=== PATIENT | female | born 1935 | race African-American/Black ===

== ENCOUNTER 2019-09-20 20:09 | Inpatient (IN) | payer OTHER ==
[~2019-09-20] VITALS: Ht 167.6 cm; Wt 72.4 kg
[2019-09-20 22:13] LABS: Basophils # (auto) 0 10 ^3/uL (0-0.2); Basophils % (auto) 0.3 % (0.0-2.0); Eosinophils # (auto) 0.2 10 ^3/uL (0-0.8); Eosinophils % (auto) 2.4 % (0.0-7.0); Hematocrit 39.2 % (36.0-46.0); Hemoglobin 13.1 g/dL (12.2-16.2); Lymphocytes # (auto) 0.8 10 ^3/uL (0.4-5.4); Lymphocytes % (auto) 12.1 % (10.0-50.0); Mean Corpuscular Hemoglobin 27.7 pg (28.0-32.0); Mean Corpuscular Hgb Conc. 33.3 g/dL (32.0-36.0); Mean Corpuscular Volume 83.1 fL (80.0-100.0); Monocytes # (auto) 0.5 10 ^3/uL (0-1.3); Monocytes % (auto) 7.8 % (0.0-12.0); Neutrophils # (auto) 5.3 10 ^3/uL (1.6-8.6); Neutrophils % (auto) 77.4 % (37.0-80.0); Platelet Count (auto) 112 10^3/uL (140-450); Red Blood Cells 4.72 10^6/uL (4.0-5.20); White Blood Cell 6.8 10^3/uL (4.4-10.8)
[2019-09-20 22:15] LABS: INR 1.01 (0.9-1.15)
[2019-09-20 22:18] LABS: Chloride 108 mmol/L (98-107); Potassium 3.6 mmol/L (3.5-5.1); Sodium 141 mmol/L (136-145)
[2019-09-20 22:28] LABS: Alanine Aminotransferase 30 U/L (13-56); Albumin 3.5 g/dL (3.4-5.0); Alkaline Phosphatase 92 U/L (45-117); Anion Gap 2 (5-15); Aspartate Aminotransferase 21 U/L (15-37); BUN/Creatinine Ratio 20.2; Bilirubin, Total 0.5 mg/dL (0.2-1.0); Blood Urea Nitrogen 19 mg/dL (7-18); Carbon Dioxide 31 mmol/L (21-32); GFR African American 73 mL/min; GFR Non-African American 60 mL/min; Glucose 73 mg/dL (74-106); Magnesium 2.6 mg/dL (1.6-2.6); Total Protein 7.2 g/dL (6.4-8.2)
[2019-09-21 02:19] LABS: Urine Bacteria FEW /hpf (None Seen); Urine Blood Negative /uL (Negative); Urine Hyaline Cast FEW /lpf (0 - 2); Urine Specific Gravity 1.023 (1.001-1.035); Urine WBC 16 /hpf (0 - 5)
[2019-09-21] MEDS ORDERED: ACETAMINOPHEN 325 MG TAB PO PRN (05:45)
[2019-09-21] MEDS ORDERED: MECLIZINE HCL 25 MG TAB PO PRN (05:45)
[2019-09-21] MEDS ORDERED: TEMAZEPAM 15 MG CAP PO PRN (05:45)
[2019-09-21] MEDS ORDERED: ONDANSETRON HCL 4 MG/2 ML VIAL IV PRN (05:45)
[2019-09-21] MEDS: levoFLOXacin 500MG 100 ML IV SCH (08:05)
--- NOTE | 2019-09-21 09:05 | NUR ---
MS admit from ER KAVITA, RELLA admitted to tele/MS after SBAR received. Patient oriented to EMMA CONTRERAS RN primary RN, unit, room, bed, and unit policies regarding patient care and visiting hours. Patient is awake, alert and oriented x4. No signs or symptoms of distress noted at this time. Patient denies pain at this time. Patient is on room air, respirations even and unlabored. Reviewed plan of care with patient, patient verbalized understanding. Bed in low and locked position, call light within reach, bed alarm on for safety. Will continue to monitor Q1 hour and PRN.
[2019-09-21] MEDS: ENOXAPARIN SOD 40 MG/0.4 ML SYRINGE SC SCH (10:00)
[2019-09-21 10:07] VITALS: BP 134/68
[2019-09-21] MEDS: FAMOTIDINE 20 MG TAB PO SCH ×2 (10:11→22:17)
[2019-09-21] MEDS: GABAPENTIN 300 MG CAP PO SCH ×2 (10:11→22:17)
[2019-09-21] MEDS: TRIAMTERENE/HCTZ 37.5/25 MG CAP/TAB PO SCH (10:12)
[2019-09-21] MEDS ORDERED: LATA0.0019 EACHEYE (10:26)
[2019-09-21] MEDS ORDERED: GABA300C10 PO (10:26)
[2019-09-21] MEDS ORDERED: TRIATAB3 PO (10:26)
[2019-09-21 12:00] VITALS: BP 131/66
--- NOTE | 2019-09-21 14:56 | NUR ---
Dr. Van at nurse station Discussing plan of care with this RN. Patient is a possible discharge home tomorrow with home health. Will continue to monitor Q1 hour and PRN.
--- NOTE | 2019-09-21 15:20 | NUR ---
Patient ambulating around unit with PT.
[2019-09-21 17:00] VITALS: BP 129/83
--- NOTE | 2019-09-21 19:10 | NUR ---
Closing Note Report given to sandwich board carrier RN. No signs or symptoms of distress noted at this time.
--- NOTE | 2019-09-21 19:40 | NUR ---
Opening Shift Note Assumed care of patient, awake, AAOx4. No S/S of distress/SOB or pain. On room air and ambulatory with standby assist. Commode at bedside. Bed in lowest locked position, side rails up x2, call light within reach. Instructed on POC and to call for assist PRN, will continue to monitor for changes Q1hr and PRN.
[2019-09-21 20:00] VITALS: BP 101/57
[2019-09-21 22:00] VITALS: BP 101/57
[2019-09-22 05:00] VITALS: BP 98/57
[2019-09-22 06:14] LABS: Basophils # (auto) 0 10 ^3/uL (0-0.2); Basophils % (auto) 0.3 % (0.0-2.0); Eosinophils # (auto) 0.2 10 ^3/uL (0-0.8); Eosinophils % (auto) 3.9 % (0.0-7.0); Hematocrit 40.3 % (36.0-46.0); Hemoglobin 13.4 g/dL (12.2-16.2); Lymphocytes % (auto) 22.2 % (10.0-50.0); Mean Corpuscular Hemoglobin 27.6 pg (28.0-32.0); Mean Corpuscular Hgb Conc. 33.3 g/dL (32.0-36.0); Monocytes # (auto) 0.4 10 ^3/uL (0-1.3); Monocytes % (auto) 9.5 % (0.0-12.0); Neutrophils # (auto) 2.9 10 ^3/uL (1.6-8.6); Neutrophils % (auto) 64.1 % (37.0-80.0); Platelet Count (auto) 100 10^3/uL (140-450); Red Blood Cells 4.85 10^6/uL (4.0-5.20); Red Cell Distribution Width 15.2 % (11.8-14.3); White Blood Cell 4.5 10^3/uL (4.4-10.8)
[2019-09-22 06:18] LABS: BUN/Creatinine Ratio 21.9; Calcium 9.6 mg/dL (8.5-10.1); Potassium 4.3 mmol/L (3.5-5.1)
[2019-09-22] MEDS: levoFLOXacin 500MG 100 ML IV SCH (08:19)
[2019-09-22 09:00] VITALS: BP 112/64
[2019-09-22] MEDS: ENOXAPARIN SOD 40 MG/0.4 ML SYRINGE SC SCH (10:22)
[2019-09-22] MEDS: TRIAMTERENE/HCTZ 37.5/25 MG CAP/TAB PO SCH (10:22)
[2019-09-22] MEDS: FAMOTIDINE 20 MG TAB PO SCH (10:22)
[2019-09-22] MEDS: GABAPENTIN 300 MG CAP PO SCH (10:22)
--- NOTE | 2019-09-22 11:00 | NUR ---
assessment Patient is a 83 year old female who is answering appropriately. Prior to admission patient lived home with family and functioned with assistance. Per patient she will return home to her prior living arrangements post discharge and family will transport her home. Patient informed me her grandson Gideon is her caregiver. Patients PCP is Dr Beckofrd. Patient has a fww, rollator, and bedside commode for home use. Patient has a ss consult and Nissa GUTIERREZ will satisfy order. I informed patient she has a right to speak to a social insurance analyst regarding all care. I informed patient she has a right to participate in any and all discharge planning. Patient does not have a POA and advanced directive. I have offered patient information on POA and advanced directives. I informed the patient the advantages and benefits of having an Advanced Directive. Patient verbalized understanding and agreed to discharge plan. Addendum: 09/22/19 at 1600 by Muna KEYES Amended: Links added.
--- NOTE | 2019-09-22 11:20 | NUR ---
at bedside MD Van at bedside, aware of patient's status. New orders received for dc home and HH service. Will dc as ordered pending setting up of HH.
[2019-09-22] MEDS ORDERED: CIPR-173 PO (11:23)
[2019-09-22 12:19] VITALS: BP 112/64
[2019-09-22 13:00] VITALS: BP 94/60
--- NOTE | 2019-09-22 13:23 | NUR ---
Social Service consult regarding starting service with [facility]. Pt is new to this Home Health. The service will begin upon discharge.. [facility] contacted and information faxed to [facility]. The information was received and services to resume upon discharge. Will notify covering nurse and KATHY II of the above.
--- NOTE | 2019-09-22 14:32 | NUR ---
I faxed home health order to [facility]-requesting authorization for [facility].
--- NOTE | 2019-09-22 16:48 | NUR ---
Discharge instructions given as ordered to patient, and after patient's consent, daughter Sally at bedside. Encourage to follow up with PMD as instructed. All questions and concerns addressed. Patient and daughter verbalized understanding. Medication reconciliation form completed and copy given to patient. Home medications held in Pharmacy returned to patient. IV removed with catheter intact, pressure dressing applied. Patient and daughter notified that HH service is with [facility] and service will start 24-4hrs after dc. Patient's daughter provided with phone number to [facility]. Patient taken to vehicle via wheelchair with all personal belongings, accompanied by staff and family member. No distress noted at time of departure.
[2019-09-22 17:00] VITALS: BP 117/73
== END 2019-09-22 17:10 | disposition home or self-care (01) | DRG 689 ==
LOC: EDBD 20:09 → ER 20:17 → OVERFLOW 20:18 → CENTRAL 09-21 09:54
PROVIDERS: ADMIT Nurse Practitioner; ATTEND Hospitalist
DX: N39.0 Urinary tract infection, site not specified (principal); J18.9 Pneumonia, unspecified organism; J44.9 Chronic obstructive pulmonary disease, unspecified; Z85.118 Personal history of other malignant neoplasm of bronchus and lung
CPT/HCPCS: 36415; 70450; 71045; 80048; 80053; 81001; 83735; 83880; 84484; 85025; 85610; 85730; 87086; 87804; 93005; 96365; 96372; 97116; 97163; 97530; G0378; J1956

== ENCOUNTER 2024-05-15 20:08 | Inpatient (IN) | payer OTHER ==
[~2024-05-15] VITALS: Ht 157.5 cm; Wt 62.9 kg
[~2024-05-15 20:08] MED LIST: CIPR-173 PO; GABA-1250 PO; LATA0.008 EACHEYE; TRIATAB3 PO
--- NOTE | 2024-05-15 20:39 | ED.PDOC ---
History of Present Illness HPI Comments 88 year old female came to ER via EMS due to weakness. Patient has history of COPD and lung cancer, has been on home oxygen at 2lpm. For the past 2 weeks, progressive generalized weakness. Tested negative for COVID, and patient was started on Azithromycin. Patient also complaining of shortness of breath and pa inful urination. Was noted to be saturating at 86% at 2lpm on scene Chief Complaint: General Weakness Time Seen by MD: 20:39 Reviewed Notes: Nurses Notes, Embroiderer Notes Allergies: Coded Allergies: NO KNOWN ALLERGIES (Unverified , 09/20/19) Home Meds Active Scripts Ciprofloxacin Hcl (Cipro) 500 Mg Tab, 1 TAB PO BID, #10 TAB Prov:STEVE TRUJILLO MD 09/22/19 Reported Medications Latanoprost (LATANOPROST) 0.005 % Brenda, 1 DROP EACHEYE QPM, #7.5 ML 3 Refills 09/21/19 Triamterene & Hydrochlorothiaz (Maxzide-25) Tab, 1 TAB PO DAILY, #30 TAB 5 Refills 09/21/19 Gabapentin (Gabapentin) 300 Mg Cap, 300 MG PO Q8HP PRN for neuropathy for 30 Days, MG 09/21/19 Information Source: Patient, Emergency Med Personnel Mode of Arrival: Ambulatory Severity: Moderate Timing: Days Duration: Since onset Prehospital treatment: None Past Medical History PAST MEDICAL HISTORY: Cancer (lung), COPD Surgical History: Denies all surgeries LABORER PIPELINE History: Denies all LABORER PIPELINE Hx Family History Family History: Reviewed,noncontributory to illness Social History Smoker: Non-Smoker Alcohol: Denies ETOH Use Drugs: Denies Drug Use Lives In: Home Constitutional: reports: fatigue, weakness; denies: chills, diaphoresis, fever, malaise, sweats, others EENTM: denies: blurred vision, double vision, ear bleeding, ear discharge, ear drainage, ear pain, ear ringing, eye pain, eye redness, hearing loss, mouth pain, mouth swelling, nasal discharge, nose bleeding, nose congestion, nose pain, photophobia, tearing, throat pain, throat swelling, voice changes, others Respiratory: reports: SOB at rest, shortness of breath, SOB with excertion; denies: cough, hemoptysis, orthopnea, stridor, wheezing, others Cardiovascular: denies: chest pain, dizzy spells, diaphoresis, Dyspnea on exertion, edema, irregular heart beat, left arm pain, lightheadedness, palpitations, PND, syncope, others Gastrointestinal: denies: abdomen distended, abdominal pain, blood streaked bowels, constipated, diarrhea, dysphagia, difficulty swallowing, hematemesis, melena, nausea, poor appetite, poor fluid intake, rectal bleeding, rectal pain, vomiting, others Genitourinary: reports: dysuria; denies: abnormal vagina bleeding, burning, dyspareunia, flank pain, frequency, hematuria, incontinence, pain, , vagina discharge, urgency, others Neurological: denies: dizziness, fainting, headache, left sided numbness, left sided weakness, numbness, paresthesia, pre-existing deficit, right sided numbness, right sided weakness, seizure, speech problems, tingling, tremors, wea kness, others Musculoskeletal: denies: back pain, gout, joint pain, joint swelling, muscle pain, muscle stiffness, neck pain, others Integumetry: denies: bruises, change in color, change in hair/nails, dryness, l aceration, lesions, lumps, rash, wounds, others Allergic/Immunocompromised: denies: Difficulty Healing, Frequent Infections, Hives, Itching, others Hematologic/Lymphatic: denies: anemia, blood clots, easy bleeding, easy bruising, swollen glands, others Endocrine: denies: excessive hunger, excessive sweating, excessive thirst, excessive urination, flushing, intolerance to cold, intolerance to heat, unexplained weight gain, unexplained weight loss, others Psychiatric: denies: anxiety, bipolar disorder, depression, hopeless, panic disorder, schizophrenia, sleepless, suicidal, others Physical Exam General Appearance: No Apparent Distress, Normal HEENT: Normal ENT Inspection, Pharynx Normal, TMs Normal Neck: Full Range of Motion, Non-Tender, Normal, Normal Inspection Respiratory: Chest Non-Tender, Lungs Clear, No Accessory Muscle Use, No Respiratory Distress, Normal Breath Sounds Cardiovascular: No Edema, No JVD, No Murmur, No Gallop, Normal Peripheral Pulses, Regular Rate/Rhythm Breast Exam: Deferred Gastrointestinal: No Organomegaly, Non Tender, No Pulsatile Mass, Normal Bowel Sounds, Soft Genitalia: Deferred Pelvic: Deferred Rectal: Deferred Extremities: No calf tenderness, Normal capillary refill, Normal inspection, Normal range of motion, Non-tender, No pedal edema Musculoskeletal : Apperance: Normal Neurologic: Alert, designer writer II-XII nml as Tested, No Motor Deficits, Normal Affect, Normal Mood, No Sensory Deficits Cerebellar Function: Normal Reflexes: Normal Skin: Dry, Normal Color, Warm Lymphatic: No Adenopathy Was a procedure done? Was a procedure done?: No Differential Dx Considerations may include: anemia, electrolyte imbalance, COPD, UTI, sepsis X-Ray, Labs, Meds, VS Vital Signs Date Time Temp Pulse Resp B/P (MAP) Pulse Ox O2 Delivery O2 Flow Rate FiO2 05/16/24 05:00 107 22 111/59 (76) 99 05/16/24 03:00 114 17 119/65 (83) 95 05/16/24 01:00 123 21 120/66 (84) 96 05/15/24 23:19 118 24 93 Nasal Cannula* 2 28 05/15/24 23:00 118 24 125/65 (85) 93 05/15/24 21:01 98.8 115 20 119/63 (81) 100 98.8 05/15/24 20:14 123 05/15/24 20:12 98.3 120 22 151/79 (103) 100 Lab Test 05/15/24 20:43 Range/Units White Blood Count 15.9 H 4.4-10.8 10^3/uL Red Blood Count 4.87 4.0-5.20 10^6/uL Hemoglobin 11.8 L 12.2-16.2 g/dL Hematocrit 36.3 36.0-46.0 % Mean Corpuscular Volume 74.4 L 80.0-100.0 fL Mean Corpuscular Hemoglobin 24.1 L 28.0-32.0 pg Mean Corpuscular Hemoglobin Concent 32.4 32.0-36.0 g/dL Red Cell Distribution Width 15.7 H 11.8-14.3 % Platelet Count 180 140-450 10^3/uL Mean Platelet Volume 10.0 6.9-10.8 fL Neutrophils (%) (Auto) 88.5 H 37.0-80.0 % Lymphocytes (%) (Auto) 2.6 L 10.0-50.0 % Monocytes (%) (Auto) 8.8 0.0-12.0 % Eosinophils (%) (Auto) 0.0 0.0-7.0 % Basophils (%) (Auto) 0.1 0.0-2.0 % Neutrophils # (Auto) 14.1 H 1.6-8.6 10 ^3/uL Lymphocytes # (Auto) 0.4 0.4-5.4 10 ^3/uL Monocytes # (Auto) 1.4 H 0-1.3 10 ^3/uL Eosinophils # (Auto) 0 0-0.8 10 ^3/uL Basophils # (Auto) 0 0-0.2 10 ^3/uL Nucleated Red Blood Cells 0.2 % Sodium Level 129 L 136-145 mmol/L Potassium Level 3.8 3.5-5.1 mmol/L Chloride Level 94 L 98-107 mmol/L Carbon Dioxide Level 31 20-31 mmol/L Anion Gap 4 L 5-15 Blood Urea Nitrogen 13 9-23 mg/dL Creatinine 0.60 0.550-1.02 mg/dL Glomerular Filtration Rate Calc 86 >90 mL/min BUN/Creatinine Ratio 21.7 H 10.0-20.0 Serum Glucose 126 H 74-106 mg/dL Calcium Level 10.2 8.7-10.4 mg/dL Current Medications Medications (Trade) Dose Ordered Sig/Erica Route Start Time Stop Time Status Last Admin Sodium Chloride 1,000 ml @ 1,000 mls/hr Q1H ONCE IV 05/15/24 23:30 05/16/24 00:29 DC 05/15/24 23:38 Time of 1ST Reevaluation: 20:34 Reevaluation 1ST: Unchanged Patient Education/Counseling: Diagnosis, Treatment Family Education/Counseling: No Family Present Departure 1 Departure Time of Disposition: 05:24 (Patient presented with chest pain that was concerning for possible STEMI, ACS, PE, Pneumonia, Muscle Strain, COPD, Dissecti on. Data: 1. I ordered and reviewed the result of at least 3 labs including a CBC, BMP, and Troponin. 2. I independently interpreted the following tests: EKG which shows sinus arrhythmia and Chest X-ray which shows went out right lung.Risk:This patient has a high risk of morbidity due to further diagnostic testing or treatment and may suffer from an acute cardiac or respiratory dis order. Workup reveals likely lung cancer with bronchial compression. and patient should be admitted for further workup and possible expert consultation. ) Impression: Primary Impression: Shortness of breath Additional Impressions: Weakness Mass of right lung Disposition: ADMITTED INPATIENT Admit to: Med Surg Condition: Serious Critical Care Note Critical Care Time?: Yes Critical care comment: Acute shortness of breath Authorized and Performed by: Elías Whitaker MD Total critical care time: Approximately 44 minutes Due to a high probability of clinically significant, life threatening deterioration, the patient required my highest level of preparedness to intervene emergently and I personally spent this critical care time directly and personally managing the patient. This critical care time included obtaining a history; examining the patient; pulse oximetry; ordering and review of studies; arranging urgent treatment with development of a management plan; evaluation of patient's response to treatment; frequent reassessment; and, discussions with other providers. This critical care time was performed to assess and manage the high probability of imminent, life-threatening deterioration that could result in multi-organ failure. It was exclusive of separately billable procedures and treating other patients and teaching time. Please see my other sections and the rest of the note for further information on patient assessment and treatment. Stability Stability form required: No Heart Score Heart Score: Heart Score Response (Comments) Value History N/A 0 EKG N/A 0 Age N/A 0 Risk Factors N/A 0 Troponin N/A 0 Total 0 I personally scribed for ELÍAS WHITAKER MD ([email or web address]) on 05/15/24 at 20:39. Electronically submitted by Manjeet Medellin ([email or web address]). I personally scribed for ELÍAS WHITAKER MD ([email or web address]) on 05/15/24 at 20:40. Electronically submitted by Manjeet Medellin ([email or web address]). ELÍAS WHITAKER MD May 15, 2024 20:39
[2024-05-15 21:06] LABS: Basophils # (auto) 0 10 ^3/uL (0-0.2); Eosinophils # (auto) 0 10 ^3/uL (0-0.8); Mean Corpuscular Volume 74.4 fL (80.0-100.0); Monocytes # (auto) 1.4 10 ^3/uL (0-1.3); Neutrophils % (auto) 88.5 % (37.0-80.0); Red Cell Distribution Width 15.7 % (11.8-14.3)
--- NOTE | 2024-05-15 21:07 | DVH ---
EXAM: XY CHEST PORTABLE TECHNIQUE: Single frontal chest radiograph CLINICAL HISTORY: weakness COMPARISON: CHEST PORTABLE on DOS: 09/20/19 Findings/Impression: Frontal chest radiograph demonstrates no acute osseous or superficial soft tissue abnormalities. The trachea is midline. The cardiac silhouette and mediastinum are within normal limits. Near complete right lung atelctasis. Possible large right pleural effusion. An underlying mass or sup erimposed infectious process is not excluded. No pneumothorax.
[2024-05-15 21:08] LABS: Basophils % (auto) 0.1 % (0.0-2.0); Hematocrit 36.3 % (36.0-46.0); Hemoglobin 11.8 g/dL (12.2-16.2); Lymphocytes # (auto) 0.4 10 ^3/uL (0.4-5.4); Lymphocytes % (auto) 2.6 % (10.0-50.0); Mean Corpuscular Hemoglobin 24.1 pg (28.0-32.0); Mean Corpuscular Hgb Conc. 32.4 g/dL (32.0-36.0); Monocytes % (auto) 8.8 % (0.0-12.0); Neutrophils # (auto) 14.1 10 ^3/uL (1.6-8.6); Nucleated Red Blood Cells % 0.2 %; Platelet Count (auto) 180 10^3/uL (140-450); Red Blood Cells 4.87 10^6/uL (4.0-5.20); White Blood Cell 15.9 10^3/uL (4.4-10.8)
[2024-05-15 21:13] LABS: Chloride 94 mmol/L (98-107); Potassium 3.8 mmol/L (3.5-5.1); Sodium 129 mmol/L (136-145)
[2024-05-15 21:15] LABS: Anion Gap 4 (5-15); Calcium 10.2 mg/dL (8.7-10.4); Carbon Dioxide 31 mmol/L (20-31)
[2024-05-15 21:20] LABS: BUN/Creatinine Ratio 21.7 (10.0-20.0); Blood Urea Nitrogen 13 mg/dL (9-23); Glucose 126 mg/dL (74-106)
[2024-05-15 23:19] VITALS: PULSE 118; RESP 24; O2SAT 93
[2024-05-15] MEDS: SODIUM CHLORIDE 0.9% 1,000 ML IV ONE (23:38)
--- NOTE | 2024-05-15 23:43 | ECG ---
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
[2024-05-15] MEDS: IOHEXOL 300 MG/ML 100ML BOTTLE IJ ONE (23:58)
[2024-05-16] VITALS (8 sets, daily range): BP systolic 106–126; BP diastolic 47–70; PULSE 113–123; RESP 16–21; TEMP 97.9–98.6; O2SAT 95–100
--- NOTE | 2024-05-16 04:57 | DVH ---
Examination: CXICT CLINICAL INDICATION: better evaluate xray findings COMPARISON: None. CONTRAST USED: Intravenous. TECHNIQUE: A post contrast CT study of the chest is performed. CT scan done according to ALARA (As Low as Reasonably Achievable). Multiplanar reconstructions were obtained. FINDINGS: Lower neck and thyroid: The thyroid is heterogeneous in appearance with a few non-enhancing tiny nod ules in both lobes, the largest in the left lobe, measuring 1 cm posteriorly. Lungs and pleura: There are bilateral pleural effusions, larger on the right with compressive passiv e atelectasis of the lungs, extensive on the right with near complete atelectasis of the right lung e xcept parts of the right upper lobe, which are still aerated. There are areas of parenchymal breakdown, cavitation in the right upper lobe. There is a heterogeneo usly enhancing questionable mass in the right perihilar region, measuring 2.7 x 2 cm x 3 cm. It is c ausing narrowing of the right upper as well as the right bronchus intermedius. Mediastinum, Heart and great vessels: The trachea and the mainstem bronchi are normal. No significant mediastinal lymphadenopathy is detec saeid. There is a moderate sized pericardial effusion with maximum thickness of 1 cm. Atherosclerotic calcification is seen in the aorta and the coronary vessels. No aneurysmal dilatation of the aorta is seen. The pulmonary arteries caliber are unremarkable. Cardiac size appears normal. No obvious pericardial effusion. Liver: Unremarkable. Spleen: Visualized unremarkable. Gallbladder: Not visualized. Adrenal glands: There is a hypoenhancing left adrenal nodule, measuring 2 x 3 cm. Unremarkable right adrenal gland. Pancreas: Unremarkable. Kidneys: Visualized unremarkable. Osseous structures: Unremarkable. Degenerative changes with multilevel osteophytes. Chest wall and Axillae: Unremarkable. IMPRESSION: 1. Heterogeneously enhancing questionable right hilar region mass causing bronchial narrowing. 2. Additional features of bilateral pleural effusions, extensive on the right with compressive atele ctasis of the both lungs, severe on the right. 3. Cavitatory foci in the right upper lobe. 4. Left adrenal nodule. 5. Additional chronic and/or ancillary findings as described above. The constellation of findings i s highly questionable for neoplastic process. Recommend biopsy through bronchoscopic approach. 6. No evidence of acute or chronic pulmonary thromboembolism. Electronically Signed 05/16/2024 04:Hermes Guillen
[2024-05-16] MEDS ORDERED: MORPHINE SULFATE INJ 2 MG/ml SYRG IV PRN ×2 (08:00)
[2024-05-16] MEDS ORDERED: NITROGLYCERIN 0.4 MG SL TAB SL PRN (08:00)
--- NOTE | 2024-05-16 08:51 | DVHHP2 ---
EDI MARADIAGA PLASTERER SPOT 05/16/24 0851: History of Present Illness Reason for Visit: Generalized weakness History of Present Illness Information in this HPI is acquired with the assistance of the patient daughter was at the bedside. 88 year-old female with past medical history of [place], Oxygen dependent COPD, right pulmonary lobe cancer s/p lobectomy, Hypertension, DVT of a lower extremity (possibly right) on eliquis Presents with complaints of worsen ing generalized weakness x 2 week. Patient also endorses increased shortness of breath, BLE swelling and Dysuria. Patient recently had a PET scan, Which time she found out she had a recurrent Mass on the right lobe. Patient has been treated With oral antibiotics prescribed by her PCP For URI symptoms. When EMS encountered the patient, The patient was found to Have An oxygen saturation of 86% on 2 L nasal cannula. During the emergency department evaluation CBC: W15.9, H&H 11.8/36.8, PLT 180; Na129, 3.8,BUN 13, creatinine 0.60. CT Chest impression 1.Heterogeneously enhancing questionable right hilar region mass causing bronchial narrowing. 2. Additional features of bilateral pleural fusions. Extensive on the right with compressive Atelectasis of both lungs Severe on the right. Also reads Moderate sized pericardial effusion with maximum thickness of 1 cm. At her baseline the daughter states the patient is normally independent and able to care for herself. There are no complaints of fevers, chills, Chest pain, palpitations, Abdominal pain. Cardiovascular: HTN Pulmonary: COPD, Pneumonia Heme/Onc: Cancer Smoke: No ALCOHOL: none Drugs: None Lives: with Family Review of Systems Constitutional: Yes: Weakness, Malaise; No: Fever, Chills, Sweats, Other Eyes: No: Pain, Vision change, Conjunctivae inflammation, Eyelid inflammation, Other, Redness ENT: No: Ear pain, Ear discharge, Nose pain, Nose discharge, Nose congestion, Mouth pain, Mouth swelling, Throat pain, Throat swelling, Other Respiratory: Cough, Shortness of breath, SOB with excertion; No: Dry, Wheezing, Hemoptysis, Pleuritic Pain, Sputum, Wheezing, Other Cardiovascular: Edema; No: Chest Pain, Palpitations, Orthopnea, Paroxysmal Noc. Dyspnea, Lt Headedness, Other Gastrointestinal: No: Nausea, Vomiting, Abdominal Pain, Diarrhea, Constipation, Melena, Hematochezia, Other Genitourinary: No Dysuria, No Frequency, No Incontinence, No Hematuria, No Retention, No Other Musculoskeletal: No: other, neck pain, shoulder pain, arm pain, back pain, hand pain, leg pain, foot pain Skin: No: Rash, Lesions, Jaundice, Bruising, Other Neurological: No: Weakness, Numbness, Incoordination, Change in speech, Confusion, Seizures, Other Allergies: Coded Allergies: NO KNOWN ALLERGIES (Unverified , 09/20/19) Exam Vital Signs Vital Signs Date Time Temp Pulse Resp B/P (MAP) Pulse Ox O2 Delivery O2 Flow Rate FiO2 05/16/24 07:26 118 20 96 Nasal Cannula* 2 28 05/16/24 07:06 123/63 (83) 05/15/24 21:01 98.8 98.8 General Appearance: Alert, Oriented X3, Cooperative, moderate distress HEENT: Atraumatic, PERRLA, EOMI, Mucous membr. moist/pink Respiratory: Other (Diminished sounds right lower lobe, Crackles left lower lobe) Cardiovascular: Normal S1, Normal S2, Other (Sinus Tachycardia) Abdominal: Normal bowel sounds, Soft, No tenderness Extremities: No clubbing, No cyanosis, Other (BLE edema 2+) Skin: No rashes Neuro: Normal speech, Strength at 5/5 X4 ext Psych/Mental Status: Mental status NL, Mood NL Labs/Xrays Labs Test 05/15/24 20:43 Range/Units White Blood Count 15.9 H 4.4-10.8 10^3/uL Red Blood Count 4.87 4.0-5.20 10^6/uL Hemoglobin 11.8 L 12.2-16.2 g/dL Hematocrit 36.3 36.0-46.0 % Mean Corpuscular Volume 74.4 L 80.0-100.0 fL Mean Corpuscular Hemoglobin 24.1 L 28.0-32.0 pg Mean Corpuscular Hemoglobin Concent 32.4 32.0-36.0 g/dL Red Cell Distribution Width 15.7 H 11.8-14.3 % Platelet Count 180 140-450 10^3/uL Mean Platelet Volume 10.0 6.9-10.8 fL Neutrophils (%) (Auto) 88.5 H 37.0-80.0 % Lymphocytes (%) (Auto) 2.6 L 10.0-50.0 % Monocytes (%) (Auto) 8.8 0.0-12.0 % Eosinophils (%) (Auto) 0.0 0.0-7.0 % Basophils (%) (Auto) 0.1 0.0-2.0 % Neutrophils # (Auto) 14.1 H 1.6-8.6 10 ^3/uL Lymphocytes # (Auto) 0.4 0.4-5.4 10 ^3/uL Monocytes # (Auto) 1.4 H 0-1.3 10 ^3/uL Eosinophils # (Auto) 0 0-0.8 10 ^3/uL Basophils # (Auto) 0 0-0.2 10 ^3/uL Nucleated Red Blood Cells 0.2 % Sodium Level 129 L 136-145 mmol/L Potassium Level 3.8 3.5-5.1 mmol/L Chloride Level 94 L 98-107 mmol/L Carbon Dioxide Level 31 20-31 mmol/L Anion Gap 4 L 5-15 Blood Urea Nitrogen 13 9-23 mg/dL Creatinine 0.60 0.550-1.02 mg/dL Glomerular Filtration Rate Calc 86 >90 mL/min BUN/Creatinine Ratio 21.7 H 10.0-20.0 Serum Glucose 126 H 74-106 mg/dL Calcium Level 10.2 8.7-10.4 mg/dL Assessment/Plan Assessment/Plan Acute on chronic respiratory failure with hypoxia Right Pulmonary Lobe Mass Moderate to large Bilateral Pleural effusion Moderate pericardial effusion Hyponatremia Leukocytosis Hypertension Hx COPD Plan Admit telemetry Consult pulmonology. Bronchodilators. As needed supplemental O2 to maintain O2 saturation greater Than 93%. RT monitoring. Incentive spirometry. Interventional Radiology consult for Thoracentesis Cardiology consult. Echocardiogram. As needed an anti-10/5 for optimal BP management. Nephrology consult. Monitor sodium level, Review serum osmolality. Consult oncologist for continuity of care. Blood cultures, urine cultures, UA pending IV ABX. Gi ppx protonix / DVT ppx SCD. Hold eliquis for thoracentesis Plan was discussed in detail with the patient and the patient daughter at the bedside. Rn made aware. Plan discussed with: Patient, Daughter My Orders Orders - EDI MARADIAGA NP Procedure Category Date Status Time Admit ADMIT 05/16/24 Transmitted 07:46 Code Status CODE 05/16/24 Transmitted 07:46 Vital Signs NICKY 05/16/24 In Process 07:46 Review Orders With [facility] 05/16/24 In Process Adm. 07:46 Encourage Activity As [facility] 05/16/24 In Process Tolerate 07:46 Npo (Nothing By DIET 05/16/24 Transmitted Mouth) Diet Breakfast Oxygen By Face Mask RT 05/16/24 Transmitted 07:46 Docusate Sodium PHA 05/16/24 Logged Capsule (Colace 08:00 Acetaminophen Tablet PHA 05/16/24 Logged (Tylenol Tablet) 08:00 Notify Of Changes [facility] 05/16/24 In Process From Base 07:46 Advance Directive [facility] 05/16/24 In Process 07:46 Basic Metabolic Panel LAB 05/17/24 Verified 05:00 Basic Metabolic Panel LAB 05/18/24 Verified 05:00 Basic Metabolic Panel LAB 05/19/24 Verified 05:00 Basic Metabolic Panel LAB 05/20/24 Verified 05:00 Basic Metabolic Panel LAB 05/21/24 Verified 05:00 Urinalysis LAB 05/16/24 Transmitted 07:46 Complete Blood Count LAB 05/17/24 Verified 05:00 Complete Blood Count LAB 05/18/24 Verified 05:00 Complete Blood Count LAB 05/19/24 Verified 05:00 Complete Blood Count LAB 05/20/24 Verified 05:00 Complete Blood Count LAB 05/21/24 Verified 05:00 Urine Bacterial PENG 05/16/24 Transmitted Culture 07:46 Patient Condition ORDERS 05/16/24 Transmitted 07:46 Allergies [facility] 05/16/24 In Process 07:46 Hydrocodone-Acet PHA 05/16/24 Logged 5/325mg Tab ([place] 08:00 Ondansetron Hcl PHA 05/16/24 Logged (Zofran) 08:00 Morphine Sulfate PHA 05/16/24 Logged Injection 08:00 Nitroglycerin PHA 05/16/24 Transmitted Sublingual (Ntrostat 08:00 Morphine Sulfate PHA 05/16/24 Transmitted Injection 08:00 Stat Ekg For Chest [facility] 05/16/24 In Process Pain 07:46 Notify Of Changes [facility] 05/16/24 In Process From Base 07:46 Pattern Finisher For [facility] 05/16/24 In Process 24 Hours 07:46 Emergency Dysrhythmia [facility] 05/16/24 In Process Protocol 07:46 Rhythm Strips Once [facility] 05/16/24 In Process Every Shift 07:46 Oxygen By Nasal RT 05/16/24 Transmitted Cannula 07:46 *Consult CONS 05/16/24 Transmitted / 07:46 * Hematology/Oncology CONS 05/16/24 Transmitted Consult 07:46 Thoracentesis US 05/16/24 Transmitted 07:46 *[facility] CONS 05/16/24 Transmitted -[place] 07:46 Osmolality, Serum LAB 05/16/24 Transmitted 07:46 Bilat Lower Dvt US 05/16/24 Transmitted 07:46 Levofloxacin Levaquin PHA 05/16/24 Transmitted 10:00 Albuterol Medneb PHA 05/16/24 Transmitted (Ventolin Medneb) 08:00 Ipratropium Medneb PHA 05/16/24 Transmitted (Atrovent Medneb) 08:00 B-Type Natriuretic LAB 05/16/24 Transmitted Peptide 07:46 Echo 2d Mode Cardiac US 05/16/24 Transmitted DOP 07:46 * Cardiology Consult CONS 05/16/24 Transmitted 07:46 Date of Service: May 16, 2024 Billing Provider: ELLYN SOTELO MD Common Visit Codes: NOT BILLABLE ELLYN SOTELO MD 05/16/24 1739: Review of Systems Allergies: Coded Allergies: NO KNOWN ALLERGIES (Unverified , 09/20/19) Additional Comments Additional Comments Additional Comments Patient was seen and evaluated by me. I agree with the assessment and plan as outlined by my nurse practitioner. EDI MARADIAGA NP May 16, 2024 08:51 ELLYN SOTELO MD May 16, 2024 17:39
[2024-05-16 09:24] LABS: Urine Bacteria FEW /hpf (None Seen); Urine Blood Negative /uL (Negative); Urine Clarity Clear (Clear); Urine Color Yellow (Yellow); Urine Protein, UAD 1+ (Negative); Urine Urobilinogen Normal (Negative); Urine WBC 3 /hpf (0 - 5); Urine pH 6.5 (5.0-9.0)
[2024-05-16 09:31] LABS: Chloride 98 mmol/L (98-107); Potassium 3.9 mmol/L (3.5-5.1); Sodium 132 mmol/L (136-145)
[2024-05-16 09:32] LABS: Anion Gap 1 (5-15); Carbon Dioxide 33 mmol/L (20-31); INR 1.12 (0.9-1.15); Prothrombin Time 11.8 sec (9.3-11.8)
[2024-05-16 09:37] LABS: BUN/Creatinine Ratio 17.9 (10.0-20.0); Blood Urea Nitrogen 10 mg/dL (9-23); Glucose 105 mg/dL (74-106)
[2024-05-16] MEDS: ALBUTEROL SULF 2.5 MG/0.5ML(0.5%) NEB SOLN NEB PRN (10:04)
[2024-05-16] MEDS: IPRATROPIUM BROM 0.5 MG/2.5ML INH SOL NEB PRN (10:04)
--- NOTE | 2024-05-16 10:07 | DVH ---
CLINICAL HISTORY: leg swelling COMPARISON: None TECHNIQUE: Bilateral lower extremity venous duplex exam was performed. Grayscale, color flow, and spe ctral waveform analysis was performed. The deep veins of the lower extremity were evaluated for compr ession, phasic flow, and augmentation. FINDINGS: This examination demonstrates normal compression, augmentation, and phasic flow of both low er extremities. No evidence for echogenic thrombus within the common femoral, femoral, and popliteal veins. In addition, the calf veins demonstrated normal compression and color flow. IMPRESSION: There is no evidence for DVT in either lower extremity.
--- NOTE | 2024-05-16 10:12 | DVH ---
CLINICAL INFORMATION: 88 years old, Female; FLUID CHECK. TECHNIQUE: Grayscale sonographic imaging of the chest was performed to evaluate for pleural effusions . COMPARISON: CT chest dated 05/15/2024. FINDINGS: Bilateral pleural effusions demonstrated, right greater than left. Likely moderate on the r ight and small on the left. IMPRESSION: Bilateral pleural effusions.
[2024-05-16] MEDS: PANTOPRAZOLE 40 MG/10 ML VIAL INJ IV SCH (10:37)
--- NOTE | 2024-05-16 11:01 | DVHINCON2 ---
Date of service: May 16, 2024 History of Present Illness 88 year-old female with past medical history of [place], Oxygen dependent COPD, right pulmonary lobe cancer s/p lobectomy, Hypertension, DVT of a lower extremi ty (possibly right) on eliquis Presents with complaints of worsening generalized weakness x 2 week. Patient also endorses increased shortness of breath, BLE swelling and Dysuria. Patient recently had a PET scan, Which time she found out she had a recurrent Mass on the right lobe. Patient has been treated With oral antibiotics prescribed by her PCP For URI symptoms. When EMS encountered the patient, The patient was found to Have An oxygen saturation of 86% on 2 L nasal cannula. During the emergency department evaluation CBC: W15.9, H&H 11.8/36.8, PLT 180; Na129, 3.8,BUN 13, creatinine 0.60. CT Chest impression 1.Heterogeneously enhancing questionable right hilar region mass causing bronchial narrowing. 2. Additional features of bilateral pleural fusions. Exte nsive on the right with compressive Atelectasis of both lungs Severe on the right. Also reads Moderate sized pericardial effusion with maximum thickness of 1 cm. At her baseline the daughter states the patient is normally independent and able to care for herself. There are no complaints of fevers, chills, Chest pain, palpitations, Abdominal pain. Cardiovascular: HTN Pulmonary: COPD, Pneumonia Heme/Onc: Cancer Smoke: No ALCOHOL: none Drugs: None Lives: with Family Past Medical History reviewed Family History: Arthritis 19 CHILD Cardiovascular disease G8 MOTHER Diabetes mellitus 19 CHILD FH: cancer G8 FATHER FH: chronic renal failure 19 CHILD Allergies: Coded Allergies: NO KNOWN ALLERGIES (Unverified , 09/20/19) Home Meds Active Scripts Ciprofloxacin Hcl (Cipro) 500 Mg Tab, 1 TAB PO BID, #10 TAB Prov:STEVE TRUJILLO MD 09/22/19 Reported Medications Latanoprost (LATANOPROST) 0.005 % Brenda, 1 DROP EACHEYE QPM, #7.5 ML 3 Refills 09/21/19 Triamterene & Hydrochlorothiaz (Maxzide-25) Tab, 1 TAB PO DAILY, #30 TAB 5 Refills 09/21/19 Gabapentin (Gabapentin) 300 Mg Cap, 300 MG PO Q8HP PRN for neuropathy for 30 Days, MG 09/21/19 Current Medications Current Medications Medications (Trade) Dose Ordered Sig/Erica Route PRN Reason Start Time Stop Time Status Last Admin Docusate Sodium (Colace Capsule) 100 mg BIDPRN PRN PO FOR CONSTIPATION 05/16/24 08:00 Acetaminophen (Tylenol Tablet) 650 mg Q6HP PRN PO PAIN SCALE 1-3 OR TEMP>100.4 05/16/24 08:00 Acetaminophen/ Hydrocodone Bitart ([place] 5/325MG Tab) 1 tab Q4HP PRN PO MODERATE PAIN (4-6 PAIN SCALE) 05/16/24 08:00 Ondansetron HCl (Zofran) 4 mg Q4HP PRN IV NAUSEA / VOMITING 05/16/24 08:00 Morphine Sulfate 2 mg Q4HPRN PRN IV SEVERE PAIN (7-10 PAIN SCALE) 05/16/24 08:00 Nitroglycerin (Ntrostat Sublingual) 0.4 mg Q5MINP PRN SL FOR CHEST PAIN 05/16/24 08:00 Morphine Sulfate 2 mg Q30M PRN IV FOR CHEST PAIN 05/16/24 08:00 Levofloxacin/ Dextrose 100 ml @ 100 mls/hr DAILY IV 05/16/24 10:00 UNV Albuterol (Ventolin Medneb) 1.25 mg Q4HPRN PRN NEB SHORTNESS OF BREATH 05/16/24 08:00 05/16/24 10:04 Ipratropium [place] (Atrovent Medneb) 0.5 mg Q4HP PRN NEB SHORTNESS OF BREATH 05/16/24 08:00 05/16/24 10:04 Pantoprazole Sodium (Protonix) 40 mg DAILY IV 05/16/24 10:00 05/16/24 10:37 Review of Systems not obtaind Vital Signs Vital Signs Date Time Temp Pulse Resp B/P (MAP) Pulse Ox O2 Delivery O2 Flow Rate FiO2 05/16/24 10:10 113 20 100 05/16/24 10:04 Nasal Cannula 2.0 05/16/24 10:04 28 05/16/24 10:00 106/47 (66) 05/16/24 08:00 98.6 98.6 Labs/Diagnostic Data Labs Test 05/16/24 08:45 05/16/24 08:40 05/15/24 20:43 Range/Units Urine Color Yellow Yellow Urine Clarity Clear Clear Urine pH 6.5 5.0-9.0 Urine Specific [place] 1.050 H 1.001-1.035 Urine Protein 1+ H Negative Urine Ketones Negative Negative Urine Blood Negative Negative /uL Urine Nitrite Negative Negative Urine Bilirubin Negative Negative Urine Urobilinogen Normal Negative mg/dL Urine Leukocyte Esterase Negative Negative /uL Urine RBC 3 0 - 4 /hpf Urine WBC 3 0 - 5 /hpf Urine Squamous Epithelial Cells Few <5 /hpf Urine Bacteria Few H None Seen /hpf Urine Glucose Normal Normal mg/dL Prothrombin Time 11.8 9.3-11.8 sec Prothrombin Time INR 1.12 0.9-1.15 Sodium Level 132 L 136-145 mmol/L Potassium Level 3.9 3.5-5.1 mmol/L Chloride Level 98 98-107 mmol/L Carbon Dioxide Level 33 H 20-31 mmol/L Anion Gap 1 L 5-15 Blood Urea Nitrogen 10 9-23 mg/dL Creatinine 0.56 0.550-1.02 mg/dL Glomerular Filtration Rate Calc 87 >90 mL/min BUN/Creatinine Ratio 17.9 10.0-20.0 Serum Glucose 105 74-106 mg/dL Serum Osmolality 277 L 278-298 mOsm/kg Calcium Level 10.0 8.7-10.4 mg/dL B-Type Natriuretic Peptide 309.60 0-100 pg/mL White Blood Count 15.9 H 4.4-10.8 10^3/uL Red Blood Count 4.87 4.0-5.20 10^6/uL Hemoglobin 11.8 L 12.2-16.2 g/dL Hematocrit 36.3 36.0-46.0 % Mean Corpuscular Volume 74.4 L 80.0-100.0 fL Mean Corpuscular Hemoglobin 24.1 L 28.0-32.0 pg Mean Corpuscular Hemoglobin Concent 32.4 32.0-36.0 g/dL Red Cell Distribution Width 15.7 H 11.8-14.3 % Platelet Count 180 140-450 10^3/uL Mean Platelet Volume 10.0 6.9-10.8 fL Neutrophils (%) (Auto) 88.5 H 37.0-80.0 % Lymphocytes (%) (Auto) 2.6 L 10.0-50.0 % Monocytes (%) (Auto) 8.8 0.0-12.0 % Eosinophils (%) (Auto) 0.0 0.0-7.0 % Basophils (%) (Auto) 0.1 0.0-2.0 % Neutrophils # (Auto) 14.1 H 1.6-8.6 10 ^3/uL Lymphocytes # (Auto) 0.4 0.4-5.4 10 ^3/uL Monocytes # (Auto) 1.4 H 0-1.3 10 ^3/uL Eosinophils # (Auto) 0 0-0.8 10 ^3/uL Basophils # (Auto) 0 0-0.2 10 ^3/uL Nucleated Red Blood Cells 0.2 % Assessment lung mass sob hx of dvt large pleural effusion compressive atelectasis pericardial effusion Plan/Recommendation ct images reviewed , pericardial effusion noted, not impressive check echo for further assessment diuretics as needed thoracentesis as needed per specialist poor prognosis, Plan discussed with: Other (rn) ROGER VILLA MD May 16, 2024 11:01
--- NOTE | 2024-05-16 15:48 | DVHINCON2 ---
Date of service: May 16, 2024 Referring Physician [employer] WORK[employer] Reason for Consultation hyponatremia History of Present Illness 88-year-old female past medical history of COPD, lung CA status post lobectomy hypertension, DVT presents to the hospital complaining of shortness of breath and swelling nephrology consulted due to decreased serum sodium Past Medical History As above Allergies: Coded Allergies: NO KNOWN ALLERGIES (Unverified , 09/20/19) Home Meds Active Scripts Ciprofloxacin Hcl (Cipro) 500 Mg Tab, 1 TAB PO BID, #10 TAB Prov:STEVE TRUJILLO MD 09/22/19 Reported Medications Latanoprost (LATANOPROST) 0.005 % Brenda, 1 DROP EACHEYE QPM, #7.5 ML 3 Refills 09/21/19 Triamterene & Hydrochlorothiaz (Maxzide-25) Tab, 1 TAB PO DAILY, #30 TAB 5 Refills 09/21/19 Gabapentin (Gabapentin) 300 Mg Cap, 300 MG PO Q8HP PRN for neuropathy for 30 Days, MG 09/21/19 Current Medications Current Medications Medications (Trade) Dose Ordered Sig/Erica Route PRN Reason Start Time Stop Time Status Last Admin Docusate Sodium (Colace Capsule) 100 mg BIDPRN PRN PO FOR CONSTIPATION 05/16/24 08:00 Acetaminophen (Tylenol Tablet) 650 mg Q6HP PRN PO PAIN SCALE 1-3 OR TEMP>100.4 05/16/24 08:00 Acetaminophen/ Hydrocodone Bitart ([place] 5/325MG Tab) 1 tab Q4HP PRN PO MODERATE PAIN (4-6 PAIN SCALE) 05/16/24 08:00 Ondansetron HCl (Zofran) 4 mg Q4HP PRN IV NAUSEA / VOMITING 05/16/24 08:00 Morphine Sulfate 2 mg Q4HPRN PRN IV SEVERE PAIN (7-10 PAIN SCALE) 05/16/24 08:00 Nitroglycerin (Ntrostat Sublingual) 0.4 mg Q5MINP PRN SL FOR CHEST PAIN 05/16/24 08:00 Morphine Sulfate 2 mg Q30M PRN IV FOR CHEST PAIN 05/16/24 08:00 Albuterol (Ventolin Medneb) 1.25 mg Q4HPRN PRN NEB SHORTNESS OF BREATH 05/16/24 08:00 05/16/24 10:04 Ipratropium [place] (Atrovent Medneb) 0.5 mg Q4HP PRN NEB SHORTNESS OF BREATH 05/16/24 08:00 05/16/24 10:04 Pantoprazole Sodium (Protonix) 40 mg DAILY IV 05/16/24 10:00 05/16/24 10:37 Levofloxacin 50 ml @ 50 mls/hr DAILY IV 05/17/24 10:00 Family History: Arthritis 19 CHILD Cardiovascular disease G8 MOTHER Diabetes mellitus 19 CHILD FH: cancer G8 FATHER FH: chronic renal failure 19 CHILD Review of Systems Shortness of breath H&P Exam Vital Signs/I&O Vital Sign Date Time Temp Pulse Resp B/P (MAP) Pulse Ox O2 Delivery O2 Flow Rate FiO2 05/16/24 14:00 98.5 113 22 106/54 (71) 98 98.5 05/16/24 10:04 Nasal Cannula 2.0 05/16/24 10:04 28 Physical Exam Elderly malnourished female Frail-appearing Decreased inspiratory effort trace edema Labs/Diagnostic Data Labs/Diagnostic Data Laboratory Tests Test 05/16/24 08:45 05/16/24 08:40 05/15/24 20:43 Range/Units Urine Color Yellow Yellow Urine Clarity Clear Clear Urine pH 6.5 5.0-9.0 Urine Specific [place] 1.050 H 1.001-1.035 Urine Protein 1+ H Negative Urine Ketones Negative Negative Urine Blood Negative Negative /uL Urine Nitrite Negative Negative Urine Bilirubin Negative Negative Urine Urobilinogen Normal Negative mg/dL Urine Leukocyte Esterase Negative Negative /uL Urine RBC 3 0 - 4 /hpf Urine WBC 3 0 - 5 /hpf Urine Squamous Epithelial Cells Few <5 /hpf Urine Bacteria Few H None Seen /hpf Urine Glucose Normal Normal mg/dL Prothrombin Time 11.8 9.3-11.8 sec Prothrombin Time INR 1.12 0.9-1.15 Sodium Level 132 L 129 L 136-145 mmol/L Potassium Level 3.9 3.8 3.5-5.1 mmol/L Chloride Level 98 94 L 98-107 mmol/L Carbon Dioxide Level 33 H 31 20-31 mmol/L Anion Gap 1 L 4 L 5-15 Blood Urea Nitrogen 10 13 9-23 mg/dL Creatinine 0.56 0.60 0.550-1.02 mg/dL Glomerular Filtration Rate Calc 87 86 >90 mL/min BUN/Creatinine Ratio 17.9 21.7 H 10.0-20.0 Serum Glucose 105 126 H 74-106 mg/dL Serum Osmolality 277 L 278-298 mOsm/kg Calcium Level 10.0 10.2 8.7-10.4 mg/dL B-Type Natriuretic Peptide 309.60 0-100 pg/mL White Blood Count 15.9 H 4.4-10.8 10^3/uL Red Blood Count 4.87 4.0-5.20 10^6/uL Hemoglobin 11.8 L 12.2-16.2 g/dL Hematocrit 36.3 36.0-46.0 % Mean Corpuscular Volume 74.4 L 80.0-100.0 fL Mean Corpuscular Hemoglobin 24.1 L 28.0-32.0 pg Mean Corpuscular Hemoglobin Concent 32.4 32.0-36.0 g/dL Red Cell Distribution Width 15.7 H 11.8-14.3 % Platelet Count 180 140-450 10^3/uL Mean Platelet Volume 10.0 6.9-10.8 fL Neutrophils (%) (Auto) 88.5 H 37.0-80.0 % Lymphocytes (%) (Auto) 2.6 L 10.0-50.0 % Monocytes (%) (Auto) 8.8 0.0-12.0 % Eosinophils (%) (Auto) 0.0 0.0-7.0 % Basophils (%) (Auto) 0.1 0.0-2.0 % Neutrophils # (Auto) 14.1 H 1.6-8.6 10 ^3/uL Lymphocytes # (Auto) 0.4 0.4-5.4 10 ^3/uL Monocytes # (Auto) 1.4 H 0-1.3 10 ^3/uL Eosinophils # (Auto) 0 0-0.8 10 ^3/uL Basophils # (Auto) 0 0-0.2 10 ^3/uL Nucleated Red Blood Cells 0.2 % Assessment Hyponatremia in a hypervolemic patient b/l pleural effusion Mild pericardial effusion COPD Clinically patient is hypervolemic recommend to hold fluid Fluid restriction Diuretic therapy Obtain urinary Osm to rule out SIADH check TSH and uric acid Low-salt diet Supportive care for oxygen Plan discussed with: Patient ERICA GRACE MD May 16, 2024 15:48
[2024-05-16] MEDS: levoFLOXacin 500MG 100 ML IV ONE (16:50)
[2024-05-16] MEDS ORDERED: IVER3TAB PO (18:21)
[2024-05-16] MEDS ORDERED: FLUT1AER17 IN (18:21)
[2024-05-16] MEDS ORDERED: ALBU2TAB11 PO (18:21)
[2024-05-16] MEDS ORDERED: METH4TAB9 PO (18:21)
[2024-05-16] MEDS ORDERED: LEVO500T91 PO (18:21)
[2024-05-16] MEDS ORDERED: IPRIH INH (18:21)
[2024-05-16] MEDS ORDERED: AZIT-43 PO (18:21)
[2024-05-16] MEDS ORDERED: BUSP10TA90 PO (18:21)
[2024-05-16] MEDS ORDERED: APIX5TAB PO (18:21)
[2024-05-16] MEDS: FUROSEMIDE 20 MG TAB PO SCH (18:53)
--- NOTE | 2024-05-16 22:40 | DVHINCON2 ---
Date of service: May 16, [address] Rodriguez Reason for Consultation Right pleural effusion, lung mass History of Present Illness 88-year-old woman history of lung cancer, COPD, pleural effusion, chronic hypoxic respiratory failure, dependence on supplemental oxygen, on 2 liters/mi nute, who presented with generalized weakness. She was having progressive generalized weakness. She was being referred to higher level of care for bronchoscopy by outpatient leaf fat scraper. She also notes shortness of breath and painful urination. She was found to be hypoxic with a pulse oximetry reading of 86% on 2 liters/minute by EMS. Pulmonary consultation is called for pleural effusions and lung mass. Review of systems: 14 point review of systems is negative unless otherwise noted above. Past medical history: Lung cancer, COPD Past surgical history: Denies all surgeries Medications: Reviewed Allergies: No known drug allergies. Family history: No family history of premature CAD. No family history of lung disease Social history: Nonsmoker. No alcohol or illicit drug use. Lives at home. Family History: Arthritis 19 CHILD Cardiovascular disease G8 MOTHER Diabetes mellitus 19 CHILD FH: cancer G8 FATHER FH: chronic renal failure 19 CHILD Allergies: Coded Allergies: NO KNOWN ALLERGIES (Unverified , 09/20/19) Home Meds Active Scripts Ciprofloxacin Hcl (Cipro) 500 Mg Tab, 1 TAB PO BID, #10 TAB Prov:STEVE TRUJILLO MD 09/22/19 Reported Medications Ivermectin (Ivermectin) 3 Mg Tab, 3 MG PO DAILY, TAB 05/16/24 Methylprednisolone (Methylprednisolone) 4 Mg Tab, 4 MG PO for 6 Days, MG 05/16/24 Azithromycin (Azithromycin) 250 Mg Tab, 250 MG PO DAILY, #4 05/16/24 Albuterol Sulfate (Albuterol Sulfate) 2 Mg Tab, 2 MG PO Q6HP PRN for FOR COUGH, MG 05/16/24 Apixaban Base (ELIQUIS) 5 Mg Tab, 5 MG PO BID, TAB 05/16/24 Buspirone Hcl (Buspirone Hcl) 10 Mg Tab, 10 MG PO Q12HR for 30 Days, MG 05/16/24 Levofloxacin Hemihydrate (LEVOFLOXACIN) 500 Mg Tab, 500 MG PO DAILY for 7 Days, MG 05/16/24 Ipratropium [place] Hfa (Atrovent Hfa) 17 Mcg Aer, 2 PUFF INH QID, #12.9 GRAMS 5 Refills 05/16/24 Fhhohmvjjkr-Cohkdivfmhve-Brhzb (Trelegy Ellipta 200-62.5-25 Mcg/INH) 1 Aer Aer, 1 AER IN DAILY, AER 05/16/24 Latanoprost (LATANOPROST) 0.005 % Brenda, 1 DROP EACHEYE QPM, #7.5 ML 3 Refills 09/21/19 Triamterene & Hydrochlorothiaz (Maxzide-25) Tab, 1 TAB PO DAILY, #30 TAB 5 Refills 09/21/19 Gabapentin (Gabapentin) 300 Mg Cap, 300 MG PO Q8HP PRN for neuropathy for 30 Days, MG 09/21/19 Current Medications Current Medications Medications (Trade) Dose Ordered Sig/Erica Route PRN Reason Start Time Stop Time Status Last Admin Docusate Sodium (Colace Capsule) 100 mg BIDPRN PRN PO FOR CONSTIPATION 05/16/24 08:00 Acetaminophen (Tylenol Tablet) 650 mg Q6HP PRN PO PAIN SCALE 1-3 OR TEMP>100.4 05/16/24 08:00 Acetaminophen/ Hydrocodone Bitart (Tabor 5/325MG Tab) 1 tab Q4HP PRN PO MODERATE PAIN (4-6 PAIN SCALE) 05/16/24 08:00 Ondansetron HCl (Zofran) 4 mg Q4HP PRN IV NAUSEA / VOMITING 05/16/24 08:00 Morphine Sulfate 2 mg Q4HPRN PRN IV SEVERE PAIN (7-10 PAIN SCALE) 05/16/24 08:00 Nitroglycerin (Ntrostat Sublingual) 0.4 mg Q5MINP PRN SL FOR CHEST PAIN 05/16/24 08:00 Morphine Sulfate 2 mg Q30M PRN IV FOR CHEST PAIN 05/16/24 08:00 Albuterol (Ventolin Medneb) 1.25 mg Q4HPRN PRN NEB SHORTNESS OF BREATH 05/16/24 08:00 05/16/24 19:09 Ipratropium [place] (Atrovent Medneb) 0.5 mg Q4HP PRN NEB SHORTNESS OF BREATH 05/16/24 08:00 05/16/24 19:09 Pantoprazole Sodium (Protonix) 40 mg DAILY IV 05/16/24 10:00 05/16/24 10:37 Levofloxacin 50 ml @ 50 mls/hr DAILY IV 05/17/24 10:00 Furosemide (Lasix Tablet) 20 mg BIDD PO 05/16/24 18:00 05/16/24 18:53 Alprazolam (Xanax Tablet) 0.25 mg TIDPRN PRN PO ANXIETY 05/16/24 18:00 Vital Signs Vital Signs Date Time Temp Pulse Resp B/P (MAP) Pulse Ox O2 Delivery O2 Flow Rate FiO2 05/16/24 20:00 113 16 Nasal Cannula* 2 28 05/16/24 19:10 95 05/16/24 18:53 124/70 05/16/24 18:37 97.9 97.9 Physical Exam Gen.: Patient lying in bed in no apparent distress. On supplemental oxygen. Head: Normocephalic, atraumatic Eyes: EOMI/PERRLA. Ears: Normal hearing. Normal anatomy. Neck/trachea: Trachea midline, supple. Nose: Normal external anatomy. Mouth: Moist mucous membranes. Chest: Fair air entry in left lung field. No wheezing or rhonchi. Dullness to percussion in right lung field. Cardio vascular: Positive S1, positive S2. Regular rate and rhythm. Abdomen: Positive bowel sounds in all 4 quadrants. Soft, non-tender, non- distended. : Deferred. Rectal: Deferred Skin: Warm, dry. Extremities: 2+ radial pulses bilaterally. No lower extremity edema. Neuro: Awake, alert, oriented x3. No gross motor or sensory deficits. Cranial nerves II through XII intact. Gait not assessed. Labs/Diagnostic Data Labs Test 05/16/24 08:45 05/16/24 08:40 05/15/24 20:43 Range/Units Urine Color Yellow Yellow Urine Clarity Clear Clear Urine pH 6.5 5.0-9.0 Urine Specific [place] 1.050 H 1.001-1.035 Urine Protein 1+ H Negative Urine Ketones Negative Negative Urine Blood Negative Negative /uL Urine Nitrite Negative Negative Urine Bilirubin Negative Negative Urine Urobilinogen Normal Negative mg/dL Urine Leukocyte Esterase Negative Negative /uL Urine RBC 3 0 - 4 /hpf Urine WBC 3 0 - 5 /hpf Urine Squamous Epithelial Cells Few <5 /hpf Urine Bacteria Few H None Seen /hpf Urine Osmolality 618 mOsm/kg Urine Glucose Normal Normal mg/dL Prothrombin Time 11.8 9.3-11.8 sec Prothrombin Time INR 1.12 0.9-1.15 Sodium Level 132 L 136-145 mmol/L Potassium Level 3.9 3.5-5.1 mmol/L Chloride Level 98 98-107 mmol/L Carbon Dioxide Level 33 H 20-31 mmol/L Anion Gap 1 L 5-15 Blood Urea Nitrogen 10 9-23 mg/dL Creatinine 0.56 0.550-1.02 mg/dL Glomerular Filtration Rate Calc 87 >90 mL/min BUN/Creatinine Ratio 17.9 10.0-20.0 Serum Glucose 105 74-106 mg/dL Serum Osmolality 277 L 278-298 mOsm/kg Calcium Level 10.0 8.7-10.4 mg/dL B-Type Natriuretic Peptide 309.60 0-100 pg/mL White Blood Count 15.9 H 4.4-10.8 10^3/uL Red Blood Count 4.87 4.0-5.20 10^6/uL Hemoglobin 11.8 L 12.2-16.2 g/dL Hematocrit 36.3 36.0-46.0 % Mean Corpuscular Volume 74.4 L 80.0-100.0 fL Mean Corpuscular Hemoglobin 24.1 L 28.0-32.0 pg Mean Corpuscular Hemoglobin Concent 32.4 32.0-36.0 g/dL Red Cell Distribution Width 15.7 H 11.8-14.3 % Platelet Count 180 140-450 10^3/uL Mean Platelet Volume 10.0 6.9-10.8 fL Neutrophils (%) (Auto) 88.5 H 37.0-80.0 % Lymphocytes (%) (Auto) 2.6 L 10.0-50.0 % Monocytes (%) (Auto) 8.8 0.0-12.0 % Eosinophils (%) (Auto) 0.0 0.0-7.0 % Basophils (%) (Auto) 0.1 0.0-2.0 % Neutrophils # (Auto) 14.1 H 1.6-8.6 10 ^3/uL Lymphocytes # (Auto) 0.4 0.4-5.4 10 ^3/uL Monocytes # (Auto) 1.4 H 0-1.3 10 ^3/uL Eosinophils # (Auto) 0 0-0.8 10 ^3/uL Basophils # (Auto) 0 0-0.2 10 ^3/uL Nucleated Red Blood Cells 0.2 % Assessment Impression: Acute on chronic hypoxic respiratory failure secondary to right lung mass [id number]-[id number] bilateral pleural effusion Moderate pericardial effusion Hyponatremia Leukocytosis Hypertension COPD Atelectasis Plan: Obtain consent for right thoracentesis Supplemental oxygen keep O2 saturation above 92%. After thoracentesis we will re-evaluate patient for bronchoscopy. We will request Cardiology clearance for planned bronchoscopy. Discussed case with Dr. Lopez He asked me to evaluate patient for inpatient bronchoscopy and thoracentesis. We will plan for procedures in the AM after obtaining consent. Bronchoscopy will likely be performed on Friday or Friday morning as we obtain clearance and optimize patient for bronchoscopy. IV antibiotics Obtain echocardiogram Follow up Cardiology recommendations. Follow up Nephrology recommendations. Monitor renal function. Monitor ins and outs. Monitor electrolytes. Supplement as necessary. GI prophylaxis with Protonix DVT prophylaxis -SCDs Prognosis: Poor given multiple comorbidities. Rest of plan per hospitalist and other consultants. Thank you Dr. Rodriguez for allowing me to participate in this patient's care. Further recommendations will depend on patient's clinical course. Please do not hesitate to contact me if you have any questions or concerns. This medical document was created using an electronic medical record system with [employer] dictation system. Although this document has been carefully reviewed, there may still be some phonetic and typographical errors. These areas are purely typographical due to imperfections of the software programs, and do not reflect any compromise in the patient's medical care. Plan discussed with: Patient, Daughter, Other (RN, MD) KARMA ZHANG MD May 16, 2024 22:39
[2024-05-17] VITALS (34 sets, daily range): BP systolic 40–148; BP diastolic 21–72; PULSE 66–180; RESP 16–28; TEMP 97.4–98.3; O2SAT 90–100
--- NOTE | 2024-05-17 00:53 | DVHNC2 ---
Procedure - Ultrasound-guided RIGHT thoracentesis procedure note: Physician: Dr Jordan Resendiz Date: 05/17/2024 Time: 1252 AM Consent: Consent was obtained from patient's healthcare proxy prior to procedure. Indication, risks, and benefits were explained at length. Procedure summary: A time out was performed and a chest x-ray was reviewed prior to procedure. The appropriate site was confirmed and marked. My hands were washed immediately prior to the procedure, I wore a surgical cap, mask with protective eyewear, sterile gown and sterile gloves throughout the procedure. The patient was prepped and draped in a sterile manner using chlorhexidine scrub after the appropriate level was percussed and confirmed by ultrasound. 1% lidocaine was used to anesthetize the skin, subcutaneous tissue, superior aspect of the rib periosteum and parietal pleura. A finder needle was then introduced over the superior aspect of the rib to locate the pleural fluid; whitish sanguinous fluid was aspirated. Thoracentesis needle was then introduced through the skin incision into the pleural space using negative aspiration pressure. The thoracentesis catheter was then threaded without difficulty. 1200 mL's of yellow fluid were removed without difficulty. The catheter was then removed. No immediate complications were noted during the procedure. A postprocedure chest x-ray is pending at the time of this note. The pleural fluid will be sent for cultures and cytology. Estimated blood loss is less than 5 mL's. CPT: 03463 KARMA RESENDIZ MD May 17, 2024 00:53
--- NOTE | 2024-05-17 01:52 | DVH ---
CHEST RADIOGRAPH Indication:Thoracentesis Technique: Single frontal chest radiograph COMPARISON: XY CHEST PORTABLE on DOS: 05/15/24, CHEST PORTABLE on DOS: 09/20/19, XY CHEST PORTABLE on D OS: 05/15/24 FINDINGS: Lines and Tubes: None Lungs: Pulmonary vascular congestion. Chronic Volume loss in the right lung. Multifocal right lung ai rspace disease. Pleura: No effusion. No pneumothorax. Cardiomediastinal contours: Cardiomegaly. Bones: Unremarkable IMPRESSION: Moderate interval improvement in aeration of the right lung since 05/15/2024.
[2024-05-17 03:28] LABS: Body Fluid Polymorphonuclear 9 % (0-25); Body Fluid Red Blood Cells 239 CUMM (0-2000); Body Fluid White Blood Cells 881 CUMM (0-200)
[2024-05-17 05:23] LABS: Basophils # (auto) 0 10 ^3/uL (0-0.2); Basophils % (auto) 0.1 % (0.0-2.0); Eosinophils # (auto) 0 10 ^3/uL (0-0.8); Lymphocytes # (auto) 0.4 10 ^3/uL (0.4-5.4); Monocytes # (auto) 2.5 10 ^3/uL (0-1.3); Red Cell Distribution Width 15.5 % (11.8-14.3)
[2024-05-17 05:31] LABS: Chloride 97 mmol/L (98-107); Sodium 134 mmol/L (136-145)
[2024-05-17 05:32] LABS: Anion Gap 5 (5-15); Calcium 10.1 mg/dL (8.7-10.4); Carbon Dioxide 32 mmol/L (20-31)
[2024-05-17 05:36] LABS: Uric Acid 3.8 mg/dL (3.1-7.8)
[2024-05-17 05:37] LABS: BUN/Creatinine Ratio 22.4 (10.0-20.0); Blood Urea Nitrogen 13 mg/dL (9-23); Glucose 112 mg/dL (74-106)
[2024-05-17 05:46] LABS: Hematocrit 36.3 % (36.0-46.0); Hemoglobin 11.7 g/dL (12.2-16.2); Lymphocytes % (auto) 1.5 % (10.0-50.0); Mean Corpuscular Hemoglobin 24.6 pg (28.0-32.0); Mean Corpuscular Hgb Conc. 32.2 g/dL (32.0-36.0); Mean Corpuscular Volume 76.5 fL (80.0-100.0); Monocytes % (auto) 10.4 % (0.0-12.0); Neutrophils # (auto) 20.9 10 ^3/uL (1.6-8.6); Platelet Count (auto) 200 10^3/uL (140-450); Red Blood Cells 4.75 10^6/uL (4.0-5.20); White Blood Cell 23.8 10^3/uL (4.4-10.8)
--- NOTE | 2024-05-17 08:09 | DVHSR ---
APPROVED REPORT EXAM: LIMITED Two-dimensional and M-mode echocardiogram with Doppler and color Doppler. Blood Pressure: 123/63 mmHg INDICATION BLE Edema RISK FACTORS Height: 5' 2", Weight: 100 DIMENSIONS LVDd3.5 (3.8-5.7cm)LA (2D)3.3 (1.9-4.0cm)Aortic Root (2.0-3.7cm) LVDs2.1 (2.5-4.0cm)LA (MM) (1.9-4.0cm)Aortic Cusp Exc (1.5-2.0cm) EF (%) 70.0 (55-70%)Rt. Atrium4.0 (1.9-4.0cm)Asc. Aorta cm IVSd1.0 (0.7-1.1cm)RV (D) (1.8-2.4cm) PWd1.0 (0.7-1.1cm) Mitral Valve MitralMitral Stenosis E wave0.80m/sMV Mean GR.mmHg A wave1.30m/sMV Peak GR.mmHg E/A ratio0.62D MVAcm2 Aortic Valve Aortic ValveAortic Stenosis V10.80m/Kenzie Mean GR.5mmHg V21.60m/Kenzie Peak GR.11mmHg Tricuspid Valve TR Velocity3.40m/s [id number] Other Information Quality : Technically LimitedRhythm : Tachycardia Technically limited study due to body habitus. Conclusion lvef 55% moderate LVH RV enlarged sigificant small to moderate pericardial effusion noted, no HD compromise dilated IVC c/w elevated RA filling pressures
--- NOTE | 2024-05-17 09:13 | DVHINCON2 ---
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 No LVI. Stage I A She had a CT-guided needle biopsy of a right pleural based mass in the lower lobe which showed atypical cellular proliferation suggestive of invasive adenocarcinoma on June 25, 2017 She is status post radiation and chemotherapy with the Taxol carbo [place] and [place] from 10/13 through 11/24/2017. Tolerated well. 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 Had a bronchoscopic evaluation at [facility] showing no carcinoma but did show rare reactive cells, alveolar macrophages and bronchial epithelial cells. This was in October/2018 She has undergone multiple CTs and PET scans showing stable nodules 03/03/2024 a PET-CT showed small right pleural effusion hypermetabolic activity suspicious for malignant effusion. Left lower lobe masslike consolidation opacity measuring 3.8 cm in the medial left lower lung demonstrating hypermetabolic activity suggestive of malignancy. Postsurgical changes and cystic fibrosis. Now the patient is admitted with shortness of breath and found to have right pleural effusion in the left lower lobe lung consolidation/mass CT of the chest on this admission showed questionable right hilar region mass causing bronchial narrowing Bilateral pleural effusions, extensive in the right with compressive atelectasis of the both lungs more severe on the right Cavitary foci in the right upper lobe Left adrenal nodule. No pulmonary embolism She had thoracentesis on the right draining of 1200 cc of yellow fluid. And the fluid is being sent to pathology for culture and cytology from last night which was obtained 02/07/2024 Post thoracentesis chest x-ray showed moderate interval improvement in the aeration of the right lung The patient is feeling better. But she is still has some forgetfulness and some confusion. Her daughter is by her bedside No complaints of headaches nausea vomiting or fevers Past Medical History Lung cancer otherwise in good health Family History: Arthritis 19 CHILD Cardiovascular disease G8 MOTHER Diabetes mellitus 19 CHILD FH: cancer G8 FATHER FH: chronic renal failure 19 CHILD Family History Father jaw cancer Social History No smoking or drinking. She lives with her daughter Allergies: Coded Allergies: NO KNOWN ALLERGIES (Unverified , 09/20/19) Home Meds Active Scripts Ciprofloxacin Hcl (Cipro) 500 Mg Tab, 1 TAB PO BID, #10 TAB Prov:STEVE TRUJILLO MD 09/22/19 Reported Medications Ivermectin (Ivermectin) 3 Mg Tab, 3 MG PO DAILY, TAB 05/16/24 Methylprednisolone (Methylprednisolone) 4 Mg Tab, 4 MG PO for 6 Days, MG 05/16/24 Azithromycin (Azithromycin) 250 Mg Tab, 250 MG PO DAILY, #4 05/16/24 Albuterol Sulfate (Albuterol Sulfate) 2 Mg Tab, 2 MG PO Q6HP PRN for FOR COUGH, MG 05/16/24 Apixaban Base (ELIQUIS) 5 Mg Tab, 5 MG PO BID, TAB 05/16/24 Buspirone Hcl (Buspirone Hcl) 10 Mg Tab, 10 MG PO Q12HR for 30 Days, MG 05/16/24 Levofloxacin Hemihydrate (LEVOFLOXACIN) 500 Mg Tab, 500 MG PO DAILY for 7 Days, MG 05/16/24 Ipratropium [place] Hfa (Atrovent Hfa) 17 Mcg Aer, 2 PUFF INH QID, #12.9 GRAMS 5 Refills 05/16/24 Zjehryouucy-Ynnppufcvkjk-Epwhi (Trelegy Ellipta 200-62.5-25 Mcg/INH) 1 Aer Aer, 1 AER IN DAILY, AER 05/16/24 Latanoprost (LATANOPROST) 0.005 % Brenda, 1 DROP EACHEYE QPM, #7.5 ML 3 Refills 09/21/19 Triamterene & Hydrochlorothiaz (Maxzide-25) Tab, 1 TAB PO DAILY, #30 TAB 5 Refills 09/21/19 Gabapentin (Gabapentin) 300 Mg Cap, 300 MG PO Q8HP PRN for neuropathy for 30 Days, MG 09/21/19 Current Medications Current Medications Medications (Trade) Dose Ordered Sig/Erica Route PRN Reason Start Time Stop Time Status Last Admin Pantoprazole Sodium (Protonix) 40 mg DAILY IV 05/16/24 10:00 05/16/24 10:37 Levofloxacin 50 ml @ 50 mls/hr DAILY IV 05/17/24 10:00 Furosemide (Lasix Tablet) 20 mg BIDD PO 05/16/24 18:00 05/17/24 06:21 Alprazolam (Xanax Tablet) 0.25 mg TIDPRN PRN PO ANXIETY 05/16/24 18:00 Vital Signs Vital Signs Date Time Temp Pulse Resp B/P (MAP) Pulse Ox O2 Delivery O2 Flow Rate FiO2 05/17/24 06:21 129/61 05/17/24 06:05 104 18 100 05/17/24 05:57 Nasal Cannula 2.0 05/17/24 05:57 28 05/17/24 05:00 98.3 98.3 Physical Exam Thin looking female who is lethargic and minimally responds appropriately and following commands No jaundice Head and neck: Unremarkable for any masses or neck nodes. No conjunctival or mucosal hemorrhage Lungs: Diminished breath sounds in the lung bases Cardiovascular: S1-S2 heard well Abdomen: No organomegaly, tenderness or ascites. Bowel sounds are present. Extremities: No clubbing edema cyanosis or calf tenderness. Skin: Unremarkable for petechia purpura ecchymosis Lymphadenopathy: None Neurological exam: No focal deficit Labs/Diagnostic Data Labs Test 05/17/24 04:57 05/17/24 00:15 05/16/24 08:45 05/16/24 08:40 Range/Units White Blood Count 23.8 #H 4.4-10.8 10^3/uL Red Blood Count 4.75 4.0-5.20 10^6/uL Hemoglobin 11.7 L 12.2-16.2 g/dL Hematocrit 36.3 36.0-46.0 % Mean Corpuscular Volume 76.5 L 80.0-100.0 fL Mean Corpuscular Hemoglobin 24.6 L 28.0-32.0 pg Mean Corpuscular Hemoglobin Concent 32.2 32.0-36.0 g/dL Red Cell Distribution Width 15.5 H 11.8-14.3 % Platelet Count 200 140-450 10^3/uL Mean Platelet Volume 10.2 6.9-10.8 fL Neutrophils (%) (Auto) 88.0 H 37.0-80.0 % Lymphocytes (%) (Auto) 1.5 L 10.0-50.0 % Monocytes (%) (Auto) 10.4 0.0-12.0 % Eosinophils (%) (Auto) 0.0 0.0-7.0 % Basophils (%) (Auto) 0.1 0.0-2.0 % Neutrophils # (Auto) 20.9 H 1.6-8.6 10 ^3/uL Lymphocytes # (Auto) 0.4 0.4-5.4 10 ^3/uL Monocytes # (Auto) 2.5 H 0-1.3 10 ^3/uL Eosinophils # (Auto) 0 0-0.8 10 ^3/uL Basophils # (Auto) 0 0-0.2 10 ^3/uL Nucleated Red Blood Cells 0.0 % Sodium Level 134 L 136-145 mmol/L Potassium Level 4.0 3.5-5.1 mmol/L Chloride Level 97 L 98-107 mmol/L Carbon Dioxide Level 32 H 20-31 mmol/L Anion Gap 5 5-15 Blood Urea Nitrogen 13 9-23 mg/dL Creatinine 0.58 0.550-1.02 mg/dL Glomerular Filtration Rate Calc 86 >90 mL/min BUN/Creatinine Ratio 22.4 H 10.0-20.0 Serum Glucose 112 H 74-106 mg/dL Uric Acid 3.8 3.1-7.8 mg/dL Calcium Level 10.1 8.7-10.4 mg/dL Thyroid Stimulating Hormone (TSH) 1.07 0.55-4.78 uIU/mL Body Fluid Source Pleural fluid Body Fluid pH 8.0 Body Fluid WBC (Manual) 881 H 0-200 CUMM Body Fluid RBC (Manual) 239 0-2000 CUMM Body Fluid Mononuclear Cells 91 % Body Fluid Polymorphonuclear Cells 9 0-25 % Urine Color Yellow Yellow Urine Clarity Clear Clear Urine pH 6.5 5.0-9.0 Urine Specific [place] 1.050 H 1.001-1.035 Urine Protein 1+ H Negative Urine Ketones Negative Negative Urine Blood Negative Negative /uL Urine Nitrite Negative Negative Urine Bilirubin Negative Negative Urine Urobilinogen Normal Negative mg/dL Urine Leukocyte Esterase Negative Negative /uL Urine RBC 3 0 - 4 /hpf Urine WBC 3 0 - 5 /hpf Urine Squamous Epithelial Cells Few <5 /hpf Urine Bacteria Few H None Seen /hpf Urine Osmolality 618 mOsm/kg Urine Glucose Normal Normal mg/dL Prothrombin Time 11.8 9.3-11.8 sec Prothrombin Time INR 1.12 0.9-1.15 Serum Osmolality 277 L 278-298 mOsm/kg B-Type Natriuretic Peptide 309.60 0-100 pg/mL Assessment 1. 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 No LVI. Stage I A She had a CT-guided needle biopsy of a right pleural based mass in the lower lobe which showed atypical cellular proliferation suggestive of invasive adenocarcinoma on June 25, 2017 She is status post radiation and chemotherapy with the Taxol carbo [place] from 10/13 through 11/24/2017. Tolerated well. 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 Now admitted with bilateral pleural effusions and status post right thoracentesis draining or 1200 cc of yellowish fluid sent for pathology and cultures and the report pending The patient lethargic 2. Hypertension 3. COPD Plan/Recommendation We will check her for COVID and influenza Continue her supportive care We will wait for the cytology and if confirmed to be recurrent lung cancer then the options could be hospice care versus systemic treatment/radiation therapy Plan discussed with: Daughter DORONBRANDON MD May 17, 2024 09:13
[2024-05-17] MEDS: levoFLOXacin 250MG 50 ML IV SCH (09:39)
--- NOTE | 2024-05-17 10:55 | DVHPN2 ---
Progress Note Date Seen: May 17, 2024 Medical Necessity Reason Pt with a Central, PICC or Fol: No Objective vital signs Vital Sign Date Time Temp Pulse Resp B/P (MAP) Pulse Ox O2 Delivery O2 Flow Rate FiO2 05/17/24 09:01 97.9 116 16 112/47 (68) 99 97.9 05/17/24 05:57 Nasal Cannula 2.0 05/17/24 05:57 28 Total Intake and Output 05/16/24 05/16/24 05/17/24 14:59 22:59 06:59 Intake Total 100 ml Output Total 300 ml Balance 100 ml -300 ml medications Current Medications Medications Dose Ordered Sig/Erica Route Start Time Stop Time Status Last Admin Dose Admin Docusate Sodium 100 mg BIDPRN PRN PO 05/16/24 08:00 Acetaminophen 650 mg Q6HP PRN PO 05/16/24 08:00 Acetaminophen/ Hydrocodone Bitart 1 tab Q4HP PRN PO 05/16/24 08:00 Ondansetron HCl 4 mg Q4HP PRN IV 05/16/24 08:00 Morphine Sulfate 2 mg Q4HPRN PRN IV 05/16/24 08:00 Nitroglycerin 0.4 mg Q5MINP PRN SL 05/16/24 08:00 Morphine Sulfate 2 mg Q30M PRN IV 05/16/24 08:00 Albuterol 1.25 mg Q4HPRN PRN NEB 05/16/24 08:00 05/17/24 05:57 1.25 MG Ipratropium [place] 0.5 mg Q4HP PRN NEB 05/16/24 08:00 05/17/24 05:57 0.5 MG Pantoprazole Sodium 40 mg DAILY IV 05/16/24 10:00 05/17/24 09:41 40 MG Levofloxacin 50 ml @ 50 mls/hr DAILY IV 05/17/24 10:00 05/17/24 09:39 50 MLS/HR Furosemide 20 mg BIDD PO 05/16/24 18:00 05/17/24 06:21 20 MG Alprazolam 0.25 mg TIDPRN PRN PO 05/16/24 18:00 Examination: GENERAL:Abnormal, HEENT:Abnormal, LUNGS:Abnormal, CVS:Abnormal, ABDOMEN:Abnormal laboratory and microbiology Laboratory Tests 05/17/24 04:57 Test 05/17/24 04:57 Range/Units Serum Glucose 112 H 74-106 mg/dL Microbiology Date/Time Source Procedure Growth Status 05/16/24 10:31 Blood Blood Culture - Preliminary NO GROWTH AFTER 24 HOURS OF INCUBATION. Resulted Problem List/Assessment/Plan Problem List/Assessment/Plan lung mass hx of lung cancer pericardil effusion pleural effusion s/p thoracentesis seen by ONC echo is stable will sign off Plan discussed with: Patient Date of Service: May 17, 2024 Billing Provider: ROGER VILLA MD Common Visit Codes: NOT BILLABLE ROGER VILLA MD May 17, 2024 10:55
--- NOTE | 2024-05-17 11:53 | DVHPN2 ---
Progress Note Date Seen: May 17, 2024 Resident Creating Document: MARAH PHAMRASHID RESIDENT Medical Necessity Reason Pt with a Central, PICC or Fol: No Subjective Review of Systems Patient is a 38-year-old female with a past medical history of hypertension, COPD, 79 on Eliquis, adenocarcinoma of the lung status post lobectomy, chemotherapy and radiation was brought to the ER with a chief complaint of generalized weakness for 2 weeks. Patient's daughter reported that she was feeling weak and lethargic with a past 2 weeks and for the last 4-5 days worsening shortness of breath, bilateral lower extremity swelling. Patient did not report of chest pain, dizziness, headache, nausea, vomiting. Chest x-ray was done which showed near complete right lung atelectasis with a large right pleural effusion. Chest CT showed bilateral pleural effusions larger on the right with compressive passive atelectasis of the lungs, near complete atelectasis of the right lung parts of the right upper lobe. Areas of parenchyma breakdown, cavitation seen in the right upper lobe, heterogeneously enhancing ? Mass in the right perihilar region measuring 2.7 X 2 X 3 cm causing narrowing of the right upper as well as a right intermedius bronchus. Left adrenal nodule measuring 2 X 3 cm. Thoracocentesis was done removing 1200 mL of yellow fluid which revealed WBC 881 91% mononuclear cells, fluid RBC within normal limits. Review of systems Patient seen and examined at the bedside. Patient is alert spontaneous eye opening but responds minimally, follows commands. Patient does not report of shortness of breath at rest she is currently on 2 liter/minute oxygen via nasal cannula SpO2 97%. Patient does not report of any chest pain, palpitations, nausea, vomiting. Blood pressure 112/47 mmHg, heart rate 116 irregular. Objective vital signs Vital Sign Date Time Temp Pulse Resp B/P (MAP) Pulse Ox O2 Delivery O2 Flow Rate FiO2 05/17/24 09:01 97.9 116 16 112/47 (68) 99 97.9 05/17/24 05:57 Nasal Cannula 2.0 05/17/24 05:57 28 Total Intake and Output 05/16/24 05/16/24 05/17/24 15:00 23:00 07:00 Intake Total 100 ml Output Total 300 ml Balance 100 ml -300 ml medications Current Medications Medications Dose Ordered Sig/Erica Route Start Time Stop Time Status Last Admin Dose Admin Docusate Sodium 100 mg BIDPRN PRN PO 05/16/24 08:00 Acetaminophen 650 mg Q6HP PRN PO 05/16/24 08:00 Acetaminophen/ Hydrocodone Bitart 1 tab Q4HP PRN PO 05/16/24 08:00 Ondansetron HCl 4 mg Q4HP PRN IV 05/16/24 08:00 Morphine Sulfate 2 mg Q4HPRN PRN IV 05/16/24 08:00 Nitroglycerin 0.4 mg Q5MINP PRN SL 05/16/24 08:00 Morphine Sulfate 2 mg Q30M PRN IV 05/16/24 08:00 Albuterol 1.25 mg Q4HPRN PRN NEB 05/16/24 08:00 05/17/24 05:57 1.25 MG Ipratropium [place] 0.5 mg Q4HP PRN NEB 05/16/24 08:00 05/17/24 05:57 0.5 MG Pantoprazole Sodium 40 mg DAILY IV 05/16/24 10:00 05/17/24 09:41 40 MG Levofloxacin 50 ml @ 50 mls/hr DAILY IV 05/17/24 10:00 05/17/24 09:39 50 MLS/HR Furosemide 20 mg BIDD PO 05/16/24 18:00 05/17/24 06:21 20 MG Alprazolam 0.25 mg TIDPRN PRN PO 05/16/24 18:00 Examination Physical Examination Gen - no pallor, no icterus, no cyanosis, no clubbing, no LAD, left lower extremity 1+ edema Skin - Patients skin is warm and dry. HEENT - normocephalic, atraumatic, moist mucous membranes. Neck - full ROM, no LAD, JVD seen with positive hepatojugular reflex. Pulmonary - decreased breath sounds on the right side , right lateral lung sounds absent. cardiovascular - normal S1,S2 heard. no murmurs heard. peripheral pulses normal radial 2+, pedal 2+. capillary refill normal <2 secs. GI - soft abdomen without tenderness to palpation . no hepatospleenomegaly. Bowel sounds+ Neurological - patient is lethargic and minimally responsive but follows commands. laboratory and microbiology Laboratory Tests 05/17/24 04:57 Test 05/17/24 04:57 Range/Units Serum Glucose 112 H 74-106 mg/dL Microbiology Date/Time Source Procedure Growth Status 05/16/24 10:31 Blood Blood Culture - Preliminary NO GROWTH AFTER 24 HOURS OF INCUBATION. Resulted Problem List/Assessment/Plan Problem List/Assessment/Plan Assessment and plan # hypervolemic hyponatremia - serum sodium 129--> 132--> 134 - continue fluid restriction - continue furosemide 20 mg b.i.d. - low-salt diet - serum osmolality 277 - urine osmolality 618 - urine sodium, urine creatinine , urine total protein, urine protein/creatinine ratio pending # right pleural effusion - 1200 mL yellow colored fluid drained - on levofloxacin 250 mg once daily # history of adenocarcinoma of the lung - Status post right upper lobectomy 2014, - CT-guided needle biopsy of right pleural mass in the lower lobe which showed atypical cellular proliferation suggestive of invasive adenocarcinoma in 2017 status post radiation and chemotherapy - recent PET scan 03/03/24 showed small right pleural effusion hypermetabolic activity suspicious for malignant effusion. Left lower lobe masslike consolidation opacity measuring 3.8 cm in the medial left lower lung demonstrating hypermetabolic activity suggestive of malignancy - management as per Oncology # DVT ruled out - bilateral lower extremity venous duplex shows no evidence of DVT Goals care discussed with the patient and the daughter for over 20 minutes. Full code. Plan discussed with Dr. Mills Patient seen and examined by myself today on rounds with the medicine resident. I agree with the assessment and plan as documented in his Plan discussed with: Patient, Daughter My Orders My Orders Orders - PRISCILLA PHAM RESIDENT Procedure Category Date Status Time Urine Creatinine LAB 05/17/24 Logged 10:19 Urine Sodium LAB 05/17/24 Logged 10:19 Urine Protein LAB 05/17/24 Logged 10:19 Urine LAB 05/17/24 Logged Protein/Creatinine PRISCILLA PHAM May 17, 2024 11:53 LISSY MILLS MD May 17, 2024 16:18
--- NOTE | 2024-05-17 13:29 | DVH ---
RENAL ULTRASOUND CLINICAL HISTORY: CKD TECHNIQUE: Multiple ultrasound images of the kidneys and bladder were obtained. COMPARISON: None FINDINGS: The right kidney measures 8.3 cm in length. The left kidney measures 9.5 cm. There is a 6.9 cm simple appearing right renal cysts. There is no sonographic evidence of nephrolithiasis or hydronephrosis. Bladder is not adequately visualized on the current study. IMPRESSION: 1. 6.9 cm simple appearing right renal cysts. 2. There is no sonographic evidence of nephrolithiasis or hydronephrosis. HS:Y
--- NOTE | 2024-05-17 14:00 | DVHPN2 ---
Subjective Overnight events noted. Talked with the family member in detail at bedside. COVID-19 influenza A/B ordered as per family request. Patient has stated that she has 10% better. Reviewed: Care Plan Changes from previous H/P or p: No Changes Eyes: No Pain, No Vision change, No Conjunctivae inflammation, No Eyelid inflammation, No Other, No Redness ENT: No Ear pain, No Ear discharge, No Nose pain, No Nose discharge, No Nose congestion, No Mouth pain, No Mouth swelling, No Throat pain, No Throat swelling, No Other Cardiovascular: No Chest Pain, No Palpitations, No Orthopnea, No Paroxysmal Noc. Dyspnea; Edema; No Lt Headedness, No Other Respiratory: Cough; No Dry; Shortness of breath, SOB with excertion; No Wheezing, No Hemoptysis, No Pleuritic Pain, No Sputum, No Other Gastrointestinal: No Nausea, No Vomiting, No Abdominal Pain, No Diarrhea, No Constipation, No Melena, No Hematochezia, No Other Genitourinary: No Dysuria, No Frequency, No Incontinence, No Hematuria, No Retention, No Other Musculoskeletal: No other, No neck pain, No shoulder pain, No arm pain, No back pain, No hand pain, No leg pain, No foot pain Skin: No Rash, No Lesions, No Jaundice, No Bruising, No Other Objective Vitals Vital Signs Date Time Temp Pulse Resp B/P (MAP) Pulse Ox O2 Delivery O2 Flow Rate FiO2 05/17/24 13:00 98.0 114 18 89/45 (60) 96 98.0 05/17/24 09:00 Nasal Cannula* 2 28 Intake/Output Intake and Output 05/17/24 07:00 Intake Total 100 ml Output Total 300 ml Balance -200 ml Intake Oral 0 ml IV Total 100 ml Output Urine Total 300 ml # Voids 2 Exam HEENT pupils are reactive Neck is supple CV is S1-S2 regular rate and rhythm Respiratory expiratory rhonchi GI positive bowel sound Extremity no pedal edema 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 Medications Current Medications Medications Dose Ordered Sig/Erica Route Start Time Stop Time Status Last Admin Dose Admin Docusate Sodium 100 mg BIDPRN PRN PO 05/16/24 08:00 Acetaminophen 650 mg Q6HP PRN PO 05/16/24 08:00 Acetaminophen/ Hydrocodone Bitart 1 tab Q4HP PRN PO 05/16/24 08:00 Ondansetron HCl 4 mg Q4HP PRN IV 05/16/24 08:00 Morphine Sulfate 2 mg Q4HPRN PRN IV 05/16/24 08:00 Nitroglycerin 0.4 mg Q5MINP PRN SL 05/16/24 08:00 Morphine Sulfate 2 mg Q30M PRN IV 05/16/24 08:00 Albuterol 1.25 mg Q4HPRN PRN NEB 05/16/24 08:00 05/17/24 05:57 1.25 MG Ipratropium [place] 0.5 mg Q4HP PRN NEB 05/16/24 08:00 05/17/24 05:57 0.5 MG Pantoprazole Sodium 40 mg DAILY IV 05/16/24 10:00 05/17/24 09:41 40 MG Levofloxacin 50 ml @ 50 mls/hr DAILY IV 05/17/24 10:00 05/17/24 09:39 50 MLS/HR Furosemide 20 mg BIDD PO 05/16/24 18:00 05/17/24 06:21 20 MG Alprazolam 0.25 mg TIDPRN PRN PO 05/16/24 18:00 Laboratory Results Laboratory Tests 05/17/24 04:57 Chemistry Test 05/17/24 04:57 Calcium Level 10.1 mg/dL (8.7-10.4) HgA1c, TSH Test 05/17/24 04:57 Thyroid Stimulating Hormone (TSH) 1.07 uIU/mL (0.55-4.78) Urinalysis Test 05/16/24 08:45 Urine Color Yellow (Yellow) Urine Clarity Clear (Clear) Urine pH 6.5 (5.0-9.0) Urine Specific [place] 1.050 (1.001-1.035) Urine Protein 1+ (Negative) H Urine Ketones Negative (Negative) Urine Blood Negative /uL (Negative) Urine Nitrite Negative (Negative) Urine Bilirubin Negative (Negative) Urine Urobilinogen Normal mg/dL (Negative) Urine Leukocyte Esterase Negative /uL (Negative) Urine RBC 3 /hpf (0 - 4) Urine WBC 3 /hpf (0 - 5) Urine Squamous Epithelial Cells Few /hpf (<5) Urine Bacteria Few /hpf (None Seen) H Urine Osmolality 618 mOsm/kg Urine Glucose Normal mg/dL (Normal) Microbiology Microbiology Date/Time Source Procedure Growth Status 05/16/24 10:31 Blood Blood Culture - Preliminary NO GROWTH AFTER 24 HOURS OF INCUBATION. Resulted 05/16/24 08:45 Urine - Midstream Clean Catch Urine Culture - Preliminary Resulted Assessment/Plan Assessment/Plan 88-year-old female with a known history of chronic respiratory failure on home O2 at 2 L, COPD, lung cancer status post right upper lobectomy status post chemoradiation presented to the hospital with generalized weakness and increasing shortness a breath found to have 1. Acute on chronic hypoxic respiratory failure suspected secondary to underlying COPD exacerbation as well as right-sided pleural effusion 2. Acute COPD exacerbation 3. Right-sided pleural effusion status post thoracentesis 4. Lung cancer status post right upper lobectomy, chemoradiation 5. Right lower extremity DVT by history, resume home dose of Eliquis -check COVID-19, influenza a and B, med nebs q.4 hours while awake, add Solu- Medrol, resume home dose of Eliquis -add Protonix -swallow evaluation -physical therapy evaluation and treatment -incentive spirometry Plan discussed with: Patient, Daughter, Son My Orders Orders - ELLYN SOTELO MD Procedure Category Date Status Time Alprazolam Tablet PHA 05/16/24 In Process (Xanax Tablet) 18:00 * [place] CONS 05/17/24 Transmitted Consult * Swallow Request ST 05/17/24 Transmitted 13:51 (Nf) Eliquis PHA 05/17/24 Logged 18:00 Covid19 Antigen [place] LAB 05/17/24 Logged Rapid Influenza A&B LAB 05/17/24 Logged 13:54 Date of Service: May 17, 2024 Billing Provider: ELLYN SOTELO MD Common Visit Codes: NOT BILLABLE ELLYN SOTELO MD May 17, 2024 14:00
[2024-05-17 15:06] LABS: Rapid Influenza A Negative (Negative); Rapid Influenza B Negative (Negative)
[2024-05-17 15:07] LABS: COVID19 ANTIGEN SOFIA FIA NEGATIVE (NEGATIVE)
[2024-05-17] MEDS: ALBUTEROL SULF 2.5 MG/0.5ML(0.5%) NEB SOLN NEB PRN (15:37)
[2024-05-17] MEDS: APIXABAN 5 MG TAB PO SCH (18:10)
[2024-05-17] MEDS: IPRATROPIUM BROM 0.5 MG/2.5ML INH SOL NEB SCH (18:11)
--- NOTE | 2024-05-17 21:34 | DVHPN2 ---
Progress Note - Dictate Date Seen: May 17, 2024 Medical Necessity Reason Pt with a Central, PICC or Fol: No Subjective Patient seen and examined at bedside. Remains on supplemental oxygen Overnight events reviewed. vital signs Vital Sign Date Time Temp Pulse Resp B/P (MAP) Pulse Ox O2 Delivery O2 Flow Rate FiO2 05/17/24 20:00 117 18 Nasal Cannula* 2 05/17/24 18:21 96 05/17/24 18:09 136/72 05/17/24 16:49 98.2 98.2 Total Intake and Output 05/16/24 05/16/24 05/17/24 14:59 22:59 06:59 Intake Total 100 ml Output Total 300 ml Balance 100 ml -300 ml medications Current Medications Medications Dose Ordered Sig/Erica Route Start Time Stop Time Status Last Admin Dose Admin Docusate Sodium 100 mg BIDPRN PRN PO 05/16/24 08:00 Acetaminophen 650 mg Q6HP PRN PO 05/16/24 08:00 Acetaminophen/ Hydrocodone Bitart 1 tab Q4HP PRN PO 05/16/24 08:00 Ondansetron HCl 4 mg Q4HP PRN IV 05/16/24 08:00 Morphine Sulfate 2 mg Q4HPRN PRN IV 05/16/24 08:00 Nitroglycerin 0.4 mg Q5MINP PRN SL 05/16/24 08:00 Morphine Sulfate 2 mg Q30M PRN IV 05/16/24 08:00 Ipratropium [place] 0.5 mg Q4HP PRN NEB 05/16/24 08:00 05/17/24 15:38 0.5 MG Pantoprazole Sodium 40 mg DAILY IV 05/16/24 10:05/17/24 09:41 40 MG Levofloxacin 50 ml @ 50 mls/hr DAILY IV 05/17/24 10:05/17/24 09:39 50 MLS/HR Furosemide 20 mg BIDD PO 05/16/24 18:00 05/17/24 18:09 20 MG Alprazolam 0.25 mg TIDPRN PRN PO 05/16/24 18:00 Apixaban 5 mg BIDWM PO 05/17/24 18:00 05/17/24 18:10 5 MG Albuterol 1.25 mg Q4HWA PRN NEB 05/17/24 14:15 05/17/24 15:37 1.25 MG Ipratropium [place] 0.5 mg Q4HWA NEB 05/17/24 18:00 05/17/24 18:11 0.5 MG Methylprednisolone Sodium Succinate 40 mg Q8HR IV 05/17/24 22:00 objective Gen.: Patient lying in bed in no apparent distress. On supplemental oxygen. Head: Normocephalic, atraumatic. Eyes: EOMI/PERRLA. Ears: Normal hearing. Normal anatomy. Neck/trachea: Trachea midline, supple. Nose: Normal external anatomy. Mouth: Moist mucous membranes. Chest: Decreased air entry bilaterally. No wheezing or rhonchi. Cardiovascular: Positive S1, positive S2. Regular rate and rhythm. Abdomen: Positive bowel sounds in all 4 quadrants. Soft, non-tender, non- distended. : Deferred. Rectal: Deferred. Skin: Warm, dry. Intact. Extremities: 2+ radial pulses bilaterally. No lower extremity edema. Neuro: Awake, alert, oriented x3. No gross motor or sensory deficits. Cranial nerves II through XII intact. Gait not assessed. laboratory and microbiology Laboratory Tests 05/17/24 04:57 Test 05/17/24 04:57 Range/Units Serum Glucose 112 H 74-106 mg/dL Assessment/Plan Impression: Acute on chronic hypoxic respiratory failure secondary to right lung mass [id number] bilateral pleural effusion Moderate pericardial effusion Hyponatremia Leukocytosis Hypertension COPD Atelectasis Events: Remains on supplemental O2 at 4 LPM NC Taper O2 as tolerated Continue bronchodilators. Continue antibiotics F/u pleural fluid cultures and cytology S/p right thoracentesis with 1200 mL's of yellow fluid removed. Obtain CXR in the AM to assess for interval changes in pleural effusion. Consult IR for CT-guided lung biopsy If not feasible, then will consider bronchoscopy. Labs and imaging reviewed. Rest of plan as noted below. Plan: S/p right thoracentesis with 1200 mL's of yellow fluid removed. Supplemental oxygen keep O2 saturation above 92%. We will request Cardiology clearance for planned bronchoscopy. IV antibiotics Obtain echocardiogram Follow up Cardiology recommendations. Follow up Nephrology recommendations. Monitor renal function. Monitor ins and outs. Monitor electrolytes. Supplement as necessary. GI prophylaxis with Protonix DVT prophylaxis -SCDs Prognosis: Poor given multiple comorbidities. Rest of plan per hospitalist and other consultants. Thank you Dr. Rodriguez for allowing me to participate in this patient's care. Further recommendations will depend on patient's clinical course. Please do not hesitate to contact me if you have any questions or concerns. This medical document was created using an electronic medical record system with [employer] dictation system. Although this document has been carefully reviewed, there may still be some phonetic and typographical errors. These areas are purely typographical due to imperfections of the software programs, and do not reflect any compromise in the patient's medical care. Plan discussed with: Patient, Other (BRENDEN Coffey) KARMA ZHANG MD May 17, 2024 21:34
[2024-05-17] MEDS: methylPREDNISolone SOD SUCC 40 MG/ML VL IV SCH (21:47)
[2024-05-17] MEDS: NOREPINEPHRINE 8 MG/250ML KIT 250 ML IV ONE (22:15)
[2024-05-17] MEDS: MIDAZOLAM DRIP 50 mg/50mL 50 ML IV ONE (22:15)
[2024-05-17] MEDS: MIDAZOLAM DRIP 50 mg/50mL 50 ML IV SCH (22:15)
[2024-05-17] MEDS: NOREPINEPHRINE 8 MG/250ML KIT 250 ML IV SCH (22:21)
[2024-05-17] MEDS ORDERED: MIDAZOLAM DRIP 50 mg/50mL 50 ML IV SCH (22:30)
[2024-05-17] MEDS: HEPARIN SODIUM (PORCINE) 5000 UNITS/ML 1ML VIAL IV ONE (22:45)
[2024-05-17] MEDS: PHENYLEPHRINE IV 250 ML IV SCH (23:00)
[2024-05-17] MEDS: fentaNYL Drip 2500mCg/250mlNS 250 ML IV SCH (23:00)
--- NOTE | 2024-05-17 23:10 | DVH ---
CHEST RADIOGRAPH Indication:inutbated Technique: Single frontal view of the chest was obtained Comparison: XY CHEST PORTABLE on DOS: 05/17/24, XY CHEST PORTABLE on DOS: 05/15/24, CHEST PORTABLE on DOS: 09/20/19 Findings/ IMPRESSION: Endotracheal tube projecting 1 cm superior to the schuyler. Recommend withdrawing 2-3 cm and obtaining follow-up imaging. Left subclavian CVC with tip projected terminate near the cavoatrial junction. En teric tube projects below the GE junction without visualization aside portable tip. Moderate cardiome vianney. Moderate opacification involving the right upper hemithorax extending inferiorly which may repr esent a loculated pleural effusion. Unchanged opacification involving the right mid lung zone. No pne umothorax.
[2024-05-17 23:33] LABS: Hematocrit 38.5 % (36.0-46.0); Hemoglobin 11.7 g/dL (12.2-16.2); Mean Corpuscular Hemoglobin 23.5 pg (28.0-32.0); Mean Corpuscular Hgb Conc. 30.3 g/dL (32.0-36.0); Mean Corpuscular Volume 77.7 fL (80.0-100.0); Platelet Count (auto) 316 10^3/uL (140-450); Red Blood Cells 4.96 10^6/uL (4.0-5.20); Red Cell Distribution Width 15.8 % (11.8-14.3)
[2024-05-17 23:39] LABS: White Blood Cell 33.9 10^3/uL (4.4-10.8)
[2024-05-17 23:41] LABS: Basophils % (manual) 0 (0.0-2.0); Blast Cells 0; Eosinophils % (manual) 0 (0-7); Myelocytes % 0; Promyelocytes % 0; Reactive Lymphocytes 0
[2024-05-17] MEDS: AMIODARONE BOLUS KIT 100 ML IV ONE (23:45)
[2024-05-17 23:48] LABS: Alanine Aminotransferase 60 U/L (7-40); Albumin 3.1 g/dL (3.2-4.8); Alkaline Phosphatase 157 U/L (46-116); Anion Gap 3 (5-15); Aspartate Aminotransferase 47 U/L (13-40); BUN/Creatinine Ratio 22.6 (10.0-20.0); Calcium 10.6 mg/dL (8.7-10.4); Carbon Dioxide 37 mmol/L (20-31); Chloride 97 mmol/L (98-107); Glucose 273 mg/dL (74-106); Potassium 4.1 mmol/L (3.5-5.1); Sodium 137 mmol/L (136-145)
[2024-05-17 23:49] LABS: Bilirubin, Total 0.6 mg/dL (0.2-1.0); Total Protein 5.3 g/dL (5.7-8.2)
[2024-05-17 23:51] LABS: Blood Urea Nitrogen 26 mg/dL (9-23); INR 1.27 (0.9-1.15); Partial Thromboplastin Time 31.4 SEC (24.5-34.5); Prothrombin Time 13.2 sec (9.3-11.8)
[2024-05-17] MEDS: PHENYLEPHRINE IV 250 ML IV ONE (23:55)
--- NOTE | 2024-05-17 23:59 | DVHPN2 ---
Progress Note - Dictate Date Seen: May 17, 2024 Medical Necessity Reason Pt with a Central, PICC or Fol: Yes The following are medically ne: Central Line, Aden Catheter Reason for aden catheter: Strict I&O Subjective Patient seen and examined at bedside. Sedated, intubated on mechanical ventilator Overnight events reviewed. vital signs Vital Sign Date Time Temp Pulse Resp B/P (MAP) Pulse Ox O2 Delivery O2 Flow Rate FiO2 05/17/24 21:00 97.4 117 17 148/72 (97) 91 97.4 05/17/24 20:01 100 05/17/24 20:00 Nasal Cannula* 2 Total Intake and Output 05/16/24 05/16/24 05/17/24 15:00 23:00 07:00 Intake Total 100 ml Output Total 300 ml Balance 100 ml -300 ml medications Current Medications Medications Dose Ordered Sig/Erica Route Start Time Stop Time Status Last Admin Dose Admin Docusate Sodium 100 mg BIDPRN PRN PO 05/16/24 08:00 Acetaminophen 650 mg Q6HP PRN PO 05/16/24 08:00 Acetaminophen/ Hydrocodone Bitart 1 tab Q4HP PRN PO 05/16/24 08:00 Ondansetron HCl 4 mg Q4HP PRN IV 05/16/24 08:00 Morphine Sulfate 2 mg Q4HPRN PRN IV 05/16/24 08:00 Nitroglycerin 0.4 mg Q5MINP PRN SL 05/16/24 08:00 Morphine Sulfate 2 mg Q30M PRN IV 05/16/24 08:00 Ipratropium [place] 0.5 mg Q4HP PRN NEB 05/16/24 08:00 05/17/24 15:38 0.5 MG Pantoprazole Sodium 40 mg DAILY IV 05/16/24 10:00 05/17/24 09:41 40 MG Levofloxacin 50 ml @ 50 mls/hr DAILY IV 05/17/24 10:00 05/17/24 09:39 50 MLS/HR Furosemide 20 mg BIDD PO 05/16/24 18:00 05/17/24 18:09 20 MG Alprazolam 0.25 mg TIDPRN PRN PO 05/16/24 18:00 Albuterol 1.25 mg Q4HWA PRN NEB 05/17/24 14:15 05/17/24 15:37 1.25 MG Ipratropium [place] 0.5 mg Q4HWA NEB 05/17/24 18:00 05/17/24 18:11 0.5 MG Methylprednisolone Sodium Succinate 40 mg Q8HR IV 05/17/24 22:00 05/17/24 21:47 40 MG Norepinephrine Bitartrate 250 ml @ 3.75 mls/hr Q24H IV 05/17/24 22:30 Heparin Sodium/ Dextrose 250 ml @ 12.708 mls/ hr [id number] IV 05/17/24 22:45 UNV Phenylephrine HCl 250 ml @ 30 mls/hr Q8H20M IV 05/17/24 23:00 Hold Fentanyl Citrate 250 ml @ 2.5 mls/hr Q24H IV 05/17/24 23:00 Hold Amiodarone HCl 250 ml @ 33.333 mls/ hr Q7H30M IV 05/17/24 23:15 05/18/24 05:14 Midazolam HCl 50 ml @ 1 mls/hr Q24H IV 05/17/24 23:30 Hold objective Gen.: Patient lying in bed in medical ICU. Sedated, intubated on mechanical ventilator. Head: Normocephalic, atraumatic. Eyes: PERRLA. Ears: Normal external anatomy. Throat: Endotracheal tube and orogastric tube in place. Neck: Supple, trachea midline. Chest: Transmitted breath sounds bilaterally. Decreased air entry bilaterally. No wheezing. Bibasilar crackles. Cardio vascular: Positive S1, positive S2. Regular rate and rhythm. Abdomen: Positive bowel sounds in all 4 quadrants. Soft, nontender, nondistended. : Aden in place. Normal external genitalia. Rectal: Deferred Skin: Warm, dry. Intact. Extremities: 2+ radial pulses bilaterally. No lower extremity edema. Neuro: Sedated. laboratory and microbiology Laboratory Tests 05/17/24 23:09 Test 05/17/24 23:09 Range/Units Serum Glucose 273 H 74-106 mg/dL Assessment/Plan Impression: Acute on chronic hypoxic respiratory failure secondary to right lung mass On mechanical ventilator LEFT IJ DVT s/p Cardiac arrest with ROSC Ehtstxny-qa-[id number] bilateral pleural effusion Moderate pericardial effusion Hyponatremia Leukocytosis Hypertension COPD Atelectasis Plan: s/p intubation on mechanical ventilator CXR image and report reviewed. ET tube 1 cm above the schuyler. Retract by 2 cm. Left subclavian central line in place. No pneumothorax. Moderate opacification of right upper hemothorax, may represent loculate pleural effusion. No pneumothorax. ABG post intubation, pending. AC with RR 18, Vt 450, Peep 8, FIO2 100% Titrate FIO2 to keep O2 saturation above 92%. VAP bundle Daily ABG and CXR while intubated. Sedate for ventilatory synchrony On pressors for hemodynamic support. On Levophed Titrate to keep MAP above 65 mmHg/SBP above 90 mmHg. Continue antibiotics. F/u cultures. Limited chest US of left IJ notable for DVT. Start heparin drip per pharmacy protocol Monitor renal function Monitor electrolytes. Supplement as necessary. Nutritional support. Accucheks, ISS. GI/DVT prophylaxis. Extensive time spent counseling family and answering questions. Overall poor prognosis High likelihood of demise given advanced age and multiple co-morbidities. Condition: Critical Prognosis: Poor given multiple comorbidities. Rest of plan per hospitalist and other consultants. A total of 90 minutes of critical care time was spent reviewing the patient record, examining the patient, making a diagnostic and therapeutic plan, discussing this plan with the medical personnel, following up on diagnostic studies and following the patient for clinical stability excluding any and all procedures. At least 50% of this time was spent in direct, [id number] contact. Thank you Dr. Rodriguez for allowing me to participate in this patient's care. Further recommendations will depend on patient's clinical course. Please do not hesitate to contact me if you have any questions or concerns. This medical document was created using an electronic medical record system with [employer] dictation system. Although this document has been carefully reviewed, there may still be some phonetic and typographical errors. These areas are purely typographical due to imperfections of the software programs, and do not reflect any compromise in the patient's medical care. Plan discussed with: Daughter, Other (RN Alexx, RN Sylvie, RT Luna/Selam/Gary, SOLUTIONS OPERATOR, MD) Critical Care Time(min): 35 KARMA ZHANG MD May 17, 2024 23:59
--- NOTE | 2024-05-17 23:59 | DVHNC2 ---
Procedure - Bronchoscopy procedure note: Indications: Possible mucous plugging. Secretions via ET tube. Medicines: See PRODUCTION SUPV notes. Complications: None Procedure: Patient medications and allergies reviewed. The risks and benefits of the procedure and the sedation options and risk were discussed with the patient's healthcare proxy. All questions were answered and informed consent was obtained. Patient identification and proposed procedure were verified prior to the procedure by the physician, and a nurse, and the respiratory therapist in ICU room. The heart rate, respiratory rate, oxygen saturations, blood pressure, adequacy of pulmonary ventilation, and response to care were monitored throughout the procedure. The physical status of the patient was reassessed after the procedure. After obtaining informed consent, the bronchoscope was introduced through the endotracheal tube and advanced into the trachea bronchial tree of both lungs. The procedure was accomplished without difficulty. The patient tolerated the procedure well. Findings: The trachea is in normal caliber. The schuyler is sharp. The tracheobronchial tree of the right lung was examined to at least the first subsegmental level. The bronchial mucosa and anatomy in the right lung are abnormal. There are no endobronchial lesions. There is narrowing of RUL almost complete extrinsic occlusion. There is narrowing of RML and RLL bronchi. There was hemorrhagic secretions from right main stem bronchus onward throughout R6-R10. Right middle lobe (RML) Bronchoalveolar lavage (BAL) obtained. RML BAL sent for gram stain and culture. The left upper lobe, lingula, and left lower lobe were examined to at least the first subsegmental level. Bronchial mucosa and anatomy in the left upper lobe and lingula are normal. There were no endobronchial lesions. There were no secretions. There was no active bleeding at the completion of the procedure. Estimated blood loss: Less than 5 mL. Impression: RUL bronchus near complete occlusion. Narrowing of RML and RLL Mucous plugging from R6-R10 RML BAL performed Recommendation: Follow-up RML BAL results. Procedure codes: 67421, bronchoscopy, rigid and flexible, including fluoroscopic guidance, one performed; with bronchial endobronchial broncho-alveolar lavage, single or multiple sites KARMA ZHANG MD May 17, 2024 23:59
--- NOTE | 2024-05-17 23:59 | DVHNC2 ---
Procedure - ULTRASOUND-GUIDED LEFT SUBCLAVIAN CENTRAL VENOUS CANNULATION CPT Codes: 31420 (ultrasound guidance) 18793 (insertion of non-tunneled centrally inserted central venous catheter) 40465 (CXR interpretation) DATE: 05/18/2024 PHYSICIAN: Karma Resendiz PREOPERATIVE DIAGNOSIS: Shock, s/p cardiac arrest POSTOPERATIVE DIAGNOSIS: Shock, s/p cardiac arrest PROCEDURE PERFORMED: Limited Ultrasound-guided LEFT SUBCLAVIAN central line placement. ANESTHESIA: 2 mL of 1% lidocaine plain. ESTIMATED BLOOD LOSS: less than 5 mL. SPECIMENS: None. COMPLICATIONS: None. INDICATIONS FOR PROCEDURE: The patient is in need of large bore IV access for administration of fluids, including blood products and vasoactive drugs, possib le transvenous cardiac pacing and CVP monitoring for hemodynamic instability. DESCRIPTION OF PROCEDURE IN DETAIL: The patient was lying in the Trendelenburg position with head turned 30 degrees away from the insertion site. The skin was thoroughly sponged with chlorhexidine and allowed to dry. All persons involved were shielded with hair nets, face masks and sterile gowns. With sterile-gloved hands the right neck area was draped with the large disposable sterile field provided in the pre-manufactured kit. The skin and subcutaneous tissues superficial to the LEFT SUBCLAVIAN vein were anesthetized with 2 mL of 1% lidocaine. The LEFT SUBCLAVIAN vein was identified on ultrasound from the angle of the mandible down into the supraclavicular fossa using the linear ultrasound probe in the transverse orientation. The carotid artery was identified and avoided utilizing color-flow. The internal jugular vein was then placed in the center of the ultrasound field and compressed for patency. A movement artifact was ident ified as the needle was advanced through the skin and advanced toward the vessel. A real time hyperechoic signal revealed visualization of vascular needle entry into the lumen as blood was noted to flashback in the syringe. The needle was then held in place while the guide wire was advanced. The needle was then removed. Direct visualization of guide wire location within the vein was noted on ultrasound indicating proper placement and was document in the electronic medical record chart. A skin dilator was advanced over the guidewire and removed, and the triple-lumen catheter was then advanced over the guide wire into proper position. The guide wire was removed and discarded. The ports were aspirated which showed good blood return and then carefully flushed with normal saline. The catheter was stabilized and sutured to the skin with 2-0 silk at 2 anchor points. A sterile bio-patch and dressing was placed over the catheter, including the insertion site. The patient tolerated the procedure well. A chest x-ray was ordered for position confirmation. I reviewed the image immediately after it was taken at bedside. Post-procedure chest x-ray demonstrates the central line in the superior vena and no evidence of any pneumothorax. An image recording of the procedure acc ompanies the chart. KARMA RESENDIZ MD May 17, 2024 23:59
[2024-05-18] VITALS (110 sets, daily range): BP systolic 74–158; BP diastolic 35–102; PULSE 89–171; RESP 10–21; TEMP 98–99.4; O2SAT 91–100
[2024-05-18 00:05] LABS: Base Excess -2.3 mmol/L (-2.0-3.0)
[2024-05-18] MEDS: AMIODARONE 450mg/250ml AE 250 ML IV SCH ×2 (00:06→06:39)
--- NOTE | 2024-05-18 00:27 | RESUS ---
CODE BLUE ASSESSSMENT History of Events History of Events: 88 year old came to ER due to weakness, sob and painful urination. Patient has history of COPD and lung cancer, has been on home oxygen at 2lpm. For the past 2 weeks, progressive generalized weakness. Tested negative for COVID. Was noted to be saturating at 86% at 2lpm on scene. pt was admitted on 05/16, she had a thoracentesis on 05/17 1300 with removal of 1200 cc of yellow fluid. Tonight pt started to be sob about 2139 rt notified for treatment pt noted in distress rt went to call nurse and bring a nrb upon returning pt noted to be having agonal breathing code assist called 2150, pulse check no palpable pulse was noted code blue called. Initial Information Date: May 17, 2024 Time: :53 Location of Arrest: [facility] Arrest Witnessed: Yes CPR started initial time: :53 CPR started by whom: Hospital Staff Last seen well: 2147 Pre-Hospital Care: ACLS Type of arrest: Cardiac, Respiratory, Adult, Witnessed Spontaneous Respirations: No Pulse Present: No Monitoring: ECG, Pulse Oximetry, Apnea, Telemetry Crash Cart Opened and Supplies: Yes Airway Ventilation Breathing at Onset: Apneic O2 Sat by Pulse Oximetry: 0 Oxygen Delivery Method: Ambu-Bag Oxygen 100% Time of first Assisted Ventila: 21:52 Artificial Ventilation: Bag/Endo tube Intubation Time: 21:52 Intubation Size: 7.5 cuffed Intubated by: DANIELLE MCINTOSH Intubation Attempts: 1 Intubated orally: Yes Intubated Nasaly: No Tube secured at: 22 Cricoid pressure done: No CO2 indicator used: Yes Confirmation: Auscultation, Exhaled CO2, Chest X-ray Suctioning (Oral/Tracheal): No Circulation Circulation : Time: 21:51 Pulse Rate (adult): 0 Blood Pressure Systolic: 0 Blood Pressure Diastolic: 0 Temperature (Fahrenheit): 97.8 Procedure - IV Procedure - IV #1: IV Side: Left IV Location: Hand IV Catheter Type: Saline Lock IV Placed: In Hospital IV Gauge: 18 IV Line Care: Saline Flush Procedure - IV #2: IV Side: Right IV Location: Antecubital IV Catheter Type: Saline Lock IV Placed: In Hospital IV Gauge: 20 Medications & Response Medications and Responses : Medication Time: 21:57 ADULT Medications Given ADULT: Epinephrine 1 mg, Sodium Bacarbinate 50 meq Route of Administration: IV Heart Rate: 0 EKG Rhythm: PEA Blood Pressure Systolic: 0 Blood Pressure Diastolic: 0 Respiratory Rate: 0 O2 Sat by Pulse Oximetry: 83 EKG Rhythm: Sinus Tachycardia Comment 2157 ROSC OBTAINED BP 98/67 HR 170 AMBU BAGGED SAT 99 % Pacing Pacer Pads Applied and Pacing: Yes Reason for Pacing: CODE BLUE Procedure - Tabares Catheter Urinary Catheter Type/Location: 2-way Urethral Urinary Catheter Size: 16 Urine Color: Yellow Tabares Catheter Secured: Yes Comment: PREVIOUSLY PLACED Nurses Notes Ryland Coma Scale Eye Opening: None (1) Ryland Coma Scale Verbal: None (1) Kiron Coma Scale Motor: Withdraws to Pain (4) Glascow Total: 4 Pupil Reaction: Non Reactive Bedside Blood Glucose: 246 EKG Rhythm: Sinus Tachycardia Nurses Notes - Comment: PT TRANSFERRED TO ICU Time Code Ended Time Code Ended: 21:58 Post Arrest Status: Ventilated Outcome of code: Successful Family notified: Yes Attending called: Yes Code Team Present: DANIELLE DIGITAL MEDIA ASSOCIATE, WILNER RN HS, MIRANDA CODING ADVISOR ICU, EDWARD RN PRIMARY, PETERSON CODING ADVISOR, SHELTON RT Post Resuscitation Neurologica Pupil Size: 4 ROSC Time of ROSC: 21:58 Pt Meets Criteria for Therapeu: WILNER Hameed May 18, 2024 00:27
[2024-05-18 00:38] LABS: Band Neutrophils % (manual) 6; Lymphocytes % (manual) 2 (10.0-50.0); Metamyelocytes % 1; Monocytes % (manual) 7 (0-12)
[2024-05-18 00:39] LABS: Anisocytosis Slight; Hypochromia Moderate; Large Platelets FEW; Platelet Estimate Adequate; Stomatocytes Few
[2024-05-18] MEDS: HEPARIN DRIP/D5W 100UNITS/ML 250 ML IV SCH (01:05)
[2024-05-18] MEDS: CEFEPIME 1GM/ 50ML 50 ML IV SCH (05:21)
[2024-05-18] MEDS ORDERED: VANCOMYCIN 1.5GM/300ML 300 ML IV ONE (06:00)
[2024-05-18] MEDS ORDERED: VANCOMYCIN PER PHARMACY 0 MG IV SCH (06:00)
[2024-05-18] MEDS: VANCOMYCIN 1.75GM/350ML 350 ML IV ONE (06:17)
[2024-05-18 07:18] LABS: Mean Corpuscular Hemoglobin 23.9 pg (28.0-32.0)
[2024-05-18 07:20] LABS: Hematocrit 37.3 % (36.0-46.0); Hemoglobin 11.8 g/dL (12.2-16.2); Mean Corpuscular Hgb Conc. 31.8 g/dL (32.0-36.0); Mean Corpuscular Volume 75.1 fL (80.0-100.0); Platelet Count (auto) 267 10^3/uL (140-450); Red Blood Cells 4.96 10^6/uL (4.0-5.20); Red Cell Distribution Width 15.6 % (11.8-14.3); White Blood Cell 27.3 10^3/uL (4.4-10.8)
[2024-05-18 07:27] LABS: Chloride 96 mmol/L (98-107); Potassium 3.5 mmol/L (3.5-5.1); Sodium 134 mmol/L (136-145)
[2024-05-18 07:28] LABS: Anion Gap 7 (5-15); Calcium 10.4 mg/dL (8.7-10.4); Carbon Dioxide 31 mmol/L (20-31)
[2024-05-18 07:29] LABS: INR 1.35 (0.9-1.15); Partial Thromboplastin Time 56.4 SEC (24.5-34.5)
[2024-05-18 07:30] LABS: Basophils % (manual) 0 (0.0-2.0); Blast Cells 0; Eosinophils % (manual) 0 (0-7); Metamyelocytes % 0; Myelocytes % 0; Promyelocytes % 0; Reactive Lymphocytes 0
[2024-05-18 07:33] LABS: BUN/Creatinine Ratio 26.8 (10.0-20.0); Blood Urea Nitrogen 26 mg/dL (9-23); Glucose 223 mg/dL (74-106)
[2024-05-18 09:30] LABS: Base Excess 8.2 mmol/L (-2.0-3.0)
[2024-05-18 10:07] LABS: Protein, Body Fluid 3.9 g/dL (.)
[2024-05-18 10:42] LABS: Band Neutrophils % (manual) 4; Lymphocytes % (manual) 4 (10.0-50.0); Monocytes % (manual) 12 (0-12); Platelet Estimate Adequate
--- NOTE | 2024-05-18 11:04 | DVHPN2 ---
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 Patient's daughter reported that she was feeling weak and lethargic with a past 2 weeks and for the last 4-5 days worsening shortness of breath, bilateral lower extremity swelling. Patient did not report of chest pain, dizziness, headache, nausea, vomiting. Chest x-ray was done which showed near complete right lung atelectasis with a large right pleural effusion. Chest CT showed bilateral pleural effusions larger on the right with compressive passive atelectasis of the lungs, near complete atelectasis of the right lung parts of the right upper lobe. Areas of parenchyma breakdown, cavitation seen in the right upper lobe, heterogeneously enhancing ? Mass in the right perihilar region measuring 2.7 X 2 X 3 cm causing narrowing of the right upper as well as a right intermedius bronchus. Left adrenal nodule measuring 2 X 3 cm. Thoracocentesis was done removing 1200 mL of yellow fluid which revealed WBC 881 91% mononuclear cells, fluid RBC within normal limits. Review of systems Patient seen and examined at the bedside. Patient had difficulty breathing around 2140 hrs on 05/18 following which she was given respiratory treatment and she has cardiopulmonary arrest with no pulse following which code blue was called and CPR given with ROSC and patient shifted to ICU. Patient is sedated on midazolam and is on mechanical ventilation with FiO2- 50%, PEEP- 8, tidal volume 450ml/min, on norepinephrine and amiodarone drip. Blood pressure 158/78 mmHg, heart rate 108 irregular. Other Systems: Patient seen and examined by myself today on rounds with the medicine resident. I agree with his assessment and plan as documented in this note Objective vital signs Vital Sign Date Time Temp Pulse Resp B/P (MAP) Pulse Ox O2 Delivery O2 Flow Rate FiO2 05/18/24 08:45 158/76 05/18/24 08:41 108 20 100 50 05/18/24 06:00 Mechanical Ventilator+ 05/18/24 03:03 208.0 05/17/24 21:45 2.0 Total Intake and Output 05/17/24 05/17/24 05/18/24 15:00 23:00 07:00 Intake Total 50 ml 223.75 ml 524.905 ml Output Total 550 ml 250 ml Balance 50 ml -326.25 ml 274.905 ml medications Current Medications Medications Dose Ordered Sig/Erica Route Start Time Stop Time Status Last Admin Dose Admin Docusate Sodium 100 mg BIDPRN PRN PO 05/16/24 08:00 Acetaminophen 650 mg Q6HP PRN PO 05/16/24 08:00 Acetaminophen/ Hydrocodone Bitart 1 tab Q4HP PRN PO 05/16/24 08:00 Ondansetron HCl 4 mg Q4HP PRN IV 05/16/24 08:00 Morphine Sulfate 2 mg Q4HPRN PRN IV 05/16/24 08:00 Nitroglycerin 0.4 mg Q5MINP PRN SL 05/16/24 08:00 Morphine Sulfate 2 mg Q30M PRN IV 05/16/24 08:00 Ipratropium [place] 0.5 mg Q4HP PRN NEB 05/16/24 08:00 05/17/24 15:38 0.5 MG Pantoprazole Sodium 40 mg DAILY IV 05/16/24 10:00 05/18/24 10:04 40 MG Furosemide 20 mg BIDD PO 05/16/24 18:00 05/18/24 05:22 20 MG Alprazolam 0.25 mg TIDPRN PRN PO 05/16/24 18:00 Albuterol 1.25 mg Q4HWA PRN NEB 05/17/24 14:15 05/18/24 06:05 1.25 MG Ipratropium [place] 0.5 mg Q4HWA NEB 05/17/24 18:00 05/18/24 06:05 0.5 MG Methylprednisolone Sodium Succinate 40 mg Q8HR IV 05/17/24 22:00 05/18/24 05:21 40 MG Norepinephrine Bitartrate 250 ml @ 3.75 mls/hr Q24H IV 05/17/24 22:30 05/18/24 05:20 18.75 MLS/HR Heparin Sodium/ Dextrose 250 ml @ 13 mls/hr [id number] IV 05/17/24 22:45 05/18/24 01:05 13 MLS/HR Phenylephrine HCl 250 ml @ 30 mls/hr Q8H20M IV 05/17/24 23:00 Fentanyl Citrate 250 ml @ 2.5 mls/hr Q24H IV 05/17/24 23:00 Midazolam HCl 50 ml @ 1 mls/hr Q24H IV 05/17/24 23:30 05/17/24 22:15 1 MLS/HR Cefepime HCl 50 ml @ 12.5 mls/hr Q12HR IV 05/18/24 06:00 05/18/24 05:21 12.5 MLS/HR Vancomycin HCl 0 ml @ 0 mls/hr UD IV 05/18/24 06:00 Amiodarone HCl 250 ml @ 16.667 mls/ hr Q15H IV 05/18/24 06:15 05/18/24 06:39 16.667 MLS/HR Examination Gen - no pallor, no icterus, no cyanosis, no clubbing, no LAD, lower extremity 1+ edema Skin - Patients skin is warm and dry. HEENT - normocephalic, atraumatic, moist mucous membranes with endotracheal tube. Neck - JVD seen with positive hepatojugular reflex. Pulmonary - decreased breath sounds on the right side , patient on ventilator cardiovascular - normal S1,S2 heard. no murmurs heard. peripheral pulses normal radial 2+, pedal 2+. capillary refill normal <2 secs. GI - Bowel sounds+ Neurological - patient is on mechanical ventilation and sedated on midazolam. Gag reflex +, Plantar reflex downgoing , pupils reactive bilaterally. laboratory and microbiology Laboratory Tests 05/18/24 07:00 Test 05/18/24 07:00 Range/Units Serum Glucose 223 H 74-106 mg/dL Microbiology Date/Time Source Procedure Growth Status 05/16/24 10:31 Blood Blood Culture - Preliminary NO GROWTH AFTER 24 HOURS OF INCUBATION. Resulted 05/16/24 08:45 Urine - Midstream Clean Catch Urine Culture - Preliminary Resulted Problem List/Assessment/Plan Problem List/Assessment/Plan Assessment and plan # hypervolemic hyponatremia - serum sodium 129--> 132--> 134-->137-->134 - serum creatinine 0.97 mg/dl and BUN 26 - phosphorus- 4.5mg/dl - PTH 68.5 pg/ml - low-salt diet - serum osmolality 277 - urine osmolality 618 - urine sodium, urine creatinine , urine total protein, urine protein/creatinine ratio pending - continue fluid restriction and furosemide 20 mg b.i.d. and monitor BMP # Cardiopulmonary arrest with ROSC - patient currently on ventilator with FiO2- 50%, PEEP - 8 - sedated on midazolam - on norepinephrine and amidarone drip # right pleural effusion - 1200 mL yellow colored fluid drained - on cefepime and vancomycin # history of adenocarcinoma of the lung - Status post right upper lobectomy 2014, - CT-guided needle biopsy of right pleural mass in the lower lobe which showed atypical cellular proliferation suggestive of invasive adenocarcinoma in 2017 status post radiation and chemotherapy - recent PET scan 03/03/24 showed small right pleural effusion hypermetabolic activity suspicious for malignant effusion. Left lower lobe masslike consolidation opacity measuring 3.8 cm in the medial left lower lung demonstrating hypermetabolic activity suggestive of malignancy - management as per Oncology # DVT ruled out - bilateral lower extremity venous duplex shows no evidence of DVT Goals care discussed with the patient and the daughter for over 20 minutes. Full code. Plan discussed with Dr. Sosa Plan discussed with: Daughter, Other (Nurse) My Orders My Orders Orders - PRISCILLA PHAM Procedure Category Date Status Time Kidney US 05/17/24 Resulted 12:29 PRISCILLA PHAM May 18, 2024 11:03 LISSY SOSA MD May 18, 2024 14:28
[2024-05-18 11:24] LABS: Phosphorus 1.7 mg/dL (2.4-5.1)
--- NOTE | 2024-05-18 12:52 | DVH ---
Bilateral Upper Extremity Venous Duplex Date: 05/18/2024 11:14 AM Clinical History: RULE OUT BLOOD CLOT Comparison: US BILAT LOWER DVT on DOS: 05/16/24 Findings: Duplex Doppler evaluation of the venous systems of the right and left lower neck and upper extremitie s including color Doppler and spectral/pulsed waveform analysis was performed. RIGHT SIDE: The internal jugular vein demonstrates appropriate compressibility and waveform variability . The subclavian vein is patent on color Doppler evaluation without intraluminal thrombus and demonstra alistair waveform variability . The visualized portion of the brachiocephalic vein is patent on color Doppler evaluation without intr aluminal thrombus and demonstrates waveform variability . The axillary vein demonstrates appropriate compressibility and waveform variability . The brachial veins demonstrate appropriate compressibility and patency on Doppler evaluation. Compressibility and doppler patency noted in the ulnar and radial veins. The basilic vein demonstrates appropriate compressibility and patency on Doppler evaluation. The cephalic vein demonstrates appropriate compressibility and patency on Doppler evaluation. LEFT SIDE: The internal jugular vein demonstrates lack of compressibility. A large occlusive thrombus is seen in distal internal jugular vein measuring at least 3.5 cm in length. The subclavian vein is not visualized. The visualized portion of the brachiocephalic vein is patent on color Doppler evaluation without intr aluminal thrombus and demonstrates waveform variability . The axillary vein demonstrates appropriate compressibility and waveform variability . The brachial veins demonstrate appropriate compressibility and patency on Doppler evaluation. The ulnar and radial veins are patent appropriate compressibility and patency on Doppler evaluation. The basilic vein demonstrates appropriate compressibility and patency on Doppler evaluation. The cephalic vein demonstrates appropriate compressibility and patency on Doppler evaluation. IMPRESSION: Right upper extremity: No evidence of DVT. Left upper extremity: Occlusive DVT of the left jugular vein measuring at least 3.5 cm in length. The left subclavian vein is not identified and is patency can not be evaluated. The nurse in charge of the patient, Ashley was notified of findings upon completion of the exam by velvet cardiovascular radiologic technologist on 05/18/2024.
[2024-05-18 14:01] LABS: INR 1.31 (0.9-1.15); Prothrombin Time 13.6 sec (9.3-11.8)
[2024-05-18 14:19] LABS: Partial Thromboplastin Time 77.7 SEC (24.5-34.5)
--- NOTE | 2024-05-18 18:30 | DVHPN2 ---
Progress Note - Dictate Date Seen: May 18, 2024 Medical Necessity Reason Pt with a Central, PICC or Fol: Yes The following are medically ne: Central Line, Aden Catheter Reason for aden catheter: Strict I&O Subjective Patient seen and examined at bedside. Sedated, intubated on mechanical ventilator Overnight events reviewed. vital signs Vital Sign Date Time Temp Pulse Resp B/P (MAP) Pulse Ox O2 Delivery O2 Flow Rate FiO2 05/18/24 16:16 102 16 115/65 (82) 98 30 05/18/24 10:00 Mechanical Ventilator+ 05/18/24 03:03 208.0 05/17/24 21:45 2.0 Total Intake and Output 05/17/24 05/17/24 05/18/24 15:00 23:00 07:00 Intake Total 50 ml 223.75 ml 524.905 ml Output Total 550 ml 250 ml Balance 50 ml -326.25 ml 274.905 ml medications Current Medications Medications Dose Ordered Sig/Erica Route Start Time Stop Time Status Last Admin Dose Admin Docusate Sodium 100 mg BIDPRN PRN PO 05/16/24 08:00 Acetaminophen 650 mg Q6HP PRN PO 05/16/24 08:00 Acetaminophen/ Hydrocodone Bitart 1 tab Q4HP PRN PO 05/16/24 08:00 Ondansetron HCl 4 mg Q4HP PRN IV 05/16/24 08:00 Morphine Sulfate 2 mg Q4HPRN PRN IV 05/16/24 08:00 Nitroglycerin 0.4 mg Q5MINP PRN SL 05/16/24 08:00 Morphine Sulfate 2 mg Q30M PRN IV 05/16/24 08:00 Ipratropium [place] 0.5 mg Q4HP PRN NEB 05/16/24 08:00 05/17/24 15:38 0.5 MG Pantoprazole Sodium 40 mg DAILY IV 05/16/24 10:00 05/18/24 10:04 40 MG Furosemide 20 mg BIDD PO 05/16/24 18:00 05/18/24 05:22 20 MG Alprazolam 0.25 mg TIDPRN PRN PO 05/16/24 18:00 Albuterol 1.25 mg Q4HWA PRN NEB 05/17/24 14:15 05/18/24 14:47 1.25 MG Ipratropium [place] 0.5 mg Q4HWA NEB 05/17/24 18:00 05/18/24 14:47 0.5 MG Methylprednisolone Sodium Succinate 40 mg Q8HR IV 05/17/24 22:00 05/18/24 15:19 40 MG Norepinephrine Bitartrate 250 ml @ 3.75 mls/hr Q24H IV 05/17/24 22:30 05/18/24 05:20 18.75 MLS/HR Heparin Sodium/ Dextrose 250 ml @ 13 mls/hr [id number] IV 05/17/24 22:45 05/18/24 01:05 13 MLS/HR Phenylephrine HCl 250 ml @ 30 mls/hr Q8H20M IV 05/17/24 23:00 Fentanyl Citrate 250 ml @ 2.5 mls/hr Q24H IV 05/17/24 23:00 Midazolam HCl 50 ml @ 1 mls/hr Q24H IV 05/17/24 23:30 05/18/24 12:35 6 MLS/HR Cefepime HCl 50 ml @ 12.5 mls/hr Q12HR IV 05/18/24 06:00 05/18/24 05:21 12.5 MLS/HR Vancomycin HCl 0 ml @ 0 mls/hr UD IV 05/18/24 06:00 Amiodarone HCl 250 ml @ 16.667 mls/ hr Q15H IV 05/18/24 06:15 05/18/24 06:39 16.667 MLS/HR Vancomycin HCl 200 ml @ 200 mls/hr DAILY IV 05/19/24 06:00 objective Gen.: Patient lying in bed in medical ICU. Sedated, intubated on mechanical ventilator. Head: Normocephalic, atraumatic. Eyes: PERRLA. Ears: Normal external anatomy. Throat: Endotracheal tube and orogastric tube in place. Neck: Supple, trachea midline. Chest: Transmitted breath sounds bilaterally. Decreased air entry bilaterally. No wheezing. Bibasilar crackles. Cardio vascular: Positive S1, positive S2. Regular rate and rhythm. Abdomen: Positive bowel sounds in all 4 quadrants. Soft, nontender, nondistended. : Aden in place. Normal external genitalia. Rectal: Deferred Skin: Warm, dry. Intact. Extremities: 2+ radial pulses bilaterally. No lower extremity edema. Neuro: Sedated. laboratory and microbiology Laboratory Tests 05/18/24 07:00 Test 05/18/24 07:00 Range/Units Serum Glucose 223 H 74-106 mg/dL Assessment/Plan Impression: Acute on chronic hypoxic respiratory failure secondary to right lung mass On mechanical ventilator LEFT IJ DVT s/p Cardiac arrest with ROSC [id number] bilateral pleural effusion Moderate pericardial effusion Hyponatremia Leukocytosis Hypertension COPD Atelectasis Events: Remains on vent support; AC with RR 16, Vt 400, PEEP 8, FIO2 40% Taper FiO2 as tolerated On pressors for hemodynamic support. On Levophed 6 mcg/min Titrate to keep MAP above 65 mmHg/SBP above 90 mmHg. Sedated on Versed Obtain CTA of chest to rule out PE. U/S venous Doppler of upper extremities showed possible DVT in left IJ. Continue Heparin drip ABG reviewed, shows alkalemia RR decreased to 16, VT to 400, PEEP to 5. Continue abx F/u cultures Follow up with Dr. Alexandre Wilsonodarone drip - f/u with Dr. Flores Check mag, phos Monitor renal function Labs and imaging reviewed. Rest of plan as noted below. Plan: s/p intubation on mechanical ventilator CXR image and report reviewed. ABG reviewed. AC mode - RR 16, Vt 400, PEEP 5, FIO2 40% Titrate FIO2 to keep O2 saturation above 92%. VAP bundle Daily ABG and CXR while intubated. Sedate for ventilatory synchrony Pressors as necessary for hemodynamic support. Titrate to keep MAP above 65 mmHg/SBP above 90 mmHg. Continue antibiotics. F/u cultures. Limited chest US of left IJ notable for DVT. Start heparin drip per pharmacy protocol Monitor renal function Monitor electrolytes. Supplement as necessary. Nutritional support. Accucheks, ISS. GI/DVT prophylaxis. Extensive time spent counseling family and answering questions. Overall poor prognosis High likelihood of demise given advanced age and multiple co-morbidities. Condition: Critical Prognosis: Poor given multiple comorbidities. Rest of plan per hospitalist and other consultants. A total of 35 minutes of critical care time was spent reviewing the patient record, examining the patient, making a diagnostic and therapeutic plan, discussing this plan with the medical personnel, following up on diagnostic studies and following the patient for clinical stability excluding any and all procedures. At least 50% of this time was spent in direct, [id number] contact. Thank you Dr. Rodriguez for allowing me to participate in this patient's care. Further recommendations will depend on patient's clinical course. Please do not hesitate to contact me if you have any questions or concerns. This medical document was created using an electronic medical record system with [email or web address] dictation system. Although this document has been carefully reviewed, there may still be some phonetic and typographical errors. These areas are purely typographical due to imperfections of the software programs, and do not reflect any compromise in the patient's medical care. Plan discussed with: Other (BRENDEN Holman) Critical Care Time(min): 35 KARMA ZHANG MD May 18, 2024 18:30
--- NOTE | 2024-05-18 19:20 | DVHPN2 ---
Subjective Overnight critical events. Patient went into PE requiring ACLS protocol. Patient's one round of epi with a CPR lasting around 5 minutes. Patient is currently in ICU bed 108, daughter updated at bedside. She will think about the code status. Reviewed: Care Plan Changes from previous H/P or p: Changes (Patient went into pea EEA requiring ACLS protocol.) Eyes: No Pain, No Vision change, No Conjunctivae inflammation, No Eyelid inflammation, No Other, No Redness ENT: No Ear pain, No Ear discharge, No Nose pain, No Nose discharge, No Nose congestion, No Mouth pain, No Mouth swelling, No Throat pain, No Throat swelling, No Other Cardiovascular: No Chest Pain, No Palpitations, No Orthopnea, No Paroxysmal Noc. Dyspnea; Edema; No Lt Headedness, No Other Respiratory: Cough; No Dry; Shortness of breath, SOB with excertion; No Wheezing, No Hemoptysis, No Pleuritic Pain, No Sputum, No Other Gastrointestinal: No Nausea, No Vomiting, No Abdominal Pain, No Diarrhea, No Constipation, No Melena, No Hematochezia, No Other Genitourinary: No Dysuria, No Frequency, No Incontinence, No Hematuria, No Retention, No Other Musculoskeletal: No other, No neck pain, No shoulder pain, No arm pain, No back pain, No hand pain, No leg pain, No foot pain Skin: No Rash, No Lesions, No Jaundice, No Bruising, No Other Objective Vitals Vital Signs Date Time Temp Pulse Resp B/P (MAP) Pulse Ox O2 Delivery O2 Flow Rate FiO2 05/18/24 18:44 122/62 05/18/24 16:16 102 16 98 30 05/18/24 10:00 Mechanical Ventilator+ 05/18/24 03:03 208.0 05/17/24 21:45 2.0 Intake/Output Intake and Output 05/18/24 07:00 Intake Total 798.655 ml Output Total 800 ml Balance -1.345 ml Intake Oral 200 ml IV Total 598.655 ml Output Urine Total 800 ml Exam HEENT pupils are reactive Neck is supple CV is S1-S2 regular rate and rhythm Respiratory expiratory rhonchi GI positive bowel sound Extremity no pedal edema [employer] intubated and sedated Medications Current Medications Medications Dose Ordered Sig/Erica Route Start Time Stop Time Status Last Admin Dose Admin Docusate Sodium 100 mg BIDPRN PRN PO 05/16/24 08:00 Acetaminophen 650 mg Q6HP PRN PO 05/16/24 08:00 Acetaminophen/ Hydrocodone Bitart 1 tab Q4HP PRN PO 05/16/24 08:00 Ondansetron HCl 4 mg Q4HP PRN IV 05/16/24 08:00 Morphine Sulfate 2 mg Q4HPRN PRN IV 05/16/24 08:00 Nitroglycerin 0.4 mg Q5MINP PRN SL 05/16/24 08:00 Morphine Sulfate 2 mg Q30M PRN IV 05/16/24 08:00 Ipratropium [place] 0.5 mg Q4HP PRN NEB 05/16/24 08:00 05/17/24 15:38 0.5 MG Pantoprazole Sodium 40 mg DAILY IV 05/16/24 10:00 05/18/24 10:04 40 MG Furosemide 20 mg BIDD PO 05/16/24 18:00 05/18/24 18:44 20 MG Alprazolam 0.25 mg TIDPRN PRN PO 05/16/24 18:00 Albuterol 1.25 mg Q4HWA PRN NEB 05/17/24 14:15 05/18/24 18:45 1.25 MG Ipratropium [place] 0.5 mg Q4HWA NEB 05/17/24 18:00 05/18/24 18:45 0.5 MG Methylprednisolone Sodium Succinate 40 mg Q8HR IV 05/17/24 22:00 05/18/24 15:19 40 MG Norepinephrine Bitartrate 250 ml @ 3.75 mls/hr Q24H IV 05/17/24 22:30 05/18/24 05:20 18.75 MLS/HR Heparin Sodium/ Dextrose 250 ml @ 13 mls/hr [id number] IV 05/17/24 22:45 05/18/24 01:05 13 MLS/HR Phenylephrine HCl 250 ml @ 30 mls/hr Q8H20M IV 05/17/24 23:00 Fentanyl Citrate 250 ml @ 2.5 mls/hr Q24H IV 05/17/24 23:00 Midazolam HCl 50 ml @ 1 mls/hr Q24H IV 05/17/24 23:30 05/18/24 12:35 6 MLS/HR Cefepime HCl 50 ml @ 12.5 mls/hr Q12HR IV 05/18/24 06:00 05/18/24 05:21 12.5 MLS/HR Vancomycin HCl 0 ml @ 0 mls/hr UD IV 05/18/24 06:00 Amiodarone HCl 250 ml @ 16.667 mls/ hr Q15H IV 05/18/24 06:15 05/18/24 06:39 16.667 MLS/HR Vancomycin HCl 200 ml @ 200 mls/hr DAILY IV 05/19/24 06:00 Laboratory Results Laboratory Tests 05/18/24 07:00 Chemistry Test 05/17/24 23:09 05/18/24 07:00 Albumin 3.1 g/dL (3.2-4.8) L Calcium Level 10.6 mg/dL (8.7-10.4) H 10.4 mg/dL (8.7-10.4) Total Protein 5.3 g/dL (5.7-8.2) L Magnesium Level 2.0 mg/dL (1.6-2.6) Phosphorus Level 1.7 mg/dL (2.4-5.1) L Coagulation Test 05/17/24 23:09 05/18/24 07:00 05/18/24 12:52 Prothrombin Time 13.2 sec (9.3-11.8) H 14.0 sec (9.3-11.8) H 13.6 sec (9.3-11.8) H Prothrombin Time INR 1.27 (0.9-1.15) H 1.35 (0.9-1.15) H 1.31 (0.9-1.15) H Activated Partial Thromboplast Time 31.4 SEC (24.5-34.5) 56.4 SEC (24.5-34.5) H 77.7 SEC (24.5-34.5) *H LFT Test 05/17/24 23:09 Alanine Aminotransferase (ALT) 60 U/L (7-40) H Alkaline Phosphatase 157 U/L (46-116) H Aspartate Amino Transferase (AST) 47 U/L (13-40) H Total Bilirubin 0.6 mg/dL (0.2-1.0) Urinalysis Test 05/16/24 08:45 Urine Color Yellow (Yellow) Urine Clarity Clear (Clear) Urine pH 6.5 (5.0-9.0) Urine Specific [place] 1.050 (1.001-1.035) Urine Protein 1+ (Negative) H Urine Ketones Negative (Negative) Urine Blood Negative /uL (Negative) Urine Nitrite Negative (Negative) Urine Bilirubin Negative (Negative) Urine Urobilinogen Normal mg/dL (Negative) Urine Leukocyte Esterase Negative /uL (Negative) Urine RBC 3 /hpf (0 - 4) Urine WBC 3 /hpf (0 - 5) Urine Squamous Epithelial Cells Few /hpf (<5) Urine Bacteria Few /hpf (None Seen) H Urine Osmolality 618 mOsm/kg Urine Glucose Normal mg/dL (Normal) Blood Gas Results Test 05/17/24 23:57 05/18/24 09:22 Arterial Blood pH 7.293 (7.350-7.450) 7.622 (7.350-7.450) FiO2 % 100.0 50.0 Microbiology Microbiology Date/Time Source Procedure Growth Status 05/17/24 23:40 Nose MRSA Screen - Final Complete 05/17/24 00:15 Pleural Fluid Gram Stain - Final Resulted 05/17/24 00:15 Pleural Fluid Body Fluid Culture - Preliminary Resulted 05/16/24 10:31 Blood Blood Culture - Preliminary NO GROWTH AFTER 48 HOURS OF INCUBATION. Resulted 05/16/24 08:45 Urine - Midstream Clean Catch Urine Culture - Final Complete Assessment/Plan Assessment/Plan 88-year-old female with a known history of chronic respiratory failure on home O2 at 2 L, COPD, adenocarcinoma of the lung status post right upper lobectomy , status post chemoradiation presented to the hospital with generalized weakness and increasing shortness a breath found to have 1. Acute on chronic hypoxic respiratory failure suspected secondary to underlying COPD exacerbation as well as right-sided pleural effusion currently intubated on mechanical ventilation 2. Acute COPD exacerbation 3. Right-sided pleural effusion status post thoracentesis 4. Lung cancer status post right upper lobectomy, chemoradiation 5. Right lower extremity DVT by history, resume home dose of Eliquis 6. Cardiac arrhythmia requiring ACLS protocol with ROSC --continue current vent support, daily ABG chest x-ray -patient's remains critical, prognosis remained guarded, daughter was updated at bedside. Plan discussed with: Daughter, Other Date of Service: May 18, 2024 Billing Provider: ELLYN SOTELO MD Common Visit Codes: NOT BILLABLE ELLYN SOTELO MD May 18, 2024 19:20
[2024-05-18] MEDS ORDERED: EPINEPHrine HCL 1 MG/10 ML SYRG IV ONE (20:37)
--- NOTE | 2024-05-18 21:18 | DVHINCON2 ---
Date of service: May 18, 2024 Family History: Arthritis 19 CHILD Cardiovascular disease G8 MOTHER Diabetes mellitus 19 CHILD FH: cancer G8 FATHER FH: chronic renal failure 19 CHILD Allergies: Coded Allergies: NO KNOWN ALLERGIES (Unverified , 09/20/19) Home Meds Active Scripts Ciprofloxacin Hcl (Cipro) 500 Mg Tab, 1 TAB PO BID, #10 TAB Prov:STEVE TRUJILLO MD 09/22/19 Reported Medications Ivermectin (Ivermectin) 3 Mg Tab, 3 MG PO DAILY, TAB 05/16/24 Methylprednisolone (Methylprednisolone) 4 Mg Tab, 4 MG PO for 6 Days, MG 05/16/24 Azithromycin (Azithromycin) 250 Mg Tab, 250 MG PO DAILY, #4 05/16/24 Albuterol Sulfate (Albuterol Sulfate) 2 Mg Tab, 2 MG PO Q6HP PRN for FOR COUGH, MG 05/16/24 Apixaban Base (ELIQUIS) 5 Mg Tab, 5 MG PO BID, TAB 05/16/24 Buspirone Hcl (Buspirone Hcl) 10 Mg Tab, 10 MG PO Q12HR for 30 Days, MG 05/16/24 Levofloxacin Hemihydrate (LEVOFLOXACIN) 500 Mg Tab, 500 MG PO DAILY for 7 Days, MG 05/16/24 Ipratropium [place] Hfa (Atrovent Hfa) 17 Mcg Aer, 2 PUFF INH QID, #12.9 GRAMS 5 Refills 05/16/24 Tlujqzmypms-Usxwgcvbwlub-Bobob (Trelegy Ellipta 200-62.5-25 Mcg/INH) 1 Aer Aer, 1 AER IN DAILY, AER 05/16/24 Latanoprost (LATANOPROST) 0.005 % Brenda, 1 DROP EACHEYE QPM, #7.5 ML 3 Refills 09/21/19 Triamterene & Hydrochlorothiaz (Maxzide-25) Tab, 1 TAB PO DAILY, #30 TAB 5 Refills 09/21/19 Gabapentin (Gabapentin) 300 Mg Cap, 300 MG PO Q8HP PRN for neuropathy for 30 Days, MG 09/21/19 Current Medications Current Medications Medications (Trade) Dose Ordered Sig/Erica Route PRN Reason Start Time Stop Time Status Last Admin Methylprednisolone Sodium Succinate (Solu Medrol) 40 mg Q8HR IV 05/17/24 22:00 05/18/24 15:19 Norepinephrine Bitartrate 250 ml @ 3.75 mls/hr Q24H IV 05/17/24 22:30 05/18/24 05:20 Midazolam HCl 50 ml @ 1 mls/hr Q24H IV 05/17/24 22:30 05/17/24 23:23 DC Heparin Sodium/ Dextrose 250 ml @ 13 mls/hr [id number] IV 05/17/24 22:45 05/18/24 19:43 Phenylephrine HCl 250 ml @ 30 mls/hr Q8H20M IV 05/17/24 23:00 Fentanyl Citrate 250 ml @ 2.5 mls/hr Q24H IV 05/17/24 23:00 Amiodarone HCl 250 ml @ 33.333 mls/ hr Q7H30M IV 05/17/24 23:15 05/18/24 05:14 DC 05/18/24 00:06 Midazolam HCl 50 ml @ 1 mls/hr Q24H IV 05/17/24 23:30 05/18/24 19:37 Cefepime HCl 50 ml @ 12.5 mls/hr Q12HR IV 05/18/24 06:00 05/18/24 05:21 Vancomycin HCl 0 ml @ 0 mls/hr UD IV 05/18/24 06:00 Amiodarone HCl 250 ml @ 16.667 mls/ hr Q15H IV 05/18/24 06:15 05/18/24 19:37 Vancomycin HCl 200 ml @ 200 mls/hr DAILY IV 05/19/24 06:00 Vital Signs Vital Signs Date Time Temp Pulse Resp B/P (MAP) Pulse Ox O2 Delivery O2 Flow Rate FiO2 05/18/24 21:00 90 16 133/93 (106) 98 05/18/24 20:00 40 05/18/24 20:00 Mechanical Ventilator+ 05/18/24 20:00 98.6 98.6 05/17/24 21:45 2.0 Labs/Diagnostic Data Labs Test 05/18/24 21:00 05/18/24 09:22 05/18/24 07:00 05/18/24 02:05 Range/Units Blood Gas Specimen Type Arterial Blood Gas Sample Site Right radial Blood Gas Patient Temperature 37.0 Arterial Blood Date Drawn [id number] Arterial Blood pH 7.622 *H 7.350-7.450 Arterial Blood Partial Pressure CO2 28.8 L 32.0-45.0 mmHg Arterial Blood Partial Pressure O2 110.7 H 83.0-108.0 mmHg Arterial Blood HCO3 29.1 H 21.0-28.0 mmol/L Arterial Blood Oxygen Saturation 98.6 H 94.0-98.0 % Arterial Blood Base Excess 8.2 H -2.0-3.0 mmol/L Arterial Blood Oxyhemoglobin 98.2 H 94.0-98.0 % Arterial Blood Carboxyhemoglobin 0.3 L 0.5-1.5 % Arterial Blood Methemoglobin 0.1 0.0-1.5 % Serafin Test Modified Blood Gas Total Hemoglobin 12.40 12.0-16.0 g/dL Blood Gas Set Respiration Rate 20.0 Blood Gas Modality Vent - ac FiO2 % 50.0 Blood Gas Tidal Volume 450.0 Blood Gas PEEP or CPAP 8.0 Blood Gas Critical Value Read Back Yes Blood Gas Notified Whom Dr. jese lopez Blood Gas Notified Time [id number] Blood Gas Notified By White Blood Count 27.3 H 4.4-10.8 10^3/uL Red Blood Count 4.96 4.0-5.20 10^6/uL Hemoglobin 11.8 L 12.2-16.2 g/dL Hematocrit 37.3 36.0-46.0 % Mean Corpuscular Volume 75.1 L 80.0-100.0 fL Mean Corpuscular Hemoglobin 23.9 L 28.0-32.0 pg Mean Corpuscular Hemoglobin Concent 31.8 L 32.0-36.0 g/dL Red Cell Distribution Width 15.6 H 11.8-14.3 % Platelet Count 267 140-450 10^3/uL Mean Platelet Volume 9.6 6.9-10.8 fL Neutrophils (%) (Auto) 37.0-80.0 % Lymphocytes (%) (Auto) 10.0-50.0 % Monocytes (%) (Auto) 0.0-12.0 % Basophils (%) (Auto) 0.0-2.0 % Neutrophils # (Auto) 1.6-8.6 10 ^3/uL Lymphocytes # (Auto) 0.4-5.4 10 ^3/uL Monocytes # (Auto) 0-1.3 10 ^3/uL Differential Total Cells Counted 100.0 100 Neutrophils % (Manual) 80 37.0-80.0 Band Neutrophils % (Manual) 4 Lymphocytes % (Manual) 4 L 10.0-50.0 Monocytes % (Manual) 12 0-12 Eosinophils % (Manual) 0 0-7 Basophils % (Manual) 0 0.0-2.0 Metamyelocytes % (manual) 0 Myelocytes % (Manual) 0 Promyelocytes % (Manual) 0 Blast Cells % (Manual) 0 Reactive Lymphocytes 0 Platelet Estimate Adequate Sodium Level 134 L 136-145 mmol/L Potassium Level 3.5 3.5-5.1 mmol/L Chloride Level 96 L 98-107 mmol/L Carbon Dioxide Level 31 20-31 mmol/L Anion Gap 7 5-15 Blood Urea Nitrogen 26 H 9-23 mg/dL Creatinine 0.97 0.550-1.02 mg/dL Glomerular Filtration Rate Calc 56 >90 mL/min BUN/Creatinine Ratio 26.8 H 10.0-20.0 Serum Glucose 223 H 74-106 mg/dL Calcium Level 10.4 8.7-10.4 mg/dL Phosphorus Level 1.7 L 2.4-5.1 mg/dL Magnesium Level 2.0 1.6-2.6 mg/dL Troponin I High Sensitivity 42 *H </=34 ng/L Test 05/17/24 23:09 05/17/24 21:56 05/17/24 14:29 05/17/24 04:57 Range/Units Large Platelets Few Hypochromasia (manual) Moderate Anisocytosis (manual) Slight Microcytosis Slight Stomatocytes Few Schistocytes Few Total Bilirubin 0.6 0.2-1.0 mg/dL Aspartate Amino Transferase (AST) 47 H 13-40 U/L Alanine Aminotransferase (ALT) 60 H 7-40 U/L Alkaline Phosphatase 157 H 46-116 U/L Total Protein 5.3 L 5.7-8.2 g/dL Albumin 3.1 L 3.2-4.8 g/dL POC Glucose 246 H 70-106 mg/dl Influenza Type A Antigen Negative Negative Influenza Type B Antigen Negative Negative SARS-CoV-2 Antigen (Rapid) Negative NEGATIVE Eosinophils (%) (Auto) 0.0 0.0-7.0 % Eosinophils # (Auto) 0 0-0.8 10 ^3/uL Basophils # (Auto) 0 0-0.2 10 ^3/uL Nucleated Red Blood Cells 0.0 % Uric Acid 3.8 3.1-7.8 mg/dL Vitamin D 25-Hydroxy 32.7 30.0-100 ng/mL Thyroid Stimulating Hormone (TSH) 1.07 0.55-4.78 uIU/mL Parathyroid Hormone (Intact) 68.5 18.4-80.1 pg/mL Test 05/17/24 00:15 05/16/24 08:45 05/16/24 08:40 Range/Units Body Fluid Source Pleural fluid Body Fluid pH 8.0 Body Fluid WBC (Manual) 881 H 0-200 CUMM Body Fluid RBC (Manual) 239 0-2000 CUMM Body Fluid Mononuclear Cells 91 % Body Fluid Polymorphonuclear Cells 9 0-25 % Body Fluid Glucose 107 . mg/dL Body Fluid Total Protein 3.9 . g/dL Body Fluid Lactate Dehydrogenase 292 . IU/L Urine Color Yellow Yellow Urine Clarity Clear Clear Urine pH 6.5 5.0-9.0 Urine Specific [place] 1.050 H 1.001-1.035 Urine Protein 1+ H Negative Urine Ketones Negative Negative Urine Blood Negative Negative /uL Urine Nitrite Negative Negative Urine Bilirubin Negative Negative Urine Urobilinogen Normal Negative mg/dL Urine Leukocyte Esterase Negative Negative /uL Urine RBC 3 0 - 4 /hpf Urine WBC 3 0 - 5 /hpf Urine Squamous Epithelial Cells Few <5 /hpf Urine Bacteria Few H None Seen /hpf Urine Osmolality 618 mOsm/kg Urine Glucose Normal Normal mg/dL Serum Osmolality 277 L 278-298 mOsm/kg B-Type Natriuretic Peptide 309.60 0-100 pg/mL Microbiology Date/Time Source Procedure Growth Status 05/17/24 23:40 Nose MRSA Screen - Final Complete 05/17/24 00:15 Pleural Fluid Gram Stain - Final Resulted 05/17/24 00:15 Pleural Fluid Body Fluid Culture - Preliminary Resulted 05/16/24 10:31 Blood Blood Culture - Preliminary NO GROWTH AFTER 48 HOURS OF INCUBATION. Resulted 05/16/24 08:45 Urine - Midstream Clean Catch Urine Culture - Final Complete Problems(with codes): (1) Pneumonia (2) Septic shock (3) Shortness of breath (4) Weakness (5) Mass of right lung Plan/Recommendation ASSESSMENT AND PLAN: ID Problem List: 1. Acute on chronic hypoxic respiratory failure 2. Lung cancer (right) 3. Right lung cavitary pneumonia 4. Possible obstructive post-obstructive pneumonia 5. Sepsis, septic shock Assessment: This is an 88 y.o. female with a past medical history of lung cancer, COPD, pneumonia, chronic oxygen therapy, status post phlebectomy for DVT, and hypertension. She presents with worsening generalized weakness, increased cough, hemoptysis, bilateral lower extremity swelling, and dysuria over the past two weeks. A PET scan in December suggested a recurrent mass in the right lower lobe, confirmed via bronchoscopy. On admission, she had a leukocytosis of 15.9, Hb 11.8, and platelets 180. CT chest showed a heterogeneously enhancing mass in the right hilar region with bilateral pleural effusions, compressive atelectasis, and a moderate-sized pericardial effusion. She is normally ambulatory but has been bed-bound recently with no smoking or alcohol history, albeit with secondhand smoke exposure from a chronic smoking . Patient was admitted on May 15 and became tachycardic and hypotensive during hospitalization. She was treated with bronchodilators, IV antibiotics (levofloxacin and vancomycin), and underwent thoracentesis. Plan: Continue vancomycin, cefepime, and levofloxacin. Add micafungin given the immunocompromised status. Monitor respiratory cultures and blood cultures. Plan for bronchoscopy and collect sputum cultures, bacterial, fungal, AFB culture during the procedure. Test broadly for TB, HIV, Cocci antibody, Aspergillus antibody. Conduct a CT pulmonary embolism (CTPE) scan when the patient is medically stable to rule out PE given her DVT history. Isolation Precautions: Standard Assessment and plan were discussed with the patient as written above. Plan is subject to change pending new incoming information and diagnostics. Updates may be added as an addendum at the top or bottom of this note. Thank you for consulting. ID will continue to follow up. Please contact Infectious Disease for any questions or concerns. Ramo Alan M.D. [facility]- Ph: ? - Authorized and Performed by: ramo alan Total critical care time: Approximately 76 minutes Due to a high probability of clinically significant, life threatening deterioration, the patient required my highest level of preparedness to intervene emergently and I personally spent this critical care time directly and personally managing the patient. This critical care time included obtaining a history; examining the patient; pulse oximetry; ordering and review of studies; arranging urgent treatment with development of a management plan; evaluation of patient's response to treatment; frequent reassessment; and, discussions with other providers. This critical care time was performed to assess and manage the high probability of imminent, life-threatening deterioration that could result in multi-organ failure. It was exclusive of separately billable procedures and treating other patients and teaching time. History: The patients chart and medications were reviewed in detail, and the patient was seen and examined. The history was obtained from the patient. Pastora Bautista is an 88 y.o. female with a past medical history of lung cancer, COPD, pneumonia, chronic oxygen therapy, status post phlebectomy for DVT, and hypertension presenting with worsening generalized weakness, increased cough, hemoptysis, bilateral lower extremity swelling, and dysuria for two weeks. Recent PET scan suggested a recurrent mass in the right lower lobe. Review of Systems: A complete 10-system review of systems was completed and negative except as noted in the HPI or here: -CONSTITUTIONAL: Denies weight loss, fever, and chills. -HEENT: Denies changes in vision and hearing. -RESPIRATORY: Denies SOB and cough. -CV: Denies palpitations and CP. -GI: Denies abdominal pain, nausea, vomiting, and diarrhea. -: Denies dysuria and urinary frequency. -MSK: Denies myalgia and joint pain. -SKIN: Denies rash and pruritus. -NEUROLOGICAL: Denies headache and syncope. -PSYCHIATRIC: Denies recent changes in mood. Denies anxiety and depression. Past Medical History: Lung cancer COPD Pneumonia Chronic oxygen therapy Status post phlebectomy DVT of lower extremity on Eliquis Hypertension Past Surgical History: History reviewed. No pertinent surgical history. Home Medications: Chronic oxygen therapy Eliquis Allergies: No known allergies. Social History: -Tobacco use: Never smoker, secondhand smoke from -Alcohol use: Never -Drug use: Never -Sexual activity: Not currently active Objective: Vital Signs on Arrival: Temp: 36.5 C (97.7 F) BP: 133/66 Pulse: 75 Resp: 16 SpO2: 96% on 2L nasal cannula Physical Exam: -General: NAD -Neck: Supple. No masses. intaubted and sedated -HEENT: PERRL. Normal lids and conjunctiva. Moist mucous membranes. Oropharynx without lesions, exudates or excessive erythema. Normal appearance of the external aspects of the nose and ears. -Heart: Regular rhythm, normal rate. No murmur. No lower extremity edema. -Lungs: Normal respiratory effort. Clear to auscultation bilaterally. No wheezes. No crackles. -Abdomen: Soft. Non-tender. Non-distended. No masses or abdominal hernia. -Msk: No digital cyanosis. Normal strength and tone in all 4 limbs. -Skin: Warm and dry, no rashes. -Neuro: Alert. No facial droop or slurred speech. Extra-ocular movements intact. Sensation intact to soft touch in all 4 limbs. -Psych: Appropriate mood. Full affect. Diagnostic Studies:. -CT Chest: Heterogeneously enhancing mass in the right hilar region causing bronchial narrowing. Bilateral pleural effusions, compressive atelectasis severe on the right, moderate-sized pericardial effusion. Plan discussed with: Patient RAMO ALAN MD May 18, 2024 21:18
[2024-05-18 21:40] LABS: INR 1.18 (0.9-1.15); Partial Thromboplastin Time 49.5 SEC (24.5-34.5); Prothrombin Time 12.4 sec (9.3-11.8)
[2024-05-19] VITALS (107 sets, daily range): BP systolic 84–165; BP diastolic 42–87; PULSE 8–111; RESP 8–22; TEMP 97.4–98.7; O2SAT 96–100
[2024-05-19 04:25] LABS: Basophils # (auto) 0.1 10 ^3/uL (0-0.2); Eosinophils # (auto) 0 10 ^3/uL (0-0.8); Lymphocytes # (auto) 0.4 10 ^3/uL (0.4-5.4); Monocytes # (auto) 1.4 10 ^3/uL (0-1.3); White Blood Cell 20.1 10^3/uL (4.4-10.8)
[2024-05-19 04:27] LABS: Basophils % (auto) 0.3 % (0.0-2.0); Eosinophils % (auto) 0.1 % (0.0-7.0); Hematocrit 32.2 % (36.0-46.0); Hemoglobin 10.2 g/dL (12.2-16.2); Mean Corpuscular Hemoglobin 23.6 pg (28.0-32.0); Mean Corpuscular Hgb Conc. 31.6 g/dL (32.0-36.0); Mean Corpuscular Volume 74.6 fL (80.0-100.0); Neutrophils # (auto) 18.2 10 ^3/uL (1.6-8.6); Neutrophils % (auto) 90.6 % (37.0-80.0); Nucleated Red Blood Cells % 0.1 %; Platelet Count (auto) 273 10^3/uL (140-450); Red Blood Cells 4.32 10^6/uL (4.0-5.20); Red Cell Distribution Width 15.4 % (11.8-14.3)
[2024-05-19 04:43] LABS: Anion Gap 7 (5-15); Calcium 10.3 mg/dL (8.7-10.4); Carbon Dioxide 31 mmol/L (20-31); Chloride 97 mmol/L (98-107); Potassium 3.5 mmol/L (3.5-5.1); Sodium 135 mmol/L (136-145)
[2024-05-19 04:49] LABS: BUN/Creatinine Ratio 27.7 (10.0-20.0); Blood Urea Nitrogen 18 mg/dL (9-23); Glucose 213 mg/dL (74-106)
--- NOTE | 2024-05-19 04:49 | DVH ---
CHEST RADIOGRAPH Indication:ICU Technique: Single frontal view of the chest was obtained COMPARISON: XY CHEST PORTABLE on DOS: 05/17/24, XY CHEST PORTABLE on DOS: 05/17/24, XY CHEST PORTABLE on DOS: 05/15/24 FINDINGS: Lines and Tubes: Endotracheal tube, enteric catheter and left central venous catheter in satisfactory position. Lungs: Multifocal airspace disease. Chronic right lung volume loss. Pleura: Small right pleural effusion. No pneumothorax. Cardiomediastinal contours: Unremarkable Bones: Unremarkable IMPRESSION: Lines and tubes in satisfactory position. No significant interval change.
[2024-05-19] MEDS: VANCOMYCIN 1GM/200ML PREMIX 200 ML IV SCH (05:36)
[2024-05-19 08:10] LABS: Base Excess 8.6 mmol/L (-2.0-3.0)
[2024-05-19] MEDS ORDERED: LIDOCAINE 2%HCL (LOCAL ANESTH.) INJ 20ML MDV ONE (08:28)
[2024-05-19] MEDS ORDERED: MIDAZOLAM HCL 5 MG/ML-1ML VIAL ONE (08:29)
[2024-05-19] MEDS ORDERED: EPINEPHrine HCL 1 MG/1 ML AMP ONE ×2 (08:29→11:19)
[2024-05-19] MEDS ORDERED: fentaNYL CITRATE 100 MCG/2 ML VL ONE (08:30)
[2024-05-19] MEDS ORDERED: SODIUM CHLORIDE LOCK 0 ML ONE (08:31)
[2024-05-19] MEDS ORDERED: LIDOCAINE 2% JELLY 11ml (GLYDO) ONE ×2 (08:31)
[2024-05-19] MEDS: MICAFUNGIN SODIUM 100 MG in SODIUM CHL 0.9% 100 ML IV SCH (09:23)
[2024-05-19 10:37] LABS: INR 1.13 (0.9-1.15); Prothrombin Time 11.9 sec (9.3-11.8)
[2024-05-19] MEDS: IOHEXOL 350 MG/ML 100ML IJ ONE (10:41)
[2024-05-19 10:50] LABS: Partial Thromboplastin Time 82.2 SEC (24.5-34.5)
[2024-05-19] MEDS ORDERED: GLYCOPYRROLATE 0.2 MG/ML 1ML VIAL ONE (11:19)
--- NOTE | 2024-05-19 11:35 | DVH ---
CTA Chest with intravenous contrast INDICATION: RULE OUT PE COMPARISON: None TECHNIQUE: Multidetector spiral CTA of the chest was performed of the chest with intravenous contrast . PULMONARY ANGIOGRAPHY PROTOCOL was utilized using a bolus-tracking technique centered on the main p ulmonary artery. Axial, coronal and sagittal multiplanar and MIP reformats were performed. Radiation dose : Chest: CTDI volume is 15.28 mGy. Dose-length product is 368.49 mGy*cm The dose indicators for CT are the volume computed Tomography (CT) dose Index (CTDIvol) and the dose Length product (DLP), and are measured in units of mGy and mGy-cm, respectively. These indicators are not patient dose, but values generated from the CT scanner acquisition factors. The report includes radiation exposure data for exposures received during this examination. Findings: Pulmonary artery: No pulmonary embolism Lower neck: Endotracheal tube and nasogastric tube in place. Lungs: Atelectasis and consolidation throughout the right lung. Mild atelectasis consolidation in the left lung base. Heart/Vascular Structures: Normal heart size. Moderate pericardial effusion. Lymph Nodes: No adenopathy Pleura: Bilateral pleural effusions right greater than left. Musculoskeletal: No acute osseous abnormality. Soft tissues: Normal. Upper abdomen: Nodularity of the bilateral adrenal glands. IMPRESSION: 1. No pulmonary embolism. 2. Extensive consolidation in the right lung. Large right and moderate left pleural effusions. Modera te pericardia effusion. Clinical correlation and continue follow-up is recommended HS:Y
[2024-05-19] MEDS: HEPARIN DRIP/D5W 100UNITS/ML 250 ML IV SCH (11:45)
--- NOTE | 2024-05-19 14:54 | DVHPN2 ---
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 Patient's daughter reported that she was feeling weak and lethargic with a past 2 weeks and for the last 4-5 days worsening shortness of breath, bilateral lower extremity swelling. Patient did not report of chest pain, dizziness, headache, nausea, vomiting. Chest x-ray was done which showed near complete right lung atelectasis with a large right pleural effusion. Chest CT showed bilateral pleural effusions larger on the right with compressive passive atelectasis of the lungs, near complete atelectasis of the right lung parts of the right upper lobe. Areas of parenchyma breakdown, cavitation seen in the right upper lobe, heterogeneously enhancing ? Mass in the right perihilar region measuring 2.7 X 2 X 3 cm causing narrowing of the right upper as well as a right intermedius bronchus. Left adrenal nodule measuring 2 X 3 cm. Thoracocentesis was done removing 1200 mL of yellow fluid which revealed WBC 881 91% mononuclear cells, fluid RBC within normal limits. Review of systems Patient seen and examined at the bedside. Patient is sedated on midazolam and is on mechanical ventilation with FiO2- 30%, PEEP- 5, tidal volume 450ml/min, on norepinephrine and amiodarone drip. Blood pressure 125/63 mmHg, heart rate 85 irregular. Other Systems: Patient seen and examined by myself today on rounds with the medicine resident, I agree with medicine resident assessment and plan as documented in his note Objective vital signs Vital Sign Date Time Temp Pulse Resp B/P (MAP) Pulse Ox O2 Delivery O2 Flow Rate FiO2 05/19/24 13:24 93 16 104/59 (74) 99 30 05/19/24 12:00 97.7 97.7 05/19/24 12:00 Mechanical Ventilator+ 05/17/24 21:45 2.0 Total Intake and Output 05/18/24 05/18/2424 15:00 23:00 07:00 Intake Total 380.836 ml 390.336 ml 572.169 ml Output Total 350 ml 950 ml Balance 380.836 ml 40.336 ml -377.831 ml medications Current Medications Medications Dose Ordered Sig/Erica Route Start Time Stop Time Status Last Admin Dose Admin Docusate Sodium 100 mg BIDPRN PRN PO 05/16/24 08:00 Acetaminophen 650 mg Q6HP PRN PO 05/16/24 08:00 Acetaminophen/ Hydrocodone Bitart 1 tab Q4HP PRN PO 05/16/24 08:00 Ondansetron HCl 4 mg Q4HP PRN IV 05/16/24 08:00 Morphine Sulfate 2 mg Q4HPRN PRN IV 05/16/24 08:00 Nitroglycerin 0.4 mg Q5MINP PRN SL 05/16/24 08:00 Morphine Sulfate 2 mg Q30M PRN IV 05/16/24 08:00 Ipratropium [place] 0.5 mg Q4HP PRN NEB 05/16/24 08:00 05/17/24 15:38 0.5 MG Pantoprazole Sodium 40 mg DAILY IV 05/16/24 10:00 05/19/24 09:23 40 MG Alprazolam 0.25 mg TIDPRN PRN PO 05/16/24 18:00 Albuterol 1.25 mg Q4HWA PRN NEB 05/17/24 14:15 05/19/24 14:28 1.25 MG Ipratropium [place] 0.5 mg Q4HWA NEB 05/17/24 18:00 05/19/24 14:28 0.5 MG Methylprednisolone Sodium Succinate 40 mg Q8HR IV 05/17/24 22:00 05/19/24 14:31 40 MG Norepinephrine Bitartrate 250 ml @ 3.75 mls/hr Q24H IV 05/17/24 22:30 05/19/24 03:30 7.5 MLS/HR Phenylephrine HCl 250 ml @ 30 mls/hr Q8H20M IV 05/17/24 23:00 Fentanyl Citrate 250 ml @ 2.5 mls/hr Q24H IV 05/17/24 23:00 Midazolam HCl 50 ml @ 1 mls/hr Q24H IV 05/17/24 23:30 05/19/24 12:24 6 MLS/HR Cefepime HCl 50 ml @ 12.5 mls/hr Q12HR IV 05/18/24 06:00 05/19/24 12:00 12.5 MLS/HR Vancomycin HCl 0 ml @ 0 mls/hr UD IV 05/18/24 06:00 Amiodarone HCl 250 ml @ 16.667 mls/ hr Q15H IV 05/18/24 06:15 05/19/24 07:42 16.667 MLS/HR Micafungin Sodium 100 mg/Sodium Chloride 100 ml @ 100 mls/hr DAILY IV 05/19/24 10:00 05/19/24 09:23 100 MLS/HR Furosemide 20 mg BIDD IV 05/19/24 18:00 Heparin Sodium/ Dextrose 250 ml @ 11 mls/hr [id number] IV 05/19/24 11:45 05/19/24 11:45 11 MLS/HR Vancomycin HCl 200 ml @ 200 mls/hr DAILY@0600 IV 05/20/24 06:00 Examination Gen - no pallor, no icterus, no cyanosis, no clubbing, no LAD, lower extremity 1+ edema Skin - Patients skin is warm and dry. HEENT - normocephalic, atraumatic, moist mucous membranes with endotracheal tube. Neck - JVD seen with positive hepatojugular reflex. Pulmonary - decreased breath sounds on the right side , patient on ventilator cardiovascular - normal S1,S2 heard. no murmurs heard. peripheral pulses normal radial 2+, pedal 2+. capillary refill normal <2 secs. GI - Bowel sounds+ Neurological - patient is on mechanical ventilation and sedated on midazolam. Gag reflex +, Plantar reflex downgoing , pupils reactive bilaterally. laboratory and microbiology Laboratory Tests 05/19/24 03:59 Test 05/19/24 03:59 Range/Units Serum Glucose 213 H 74-106 mg/dL Microbiology Date/Time Source Procedure Growth Status 05/19/24 12:42 Bronchial Brushings Pending Resulted 05/19/24 12:42 Bronchial Brushings Pending Resulted 05/19/24 12:42 Bronchial Brushings Pending Resulted 05/19/24 12:42 Bronchial Brushings Pending Resulted 05/19/24 12:42 Bronchial Brushings - Final See Separate Report... Resulted 05/18/24 12:00 Blood Blood Culture - Preliminary NO GROWTH AFTER 24 HOURS OF INCUBATION. Resulted 05/17/24 23:40 Nose MRSA Screen - Final Complete 05/17/24 00:15 Pleural Fluid Gram Stain - Final Resulted 05/17/24 00:15 Pleural Fluid Body Fluid Culture - Preliminary Resulted 05/16/24 08:45 Urine - Midstream Clean Catch Urine Culture - Final Complete Problem List/Assessment/Plan Problem List/Assessment/Plan Assessment and plan # hypervolemic hyponatremia - serum sodium 129--> 132--> 134-->137-->134-->135 - serum creatinine 0.65 mg/dl and BUN 18 - phosphorus- 4.3--> 1.7mg/dl - PTH 68.5 pg/ml - low-salt diet - serum osmolality 277 - urine osmolality 618 - urine sodium, urine creatinine , urine total protein, urine protein/creatinine ratio pending - continue fluid restriction and furosemide 20 mg b.i.d. and monitor BMP - potassium phosphate 20 millimole to be given over 8 hours - patient's hyponatremia is improving # Cardiopulmonary arrest with ROSC - patient currently on ventilator with FiO2- 50%, PEEP - 8 - sedated on midazolam - on norepinephrine and amidarone drip # left upper extremity DVT - on heparin drip # right pleural effusion - 1200 mL yellow colored fluid drained - on cefepime and vancomycin # history of adenocarcinoma of the lung - Status post right upper lobectomy 2015, - CT-guided needle biopsy of right pleural mass in the lower lobe which showed atypical cellular proliferation suggestive of invasive adenocarcinoma in 2017 status post radiation and chemotherapy - recent PET scan 03/03/24 showed small right pleural effusion hypermetabolic activity suspicious for malignant effusion. Left lower lobe masslike consolidation opacity measuring 3.8 cm in the medial left lower lung demonstrating hypermetabolic activity suggestive of malignancy - management as per Oncology # DVT ruled out - bilateral lower extremity venous duplex shows no evidence of DVT Goals care discussed with the patient and the daughter for over 20 minutes. Full code. Plan discussed with Dr. Sosa Plan discussed with: Daughter My Orders My Orders Orders - PRISCILLA PHAM RESIDENT Procedure Category Date Status Time Furosemide Injection PHA 05/19/24 In Process (Lasix Injection) 18:00 Dietary Evaluation Review Comments: Monitor PO intake to meet her needs to 75% at least. Expected Outcomes/Goals: Gradual weight loss and breath with less difficulties. PRISCILLA PHAM May 19, 2024 14:54 LISSY SOSA MD May 19, 2024 17:06
[2024-05-19] MEDS ORDERED: POTASSIUM PHOSPHATE 26.4 MEQ in SODIUM CHL 0.9% 100 ML IV ONE (15:15)
--- NOTE | 2024-05-19 16:04 | DVHPN2 ---
Subjective Overnight critical events. Patient's family decided to make the patient DNR. Continue current management. They will think about comfort measures per soon. Reviewed: Care Plan Changes from previous H/P or p: No Changes Eyes: No Pain, No Vision change, No Conjunctivae inflammation, No Eyelid inflammation, No Other, No Redness ENT: No Ear pain, No Ear discharge, No Nose pain, No Nose discharge, No Nose congestion, No Mouth pain, No Mouth swelling, No Throat pain, No Throat swelling, No Other Cardiovascular: No Chest Pain, No Palpitations, No Orthopnea, No Paroxysmal Noc. Dyspnea; Edema; No Lt Headedness, No Other Respiratory: Cough; No Dry; Shortness of breath, SOB with excertion; No Wheezing, No Hemoptysis, No Pleuritic Pain, No Sputum, No Other Gastrointestinal: No Nausea, No Vomiting, No Abdominal Pain, No Diarrhea, No Constipation, No Melena, No Hematochezia, No Other Genitourinary: No Dysuria, No Frequency, No Incontinence, No Hematuria, No Retention, No Other Musculoskeletal: No other, No neck pain, No shoulder pain, No arm pain, No back pain, No hand pain, No leg pain, No foot pain Skin: No Rash, No Lesions, No Jaundice, No Bruising, No Other Objective Vitals Vital Signs Date Time Temp Pulse Resp B/P (MAP) Pulse Ox O2 Delivery O2 Flow Rate FiO2 05/19/24 15:22 106 18 123/52 (75) 97 30 05/19/24 14:00 Mechanical Ventilator+ 05/19/24 12:00 97.7 97.7 05/17/24 21:45 2.0 Intake/Output Intake and Output 05/19/24 07:00 Intake Total 1386.508 ml Output Total 1300 ml Balance 86.508 ml Intake Oral 60 ml IV Total 1326.508 ml Output Urine Total 1300 ml Exam HEENT pupils are reactive Neck is supple CV is S1-S2 regular rate and rhythm Respiratory expiratory rhonchi GI positive bowel sound Extremity no pedal edema 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 Medications Current Medications Medications Dose Ordered Sig/Erica Route Start Time Stop Time Status Last Admin Dose Admin Docusate Sodium 100 mg BIDPRN PRN PO 05/16/24 08:00 Acetaminophen 650 mg Q6HP PRN PO 05/16/24 08:00 Acetaminophen/ Hydrocodone Bitart 1 tab Q4HP PRN PO 05/16/24 08:00 Ondansetron HCl 4 mg Q4HP PRN IV 05/16/24 08:00 Morphine Sulfate 2 mg Q4HPRN PRN IV 05/16/24 08:00 Nitroglycerin 0.4 mg Q5MINP PRN SL 05/16/24 08:00 Morphine Sulfate 2 mg Q30M PRN IV 05/16/24 08:00 Ipratropium [place] 0.5 mg Q4HP PRN NEB 05/16/24 08:00 05/17/24 15:38 0.5 MG Pantoprazole Sodium 40 mg DAILY IV 05/16/24 10:00 05/19/24 09:23 40 MG Alprazolam 0.25 mg TIDPRN PRN PO 05/16/24 18:00 Albuterol 1.25 mg Q4HWA PRN NEB 05/17/24 14:15 05/19/24 14:28 1.25 MG Ipratropium [place] 0.5 mg Q4HWA NEB 05/17/24 18:00 05/19/24 14:28 0.5 MG Methylprednisolone Sodium Succinate 40 mg Q8HR IV 05/17/24 22:00 05/19/24 14:31 40 MG Norepinephrine Bitartrate 250 ml @ 3.75 mls/hr Q24H IV 05/17/24 22:30 05/19/24 03:30 7.5 MLS/HR Phenylephrine HCl 250 ml @ 30 mls/hr Q8H20M IV 05/17/24 23:00 Fentanyl Citrate 250 ml @ 2.5 mls/hr Q24H IV 05/17/24 23:00 Midazolam HCl 50 ml @ 1 mls/hr Q24H IV 05/17/24 23:30 05/19/24 12:24 6 MLS/HR Cefepime HCl 50 ml @ 12.5 mls/hr Q12HR IV 05/18/24 06:00 05/19/24 12:00 12.5 MLS/HR Vancomycin HCl 0 ml @ 0 mls/hr UD IV 05/18/24 06:00 Amiodarone HCl 250 ml @ 16.667 mls/ hr Q15H IV 05/18/24 06:15 05/19/24 07:42 16.667 MLS/HR Micafungin Sodium 100 mg/Sodium Chloride 100 ml @ 100 mls/hr DAILY IV 05/19/24 10:00 05/19/24 09:23 100 MLS/HR Furosemide 20 mg BIDD IV 05/19/24 18:00 Heparin Sodium/ Dextrose 250 ml @ 11 mls/hr [id number] IV 05/19/24 11:45 05/19/24 11:45 11 MLS/HR Vancomycin HCl 200 ml @ 200 mls/hr DAILY@0600 IV 05/20/24 06:00 Laboratory Results Laboratory Tests 05/19/24 03:59 Chemistry Test 05/19/24 03:59 Calcium Level 10.3 mg/dL (8.7-10.4) Coagulation Test 05/18/24 21:00 05/19/24 03:59 05/19/24 10:00 Prothrombin Time 12.4 sec (9.3-11.8) H 11.9 sec (9.3-11.8) H Prothrombin Time INR 1.18 (0.9-1.15) H 1.13 (0.9-1.15) Activated Partial Thromboplast Time 49.5 SEC (24.5-34.5) H 53.1 SEC (24.5-34.5) H 82.2 SEC (24.5-34.5) *H Urinalysis Test 05/16/24 08:45 Urine Color Yellow (Yellow) Urine Clarity Clear (Clear) Urine pH 6.5 (5.0-9.0) Urine Specific [place] 1.050 (1.001-1.035) Urine Protein 1+ (Negative) H Urine Ketones Negative (Negative) Urine Blood Negative /uL (Negative) Urine Nitrite Negative (Negative) Urine Bilirubin Negative (Negative) Urine Urobilinogen Normal mg/dL (Negative) Urine Leukocyte Esterase Negative /uL (Negative) Urine RBC 3 /hpf (0 - 4) Urine WBC 3 /hpf (0 - 5) Urine Squamous Epithelial Cells Few /hpf (<5) Urine Bacteria Few /hpf (None Seen) H Urine Osmolality 618 mOsm/kg Urine Glucose Normal mg/dL (Normal) Blood Gas Results Test 05/19/24 08:01 Arterial Blood pH 7.470 (7.350-7.450) FiO2 % 30.0 Microbiology Microbiology Date/Time Source Procedure Growth Status 05/19/24 12:42 Bronchial Brushings Pending Resulted 05/19/24 12:42 Bronchial Brushings Pending Resulted 05/19/24 12:42 Bronchial Brushings Pending Resulted 05/19/24 12:42 Bronchial Brushings Pending Resulted 05/19/24 12:42 Bronchial Brushings - Final See Separate Report... Resulted 05/18/24 12:00 Blood Blood Culture - Preliminary NO GROWTH AFTER 24 HOURS OF INCUBATION. Resulted 05/17/24 23:40 Nose MRSA Screen - Final Complete 05/17/24 00:15 Pleural Fluid Gram Stain - Final Resulted 05/17/24 00:15 Pleural Fluid Body Fluid Culture - Preliminary Resulted 05/16/24 08:45 Urine - Midstream Clean Catch Urine Culture - Final Complete Assessment/Plan Assessment/Plan 88-year-old female with a known history of chronic respiratory failure on home O2 at 2 L, COPD, adenocarcinoma of the lung status post right upper lobectomy , status post chemoradiation presented to the hospital with generalized weakness and increasing shortness a breath found to have 1. Acute on chronic hypoxic respiratory failure suspected secondary to underlying COPD exacerbation as well as right-sided pleural effusion currently intubated on mechanical ventilation 2. Acute COPD exacerbation 3. Right-sided pleural effusion status post thoracentesis 4. Lung cancer status post right upper lobectomy, chemoradiation 5. Right lower extremity DVT by history, resume home dose of Eliquis 6. Cardiac arrhythmia requiring ACLS protocol with ROSC 7. DNR status, family will consider comfort care soon --continue current vent support, daily ABG chest x-ray -patient's remains critical, prognosis remained guarded, daughter was updated at bedside. Plan discussed with: Daughter, Other My Orders Orders - ELLYN SOTELO MD Procedure Category Date Status Time Chest Xray 1 View XY 05/19/24 Resulted 04:00 Date of Service: May 19, 2024 Billing Provider: ELLYN SOTELO MD Common Visit Codes: NOT BILLABLE ELLYN SOTELO MD May 19, 2024 16:04
--- NOTE | 2024-05-19 16:23 | DVHNC2 ---
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 Complications: None Procedure: Patient medications and allergies reviewed. The risks and benefits of the procedure and the sedation options and risk were discussed with the patient's healthcare proxy. All questions were answered and informed consent was obtained. Patient identification and proposed procedure were verified prior to the procedure by the physician, and a nurse, and the respiratory therapist in ICU room. The heart rate, respiratory rate, oxygen saturations, blood pressure, adequacy of pulmonary ventilation, and response to care were monitored throughout the procedure. The physical status of the patient was reassessed after the procedure. After obtaining informed consent, the bronchoscope was introduced through the endotracheal tube and advanced into the trachea bronchial tree of both lungs. The procedure was accomplished without difficulty. The patient tolerated the procedure well. Findings: The trachea is in normal caliber. The schuyler is sharp. The tracheobronchial tree of the right lung was examined to at least the first subsegmental level. T he bronchial mucosa and anatomy in the right lung are normal abnormal. There mucosa is erythematous. There is complete occlusion of RUL. (Family states pt had prior lobectomy; not sure with lobe.) There are no endobronchial lesions. Right lower lobe (RLL) Bronchoalveolar lavage (BAL) obtained. RML BAL sent for gram stain and culture and fungal culture. Brushings obtained from right lower lobe and right mainstem. Biopsy obtained from right mainstem at site of abnormal mucosa. The left upper lobe, lingula, and left lower lobe were examined to at least the first subsegmental level. Bronchial mucosa and anatomy in the left upper lobe and lingula are normal. There were no endobronchial lesions. There was no secretions. There was no active bleeding at the completion of the procedure. Estimated blood loss: Less than 5 mL. Impression: Extrinsic compression of Right upper lobe RLL BAL performed Brushings from Right lower lobe and right mainstem obtained. Biopsy from right mainstem obtained Recommendation: Follow-up RLL BAL, Brushings from Right lower lobe, right main stem, and biopsy from right main stem results. Procedure codes: 11359, bronchoscopy, rigid and flexible, including fluoroscopic guidance, one performed; with bronchial endobronchial broncho-alveolar lavage, single or multiple sites KARMA ZHANG MD May 19, 2024 16:23
[2024-05-19] MEDS: POTASSIUM PHOSPHATE IV ONE (17:25)
[2024-05-19] MEDS: D5W 5% IV ONE (17:25)
[2024-05-19] MEDS: FUROSEMIDE 20 MG/2 ML VIAL IV SCH (17:43)
[2024-05-19 19:25] LABS: INR 1.08 (0.9-1.15); Partial Thromboplastin Time 53.8 SEC (24.5-34.5); Prothrombin Time 11.4 sec (9.3-11.8)
--- NOTE | 2024-05-19 21:03 | DVHPN2 ---
Consult Progress Note Date Seen: May 19, 2024 Subjective Patient reports: Other (4 mics of levofed, maxed out on vent right now after broncoscopy procedurebut prior to this was on minimal vent. FIO2 30% . tachycardic of 103) Objective vital signs Vital Sign Date Time Temp Pulse Resp B/P (MAP) Pulse Ox O2 Delivery O2 Flow Rate FiO2 05/19/24 20:20 105 18 104/42 (62) 97 30 05/19/24 18:00 Mechanical Ventilator+ 05/19/24 16:00 97.8 97.8 05/17/24 21:45 2.0 Total Intake and Output 05/18/24 05/18/24 05/19/24 15:00 23:00 07:00 Intake Total 380.836 ml 390.336 ml 615.336 ml Output Total 350 ml 950 ml Balance 380.836 ml 40.336 ml -334.664 ml medications Current Medications Medications Dose Ordered Sig/Erica Route Start Time Stop Time Status Last Admin Dose Admin Docusate Sodium 100 mg BIDPRN PRN PO 05/16/24 08:00 Acetaminophen 650 mg Q6HP PRN PO 05/16/24 08:00 Acetaminophen/ Hydrocodone Bitart 1 tab Q4HP PRN PO 05/16/24 08:00 Ondansetron HCl 4 mg Q4HP PRN IV 05/16/24 08:00 Morphine Sulfate 2 mg Q4HPRN PRN IV 05/16/24 08:00 Nitroglycerin 0.4 mg Q5MINP PRN SL 05/16/24 08:00 Morphine Sulfate 2 mg Q30M PRN IV 05/16/24 08:00 Ipratropium [place] 0.5 mg Q4HP PRN NEB 05/16/24 08:00 05/17/24 15:38 0.5 MG Pantoprazole Sodium 40 mg DAILY IV 05/16/24 10:00 05/19/24 09:23 40 MG Alprazolam 0.25 mg TIDPRN PRN PO 05/16/24 18:00 Albuterol 1.25 mg Q4HWA PRN NEB 05/17/24 14:15 05/19/24 19:21 1.25 MG Ipratropium [place] 0.5 mg Q4HWA NEB 05/17/24 18:00 05/19/24 19:21 0.5 MG Methylprednisolone Sodium Succinate 40 mg Q8HR IV 05/17/24 22:00 05/19/24 14:31 40 MG Norepinephrine Bitartrate 250 ml @ 3.75 mls/hr Q24H IV 05/17/24 22:30 05/19/24 03:30 7.5 MLS/HR Phenylephrine HCl 250 ml @ 30 mls/hr Q8H20M IV 05/17/24 23:00 Fentanyl Citrate 250 ml @ 2.5 mls/hr Q24H IV 05/17/24 23:00 Midazolam HCl 50 ml @ 1 mls/hr Q24H IV 05/17/24 23:30 05/19/24 12:24 6 MLS/HR Cefepime HCl 50 ml @ 12.5 mls/hr Q12HR IV 05/18/24 06:00 05/19/24 12:00 12.5 MLS/HR Vancomycin HCl 0 ml @ 0 mls/hr UD IV 05/18/24 06:00 Amiodarone HCl 250 ml @ 16.667 mls/ hr Q15H IV 05/18/24 06:15 05/19/24 07:42 16.667 MLS/HR Micafungin Sodium 100 mg/Sodium Chloride 100 ml @ 100 mls/hr DAILY IV 05/19/24 10:00 05/19/24 09:23 100 MLS/HR Furosemide 20 mg BIDD IV 05/19/24 18:00 05/19/24 17:43 20 MG Heparin Sodium/ Dextrose 250 ml @ 11 mls/hr [id number] IV 05/19/24 11:45 05/19/24 11:45 11 MLS/HR Vancomycin HCl 200 ml @ 200 mls/hr DAILY@0600 IV 05/20/24 06:00 Physical Exam: -General: NAD -Neck: Supple. No masses. intaubted and sedated -HEENT: PERRL. Normal lids and conjunctiva. Moist mucous membranes. Oropharynx without lesions, exudates or excessive erythema. Normal appearance of the external aspects of the nose and ears. -Heart: Regular rhythm, normal rate. No murmur. No lower extremity edema. -Lungs: Normal respiratory effort. Clear to auscultation bilaterally. No wheezes. minimal crackles and dimished breath sounds in right upper lobe -Abdomen: Soft. Non-tender. Non-distended. No masses or abdominal hernia. -Msk: No digital cyanosis. Normal strength and tone in all 4 limbs. -Skin: Warm and dry, no rashes. -Neuro: Alert. No facial droop or slurred speech. Extra-ocular movements intact. Sensation intact to soft touch in all 4 limbs. -Psych: Appropriate mood. Full affect. laboratory and microbiology Laboratory Tests 05/19/24 03:59 Test 05/19/24 03:59 Range/Units Serum Glucose 213 H 74-106 mg/dL Problem List/Assessment/Plan Problems(with codes): (1) Septic shock (2) Shortness of breath (3) Weakness (4) Pneumonia (5) Mass of right lung Problem List/Assessment/Plan ID Problem List: 1. Acute on chronic hypoxic respiratory failure 2. Lung cancer (right) 3. Right lung cavitary pneumonia 4. Possible obstructive post-obstructive pneumonia 5. Sepsis, septic shock Assessment: This is an 88 y.o. female with a past medical history of lung cancer, COPD, pneumonia, chronic oxygen therapy, status post phlebectomy for DVT, and hypertension. She presents with worsening generalized weakness, increased cough, hemoptysis, bilateral lower extremity swelling, and dysuria over the past two weeks. A PET scan in December suggested a recurrent mass in the right lower lobe, confirmed via bronchoscopy. On admission, she had a leukocytosis of 15.9, Hb 11.8, and platelets 180. CT chest showed a heterogeneously enhancing mass in the right hilar region with bilateral pleural effusions, compressive atelectasis, and a moderate-sized pericardial effusion. She is normally ambulatory but has been bed-bound recently with no smoking or alcohol history, albeit with secondhand smoke exposure from a chronic smoking . Patient was admitted on May 15 and became tachycardic and hypotensive during hospitalization. She was treated with bronchodilators, IV antibiotics (levofloxacin and vancomycin), and underwent thoracentesis. 05/19: CTPE shows no pulmonary embolism , extensive consolidation in the right lung , large right and moderate left plural effusions. moderate pericardial effusion . Patient had a bronchoscopy done today , BAL was done of the right middle and lower lobes. Fungal and bacterial cultures were sent. mucoso was erithemidus, blockages of right upper lobe and partial obstruction of right lower lobe, both noted during the procedure. Left lung appeared normal. Biopsy was obtained from the right main stem at the site of abnormal mucosa. Plan: follo wup on BAL cultures , right main stem biopsy results Continue vancomycin, cefepime, Add micafungin given the immunocompromised status. Monitor respiratory cultures and blood cultures. Test broadly for TB, HIV, Cocci antibody, Aspergillus antibody. Authorized and Performed by: Ramo Alan Total critical care time: Approximately 76 minutes Due to a high probability of clinically significant, life threatening deterioration, the patient required my highest level of preparedness to intervene emergently and I personally spent this critical care time directly and personally managing the patient. This critical care time included obtaining a history; examining the patient; pulse oximetry; ordering and review of studies; arranging urgent treatment with development of a management plan; evaluation of patient's response to treatment; frequent reassessment; and, discussions with other providers. This critical care time was performed to assess and manage the high probability of imminent, life-threatening deterioration that could result in multi-organ failure. It was exclusive of separately billable procedures and treating other patients and teaching time. Plan discussed with: Other Dietary Evaluation Review Comments: Monitor PO intake to meet her needs to 75% at least. Expected Outcomes/Goals: Gradual weight loss and breath with less difficulties. RAMO ALAN MD May 19, 2024 21:03
--- NOTE | 2024-05-19 22:25 | DVHPN2 ---
Progress Note - Dictate Date Seen: May 19, 2024 Medical Necessity Reason Pt with a Central, PICC or Fol: Yes The following are medically ne: Central Line, Aden Catheter Reason for aden catheter: Strict I&O Subjective Patient seen and examined at bedside. Sedated, intubated on mechanical ventilator Overnight events reviewed. vital signs Vital Sign Date Time Temp Pulse Resp B/P (MAP) Pulse Ox O2 Delivery O2 Flow Rate FiO2 05/19/24 22:15 101 16 152/65 (94) 97 05/19/24 22:00 Mechanical Ventilator+ 100 100 05/19/24 20:00 98.7 98.7 05/17/24 21:45 2.0 Total Intake and Output 05/18/24 05/18/24 05/19/24 15:00 23:00 07:00 Intake Total 380.836 ml 390.336 ml 615.336 ml Output Total 350 ml 950 ml Balance 380.836 ml 40.336 ml -334.664 ml medications Current Medications Medications Dose Ordered Sig/Erica Route Start Time Stop Time Status Last Admin Dose Admin Docusate Sodium 100 mg BIDPRN PRN PO 05/16/24 08:00 Acetaminophen 650 mg Q6HP PRN PO 05/16/24 08:00 Acetaminophen/ Hydrocodone Bitart 1 tab Q4HP PRN PO 05/16/24 08:00 Ondansetron HCl 4 mg Q4HP PRN IV 05/16/24 08:00 Morphine Sulfate 2 mg Q4HPRN PRN IV 05/16/24 08:00 Nitroglycerin 0.4 mg Q5MINP PRN SL 05/16/24 08:00 Morphine Sulfate 2 mg Q30M PRN IV 05/16/24 08:00 Ipratropium [place] 0.5 mg Q4HP PRN NEB 05/16/24 08:00 05/17/24 15:38 0.5 MG Pantoprazole Sodium 40 mg DAILY IV 05/16/24 10:00 05/19/24 09:23 40 MG Alprazolam 0.25 mg TIDPRN PRN PO 05/16/24 18:00 Albuterol 1.25 mg Q4HWA PRN NEB 05/17/24 14:15 05/19/24 22:24 1.25 MG Ipratropium [place] 0.5 mg Q4HWA NEB 05/17/24 18:00 05/19/24 22:23 0.5 MG Methylprednisolone Sodium Succinate 40 mg Q8HR IV 05/17/24 22:00 05/19/24 21:25 40 MG Norepinephrine Bitartrate 250 ml @ 3.75 mls/hr Q24H IV 05/17/24 22:30 05/19/24 03:30 7.5 MLS/HR Phenylephrine HCl 250 ml @ 30 mls/hr Q8H20M IV 05/17/24 23:00 Fentanyl Citrate 250 ml @ 2.5 mls/hr Q24H IV 05/17/24 23:00 Midazolam HCl 50 ml @ 1 mls/hr Q24H IV 05/17/24 23:30 05/19/24 21:26 6 MLS/HR Cefepime HCl 50 ml @ 12.5 mls/hr Q12HR IV 05/18/24 06:00 05/19/24 21:25 12.5 MLS/HR Vancomycin HCl 0 ml @ 0 mls/hr UD IV 05/18/24 06:00 Amiodarone HCl 250 ml @ 16.667 mls/ hr Q15H IV 05/18/24 06:15 05/19/24 21:35 16.667 MLS/HR Micafungin Sodium 100 mg/Sodium Chloride 100 ml @ 100 mls/hr DAILY IV 05/19/24 10:00 05/19/24 09:23 100 MLS/HR Furosemide 20 mg BIDD IV 05/19/24 18:00 05/19/24 17:43 20 MG Heparin Sodium/ Dextrose 250 ml @ 11 mls/hr [id number] IV 05/19/24 11:45 05/19/24 11:45 11 MLS/HR Vancomycin HCl 200 ml @ 200 mls/hr DAILY@0600 IV 05/20/24 06:00 objective Gen.: Patient lying in bed in medical ICU. Sedated, intubated on mechanical ventilator. Head: Normocephalic, atraumatic. Eyes: PERRLA. Ears: Normal external anatomy. Throat: Endotracheal tube and orogastric tube in place. Neck: Supple, trachea midline. Chest: Transmitted breath sounds bilaterally. Decreased air entry bilaterally. No wheezing. Bibasilar crackles. Cardio vascular: Positive S1, positive S2. Regular rate and rhythm. Abdomen: Positive bowel sounds in all 4 quadrants. Soft, nontender, nondistended. : Aden in place. Normal external genitalia. Rectal: Deferred Skin: Warm, dry. Intact. Extremities: 2+ radial pulses bilaterally. No lower extremity edema. Neuro: Sedated. laboratory and microbiology Laboratory Tests 05/19/24 03:59 Test 05/19/24 03:59 Range/Units Serum Glucose 213 H 74-106 mg/dL Assessment/Plan Impression: Acute on chronic hypoxic respiratory failure secondary to right lung mass On mechanical ventilator LEFT IJ DVT s/p Cardiac arrest with ROSC [id number] bilateral pleural effusion Moderate pericardial effusion Hyponatremia Leukocytosis Hypertension COPD Atelectasis Events: Remains on vent support; AC with RR 20, Vt 400, PEEP 5, FIO2 40% Taper FiO2 as tolerated CPAP in AM with PS 8, PEEP of 5. OK to increase PS to max 20 cmH2O to achieve tidal volume 400-450 mL. S/p bronchoscopy. Follow-up results of RLL BAL, Brushings from right lower lobe, right mainstem, and biopsy from right mainstem. On pressors for hemodynamic support. On Levophed 2 mcg/min Titrate to keep MAP above 65 mmHg/SBP above 90 mmHg. Obtain CTA of chest to rule out PE. U/S venous Doppler of upper extremities showed possible DVT in left IJ. Continue Heparin drip ABG reviewed, shows alkalemia Continue abx Pleural fluid positive for adenocarcinoma of lung. Follow up with Dr. Schroeder Amiodarone drip - f/u with Dr. Flores Check mag, phos Monitor renal function Pleural fluid positive for adenocarcinoma of lung. Overall poor prognosis Informed family and Dr. Lopez, outpatient solar sales manager. Labs and imaging reviewed. Rest of plan as noted below. Plan: s/p intubation on mechanical ventilator CXR image and report reviewed. ABG reviewed. AC mode with RR 20, Vt 400, PEEP 5, FIO2 40% Titrate FIO2 to keep O2 saturation above 92%. VAP bundle Daily ABG and CXR while intubated. Sedate for ventilatory synchrony Pressors as necessary for hemodynamic support. Titrate to keep MAP above 65 mmHg/SBP above 90 mmHg. Continue antibiotics. F/u cultures. Limited chest US of left IJ notable for DVT. Start heparin drip per pharmacy protocol Monitor renal function Monitor electrolytes. Supplement as necessary. Nutritional support. Accucheks, ISS. GI/DVT prophylaxis. Extensive time spent counseling family and answering questions. Overall poor prognosis High likelihood of demise given advanced age and multiple co-morbidities. Condition: Critical Prognosis: Poor given multiple comorbidities. Rest of plan per hospitalist and other consultants. A total of 35 minutes of critical care time was spent reviewing the patient record, examining the patient, making a diagnostic and therapeutic plan, discussing this plan with the medical personnel, following up on diagnostic studies and following the patient for clinical stability excluding any and all procedures. At least 50% of this time was spent in direct, [id number] contact. Thank you Dr. Rodriguez for allowing me to participate in this patient's care. Further recommendations will depend on patient's clinical course. Please do not hesitate to contact me if you have any questions or concerns. This medical document was created using an electronic medical record system with [employer] dictation system. Although this document has been carefully reviewed, there may still be some phonetic and typographical errors. These areas are purely typographical due to imperfections of the software programs, and do not reflect any compromise in the patient's medical care. Dietary Evaluation Review Comments: Monitor PO intake to meet her needs to 75% at least. Expected Outcomes/Goals: Gradual weight loss and breath with less difficulties. Plan discussed with: Other (BRENDEN Tran) Critical Care Time(min): 35 KARMA ZHANG MD May 19, 2024 22:25
[2024-05-20] VITALS (121 sets, daily range): BP systolic 88–162; BP diastolic 35–91; PULSE 74–111; RESP 15–42; TEMP 97.6–98.4; O2SAT 96–100
[2024-05-20 01:02] LABS: INR 1.09 (0.9-1.15); Partial Thromboplastin Time 53.8 SEC (24.5-34.5); Prothrombin Time 11.5 sec (9.3-11.8)
[2024-05-20 04:01] LABS: Basophils # (auto) 0 10 ^3/uL (0-0.2); Eosinophils # (auto) 0 10 ^3/uL (0-0.8); Lymphocytes # (auto) 0.3 10 ^3/uL (0.4-5.4); Platelet Count (auto) 223 10^3/uL (140-450)
[2024-05-20 04:03] LABS: Basophils % (auto) 0.2 % (0.0-2.0); Hematocrit 35.4 % (36.0-46.0); Hemoglobin 11.3 g/dL (12.2-16.2); Lymphocytes % (auto) 1.7 % (10.0-50.0); Mean Corpuscular Hemoglobin 23.9 pg (28.0-32.0); Mean Corpuscular Hgb Conc. 31.8 g/dL (32.0-36.0); Monocytes # (auto) 1.2 10 ^3/uL (0-1.3); Monocytes % (auto) 7.2 % (0.0-12.0); Neutrophils # (auto) 15.6 10 ^3/uL (1.6-8.6); Neutrophils % (auto) 90.9 % (37.0-80.0); Nucleated Red Blood Cells % 0.1 %; Red Blood Cells 4.73 10^6/uL (4.0-5.20); Red Cell Distribution Width 15.7 % (11.8-14.3); White Blood Cell 17.2 10^3/uL (4.4-10.8)
[2024-05-20 04:09] LABS: Anion Gap 7 (5-15); Carbon Dioxide 35 mmol/L (20-31); Chloride 96 mmol/L (98-107); Potassium 3.3 mmol/L (3.5-5.1); Sodium 138 mmol/L (136-145)
[2024-05-20 04:11] LABS: Calcium 9.8 mg/dL (8.7-10.4)
[2024-05-20 04:15] LABS: BUN/Creatinine Ratio 27.9 (10.0-20.0); Blood Urea Nitrogen 17 mg/dL (9-23); Glucose 195 mg/dL (74-106)
[2024-05-20] MEDS: POTASSIUM CHL 20MEQ/100ML 100 ML IV SCH (04:52)
--- NOTE | 2024-05-20 05:43 | DVH ---
CHEST RADIOGRAPH Indication:INTUBATED Technique: Single frontal view of the chest was obtained COMPARISON: XY CHEST XRAY 1 VIEW on DOS: 05/19/24, XY CHEST PORTABLE on DOS: 05/17/24, XY CHEST KURTIS BLE on DOS: 05/17/24, XY CHEST XRAY 1 VIEW on DOS: 05/19/24 FINDINGS: Lines and Tubes: Endotracheal tube, enteric catheter and left central venous catheter in satisfactory position. Lungs: Multifocal airspace disease. Chronic right lung volume loss. Pleura: Small right pleural effusion. No pneumothorax. Cardiomediastinal contours: Unremarkable Bones: Unremarkable IMPRESSION: Lines and tubes in satisfactory position. No significant interval change.
[2024-05-20] MEDS: VANCOMYCIN 1GM/200ML PREMIX 200 ML IV SCH (05:55)
[2024-05-20 06:09] LABS: Base Excess 12.2 mmol/L (-2.0-3.0)
[2024-05-20 07:50] LABS: INR 1.13 (0.9-1.15); Partial Thromboplastin Time 49.1 SEC (24.5-34.5); Prothrombin Time 11.9 sec (9.3-11.8)
[2024-05-20] MEDS: NOREPINEPHRINE 8 MG/250ML KIT 250 ML IV SCH (11:14)
[2024-05-20] MEDS ORDERED: ENOXAPARIN SOD 100 MG/1 ML SYRINGE SC ONE (11:15)
[2024-05-20] MEDS: ENOXAPARIN SOD 80 MG/0.8ML SYRINGE SC ONE (11:20)
[2024-05-20] MEDS: AMIODARONE HCL 200 MG TAB PO ONE (11:20)
--- NOTE | 2024-05-20 11:27 | DVHPN2 ---
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 Patient's daughter reported that she was feeling weak and lethargic with a past 2 weeks and for the last 4-5 days worsening shortness of breath, bilateral lower extremity swelling. Patient did not report of chest pain, dizziness, headache, nausea, vomiting. Chest x-ray was done which showed near complete right lung atelectasis with a large right pleural effusion. Chest CT showed bilateral pleural effusions larger on the right with compressive passive atelectasis of the lungs, near complete atelectasis of the right lung parts of the right upper lobe. Areas of parenchyma breakdown, cavitation seen in the right upper lobe, heterogeneously enhancing ? Mass in the right perihilar region measuring 2.7 X 2 X 3 cm causing narrowing of the right upper as well as a right intermedius bronchus. Left adrenal nodule measuring 2 X 3 cm. Thoracocentesis was done removing 1200 mL of yellow fluid which revealed WBC 881 91% mononuclear cells, fluid RBC within normal limits. Review of systems Patient seen and examined at the bedside. Patient is sedated on midazolam and is on mechanical ventilation with FiO2- 30%, PEEP- 5, tidal volume 450ml/min, on norepinephrine 3mcg/min and amiodarone 0.5mg/min drip. Blood pressure 123/57 mmHg, heart rate 91 irregular. Other Systems: Patient seen and examined by myself with the medicine resident today on rounds. I agree with the resident assessment and plan as documented in his note Objective vital signs Vital Sign Date Time Temp Pulse Resp B/P (MAP) Pulse Ox O2 Delivery O2 Flow Rate FiO2 05/20/24 11:14 88/45 05/20/24 11:00 93 16 98 05/20/24 09:55 30 05/20/24 09:32 Mechanical Ventilator+ 05/20/24 07:45 98.4 98.4 Total Intake and Output 10/30/24 10/30/24 10/31/24 15:00 23:00 07:00 Intake Total 587.336 ml 358.086 ml 655.336 ml Output Total 1200 ml 750 ml Balance 587.336 ml -841.914 ml -94.664 ml medications Current Medications Medications Dose Ordered Sig/Erica Route Start Time Stop Time Status Last Admin Dose Admin Docusate Sodium 100 mg BIDPRN PRN PO 05/16/24 08:00 Acetaminophen 650 mg Q6HP PRN PO 05/16/24 08:00 Acetaminophen/ Hydrocodone Bitart 1 tab Q4HP PRN PO 05/16/24 08:00 Ondansetron HCl 4 mg Q4HP PRN IV 05/16/24 08:00 Morphine Sulfate 2 mg Q4HPRN PRN IV 05/16/24 08:00 Nitroglycerin 0.4 mg Q5MINP PRN SL 05/16/24 08:00 Morphine Sulfate 2 mg Q30M PRN IV 05/16/24 08:00 Ipratropium [place] 0.5 mg Q4HP PRN NEB 05/16/24 08:00 05/17/24 15:38 0.5 MG Pantoprazole Sodium 40 mg DAILY IV 05/16/24 10:00 05/20/24 07:29 40 MG Alprazolam 0.25 mg TIDPRN PRN PO 05/16/24 18:00 Albuterol 1.25 mg Q4HWA PRN NEB 05/17/24 14:15 05/20/24 09:55 1.25 MG Ipratropium [place] 0.5 mg Q4HWA NEB 05/17/24 18:00 05/20/24 09:55 0.5 MG Methylprednisolone Sodium Succinate 40 mg Q8HR IV 05/17/24 22:00 05/20/24 05:54 40 MG Phenylephrine HCl 250 ml @ 30 mls/hr Q8H20M IV 05/17/24 23:00 Fentanyl Citrate 250 ml @ 2.5 mls/hr Q24H IV 05/17/24 23:00 Midazolam HCl 50 ml @ 1 mls/hr Q24H IV 05/17/24 23:30 05/20/24 05:56 6 MLS/HR Cefepime HCl 50 ml @ 12.5 mls/hr Q12HR IV 05/18/24 06:00 05/20/24 07:30 12.5 MLS/HR Vancomycin HCl 0 ml @ 0 mls/hr UD IV 05/18/24 06:00 Micafungin Sodium 100 mg/Sodium Chloride 100 ml @ 100 mls/hr DAILY IV 05/19/24 10:00 05/20/24 07:30 100 MLS/HR Furosemide 20 mg BIDD IV 05/19/24 18:00 05/20/24 05:54 20 MG Vancomycin HCl 200 ml @ 200 mls/hr DAILY@0600 IV 05/20/24 06:00 05/20/24 05:55 200 MLS/HR Enoxaparin Sodium 70 mg Q12HR SC 05/20/24 22:00 UNV Amiodarone HCl 200 mg Q12HR PO 05/20/24 22:00 Norepinephrine Bitartrate 250 ml @ 1.875 mls/ hr Q24H IV 05/20/24 11:15 05/20/24 11:14 7.5 MLS/HR Examination Gen - no pallor, no icterus, no cyanosis, no clubbing, no LAD, lower extremity 1+ edema Skin - Patients skin is warm and dry. HEENT - normocephalic, atraumatic, moist mucous membranes with endotracheal tube. Neck - JVD seen . Pulmonary - decreased breath sounds on the right side , patient on ventilator cardiovascular - normal S1,S2 heard. no murmurs heard. peripheral pulses normal radial 2+, pedal 2+. capillary refill normal <2 secs. GI - Bowel sounds+ Neurological - patient is on mechanical ventilation and sedated on midazolam. Gag reflex +, Plantar reflex downgoing , pupils reactive bilaterally. laboratory and microbiology Laboratory Tests 05/20/24 03:20 Test 05/20/24 03:20 Range/Units Serum Glucose 195 H 74-106 mg/dL Microbiology Date/Time Source Procedure Growth Status 05/19/24 12:42 Bronchial Brushings Pending Resulted 05/19/24 12:42 Bronchial Brushings Pending Resulted 05/19/24 12:42 Bronchial Brushings Pending Resulted 05/19/24 12:42 Bronchial Brushings Pending Resulted 05/19/24 12:42 Bronchial Brushings - Final See Separate Report... Resulted 05/18/24 12:00 Blood Blood Culture - Preliminary NO GROWTH AFTER 24 HOURS OF INCUBATION. Resulted 05/17/24 23:40 Nose MRSA Screen - Final Complete 05/17/24 00:15 Pleural Fluid Gram Stain - Final Resulted 05/17/24 00:15 Pleural Fluid Body Fluid Culture - Preliminary Resulted 05/16/24 08:45 Urine - Midstream Clean Catch Urine Culture - Final Complete Problem List/Assessment/Plan Problem List/Assessment/Plan Assessment and plan # hypervolemic hyponatremia - serum sodium 129--> 132--> 134-->137-->134-->135-->138 - serum creatinine 0.61 mg/dl and BUN 17 - phosphorus- 4.3--> 1.7-->3.6mg/dl - PTH 68.5 pg/ml - low-salt diet - serum osmolality 277 - urine osmolality 618 - urine sodium, urine creatinine , urine total protein, urine protein/creatinine ratio pending - continue fluid restriction and furosemide 20 mg q.d. and monitor BMP - 05/19/24 potassium phosphate 20 millimole to be given over 8 hours -05/20/24 patient's hyponatremia resolved and phosphorus improved after potassium phosphate infusion. # hypokalemia - 05/20/2024- potassium 3.3 - patient on potassium chloride 20 mEq IV q.2 hours # Cardiopulmonary arrest with ROSC - patient currently on ventilator with FiO2- 50%, PEEP - 8 - sedated on midazolam - on norepinephrine and amidarone drip # metabolic alkalosis with respiratory acidosis - 05/20- pH 7.488, HC03 37.2, pCO2 50.1, PO2 78.7 - furosemide decreased from 20 mg b.i.d. to once daily # left upper extremity DVT - on heparin drip # right pleural effusion - 1200 mL yellow colored fluid drained - on cefepime and vancomycin micafungin # history of adenocarcinoma of the lung - Status post right upper lobectomy 2014, - CT-guided needle biopsy of right pleural mass in the lower lobe which showed atypical cellular proliferation suggestive of invasive adenocarcinoma in 2017 status post radiation and chemotherapy - recent PET scan 03/03/24 showed small right pleural effusion hypermetabolic activity suspicious for malignant effusion. Left lower lobe masslike consolidation opacity measuring 3.8 cm in the medial left lower lung demonstrating hypermetabolic activity suggestive of malignancy - management as per Oncology # DVT ruled out - bilateral lower extremity venous duplex shows no evidence of DVT Goals care discussed with the patient and the daughter for over 20 minutes. Full code. Plan discussed with Dr. Soas I will sign off this case, please reconsult as needed Thank you for the consult Plan discussed with: Other (grand daughter) My Orders My Orders Orders - PRISCILLA PHAM Procedure Category Date Status Time Furosemide Injection PHA 05/19/24 In Process (Lasix Injection) 18:00 Dietary Evaluation Review Comments: Monitor PO intake to meet her needs to 75% at least. Expected Outcomes/Goals: Gradual weight loss and breath with less difficulties. PRISCILLA PHAM May 20, 2024 11:27 LISSY SOSA MD May 20, 2024 13:44
--- NOTE | 2024-05-20 12:45 | DVHPN2 ---
Subjective Overnight events noted. Patient remains on low-dose of Levophed, currently intubated and on amiodarone drip. Granddaughter at bedside was updated regarding current plan of care. Patient remains DNR but they have not decided for comfort care yet. Reviewed: Care Plan Changes from previous H/P or p: No Changes Eyes: No Pain, No Vision change, No Conjunctivae inflammation, No Eyelid inflammation, No Other, No Redness ENT: No Ear pain, No Ear discharge, No Nose pain, No Nose discharge, No Nose congestion, No Mouth pain, No Mouth swelling, No Throat pain, No Throat swelling, No Other Cardiovascular: No Chest Pain, No Palpitations, No Orthopnea, No Paroxysmal Noc. Dyspnea; Edema; No Lt Headedness, No Other Respiratory: Cough; No Dry; Shortness of breath, SOB with excertion; No Wheezing, No Hemoptysis, No Pleuritic Pain, No Sputum, No Other Gastrointestinal: No Nausea, No Vomiting, No Abdominal Pain, No Diarrhea, No Constipation, No Melena, No Hematochezia, No Other Genitourinary: No Dysuria, No Frequency, No Incontinence, No Hematuria, No Retention, No Other Musculoskeletal: No other, No neck pain, No shoulder pain, No arm pain, No back pain, No hand pain, No leg pain, No foot pain Skin: No Rash, No Lesions, No Jaundice, No Bruising, No Other Objective Vitals Vital Signs Date Time Temp Pulse Resp B/P (MAP) Pulse Ox O2 Delivery O2 Flow Rate FiO2 05/20/24 12:10 104 16 146/71 (96) 98 30 05/20/24 09:32 Mechanical Ventilator+ 05/20/24 07:45 98.4 98.4 Intake/Output Intake and Output 05/20/24 07:00 Intake Total 1600.758 ml Output Total 1950 ml Balance -349.242 ml Intake Oral 0 ml IV Total 1600.758 ml Output Urine Total 1950 ml Exam HEENT pupils are reactive Neck is supple CV is S1-S2 regular rate and rhythm Respiratory expiratory rhonchi GI positive bowel sound Extremity no pedal edema [employer] intubated and sedated Medications Current Medications Medications Dose Ordered Sig/Erica Route Start Time Stop Time Status Last Admin Dose Admin Docusate Sodium 100 mg BIDPRN PRN PO 05/16/24 08:00 Acetaminophen 650 mg Q6HP PRN PO 05/16/24 08:00 Acetaminophen/ Hydrocodone Bitart 1 tab Q4HP PRN PO 05/16/24 08:00 Ondansetron HCl 4 mg Q4HP PRN IV 05/16/24 08:00 Morphine Sulfate 2 mg Q4HPRN PRN IV 05/16/24 08:00 Nitroglycerin 0.4 mg Q5MINP PRN SL 05/16/24 08:00 Morphine Sulfate 2 mg Q30M PRN IV 05/16/24 08:00 Ipratropium [place] 0.5 mg Q4HP PRN NEB 05/16/24 08:00 05/17/24 15:38 0.5 MG Pantoprazole Sodium 40 mg DAILY IV 05/16/24 10:00 05/20/24 07:29 40 MG Alprazolam 0.25 mg TIDPRN PRN PO 05/16/24 18:00 Albuterol 1.25 mg Q4HWA PRN NEB 05/17/24 14:15 05/20/24 09:55 1.25 MG Ipratropium [place] 0.5 mg Q4HWA NEB 05/17/24 18:00 05/20/24 09:55 0.5 MG Methylprednisolone Sodium Succinate 40 mg Q8HR IV 05/17/24 22:00 05/20/24 12:20 40 MG Phenylephrine HCl 250 ml @ 30 mls/hr Q8H20M IV 05/17/24 23:00 Fentanyl Citrate 250 ml @ 2.5 mls/hr Q24H IV 05/17/24 23:00 Midazolam HCl 50 ml @ 1 mls/hr Q24H IV 05/17/24 23:30 05/20/24 12:22 8 MLS/HR Cefepime HCl 50 ml @ 12.5 mls/hr Q12HR IV 05/18/24 06:00 05/20/24 07:30 12.5 MLS/HR Vancomycin HCl 0 ml @ 0 mls/hr UD IV 05/18/24 06:00 Micafungin Sodium 100 mg/Sodium Chloride 100 ml @ 100 mls/hr DAILY IV 05/19/24 10:00 05/20/24 07:30 100 MLS/HR Vancomycin HCl 200 ml @ 200 mls/hr DAILY@0600 IV 05/20/24 06:00 05/20/24 05:55 200 MLS/HR Enoxaparin Sodium 70 mg Q12HR SC 05/20/24 22:00 Amiodarone HCl 200 mg Q12HR PO 05/20/24 22:00 Norepinephrine Bitartrate 250 ml @ 1.875 mls/ hr Q24H IV 05/20/24 11:15 05/20/24 11:14 7.5 MLS/HR Furosemide 20 mg DAILY IV 05/21/24 10:00 Laboratory Results Laboratory Tests 05/20/24 03:20 Chemistry Test 05/20/24 03:20 Calcium Level 9.8 mg/dL (8.7-10.4) Phosphorus Level 3.6 mg/dL (2.4-5.1) Coagulation Test 05/19/24 18:31 05/20/24 00:26 05/20/24 07:02 Prothrombin Time 11.4 sec (9.3-11.8) 11.5 sec (9.3-11.8) 11.9 sec (9.3-11.8) H Prothrombin Time INR 1.08 (0.9-1.15) 1.09 (0.9-1.15) 1.13 (0.9-1.15) Activated Partial Thromboplast Time 53.8 SEC (24.5-34.5) H 53.8 SEC (24.5-34.5) H 49.1 SEC (24.5-34.5) H Urinalysis Test 05/16/24 08:45 Urine Color Yellow (Yellow) Urine Clarity Clear (Clear) Urine pH 6.5 (5.0-9.0) Urine Specific [place] 1.050 (1.001-1.035) Urine Protein 1+ (Negative) H Urine Ketones Negative (Negative) Urine Blood Negative /uL (Negative) Urine Nitrite Negative (Negative) Urine Bilirubin Negative (Negative) Urine Urobilinogen Normal mg/dL (Negative) Urine Leukocyte Esterase Negative /uL (Negative) Urine RBC 3 /hpf (0 - 4) Urine WBC 3 /hpf (0 - 5) Urine Squamous Epithelial Cells Few /hpf (<5) Urine Bacteria Few /hpf (None Seen) H Urine Osmolality 618 mOsm/kg Urine Glucose Normal mg/dL (Normal) Blood Gas Results Test 05/20/24 06:00 Arterial Blood pH 7.488 (7.350-7.450) FiO2 % 30.0 Microbiology Microbiology Date/Time Source Procedure Growth Status 05/19/24 12:42 Bronchial Brushings Pending Resulted 05/19/24 12:42 Bronchial Brushings Pending Resulted 05/19/24 12:42 Bronchial Brushings Pending Resulted 05/19/24 12:42 Bronchial Brushings Pending Resulted 05/19/24 12:42 Bronchial Brushings - Final See Separate Report... Resulted 05/18/24 12:00 Blood Blood Culture - Preliminary NO GROWTH AFTER 48 HOURS OF INCUBATION. Resulted 05/17/24 23:40 Nose MRSA Screen - Final Complete 05/17/24 00:15 Pleural Fluid Gram Stain - Final Resulted 05/17/24 00:15 Pleural Fluid Body Fluid Culture - Preliminary Resulted 05/16/24 08:45 Urine - Midstream Clean Catch Urine Culture - Final Complete Assessment/Plan Assessment/Plan 88-year-old female with a known history of chronic respiratory failure on home O2 at 2 L, COPD, adenocarcinoma of the lung status post right upper lobectomy , status post chemoradiation presented to the hospital with generalized weakness and increasing shortness a breath found to have 1. Acute on chronic hypoxic respiratory failure suspected secondary to underlying COPD exacerbation as well as right-sided pleural effusion currently intubated on mechanical ventilation 2. Acute COPD exacerbation 3. Right-sided pleural effusion status post thoracentesis 4. Adenocarcinoma lung status post right upper lobectomy, chemoradiation 5. Right lower extremity DVT by history, now left IJ deep venous thrombosis 6. Cardiac arrhythmia requiring ACLS protocol with ROSC 7. DNR status, family will consider comfort care soon --continue current vent support, daily ABG chest x-ray -discontinue heparin drip, start therapeutic Lovenox for DVT, discontinue amiodarone drip and switch to p.o. amiodarone, -patient's remains critical, prognosis remained guarded, granddaughter was updated at bedside. Patient's daughter we will make this decision not at bedside, -operated granddaughter for consideration of comfort care and compassionate extubation when family is ready. Plan discussed with: Other (Granddaughter ED due) My Orders Orders - ELLYN SOTELO MD Procedure Category Date Status Time Npo (Nothing By DIET 05/20/24 Transmitted Mouth) Diet Breakfast Chest Xray 1 View XY 05/20/24 Resulted 04:00 Amiodarone Tablet PHA 05/20/24 In Process (Cordarone Tablet) 22:00 Norepinephrine 8 PHA 05/20/24 In Process Mg/250ml Kit 11:15 Communication Order ORDERS 05/20/24 Transmitted 11:06 Enoxaparin Sodium PHA 05/20/24 In Process (Lovenox) 22:00 Date of Service: May 20, 2024 Billing Provider: ELLYN SOTELO MD Common Visit Codes: NOT BILLABLE ELLYN SOTELO MD May 20, 2024 12:45
--- NOTE | 2024-05-20 13:32 | DVHPN2 ---
Progress Note - Dictate Date Seen: May 20, 2024 Has the PT tested + for MRSA If YES, has PT been informed?: No Medical Necessity Reason Pt with a Central, PICC or Fol: Yes The following are medically ne: Central Line, Aden Catheter Reason for aden catheter: Strict I&O vital signs Vital Sign Date Time Temp Pulse Resp B/P (MAP) Pulse Ox O2 Delivery O2 Flow Rate FiO2 05/20/24 12:30 100 16 128/63 (84) 98 05/20/24 12:10 30 05/20/24 12:00 Mechanical Ventilator+ 05/20/24 12:00 97.6 97.6 Total Intake and Output 05/19/24 05/19/24 05/20/24 15:00 23:00 07:00 Intake Total 587.336 ml 358.086 ml 655.336 ml Output Total 1200 ml 750 ml Balance 587.336 ml -841.914 ml -94.664 ml medications Current Medications Medications Dose Ordered Sig/Erica Route Start Time Stop Time Status Last Admin Dose Admin Docusate Sodium 100 mg BIDPRN PRN PO 05/16/24 08:00 Acetaminophen 650 mg Q6HP PRN PO 05/16/24 08:00 Acetaminophen/ Hydrocodone Bitart 1 tab Q4HP PRN PO 05/16/24 08:00 Ondansetron HCl 4 mg Q4HP PRN IV 05/16/24 08:00 Morphine Sulfate 2 mg Q4HPRN PRN IV 05/16/24 08:00 Nitroglycerin 0.4 mg Q5MINP PRN SL 05/16/24 08:00 Morphine Sulfate 2 mg Q30M PRN IV 05/16/24 08:00 Ipratropium [place] 0.5 mg Q4HP PRN NEB 05/16/24 08:00 05/17/24 15:38 0.5 MG Pantoprazole Sodium 40 mg DAILY IV 05/16/24 10:00 05/20/24 07:29 40 MG Alprazolam 0.25 mg TIDPRN PRN PO 05/16/24 18:00 Albuterol 1.25 mg Q4HWA PRN NEB 05/17/24 14:15 05/20/24 09:55 1.25 MG Ipratropium [place] 0.5 mg Q4HWA NEB 05/17/24 18:00 05/20/24 09:55 0.5 MG Methylprednisolone Sodium Succinate 40 mg Q8HR IV 05/17/24 22:00 05/20/24 12:20 40 MG Phenylephrine HCl 250 ml @ 30 mls/hr Q8H20M IV 05/17/24 23:00 Fentanyl Citrate 250 ml @ 2.5 mls/hr Q24H IV 05/17/24 23:00 Midazolam HCl 50 ml @ 1 mls/hr Q24H IV 05/17/24 23:30 05/20/24 12:22 8 MLS/HR Cefepime HCl 50 ml @ 12.5 mls/hr Q12HR IV 05/18/24 06:00 05/20/24 07:30 12.5 MLS/HR Vancomycin HCl 0 ml @ 0 mls/hr UD IV 05/18/24 06:00 Micafungin Sodium 100 mg/Sodium Chloride 100 ml @ 100 mls/hr DAILY IV 05/19/24 10:00 05/20/24 07:30 100 MLS/HR Vancomycin HCl 200 ml @ 200 mls/hr DAILY@0600 IV 05/20/24 06:00 05/20/24 05:55 200 MLS/HR Enoxaparin Sodium 70 mg Q12HR SC 05/20/24 22:00 Amiodarone HCl 200 mg Q12HR PO 05/20/24 22:00 Norepinephrine Bitartrate 250 ml @ 1.875 mls/ hr Q24H IV 05/20/24 11:15 05/20/24 11:14 7.5 MLS/HR Furosemide 20 mg DAILY IV 05/21/24 10:00 objective The patient is in the ICU, intubated and is comfortable. Her granddaughter is by her bedside. Patient's daughter and son is available on the phone laboratory and microbiology Laboratory Tests 05/20/24 03:20 Test 05/20/24 03:20 Range/Units Serum Glucose 195 H 74-106 mg/dL Assessment/Plan 1. 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 No LVI. Stage I A She had a CT-guided needle biopsy of a right pleural based mass in the lower lobe which showed atypical cellular proliferation suggestive of invasive adenocarcinoma on June 25, 2017 She is status post radiation and chemotherapy with the Taxol carbo [place] from 10/13 through 11/24/2017. Tolerated well. 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 Now admitted with bilateral pleural effusions and status post right thoracentesis draining or 1200 cc of yellowish fluid sent for pathology and cultures and the report pending PET-CT from February 2024 showed small right pleural effusion suspicious for malignant effusion. Left lower lobe masslike consolidation measuring 3.8 cm in the medial left lower lung demonstrating hypermetabolic activity suggestive of malignancy The patient had a bronchoscope on 05/19/2024 which showed extrinsic compression of right upper lobe. Right lower lobe BAL performed Biopsy from the right mainstem obtained the reports are pending blood cultures are negative CT chest angiogram showed extensive consolidation in the right lung, large right and moderate left pleural effusion, moderate pericardial effusion 05/20/2024: White count 17.2 hemoglobin 11.3 platelets 223 Patient has respiratory failure 2. Hypertension 3. COPD 3. Occlusive DVT of the left jugular vein. The left subclavian vein is not identified. No evidence of DVT in either of the lower extremities Plan: Next line supportive treatment for infection and respiratory failure Ray discussed with the family the weekend weight couple of more days to see if her condition improves because infection could be playing a role in the respiratory failure and if in two or three days the condition does not improve then one can discuss about withdrawing the life support At present may consider continue ventilator support but if the heart stops or severe cardiac arrhythmias then that may not be treated as I discussed with the son and the daughter and the granddaughter Dietary Evaluation Review Comments: Monitor PO intake to meet her needs to 75% at least. Expected Outcomes/Goals: Gradual weight loss and breath with less difficulties. Plan discussed with: Daughter, Son DORONBRANDON MD May 20, 2024 13:32
--- NOTE | 2024-05-20 18:34 | DVHPN2 ---
Consult Progress Note Date Seen: May 20, 2024 Subjective Patient reports: Feels better (white count is slowly coming down , fevofed is now 3 mics , FIO2 is 30% , having some thick yellow secreations ) Objective vital signs Vital Sign Date Time Temp Pulse Resp B/P (MAP) Pulse Ox O2 Delivery O2 Flow Rate FiO2 05/20/24 17:34 105 05/20/24 17:31 30 05/20/24 17:30 18 97 Mechanical Ventilator+ 05/20/24 17:30 133/65 (87) 05/20/24 16:00 98.2 98.2 Total Intake and Output 05/19/24 05/19/24 05/20/24 15:00 23:00 07:00 Intake Total 587.336 ml 358.086 ml 655.336 ml Output Total 1200 ml 750 ml Balance 587.336 ml -841.914 ml -94.664 ml medications Current Medications Medications Dose Ordered Sig/Erica Route Start Time Stop Time Status Last Admin Dose Admin Docusate Sodium 100 mg BIDPRN PRN PO 05/16/24 08:00 Acetaminophen 650 mg Q6HP PRN PO 05/16/24 08:00 Acetaminophen/ Hydrocodone Bitart 1 tab Q4HP PRN PO 05/16/24 08:00 Ondansetron HCl 4 mg Q4HP PRN IV 05/16/24 08:00 Morphine Sulfate 2 mg Q4HPRN PRN IV 05/16/24 08:00 Nitroglycerin 0.4 mg Q5MINP PRN SL 05/16/24 08:00 Morphine Sulfate 2 mg Q30M PRN IV 05/16/24 08:00 Ipratropium [place] 0.5 mg Q4HP PRN NEB 05/16/24 08:00 05/17/24 15:38 0.5 MG Pantoprazole Sodium 40 mg DAILY IV 05/16/24 10:00 05/20/24 07:29 40 MG Alprazolam 0.25 mg TIDPRN PRN PO 05/16/24 18:00 Albuterol 1.25 mg Q4HWA PRN NEB 05/17/24 14:15 05/20/24 14:22 1.25 MG Ipratropium [place] 0.5 mg Q4HWA NEB 05/17/24 18:00 05/20/24 14:22 0.5 MG Methylprednisolone Sodium Succinate 40 mg Q8HR IV 05/17/24 22:00 05/20/24 12:20 40 MG Phenylephrine HCl 250 ml @ 30 mls/hr Q8H20M IV 05/17/24 23:00 Fentanyl Citrate 250 ml @ 2.5 mls/hr Q24H IV 05/17/24 23:00 Midazolam HCl 50 ml @ 1 mls/hr Q24H IV 05/17/24 23:30 05/20/24 12:22 8 MLS/HR Cefepime HCl 50 ml @ 12.5 mls/hr Q12HR IV 05/18/24 06:00 05/20/24 07:30 12.5 MLS/HR Micafungin Sodium 100 mg/Sodium Chloride 100 ml @ 100 mls/hr DAILY IV 05/19/24 10:00 05/20/24 07:30 100 MLS/HR Enoxaparin Sodium 70 mg Q12HR SC 05/20/24 22:00 Amiodarone HCl 200 mg Q12HR PO 05/20/24 22:00 Norepinephrine Bitartrate 250 ml @ 1.875 mls/ hr Q24H IV 05/20/24 11:15 05/20/24 11:14 7.5 MLS/HR Furosemide 20 mg DAILY IV 05/21/24 10:00 Dexmedetomidine HCl 400 mcg/ Dextrose 100 ml @ 3.615 mls/ hr Q24H IV 05/20/24 16:30 Physical Exam: -General: NAD -Neck: Supple. No masses. intaubted and sedated -HEENT: PERRL. Normal lids and conjunctiva. Moist mucous membranes. Oropharynx without lesions, exudates or excessive erythema. Normal appearance of the external aspects of the nose and ears. -Heart: Regular rhythm, normal rate. No murmur. No lower extremity edema. -Lungs: Normal respiratory effort. Clear to auscultation bilaterally. No wheezes. minimal crackles and dimished breath sounds in right upper lobe -Abdomen: Soft. Non-tender. Non-distended. No masses or abdominal hernia. -Msk: No digital cyanosis. Normal strength and tone in all 4 limbs. -Skin: Warm and dry, no rashes. -Neuro: Alert. No facial droop or slurred speech. Extra-ocular movements intact. Sensation intact to soft touch in all 4 limbs. -Psych: Appropriate mood. Full affect. laboratory and microbiology Laboratory Tests 05/20/24 03:20 Test 05/20/24 03:20 Range/Units Serum Glucose 195 H 74-106 mg/dL Problem List/Assessment/Plan Problems(with codes): (1) Septic shock (2) Shortness of breath (3) Weakness (4) Pneumonia (5) Mass of right lung Problem List/Assessment/Plan ID Problem List: 1. Acute on chronic hypoxic respiratory failure 2. Lung cancer (right) 3. Right lung cavitary pneumonia 4. Possible obstructive post-obstructive pneumonia 5. Sepsis, septic shock Assessment: This is an 88 y.o. female with a past medical history of lung cancer, COPD, pneumonia, chronic oxygen therapy, status post phlebectomy for DVT, and hypertension. She presents with worsening generalized weakness, increased cough, hemoptysis, bilateral lower extremity swelling, and dysuria over the past two weeks. A PET scan in December suggested a recurrent mass in the right lower lobe, confirmed via bronchoscopy. On admission, she had a leukocytosis of 15.9, Hb 11.8, and platelets 180. CT chest showed a heterogeneously enhancing mass in the right hilar region with bilateral pleural effusions, compressive atelectasis, and a moderate-sized pericardial effusion. She is normally ambulatory but has been bed-bound recently with no smoking or alcohol history, albeit with secondhand smoke exposure from a chronic smoking . Patient was admitted on May 15 and became tachycardic and hypotensive during hospitalization. She was treated with bronchodilators, IV antibiotics (levofloxacin and vancomycin), and underwent thoracentesis. 05/19: CTPE shows no pulmonary embolism , extensive consolidation in the right lung , large right and moderate left plural effusions. moderate pericardial effusion . Patient had a bronchoscopy done today , BAL was done of the right middle and lower lobes. Fungal and bacterial cultures were sent. mucoso was erithemidus, blockages of right upper lobe and partial obstruction of right lower lobe, both noted during the procedure. Left lung appeared normal. Biopsy was obtained from the right main stem at the site of abnormal mucosa. 05/20: White count is going down to 17.2 , HIV test is negative , covid test is negative , waiting for aspergellus test to come back. Blood cultures remain negative as well as mercenaries are negative, pleural fluid cultures growth is negative. Respiratory sputum cultures are within normal. 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 follow up on plural fluid cultures and psychology Test broadly for TB, HIV, Cocci antibody, Aspergillus antibody. Authorized and Performed by: Ramo Alan Total critical care time: Approximately 74 minutes Due to a high probability of clinically significant, life threatening deterioration, the patient required my highest level of preparedness to intervene emergently and I personally spent this critical care time directly and personally managing the patient. This critical care time included obtaining a history; examining the patient; pulse oximetry; ordering and review of studies; arranging urgent treatment with development of a management plan; evaluation of patient's response to treatment; frequent reassessment; and, discussions with other providers. This critical care time was performed to assess and manage the high probability of imminent, life-threatening deterioration that could result in multi-organ failure. It was exclusive of separately billable procedures and treating other patients and teaching time. Plan discussed with: Other Dietary Evaluation Review Comments: Monitor PO intake to meet her needs to 75% at least. Expected Outcomes/Goals: Gradual weight loss and breath with less difficulties. RAMO ALAN MD May 20, 2024 18:34
--- NOTE | 2024-05-20 21:20 | DVHPN2 ---
Progress Note - Dictate Date Seen: May 20, 2024 Has the PT tested + for MRSA If YES, has PT been informed?: No Medical Necessity Reason Pt with a Central, PICC or Fol: Yes The following are medically ne: Central Line, Aden Catheter Reason for aden catheter: Strict I&O Subjective Patient seen and examined at bedside. Sedated, intubated on mechanical ventilator Overnight events reviewed. vital signs Vital Sign Date Time Temp Pulse Resp B/P (MAP) Pulse Ox O2 Delivery O2 Flow Rate FiO2 05/20/24 20:00 90 16 113/64 (80) 97 30 05/20/24 17:30 Mechanical Ventilator+ 05/20/24 16:00 98.2 98.2 Total Intake and Output 05/19/24 05/19/24 05/20/24 14:59 22:59 06:59 Intake Total 589.336 ml 345.586 ml 666.836 ml Output Total 1200 ml 750 ml Balance 589.336 ml -854.414 ml -83.164 ml medications Current Medications Medications Dose Ordered Sig/Erica Route Start Time Stop Time Status Last Admin Dose Admin Docusate Sodium 100 mg BIDPRN PRN PO 05/16/24 08:00 Acetaminophen 650 mg Q6HP PRN PO 05/16/24 08:00 Acetaminophen/ Hydrocodone Bitart 1 tab Q4HP PRN PO 05/16/24 08:00 Ondansetron HCl 4 mg Q4HP PRN IV 05/16/24 08:00 Morphine Sulfate 2 mg Q4HPRN PRN IV 05/16/24 08:00 Nitroglycerin 0.4 mg Q5MINP PRN SL 05/16/24 08:00 Morphine Sulfate 2 mg Q30M PRN IV 05/16/24 08:00 Ipratropium [place] 0.5 mg Q4HP PRN NEB 05/16/24 08:00 05/17/24 15:38 0.5 MG Pantoprazole Sodium 40 mg DAILY IV 05/16/24 10:00 05/20/24 07:29 40 MG Alprazolam 0.25 mg TIDPRN PRN PO 05/16/24 18:00 Albuterol 1.25 mg Q4HWA PRN NEB 05/17/24 14:15 05/20/24 18:27 1.25 MG Ipratropium [place] 0.5 mg Q4HWA NEB 05/17/24 18:00 05/20/24 18:27 0.5 MG Methylprednisolone Sodium Succinate 40 mg Q8HR IV 05/17/24 22:00 05/20/24 12:20 40 MG Phenylephrine HCl 250 ml @ 30 mls/hr Q8H20M IV 05/17/24 23:00 Fentanyl Citrate 250 ml @ 2.5 mls/hr Q24H IV 05/17/24 23:00 Midazolam HCl 50 ml @ 1 mls/hr Q24H IV 05/17/24 23:30 05/20/24 12:22 8 MLS/HR Cefepime HCl 50 ml @ 12.5 mls/hr Q12HR IV 05/18/24 06:00 05/20/24 07:30 12.5 MLS/HR Micafungin Sodium 100 mg/Sodium Chloride 100 ml @ 100 mls/hr DAILY IV 05/19/24 10:00 05/20/24 07:30 100 MLS/HR Enoxaparin Sodium 70 mg Q12HR SC 05/20/24 22:00 Amiodarone HCl 200 mg Q12HR PO 05/20/24 22:00 Norepinephrine Bitartrate 250 ml @ 1.875 mls/ hr Q24H IV 05/20/24 11:15 05/20/24 11:14 7.5 MLS/HR Furosemide 20 mg DAILY IV 05/21/24 10:00 Dexmedetomidine HCl 400 mcg/ Dextrose 100 ml @ 3.615 mls/ hr Q24H IV 05/20/24 16:30 objective Gen.: Patient lying in bed in medical ICU. Sedated, intubated on mechanical ventilator. Head: Normocephalic, atraumatic. Eyes: PERRLA. Ears: Normal external anatomy. Throat: Endotracheal tube and orogastric tube in place. Neck: Supple, trachea midline. Chest: Transmitted breath sounds bilaterally. Decreased air entry bilaterally. No wheezing. Bibasilar crackles. Cardio vascular: Positive S1, positive S2. Regular rate and rhythm. Abdomen: Positive bowel sounds in all 4 quadrants. Soft, nontender, nondistended. : Aden in place. Normal external genitalia. Rectal: Deferred Skin: Warm, dry. Intact. Extremities: 2+ radial pulses bilaterally. No lower extremity edema. Neuro: Sedated. laboratory and microbiology Laboratory Tests 05/20/24 03:20 Test 05/20/24 03:20 Range/Units Serum Glucose 195 H 74-106 mg/dL Assessment/Plan Impression: Acute on chronic hypoxic respiratory failure secondary to right lung mass On mechanical ventilator LEFT IJ DVT s/p Cardiac arrest with ROSC [id number] bilateral pleural effusion Moderate pericardial effusion Hyponatremia Leukocytosis Hypertension COPD Atelectasis Events: Remains on vent support; AC with RR 16, Vt 400, PEEP 5, FIO2 30% Taper FiO2 as tolerated Transitioned from amiodarone drip to PO amiodarone Taper sedation OK to start Precedex. On pressors for hemodynamic support. On Levophed 3 mcg/min Titrate to keep MAP above 65 mmHg/SBP above 90 mmHg. CTA of chest demonstrated no pulmonary embolism. Extensive consolidation in the right lung. Large right and moderate left pleural effusions. Moderate pericardial effusion. U/S venous Doppler of upper extremities showed possible DVT in left IJ. Continue Heparin drip ABG reviewed, shows alkalemia Continue abx Continue antifungal ID recommendations appreciated. Monitor renal function Potassium supplementation Nephrology recs appreciated. CPAP trial with PS 8, PEEP of 5. OK to increase PS to max 20 cmH2O to achieve tidal volume 400-450 mL. 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 Overall poor prognosis Labs and imaging reviewed. Rest of plan as noted below. Plan: s/p intubation on mechanical ventilator S/p bronchoscopy on 05/19. Follow-up results of RLL BAL, Brushings from right lower lobe, right mainstem, and biopsy from right mainstem. CXR image and report reviewed. ABG reviewed. AC mode with RR 16, Vt 400, PEEP 5, FIO2 30% Titrate FIO2 to keep O2 saturation above 92%. VAP bundle Daily ABG and CXR while intubated. Sedate for ventilatory synchrony Pressors as necessary for hemodynamic support. Titrate to keep MAP above 65 mmHg/SBP above 90 mmHg. Continue antibiotics. F/u cultures. Limited chest US of left IJ notable for DVT. Start heparin drip per pharmacy protocol Monitor renal function Monitor electrolytes. Supplement as necessary. Nutritional support. Accucheks, ISS. GI/DVT prophylaxis. Extensive time spent counseling family and answering questions. Overall poor prognosis High likelihood of demise given advanced age and multiple co-morbidities. Condition: Critical Prognosis: Poor given multiple comorbidities. Rest of plan per hospitalist and other consultants. A total of 35 minutes of critical care time was spent reviewing the patient record, examining the patient, making a diagnostic and therapeutic plan, discussing this plan with the medical personnel, following up on diagnostic studies and following the patient for clinical stability excluding any and all procedures. At least 50% of this time was spent in direct, [id number] contact. Thank you Dr. Rodriguez for allowing me to participate in this patient's care. Further recommendations will depend on patient's clinical course. Please do not hesitate to contact me if you have any questions or concerns. This medical document was created using an electronic medical record system with [employer] dictation system. Although this document has been carefully reviewed, there may still be some phonetic and typographical errors. These areas are purely typographical due to imperfections of the software programs, and do not reflect any compromise in the patient's medical care. Dietary Evaluation Review Comments: Monitor PO intake to meet her needs to 75% at least. Expected Outcomes/Goals: Gradual weight loss and breath with less difficulties. Plan discussed with: Other (BRENDEN Lozano) Critical Care Time(min): 35 KARMA ZHANG MD May 20, 2024 21:20
[2024-05-20] MEDS: ENOXAPARIN SOD 80 MG/0.8ML SYRINGE SC SCH (21:35)
[2024-05-20] MEDS: AMIODARONE HCL 200 MG TAB PO SCH (21:35)
[2024-05-21] VITALS (110 sets, daily range): BP systolic 87–146; BP diastolic 42–71; PULSE 81–118; RESP 12–22; TEMP 97.6–99.6; O2SAT 95–100
[2024-05-21 03:56] LABS: Basophils # (auto) 0 10 ^3/uL (0-0.2); Basophils % (auto) 0.1 % (0.0-2.0); Eosinophils # (auto) 0 10 ^3/uL (0-0.8); Hemoglobin 10.3 g/dL (12.2-16.2); Lymphocytes # (auto) 0.2 10 ^3/uL (0.4-5.4); Lymphocytes % (auto) 1.5 % (10.0-50.0); Neutrophils # (auto) 13.8 10 ^3/uL (1.6-8.6)
[2024-05-21 03:59] LABS: Hematocrit 32.7 % (36.0-46.0); Mean Corpuscular Hemoglobin 23.5 pg (28.0-32.0); Mean Corpuscular Hgb Conc. 31.6 g/dL (32.0-36.0); Mean Corpuscular Volume 74.4 fL (80.0-100.0); Monocytes # (auto) 0.8 10 ^3/uL (0-1.3); Monocytes % (auto) 5.2 % (0.0-12.0); Neutrophils % (auto) 93.2 % (37.0-80.0); Platelet Count (auto) 210 10^3/uL (140-450); Red Blood Cells 4.39 10^6/uL (4.0-5.20); Red Cell Distribution Width 15.4 % (11.8-14.3); White Blood Cell 14.8 10^3/uL (4.4-10.8)
[2024-05-21 04:06] LABS: Alanine Aminotransferase 20 U/L (7-40); Albumin 2.9 g/dL (3.2-4.8); Alkaline Phosphatase 107 U/L (46-116); Anion Gap 3 (5-15); Aspartate Aminotransferase < 8 U/L (13-40); BUN/Creatinine Ratio 40.8 (10.0-20.0); Blood Urea Nitrogen 20 mg/dL (9-23); Calcium 9.9 mg/dL (8.7-10.4); Carbon Dioxide 38 mmol/L (20-31); Chloride 99 mmol/L (98-107); Glucose 183 mg/dL (74-106); Magnesium 2.2 mg/dL (1.6-2.6); Phosphorus 2.6 mg/dL (2.4-5.1); Potassium 3.6 mmol/L (3.5-5.1); Sodium 140 mmol/L (136-145)
[2024-05-21 04:07] LABS: Bilirubin, Total 0.5 mg/dL (0.2-1.0); Total Protein 5.2 g/dL (5.7-8.2)
--- NOTE | 2024-05-21 04:11 | DVH ---
CHEST RADIOGRAPH Indication:intubated Technique: Single frontal view of the chest was obtained Comparison: XY CHEST XRAY 1 VIEW on DOS: 05/20/24, XY CHEST XRAY 1 VIEW on DOS: 05/19/24, XY CHEST PO RTABLE on DOS: 05/17/24, XY CHEST PORTABLE on DOS: 05/17/24, XY CHEST PORTABLE on DOS: 05/15/24, XY C HEST XRAY 1 VIEW on DOS: 05/20/24 FINDINGS: Lines and Tubes: Endotracheal tube, enteric catheter and left central venous catheter in satisfactory position. Lungs: Multifocal airspace disease. Chronic right lung volume loss. Pleura: Small right pleural effusion. No pneumothorax. Cardiomediastinal contours: Unremarkable Bones: Unremarkable IMPRESSION: Lines and tubes in satisfactory position. No significant interval change.
[2024-05-21 06:20] LABS: Base Excess 10.6 mmol/L (-2.0-3.0)
[2024-05-21] MEDS: FUROSEMIDE 20 MG/2 ML VIAL IV SCH (07:20)
--- NOTE | 2024-05-21 13:36 | DVHPN2 ---
Progress Note - Dictate Date Seen: May 21, 2024 Has the PT tested + for MRSA If YES, has PT been informed?: No Medical Necessity Reason Pt with a Central, PICC or Fol: Yes The following are medically ne: Central Line, Aden Catheter Reason for aden catheter: Strict I&O Subjective Seen and evaluated in the ICU. Family is at bedside. Patient apparently failed CPAP trial today per nurse. Became tachypneic and tachycardic. Not following commands for safe extubation. vital signs Vital Sign Date Time Temp Pulse Resp B/P (MAP) Pulse Ox O2 Delivery O2 Flow Rate FiO2 05/21/24 12:23 115 18 106/48 (67) 98 30 05/21/24 11:56 Mechanical Ventilator+ 05/21/24 11:15 98.7 98.7 Total Intake and Output 05/20/24 05/20/24 05/21/24 15:00 23:00 07:00 Intake Total 568.335 ml 234.000 ml 188.750 ml Output Total 1450 ml 500 ml Balance 568.335 ml -1216.000 ml -311.250 ml medications Current Medications Medications Dose Ordered Sig/Erica Route Start Time Stop Time Status Last Admin Dose Admin Docusate Sodium 100 mg BIDPRN PRN PO 05/16/24 08:00 Acetaminophen 650 mg Q6HP PRN PO 05/16/24 08:00 Acetaminophen/ Hydrocodone Bitart 1 tab Q4HP PRN PO 05/16/24 08:00 Ondansetron HCl 4 mg Q4HP PRN IV 05/16/24 08:00 Morphine Sulfate 2 mg Q4HPRN PRN IV 05/16/24 08:00 Nitroglycerin 0.4 mg Q5MINP PRN SL 05/16/24 08:00 Morphine Sulfate 2 mg Q30M PRN IV 05/16/24 08:00 Ipratropium [place] 0.5 mg Q4HP PRN NEB 05/16/24 08:00 05/17/24 15:38 0.5 MG Pantoprazole Sodium 40 mg DAILY IV 05/16/24 10:00 05/21/24 07:20 40 MG Alprazolam 0.25 mg TIDPRN PRN PO 05/16/24 18:00 Albuterol 1.25 mg Q4HWA PRN NEB 05/17/24 14:15 05/21/24 06:43 1.25 MG Ipratropium [place] 0.5 mg Q4HWA NEB 05/17/24 18:00 05/21/24 10:57 0.5 MG Methylprednisolone Sodium Succinate 40 mg Q8HR IV 05/17/24 22:00 05/21/24 13:07 40 MG Phenylephrine HCl 250 ml @ 30 mls/hr Q8H20M IV 05/17/24 23:00 Fentanyl Citrate 250 ml @ 2.5 mls/hr Q24H IV 05/17/24 23:00 Midazolam HCl 50 ml @ 1 mls/hr Q24H IV 05/17/24 23:30 05/20/24 23:28 8 MLS/HR Micafungin Sodium 100 mg/Sodium Chloride 100 ml @ 100 mls/hr DAILY IV 05/19/24 10:00 05/21/24 07:20 100 MLS/HR Enoxaparin Sodium 70 mg Q12HR SC 05/20/24 22:00 05/21/24 09:05 70 MG Amiodarone HCl 200 mg Q12HR PO 05/20/24 22:00 05/21/24 07:21 200 MG Norepinephrine Bitartrate 250 ml @ 1.875 mls/ hr Q24H IV 05/20/24 11:15 05/20/24 11:14 7.5 MLS/HR Furosemide 20 mg DAILY IV 05/21/24 10:00 05/21/24 07:20 20 MG Dexmedetomidine HCl 400 mcg/ Dextrose 100 ml @ 3.615 mls/ hr Q24H IV 05/20/24 16:30 05/21/24 06:00 3.615 MLS/HR Cefepime/Dextrose 50 ml @ 12.5 mls/hr Q12H IV 05/21/24 19:00 objective Elderly frail-appearing female in bed on ventilator. Family is at bedside. Heart regular rate and rhythm S1 and S2. Lungs fair air movement without any wheezes. Abdomen soft positive bowel sounds. Extremities positive distal pulses. laboratory and microbiology Laboratory Tests 05/21/24 03:05 Test 05/21/24 03:05 Range/Units Serum Glucose 183 H 74-106 mg/dL Assessment/Plan Remains on Levophed for pressor support. On minimal amount of Versed and Precedex for sedation. Continue titrate off the sedation and wait for neurological status to improve then consider CPAP trials as appropriate. Otherwise continue rest of supportive care and treatment as she is on for now. Her further clinical management per clinical course. Overall prognosis remains guarded at present. Discussed with the patient's family along with the nurse at bedside at length regarding prognosis and plan of care. Problems(with codes): (1) Septic shock (2) Shortness of breath (3) Weakness (4) Pneumonia (5) Mass of right lung Dietary Evaluation Review Comments: Monitor PO intake to meet her needs to 75% at least. Expected Outcomes/Goals: Gradual weight loss and breath with less difficulties. Plan discussed with: Daughter, Other STEVE TRUJILLO MD May 21, 2024 13:36
[2024-05-21] MEDS: ACETAMINOPHEN 325 MG TAB PO PRN (15:54)
[2024-05-21] MEDS: CEFEPIME 2GM/50ML 50 ML IV SCH (17:52)
--- NOTE | 2024-05-21 19:14 | DVHPN2 ---
Consult Progress Note Date Seen: May 21, 2024 Subjective Patient reports: Other (remains intubated , hasnt woken up from [place] , on minimal vent, 2 mics levofed , discussed mold exposure report with family , tachycardic ) Objective vital signs Vital Sign Date Time Temp Pulse Resp B/P (MAP) Pulse Ox O2 Delivery O2 Flow Rate FiO2 05/21/24 18:45 96 16 114/50 (71) 96 05/21/24 18:30 30 05/21/24 18:04 Mechanical Ventilator+ 05/21/24 16:54 98.9 Total Intake and Output 05/20/24 05/20/24 05/21/24 15:00 23:00 07:00 Intake Total 568.335 ml 234.000 ml 188.750 ml Output Total 1450 ml 500 ml Balance 568.335 ml -1216.000 ml -311.250 ml medications Current Medications Medications Dose Ordered Sig/Erica Route Start Time Stop Time Status Last Admin Dose Admin Docusate Sodium 100 mg BIDPRN PRN PO 05/16/24 08:00 Acetaminophen 650 mg Q6HP PRN PO 05/16/24 08:00 05/21/24 15:54 650 MG Acetaminophen/ Hydrocodone Bitart 1 tab Q4HP PRN PO 05/16/24 08:00 Ondansetron HCl 4 mg Q4HP PRN IV 05/16/24 08:00 Morphine Sulfate 2 mg Q4HPRN PRN IV 05/16/24 08:00 Nitroglycerin 0.4 mg Q5MINP PRN SL 05/16/24 08:00 Morphine Sulfate 2 mg Q30M PRN IV 05/16/24 08:00 Ipratropium [place] 0.5 mg Q4HP PRN NEB 05/16/24 08:00 05/17/24 15:38 0.5 MG Pantoprazole Sodium 40 mg DAILY IV 05/16/24 10:00 05/21/24 07:20 40 MG Alprazolam 0.25 mg TIDPRN PRN PO 05/16/24 18:00 Albuterol 1.25 mg Q4HWA PRN NEB 05/17/24 14:15 05/21/24 14:41 1.25 MG Ipratropium [place] 0.5 mg Q4HWA NEB 05/17/24 18:00 05/21/24 18:30 0.5 MG Methylprednisolone Sodium Succinate 40 mg Q8HR IV 05/17/24 22:00 05/21/24 13:07 40 MG Phenylephrine HCl 250 ml @ 30 mls/hr Q8H20M IV 05/17/24 23:00 Fentanyl Citrate 250 ml @ 2.5 mls/hr Q24H IV 05/17/24 23:00 Midazolam HCl 50 ml @ 1 mls/hr Q24H IV 05/17/24 23:30 05/21/24 15:54 4 MLS/HR Micafungin Sodium 100 mg/Sodium Chloride 100 ml @ 100 mls/hr DAILY IV 05/19/24 10:00 05/21/24 07:20 100 MLS/HR Enoxaparin Sodium 70 mg Q12HR SC 05/20/24 22:00 05/21/24 09:05 70 MG Amiodarone HCl 200 mg Q12HR PO 05/20/24 22:00 05/21/24 07:21 200 MG Norepinephrine Bitartrate 250 ml @ 1.875 mls/ hr Q24H IV 05/20/24 11:15 05/20/24 11:14 7.5 MLS/HR Furosemide 20 mg DAILY IV 05/21/24 10:00 05/21/24 07:20 20 MG Dexmedetomidine HCl 400 mcg/ Dextrose 100 ml @ 3.615 mls/ hr Q24H IV 05/20/24 16:30 05/21/24 06:00 3.615 MLS/HR Cefepime/Dextrose 50 ml @ 12.5 mls/hr Q12H IV 05/21/24 19:00 05/21/24 17:52 12.5 MLS/HR Physical Exam: -General: NAD -Neck: Supple. No masses. intaubted and sedated -HEENT: PERRL. Normal lids and conjunctiva. Moist mucous membranes. Oropharynx without lesions, exudates or excessive erythema. Normal appearance of the external aspects of the nose and ears. -Heart: Regular rhythm, normal rate. No murmur. No lower extremity edema. -Lungs: Normal respiratory effort. Clear to auscultation bilaterally. No wheezes. minimal crackles and dimished breath sounds in right upper lobe -Abdomen: Soft. Non-tender. Non-distended. No masses or abdominal hernia. -Msk: No digital cyanosis. Normal strength and tone in all 4 limbs. -Skin: Warm and dry, no rashes. -Neuro: Alert. No facial droop or slurred speech. Extra-ocular movements intact. Sensation intact to soft touch in all 4 limbs. -Psych: Appropriate mood. Full affect. laboratory and microbiology Laboratory Tests 05/21/24 03:05 Test 05/21/24 03:05 Range/Units Serum Glucose 183 H 74-106 mg/dL Problem List/Assessment/Plan Problems(with codes): (1) Septic shock (2) Weakness (3) Shortness of breath (4) Pneumonia (5) Mass of right lung Problem List/Assessment/Plan ID Problem List: 1. Acute on chronic hypoxic respiratory failure 2. Lung cancer (right) 3. Right lung cavitary pneumonia 4. Possible obstructive post-obstructive pneumonia 5. Sepsis, septic shock Assessment: This is an 88 y.o. female with a past medical history of lung cancer, COPD, pneumonia, chronic oxygen therapy, status post phlebectomy for DVT, and hypertension. She presents with worsening generalized weakness, increased cough, hemoptysis, bilateral lower extremity swelling, and dysuria over the past two weeks. A PET scan in December suggested a recurrent mass in the right lower lobe, confirmed via bronchoscopy. On admission, she had a leukocytosis of 15.9, Hb 11.8, and platelets 180. CT chest showed a heterogeneously enhancing mass in the right hilar region with bilateral pleural effusions, compressive atelectasis, and a moderate-sized pericardial effusion. She is normally ambulatory but has been bed-bound recently with no smoking or alcohol history, albeit with secondhand smoke exposure from a chronic smoking . Patient was admitted on May 15 and became tachycardic and hypotensive during hospitalization. She was treated with bronchodilators, IV antibiotics (levofloxacin and vancomycin), and underwent thoracentesis. 05/19: CTPE shows no pulmonary embolism , extensive consolidation in the right lung , large right and moderate left plural effusions. moderate pericardial effusion . Patient had a bronchoscopy done today , BAL was done of the right middle and lower lobes. Fungal and bacterial cultures were sent. mucoso was erithemidus, blockages of right upper lobe and partial obstruction of right lower lobe, both noted during the procedure. Left lung appeared normal. Biopsy was obtained from the right main stem at the site of abnormal mucosa. 05/20: White count is going down to 17.2 , HIV test is negative , covid test is negative , waiting for aspergellus test to come back. Blood cultures remain negative as well as mercenaries are negative, pleural fluid cultures growth is negative. Respiratory sputum cultures are within normal. 05/21: home mold report shows there was aspergillus/penicillium exposure , all other fungal organisms are less concerns. 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 follow up on plural fluid cultures and psychology Test broadly for TB, HIV, Cocci antibody, Aspergillus antibody. Authorized and Performed by: Ramo lAan Total critical care time: Approximately 74 minutes Due to a high probability of clinically significant, life threatening deterioration, the patient required my highest level of preparedness to intervene emergently and I personally spent this critical care time directly and personally managing the patient. This critical care time included obtaining a history; examining the patient; pulse oximetry; ordering and review of studies; arranging urgent treatment with development of a management plan; evaluation of patient's response to treatment; frequent reassessment; and, discussions with other providers. This critical care time was performed to assess and manage the high probability of imminent, life-threatening deterioration that could result in multi-organ failure. It was exclusive of separately billable procedures and treating other patients and teaching time. Plan discussed with: Other Dietary Evaluation Review Comments: Monitor PO intake to meet her needs to 75% at least. Expected Outcomes/Goals: Gradual weight loss and breath with less difficulties. RAMO ALAN MD May 21, 2024 19:14
--- NOTE | 2024-05-21 22:15 | DVHPN2 ---
Progress Note - Dictate Has the PT tested + for MRSA If YES, has PT been informed?: No Medical Necessity Reason Pt with a Central, PICC or Fol: Yes The following are medically ne: Central Line, Aden Catheter Reason for aden catheter: Strict I&O vital signs Vital Sign Date Time Temp Pulse Resp B/P (MAP) Pulse Ox O2 Delivery O2 Flow Rate FiO2 05/21/24 22:03 89 16 146/54 (84) 97 30 05/21/24 20:30 99.5 99.5 05/21/24 20:00 Mechanical Ventilator+ Total Intake and Output 05/20/24 05/20/24 05/21/24 15:00 23:00 07:00 Intake Total 568.335 ml 234.000 ml 188.750 ml Output Total 1450 ml 500 ml Balance 568.335 ml -1216.000 ml -311.250 ml medications Current Medications Medications Dose Ordered Sig/Erica Route Start Time Stop Time Status Last Admin Dose Admin Docusate Sodium 100 mg BIDPRN PRN PO 05/16/24 08:00 Acetaminophen 650 mg Q6HP PRN PO 05/16/24 08:00 05/21/24 15:54 650 MG Acetaminophen/ Hydrocodone Bitart 1 tab Q4HP PRN PO 05/16/24 08:00 Ondansetron HCl 4 mg Q4HP PRN IV 05/16/24 08:00 Morphine Sulfate 2 mg Q4HPRN PRN IV 05/16/24 08:00 Nitroglycerin 0.4 mg Q5MINP PRN SL 05/16/24 08:00 Morphine Sulfate 2 mg Q30M PRN IV 05/16/24 08:00 Ipratropium [place] 0.5 mg Q4HP PRN NEB 05/16/24 08:00 05/17/24 15:38 0.5 MG Pantoprazole Sodium 40 mg DAILY IV 05/16/24 10:00 05/21/24 07:20 40 MG Alprazolam 0.25 mg TIDPRN PRN PO 05/16/24 18:00 Albuterol 1.25 mg Q4HWA PRN NEB 05/17/24 14:15 05/21/24 22:03 1.25 MG Ipratropium [place] 0.5 mg Q4HWA NEB 05/17/24 18:00 05/21/24 22:03 0.5 MG Methylprednisolone Sodium Succinate 40 mg Q8HR IV 05/17/24 22:00 05/21/24 21:15 40 MG Phenylephrine HCl 250 ml @ 30 mls/hr Q8H20M IV 05/17/24 23:00 Fentanyl Citrate 250 ml @ 2.5 mls/hr Q24H IV 05/17/24 23:00 05/21/24 21:40 2.5 MLS/HR Midazolam HCl 50 ml @ 1 mls/hr Q24H IV 05/17/24 23:30 05/21/24 15:54 4 MLS/HR Micafungin Sodium 100 mg/Sodium Chloride 100 ml @ 100 mls/hr DAILY IV 05/19/24 10:00 05/21/24 07:20 100 MLS/HR Enoxaparin Sodium 70 mg Q12HR SC 05/20/24 22:00 05/21/24 21:16 70 MG Amiodarone HCl 200 mg Q12HR PO 05/20/24 22:00 05/21/24 21:17 200 MG Norepinephrine Bitartrate 250 ml @ 1.875 mls/ hr Q24H IV 05/20/24 11:15 05/20/24 11:14 7.5 MLS/HR Furosemide 20 mg DAILY IV 05/21/24 10:00 05/21/24 07:20 20 MG Dexmedetomidine HCl 400 mcg/ Dextrose 100 ml @ 3.615 mls/ hr Q24H IV 05/20/24 16:30 05/21/24 06:00 3.615 MLS/HR Cefepime/Dextrose 50 ml @ 12.5 mls/hr Q12H IV 05/21/24 19:00 05/21/24 17:52 12.5 MLS/HR laboratory and microbiology Laboratory Tests 05/21/24 03:05 Test 05/21/24 03:05 Range/Units Serum Glucose 183 H 74-106 mg/dL Dietary Evaluation Review Comments: Monitor PO intake to meet her needs to 75% at least. Expected Outcomes/Goals: Gradual weight loss and breath with less difficulties. BENNETT AREVALO May 21, 2024 22:14 KARMA ZHANG MD May 31, 2024 21:52
[2024-05-22] VITALS (109 sets, daily range): BP systolic 85–161; BP diastolic 40–97; PULSE 69–110; RESP 7–25; TEMP 90.3–99; O2SAT 95–100
[2024-05-22 03:35] LABS: Basophils # (auto) 0 10 ^3/uL (0-0.2); Eosinophils # (auto) 0 10 ^3/uL (0-0.8); Lymphocytes # (auto) 0.3 10 ^3/uL (0.4-5.4); Monocytes # (auto) 0.9 10 ^3/uL (0-1.3); White Blood Cell 15.4 10^3/uL (4.4-10.8)
[2024-05-22 03:37] LABS: Basophils % (auto) 0.1 % (0.0-2.0); Hematocrit 30.4 % (36.0-46.0); Hemoglobin 9.8 g/dL (12.2-16.2); Mean Corpuscular Hgb Conc. 32.4 g/dL (32.0-36.0); Monocytes % (auto) 5.8 % (0.0-12.0); Neutrophils # (auto) 14.1 10 ^3/uL (1.6-8.6); Neutrophils % (auto) 92.1 % (37.0-80.0); Platelet Count (auto) 177 10^3/uL (140-450); Red Blood Cells 4.11 10^6/uL (4.0-5.20); Red Cell Distribution Width 15.6 % (11.8-14.3)
[2024-05-22 04:10] LABS: Alanine Aminotransferase 18 U/L (7-40); Albumin 2.9 g/dL (3.2-4.8); Alkaline Phosphatase 109 U/L (46-116); Anion Gap 2 (5-15); Aspartate Aminotransferase 12 U/L (13-40); BUN/Creatinine Ratio 41.5 (10.0-20.0); Bilirubin, Total 0.7 mg/dL (0.2-1.0); Blood Urea Nitrogen 22 mg/dL (9-23); Calcium 9.9 mg/dL (8.7-10.4); Carbon Dioxide 38 mmol/L (20-31); Chloride 101 mmol/L (98-107); Glucose 171 mg/dL (74-106); Magnesium 2.3 mg/dL (1.6-2.6); Potassium 3.7 mmol/L (3.5-5.1); Sodium 141 mmol/L (136-145); Total Protein 4.9 g/dL (5.7-8.2)
--- NOTE | 2024-05-22 05:32 | DVH ---
CHEST RADIOGRAPH Indication:intubated Technique: Single frontal view of the chest was obtained Comparison: XY CHEST PORTABLE on DOS: 05/21/24, XY CHEST XRAY 1 VIEW on DOS: 05/20/24, XY CHEST XRAY 1 VIEW on DOS: 05/19/24, XY CHEST PORTABLE on DOS: 05/17/24, XY CHEST PORTABLE on DOS: 05/17/24, XY CH EST PORTABLE on DOS: 05/21/24 FINDINGS: Lines and Tubes: Endotracheal tube, enteric catheter and left central venous catheter in satisfactory position. Lungs: Multifocal airspace disease. Chronic right lung volume loss. Pleura: Small right pleural effusion. No pneumothorax. Cardiomediastinal contours: Unremarkable Bones: Unremarkable IMPRESSION: Lines and tubes in satisfactory position. No significant interval change.
[2024-05-22 06:29] LABS: Base Excess 12.2 mmol/L (-2.0-3.0)
--- NOTE | 2024-05-22 10:13 | DVHPN2 ---
Progress Note - Dictate Date Seen: May 21, 2024 Has the PT tested + for MRSA If YES, has PT been informed?: No Medical Necessity Reason Pt with a Central, PICC or Fol: Yes The following are medically ne: Central Line, Aden Catheter Reason for aden catheter: Strict I&O Subjective Patient seen and examined at bedside. Intubated on mechanical ventilator Overnight events reviewed. vital signs Vital Sign Date Time Temp Pulse Resp B/P (MAP) Pulse Ox O2 Delivery O2 Flow Rate FiO2 05/22/24 09:54 97 16 105/55 97 30 05/22/24 08:30 97.9 208.2 05/22/24 08:00 Mechanical Ventilator+ Total Intake and Output 05/21/24 05/21/24 05/22/24 15:00 23:00 07:00 Intake Total 186.00 ml 223.50 ml 205.845 ml Output Total 850 ml 350 ml Balance 186.00 ml -626.50 ml -144.155 ml medications Current Medications Medications Dose Ordered Sig/Erica Route Start Time Stop Time Status Last Admin Dose Admin Docusate Sodium 100 mg BIDPRN PRN PO 05/16/24 08:00 Acetaminophen 650 mg Q6HP PRN PO 05/16/24 08:00 05/21/24 15:54 650 MG Acetaminophen/ Hydrocodone Bitart 1 tab Q4HP PRN PO 05/16/24 08:00 Ondansetron HCl 4 mg Q4HP PRN IV 05/16/24 08:00 Morphine Sulfate 2 mg Q4HPRN PRN IV 05/16/24 08:00 Nitroglycerin 0.4 mg Q5MINP PRN SL 05/16/24 08:00 Morphine Sulfate 2 mg Q30M PRN IV 05/16/24 08:00 Ipratropium [place] 0.5 mg Q4HP PRN NEB 05/16/24 08:00 05/17/24 15:38 0.5 MG Pantoprazole Sodium 40 mg DAILY IV 05/16/24 10:00 05/22/24 08:58 40 MG Alprazolam 0.25 mg TIDPRN PRN PO 05/16/24 18:00 Albuterol 1.25 mg Q4HWA PRN NEB 05/17/24 14:15 05/21/24 22:03 1.25 MG Ipratropium [place] 0.5 mg Q4HWA NEB 05/17/24 18:00 05/22/24 09:39 0.5 MG Methylprednisolone Sodium Succinate 40 mg Q8HR IV 05/17/24 22:00 05/22/24 05:01 40 MG Phenylephrine HCl 250 ml @ 30 mls/hr Q8H20M IV 05/17/24 23:00 Fentanyl Citrate 250 ml @ 2.5 mls/hr Q24H IV 05/17/24 23:00 05/21/24 21:40 2.5 MLS/HR Midazolam HCl 50 ml @ 1 mls/hr Q24H IV 05/17/24 23:30 05/21/24 15:54 4 MLS/HR Micafungin Sodium 100 mg/Sodium Chloride 100 ml @ 100 mls/hr DAILY IV 05/19/24 10:00 05/22/24 08:58 100 MLS/HR Enoxaparin Sodium 70 mg Q12HR SC 05/20/24 22:00 05/22/24 08:58 70 MG Amiodarone HCl 200 mg Q12HR PO 05/20/24 22:00 05/22/24 08:58 200 MG Norepinephrine Bitartrate 250 ml @ 1.875 mls/ hr Q24H IV 05/20/24 11:15 05/22/24 01:56 1.875 MLS/HR Furosemide 20 mg DAILY IV 05/21/24 10:00 05/22/24 08:57 20 MG Dexmedetomidine HCl 400 mcg/ Dextrose 100 ml @ 3.615 mls/ hr Q24H IV 05/20/24 16:30 05/21/24 06:00 3.615 MLS/HR Cefepime/Dextrose 50 ml @ 12.5 mls/hr Q12H IV 05/21/24 19:00 05/22/24 05:12 12.5 MLS/HR objective Gen.: Patient lying in bed in medical ICU. Intubated on mechanical ventilator. Head: Normocephalic, atraumatic. Eyes: PERRLA. Ears: Normal external anatomy. Throat: Endotracheal tube and orogastric tube in place. Neck: Supple, trachea midline. Chest: Transmitted breath sounds bilaterally. Decreased air entry bilaterally. Expiratory wheezing. Bibasilar crackles. Cardio vascular: Positive S1, positive S2. Regular rate and rhythm. Abdomen: Positive bowel sounds in all 4 quadrants. Soft, nontender, nondistended. : Aden in place. Normal external genitalia. Rectal: Deferred Skin: Warm, dry. Intact. Extremities: 2+ radial pulses bilaterally. No lower extremity edema. Neuro: Sedated. laboratory and microbiology Laboratory Tests 05/22/24 03:12 Test 05/22/24 03:12 Range/Units Serum Glucose 171 H 74-106 mg/dL Assessment/Plan Impression: Acute on chronic hypoxic respiratory failure secondary to right lung mass On mechanical ventilator LEFT IJ DVT s/p Cardiac arrest with ROSC [id number] bilateral pleural effusion Moderate pericardial effusion Hyponatremia Leukocytosis Hypertension COPD Atelectasis Events: Remains on vent support; AC with RR 16, Vt 400, PEEP 5, FIO2 30% Taper FiO2 as tolerated Off sedation. On pressors for hemodynamic support. On Levophed 2 mcg/min Titrate to keep MAP above 65 mmHg/SBP above 90 mmHg. Continue IV steroids q.8 h. Continue PO amiodarone CTA of chest demonstrated no pulmonary embolism. Extensive consolidation in the right lung. Large right and moderate left pleural effusions. Moderate pericardial effusion. U/S venous Doppler of upper extremities showed possible DVT in left IJ. Continue Heparin drip WBC trending down. Continue abx Continue antifungal ID recommendations appreciated. Monitor renal function Nephrology recs appreciated. SBT/RIGOBERTO. CPAP trial with PS 8, PEEP of 5. OK to increase PS to max 20 cmH2O to achieve tidal volume 400-450 mL. 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 Overall poor prognosis Labs and imaging reviewed. Rest of plan as noted below. Plan: s/p intubation on mechanical ventilator S/p bronchoscopy on 05/19. Follow-up results of RLL BAL, Brushings from right lower lobe, right mainstem, and biopsy from right mainstem. CXR image and report reviewed. ABG reviewed. AC mode with RR 16, Vt 400, PEEP 5, FIO2 30% Titrate FIO2 to keep O2 saturation above 92%. VAP bundle Daily ABG and CXR while intubated. Sedate for ventilatory synchrony - currently off sedation Pressors as necessary for hemodynamic support. Titrate to keep MAP above 65 mmHg/SBP above 90 mmHg. Continue antibiotics. F/u cultures. Limited chest US of left IJ notable for DVT. Start heparin drip per pharmacy protocol Monitor renal function Monitor electrolytes. Supplement as necessary. Nutritional support. Accucheks, ISS. GI/DVT prophylaxis. Extensive time spent counseling family and answering questions. Overall poor prognosis High likelihood of demise given advanced age and multiple co-morbidities. Condition: Critical Prognosis: Poor given multiple comorbidities. Rest of plan per hospitalist and other consultants. A total of 35 minutes of critical care time was spent reviewing the patient record, examining the patient, making a diagnostic and therapeutic plan, discussing this plan with the medical personnel, following up on diagnostic studies and following the patient for clinical stability excluding any and all procedures. At least 50% of this time was spent in direct, [id number] contact. Thank you Dr. Rodriguez for allowing me to participate in this patient's care. Further recommendations will depend on patient's clinical course. Please do not hesitate to contact me if you have any questions or concerns. This medical document was created using an electronic medical record system with [employer] dictation system. Although this document has been carefully reviewed, there may still be some phonetic and typographical errors. These areas are purely typographical due to imperfections of the software programs, and do not reflect any compromise in the patient's medical care. Dietary Evaluation Review Comments: Monitor PO intake to meet her needs to 75% at least. Expected Outcomes/Goals: Gradual weight loss and breath with less difficulties. Plan discussed with: Other (BRENDEN Lozano) KARMA ZHANG MD May 22, 2024 10:13
[2024-05-22] MEDS: Jevity 1.2 Cal/Fiber 1 Liter GT SCH (12:57)
--- NOTE | 2024-05-22 16:28 | DVHPN2 ---
Progress Note - Dictate Date Seen: May 22, 2024 Has the PT tested + for MRSA If YES, has PT been informed?: No Medical Necessity Reason Pt with a Central, PICC or Fol: Yes The following are medically ne: Central Line, Aden Catheter Reason for aden catheter: Strict I&O Subjective Patient is more alert and awake today and apparently nods her head when asked simple questions per nurse. However she is not fully taking deep breaths are following full commands for successful CPAP trials. Patient apparently became tachypneic and tachycardia as well as low tidal volumes on CPAP trial. vital signs Vital Sign Date Time Temp Pulse Resp B/P (MAP) Pulse Ox O2 Delivery O2 Flow Rate FiO2 05/22/24 16:15 98.6 93 16 127/61 (83) 97 209.5 05/22/24 16:00 Mechanical Ventilator+ 30 30 Total Intake and Output 05/21/24 05/21/24 05/22/24 15:00 23:00 07:00 Intake Total 186.00 ml 223.50 ml 205.845 ml Output Total 850 ml 350 ml Balance 186.00 ml -626.50 ml -144.155 ml medications Current Medications Medications Dose Ordered Sig/Erica Route Start Time Stop Time Status Last Admin Dose Admin Docusate Sodium 100 mg BIDPRN PRN PO 05/16/24 08:00 Acetaminophen 650 mg Q6HP PRN PO 05/16/24 08:00 05/21/24 15:54 650 MG Acetaminophen/ Hydrocodone Bitart 1 tab Q4HP PRN PO 05/16/24 08:00 Ondansetron HCl 4 mg Q4HP PRN IV 05/16/24 08:00 Morphine Sulfate 2 mg Q4HPRN PRN IV 05/16/24 08:00 Nitroglycerin 0.4 mg Q5MINP PRN SL 05/16/24 08:00 Morphine Sulfate 2 mg Q30M PRN IV 05/16/24 08:00 Ipratropium [place] 0.5 mg Q4HP PRN NEB 05/16/24 08:00 05/17/24 15:38 0.5 MG Pantoprazole Sodium 40 mg DAILY IV 05/16/24 10:00 05/22/24 08:58 40 MG Alprazolam 0.25 mg TIDPRN PRN PO 05/16/24 18:00 Albuterol 1.25 mg Q4HWA PRN NEB 05/17/24 14:15 05/21/24 22:03 1.25 MG Ipratropium [place] 0.5 mg Q4HWA NEB 05/17/24 18:00 05/22/24 13:35 0.5 MG Methylprednisolone Sodium Succinate 40 mg Q8HR IV 05/17/24 22:00 05/22/24 13:33 40 MG Phenylephrine HCl 250 ml @ 30 mls/hr Q8H20M IV 05/17/24 23:00 Fentanyl Citrate 250 ml @ 2.5 mls/hr Q24H IV 05/17/24 23:00 05/21/24 21:40 2.5 MLS/HR Midazolam HCl 50 ml @ 1 mls/hr Q24H IV 05/17/24 23:30 05/21/24 15:54 4 MLS/HR Micafungin Sodium 100 mg/Sodium Chloride 100 ml @ 100 mls/hr DAILY IV 05/19/24 10:00 05/22/24 08:58 100 MLS/HR Enoxaparin Sodium 70 mg Q12HR SC 05/20/24 22:00 05/22/24 08:58 70 MG Amiodarone HCl 200 mg Q12HR PO 05/20/24 22:00 05/22/24 08:58 200 MG Norepinephrine Bitartrate 250 ml @ 1.875 mls/ hr Q24H IV 05/20/24 11:15 05/22/24 01:56 1.875 MLS/HR Furosemide 20 mg DAILY IV 05/21/24 10:00 05/22/24 08:57 20 MG Dexmedetomidine HCl 400 mcg/ Dextrose 100 ml @ 3.615 mls/ hr Q24H IV 05/20/24 16:30 05/21/24 06:00 3.615 MLS/HR Cefepime/Dextrose 50 ml @ 12.5 mls/hr Q12H IV 05/21/24 19:00 05/22/24 05:12 12.5 MLS/HR Enteral Nutritional Formula 1,000 ml 40ML/HR GT 05/22/24 12:00 05/22/24 12:57 1,000 ML objective Elderly frail-appearing female in bed on ventilator. Family is at bedside. Heart regular rate and rhythm S1 and S2. Lungs fair air movement without any wheezes. Abdomen soft positive bowel sounds. Extremities positive distal pulses. laboratory and microbiology Laboratory Tests 05/22/24 03:12 Test 05/22/24 03:12 Range/Units Serum Glucose 171 H 74-106 mg/dL Assessment/Plan Continue present management as she is on. Continue CPAP trials daily basis. If patient not successfully get extubated then we will discuss with family regarding trach PEG versus terminal wean. At present her condition remains guarded. Discussed with the nurse regarding care plan Problems(with codes): (1) Septic shock (2) Shortness of breath (3) Weakness (4) Pneumonia (5) Mass of right lung Dietary Evaluation Review Comments: Monitor PO intake to meet her needs to 75% at least. Expected Outcomes/Goals: Gradual weight loss and breath with less difficulties. Plan discussed with: Other STEVE TRUJILLO MD May 22, 2024 16:28
--- NOTE | 2024-05-22 22:54 | DVHPN ---
DATE: 05/22/2024 PULMONARY FOLLOWUP PRIMARY PHYSICIAN: Dr. Steve Trujillo. HISTORY OF PRESENT ILLNESS: The patient was seen in the morning. I am covering for Dr. Resendiz. The patient has a history of adenocarcinoma and right pleural effusion. Bronchoscopy also shows right upper lobe occlusion. The patient has been status post drainage on the right side. The patient has been on a ventilator. The patient was given a trial of CPAP this morning, but lasted less than 5 minutes, became tachypneic and tachycardic as well as started desaturating and was reverted back to assist control. The patient was off sedation was slowly waking up. The patient's daughter and granddaughter at bedside. They tell me that the patient seemed to be recognizing them. No significant secretions reported. The patient is currently n.p.o. Urine output has been stable. She is not requiring any hemodynamic support. PHYSICAL EXAMINATION: VITAL SIGNS: Reveals vital signs are stable. Respiratory rate was 18. She was in no distress, on the ventilator, blood pressure is 110/60, saturations 97 on 30%. HEENT: Unremarkable, appears slightly pale. NECK: Supple. No JVD. OG tube and endotracheal tube in place. CHEST: Reveals diminished air entry on the right side, bilateral rales. COR: S1, S2. No murmurs. ABDOMEN: Soft, nontender, no organomegaly, no tenderness or rigidity. EXTREMITIES: No edema or clubbing. NEUROLOGIC: Opening eyes and grimacing. Moving extremities at times. LABORATORY DATA: WBC 15, hematocrit 30, platelet count 177, 92% neutrophils. Blood gases reveal pH 7.50, pCO2 47, pO2 77. Assist control, tidal volume 400, peep of 5, 30%, rate of 16. Serum chemistries were significant for CO2 38, creatinine 0.53. LFTs within normal limits. Albumin 2.9. Other lab work were all noted. Pleural fluid analysis revealed 888 wbc's per high powered field. Total protein 3.9, glucose 107. LDH 292. Serology is influenza A and B were negative. COVID antigen test was negative. COVID antigen test was negative. Aspergillus antibodies were pending. Cultures were reviewed and so far all been negative. Chest x-ray from this morning was reviewed. Previous CTs were also noted. The patient's lines and tubes are in stable position. Multifocal airspace disease with right lung volume loss was noted. PLAN: At this time, we will try CPAP again in the afternoon. If the patient does not meet the criteria, then the patient would be tried again. I have discussed the option, also discussed with him the importance of deciding if after extubation the patient does not do well, then would they like the patient to be reintubated. We would continue current antibiotics. Continue gentle diuresis. We will start tube feedings if the patient failed CPAP trial. The patient is on cefepime and micafungin. We will continue Med nebs. Continue Lovenox for DVT prophylaxis. The patient is also will be put on Precedex for comfort and sedation, increased as needed to keep RASS 0 to -2. Plan discussed with bedside RN, also discussed with the patient's daughter and granddaughter. Critical time 35 minutes. Jean-Paul Lopez MD /PAR TID: [id number] RECEIPT: [id number] cc: STEVE TRUJILLO
[2024-05-23] VITALS (106 sets, daily range): BP systolic 11–146; BP diastolic 41–66; PULSE 74–117; RESP 10–41; TEMP 97.9–99.3; O2SAT 94–100
[2024-05-23 04:16] LABS: Basophils # (auto) 0 10 ^3/uL (0-0.2); Eosinophils # (auto) 0 10 ^3/uL (0-0.8); Lymphocytes # (auto) 0.2 10 ^3/uL (0.4-5.4); Neutrophils # (auto) 15.8 10 ^3/uL (1.6-8.6)
[2024-05-23 04:18] LABS: Hematocrit 31.9 % (36.0-46.0); Hemoglobin 10.1 g/dL (12.2-16.2); Lymphocytes % (auto) 1.1 % (10.0-50.0); Mean Corpuscular Hgb Conc. 31.8 g/dL (32.0-36.0); Mean Corpuscular Volume 75.4 fL (80.0-100.0); Monocytes % (auto) 5.6 % (0.0-12.0); Neutrophils % (auto) 93.3 % (37.0-80.0); Platelet Count (auto) 157 10^3/uL (140-450); Red Blood Cells 4.22 10^6/uL (4.0-5.20); Red Cell Distribution Width 15.6 % (11.8-14.3); White Blood Cell 16.9 10^3/uL (4.4-10.8)
[2024-05-23 04:31] LABS: Alanine Aminotransferase 23 U/L (7-40); Albumin 3.2 g/dL (3.2-4.8); Alkaline Phosphatase 133 U/L (46-116); Aspartate Aminotransferase 15 U/L (13-40); BUN/Creatinine Ratio 49.2 (10.0-20.0); Blood Urea Nitrogen 31 mg/dL (9-23); Calcium 10.4 mg/dL (8.7-10.4); Chloride 100 mmol/L (98-107); Glucose 187 mg/dL (74-106); Magnesium 2.5 mg/dL (1.6-2.6); Potassium 3.9 mmol/L (3.5-5.1); Sodium 142 mmol/L (136-145)
[2024-05-23 04:33] LABS: Anion Gap 1.99999 (5-15); Bilirubin, Total 0.6 mg/dL (0.2-1.0); Phosphorus 2.9 mg/dL (2.4-5.1); Total Protein 5.3 g/dL (5.7-8.2)
[2024-05-23 04:35] LABS: Carbon Dioxide > 40 mmol/L (20-31)
--- NOTE | 2024-05-23 05:34 | DVH ---
EXAM: XY CHEST PORTABLE Indication:Intubated Technique: Single frontal view of the chest was obtained Comparison: XY CHEST PORTABLE on DOS: 05/22/24, XY CHEST PORTABLE on DOS: 05/21/24, XY CHEST XRAY 1 VIE W on DOS: 05/20/24, XY CHEST XRAY 1 VIEW on DOS: 05/19/24, XY CHEST PORTABLE on DOS: 05/17/24, XY [facility] [address] PORTABLE on DOS: 05/22/24 FINDINGS: Lines and Tubes: Endotracheal tube, enteric catheter and left central venous catheter in satisfactory position. Lungs: Multifocal airspace disease. Chronic right lung volume loss. Pleura: Small right pleural effusion. No pneumothorax. Cardiomediastinal contours: Unremarkable Bones: Unremarkable IMPRESSION: Lines and tubes in satisfactory position. No significant interval change.
[2024-05-23 06:13] LABS: Base Excess 11.6 mmol/L (-2.0-3.0)
--- NOTE | 2024-05-23 09:40 | ECG ---
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
--- NOTE | 2024-05-23 16:08 | DVHPN2 ---
Progress Note - Dictate Date Seen: May 23, 2024 Has the PT tested + for MRSA If YES, has PT been informed?: No Medical Necessity Reason Pt with a Central, PICC or Fol: Yes The following are medically ne: Central Line, Aden Catheter Reason for aden catheter: Strict I&O Subjective Patient is more alert and awake today and able to make her needs known. Patient had two trials of CPAP today for 30-45 minutes and apparently getting tired and becoming it tachypneic. Therefore she has remained on ventilator. vital signs Vital Sign Date Time Temp Pulse Resp B/P (MAP) Pulse Ox O2 Delivery O2 Flow Rate FiO2 05/23/24 16:00 30 05/23/24 16:00 16 97 Mechanical Ventilator+ 05/23/24 14:18 90 106/54 (71) 05/23/24 14:15 98.6 209.5 Total Intake and Output 05/22/24 05/22/24 05/23/24 15:00 23:00 07:00 Intake Total 183 ml 266.960 ml 385.805 ml Output Total 950 ml 360 ml Balance 183 ml -683.040 ml 25.805 ml medications Current Medications Medications Dose Ordered Sig/Erica Route Start Time Stop Time Status Last Admin Dose Admin Docusate Sodium 100 mg BIDPRN PRN PO 05/16/24 08:00 Acetaminophen 650 mg Q6HP PRN PO 05/16/24 08:00 05/21/24 15:54 650 MG Acetaminophen/ Hydrocodone Bitart 1 tab Q4HP PRN PO 05/16/24 08:00 Ondansetron HCl 4 mg Q4HP PRN IV 05/16/24 08:00 Morphine Sulfate 2 mg Q4HPRN PRN IV 05/16/24 08:00 Nitroglycerin 0.4 mg Q5MINP PRN SL 05/16/24 08:00 Morphine Sulfate 2 mg Q30M PRN IV 05/16/24 08:00 Ipratropium [place] 0.5 mg Q4HP PRN NEB 05/16/24 08:00 05/17/24 15:38 0.5 MG Pantoprazole Sodium 40 mg DAILY IV 05/16/24 10:00 05/23/24 09:36 40 MG Alprazolam 0.25 mg TIDPRN PRN PO 05/16/24 18:00 Albuterol 1.25 mg Q4HWA PRN NEB 05/17/24 14:15 05/23/24 14:18 1.25 MG Ipratropium [place] 0.5 mg Q4HWA NEB 05/17/24 18:00 05/23/24 14:18 0.5 MG Methylprednisolone Sodium Succinate 40 mg Q8HR IV 05/17/24 22:00 05/23/24 13:18 40 MG Phenylephrine HCl 250 ml @ 30 mls/hr Q8H20M IV 05/17/24 23:00 Fentanyl Citrate 250 ml @ 2.5 mls/hr Q24H IV 05/17/24 23:00 05/21/24 21:40 2.5 MLS/HR Midazolam HCl 50 ml @ 1 mls/hr Q24H IV 05/17/24 23:30 05/21/24 15:54 4 MLS/HR Micafungin Sodium 100 mg/Sodium Chloride 100 ml @ 100 mls/hr DAILY IV 05/19/24 10:00 05/23/24 09:36 100 MLS/HR Enoxaparin Sodium 70 mg Q12HR SC 05/20/24 22:00 05/23/24 09:36 70 MG Amiodarone HCl 200 mg Q12HR PO 05/20/24 22:00 05/23/24 09:36 200 MG Norepinephrine Bitartrate 250 ml @ 1.875 mls/ hr Q24H IV 05/20/24 11:15 05/22/24 01:56 1.875 MLS/HR Furosemide 20 mg DAILY IV 05/21/24 10:00 05/23/24 09:36 20 MG Dexmedetomidine HCl 400 mcg/ Dextrose 100 ml @ 3.615 mls/ hr Q24H IV 05/20/24 16:30 05/21/24 06:00 3.615 MLS/HR Cefepime/Dextrose 50 ml @ 12.5 mls/hr Q12H IV 05/21/24 19:00 05/23/24 05:51 12.5 MLS/HR Enteral Nutritional Formula 1,000 ml 40ML/HR GT 05/22/24 12:00 05/22/24 12:57 1,000 ML objective Elderly female in bed on ventilator. Heart regular rate and rhythm S1 and S2. Lungs fair air movement without any wheezes. Abdomen soft positive bowel sounds. Extremities positive distal pulses. laboratory and microbiology Laboratory Tests 05/23/24 03:10 Test 05/23/24 03:10 Range/Units Serum Glucose 187 H 74-106 mg/dL Assessment/Plan Continue present management as she is on. Continue CPAP trials daily basis for possible eventual extubation. Otherwise further clinical management per clinical course. Discussed with the nurse regarding care plan. Dietary Evaluation Review Comments: Monitor PO intake to meet her needs to 75% at least. Expected Outcomes/Goals: Gradual weight loss and breath with less difficulties. Plan discussed with: Other STEVE TRUJILLO MD May 23, 2024 16:08
--- NOTE | 2024-05-23 18:27 | DVHOP ---
DATE OF SURGERY: 05/23/2024 PULMONARY FOLLOWUP SUBJECTIVE: The patient lasted about 30 minutes on CPAP, then became tachycardic, tachypneic and had to be reverted back to assist control. The patient is comfortable at the time of my examination. The patient's daughter is at bedside. Also, discussed with bedside RN, Curry. The patient is not having any significant secretions, not requiring any hemodynamic support. The patient was on low dose Precedex. Urine output is stable. PHYSICAL EXAMINATION: VITAL SIGNS: T max 99, heart rate 100, respiratory rate 20, blood pressure 105/70, saturations 97%. NECK: Supple. CHEST: Left sided rales, diminished air entry. ABDOMEN: Soft, nontender. No organomegaly. Bowel sounds normal. EXTREMITIES: No edema or clubbing. NEUROLOGICALLY: Opens eyes and grimaces. LABORATORY DATA: WBC 16, hematocrit 31, platelet count 157. Blood gases noted, pH 7.49, pCO2 48, pO2 82. This was done on assist control at 30% FIO2 with 5 of peep. Other lab work significant for a BUN 31, CO2 greater than 40. Others were reviewed. IMPRESSION: * Acute respiratory failure. * Pneumonia. * Adenocarcinoma of the lung. * History of chronic obstructive pulmonary disease. * Pleural effusions. * Upper lobe bronchus obstruction. PLAN: At this time, prognosis remains guarded. Discussed with the patient's bedside RN and the patient's family. We will continue to do CPAP trials. Continue antibiotics. Keep euvolemic. Continue GI and DVT prophylaxis. Await the results of pleural fluid analysis. The patient remains on cefepime and micafungin. Continue Precedex to keep comfortable. If patient unable to be weaned, may require change of sedation. Plan discussed. Overall critical time 35 minutes. Jean-Paul Lopez MD /SEP TID: [id number] RECEIPT: [id number] cc: Slava Bonilla MD
--- NOTE | 2024-05-23 18:54 | DVHPN2 ---
Consult Progress Note Date Seen: May 22, 2024 Subjective Patient reports: Feels better (no fever or chills no diarrhea or rash) Objective vital signs Vital Sign Date Time Temp Pulse Resp B/P (MAP) Pulse Ox O2 Delivery O2 Flow Rate FiO2 05/23/24 18:45 99.3 97 17 130/48 (75) 99 210.7 05/23/24 18:00 Mechanical Ventilator+ 30 30 Total Intake and Output 05/22/24 05/22/24 05/23/24 15:00 23:00 07:00 Intake Total 183 ml 266.960 ml 385.805 ml Output Total 950 ml 360 ml Balance 183 ml -683.040 ml 25.805 ml medications Current Medications Medications Dose Ordered Sig/Erica Route Start Time Stop Time Status Last Admin Dose Admin Docusate Sodium 100 mg BIDPRN PRN PO 05/16/24 08:00 Acetaminophen 650 mg Q6HP PRN PO 05/16/24 08:00 05/21/24 15:54 650 MG Acetaminophen/ Hydrocodone Bitart 1 tab Q4HP PRN PO 05/16/24 08:00 Ondansetron HCl 4 mg Q4HP PRN IV 05/16/24 08:00 Morphine Sulfate 2 mg Q4HPRN PRN IV 05/16/24 08:00 Nitroglycerin 0.4 mg Q5MINP PRN SL 05/16/24 08:00 Morphine Sulfate 2 mg Q30M PRN IV 05/16/24 08:00 Ipratropium [place] 0.5 mg Q4HP PRN NEB 05/16/24 08:00 05/17/24 15:38 0.5 MG Pantoprazole Sodium 40 mg DAILY IV 05/16/24 10:00 05/23/24 09:36 40 MG Alprazolam 0.25 mg TIDPRN PRN PO 05/16/24 18:00 Albuterol 1.25 mg Q4HWA PRN NEB 05/17/24 14:15 05/23/24 18:41 1.25 MG Ipratropium [place] 0.5 mg Q4HWA NEB 05/17/24 18:00 05/23/24 18:41 0.5 MG Methylprednisolone Sodium Succinate 40 mg Q8HR IV 05/17/24 22:00 05/23/24 13:18 40 MG Phenylephrine HCl 250 ml @ 30 mls/hr Q8H20M IV 05/17/24 23:00 Fentanyl Citrate 250 ml @ 2.5 mls/hr Q24H IV 05/17/24 23:00 05/21/24 21:40 2.5 MLS/HR Midazolam HCl 50 ml @ 1 mls/hr Q24H IV 05/17/24 23:30 05/21/24 15:54 4 MLS/HR Micafungin Sodium 100 mg/Sodium Chloride 100 ml @ 100 mls/hr DAILY IV 05/19/24 10:00 05/23/24 09:36 100 MLS/HR Enoxaparin Sodium 70 mg Q12HR SC 05/20/24 22:00 05/23/24 09:36 70 MG Amiodarone HCl 200 mg Q12HR PO 05/20/24 22:00 05/23/24 09:36 200 MG Norepinephrine Bitartrate 250 ml @ 1.875 mls/ hr Q24H IV 05/20/24 11:15 05/22/24 01:56 1.875 MLS/HR Furosemide 20 mg DAILY IV 05/21/24 10:00 05/23/24 09:36 20 MG Dexmedetomidine HCl 400 mcg/ Dextrose 100 ml @ 3.615 mls/ hr Q24H IV 05/20/24 16:30 05/21/24 06:00 3.615 MLS/HR Enteral Nutritional Formula 1,000 ml 40ML/HR GT 05/22/24 12:00 05/22/24 12:57 1,000 ML PHYSICAL EXAM: - GENERAL: intubated and sedated , Well-nourished. - EYES: EOMI. Anicteric. - HENT: Moist mucous membranes. No scleral icterus. No cervical lymphadenopathy. - LUNGS: Clear to auscultation bilaterally. No accessory muscle use. - CARDIOVASCULAR: Regular rate and rhythm. No murmur. No JVD. - ABDOMEN: Soft, non-tender and non-distended. No palpable masses. - EXTREMITIES: No edema. Non-tender.?SKIN: No rashes or lesions. Warm. - NEUROLOGIC: No focal neurological deficits. CN II-XII grossly intact, but not individually tested. - PSYCHIATRIC: Cooperative. Appropriate mood and affect. laboratory and microbiology Laboratory Tests 05/23/24 03:10 Test 05/23/24 03:10 Range/Units Serum Glucose 187 H 74-106 mg/dL Problem List/Assessment/Plan Problem List/Assessment/Plan ID Problem List: 1. Acute on chronic hypoxic respiratory failure 2. Lung cancer (right) 3. Right lung cavitary pneumonia 4. Possible obstructive post-obstructive pneumonia 5. Sepsis, septic shock Assessment: This is an 88 y.o. female with a past medical history of lung cancer, COPD, pneumonia, chronic oxygen therapy, status post phlebectomy for DVT, and hypertension. She presents with worsening generalized weakness, increased cough, hemoptysis, bilateral lower extremity swelling, and dysuria over the past two weeks. A PET scan in December suggested a recurrent mass in the right lower lobe, confirmed via bronchoscopy. On admission, she had a leukocytosis of 15.9, Hb 11.8, and platelets 180. CT chest showed a heterogeneously enhancing mass in the right hilar region with bilateral pleural effusions, compressive atelectasis, and a moderate-sized pericardial effusion. She is normally ambulatory but has been bed-bound recently with no smoking or alcohol history, albeit with secondhand smoke exposure from a chronic smoking . Patient was admitted on May 15 and became tachycardic and hypotensive during hospitalization. She was treated with bronchodilators, IV antibiotics (levofloxacin and vancomycin), and underwent thoracentesis. 05/19: CTPE shows no pulmonary embolism , extensive consolidation in the right lung , large right and moderate left plural effusions. moderate pericardial effusion . Patient had a bronchoscopy done today , BAL was done of the right middle and lower lobes. Fungal and bacterial cultures were sent. mucoso was erithemidus, blockages of right upper lobe and partial obstruction of right lower lobe, both noted during the procedure. Left lung appeared normal. Biopsy was obtained from the right main stem at the site of abnormal mucosa. 05/20: White count is going down to 17.2 , HIV test is negative , covid test is negative , waiting for aspergellus test to come back. Blood cultures remain negative as well as mercenaries are negative, pleural fluid cultures growth is negative. Respiratory sputum cultures are within normal. 05/21: home mold report shows there was aspergillus/penicillium exposure , all other fungal organisms are less concerns. 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 follow up on plural fluid cultures and psychology Test broadly for TB, HIV, Cocci antibody, Aspergillus antibody. Authorized and Performed by: Ramo Alan Total critical care time: Approximately 72 minutes Due to a high probability of clinically significant, life threatening deterioration, the patient required my highest level of preparedness to intervene emergently and I personally spent this critical care time directly and personally managing the patient. This critical care time included obtaining a history; examining the patient; pulse oximetry; ordering and review of studies; arranging urgent treatment with development of a management plan; evaluation of patient's response to treatment; frequent reassessment; and, discussions with other providers. This critical care time was performed to assess and manage the high probability of imminent, life-threatening deterioration that could result in multi-organ failure. It was exclusive of separately billable procedures and treating other patients and teaching time. Plan discussed with: Patient Dietary Evaluation Review Comments: Monitor PO intake to meet her needs to 75% at least. Expected Outcomes/Goals: Gradual weight loss and breath with less difficulties. RAMO ALAN MD May 23, 2024 18:54
--- NOTE | 2024-05-23 19:44 | DVHPN2 ---
Consult Progress Note Date Seen: May 23, 2024 Subjective Patient reports: No new complaints (on minimal vent , off pressures , waiting for pathology results to come in ) Objective vital signs Vital Sign Date Time Temp Pulse Resp B/P (MAP) Pulse Ox O2 Delivery O2 Flow Rate FiO2 05/23/24 18:45 99.3 97 17 130/48 (75) 99 210.7 05/23/24 18:25 30 05/23/24 18:00 Mechanical Ventilator+ Total Intake and Output 05/22/24 05/22/24 05/23/24 15:00 23:00 07:00 Intake Total 183 ml 266.960 ml 385.805 ml Output Total 950 ml 360 ml Balance 183 ml -683.040 ml 25.805 ml medications Current Medications Medications Dose Ordered Sig/Erica Route Start Time Stop Time Status Last Admin Dose Admin Docusate Sodium 100 mg BIDPRN PRN PO 05/16/24 08:00 Acetaminophen 650 mg Q6HP PRN PO 05/16/24 08:00 05/21/24 15:54 650 MG Acetaminophen/ Hydrocodone Bitart 1 tab Q4HP PRN PO 05/16/24 08:00 Ondansetron HCl 4 mg Q4HP PRN IV 05/16/24 08:00 Morphine Sulfate 2 mg Q4HPRN PRN IV 05/16/24 08:00 Nitroglycerin 0.4 mg Q5MINP PRN SL 05/16/24 08:00 Morphine Sulfate 2 mg Q30M PRN IV 05/16/24 08:00 Ipratropium [place] 0.5 mg Q4HP PRN NEB 05/16/24 08:00 05/17/24 15:38 0.5 MG Pantoprazole Sodium 40 mg DAILY IV 05/16/24 10:00 05/23/24 09:36 40 MG Alprazolam 0.25 mg TIDPRN PRN PO 05/16/24 18:00 Albuterol 1.25 mg Q4HWA PRN NEB 05/17/24 14:15 05/23/24 18:41 1.25 MG Ipratropium [place] 0.5 mg Q4HWA NEB 05/17/24 18:00 05/23/24 18:41 0.5 MG Methylprednisolone Sodium Succinate 40 mg Q8HR IV 05/17/24 22:00 05/23/24 13:18 40 MG Phenylephrine HCl 250 ml @ 30 mls/hr Q8H20M IV 05/17/24 23:00 Fentanyl Citrate 250 ml @ 2.5 mls/hr Q24H IV 05/17/24 23:00 05/21/24 21:40 2.5 MLS/HR Midazolam HCl 50 ml @ 1 mls/hr Q24H IV 05/17/24 23:30 05/21/24 15:54 4 MLS/HR Micafungin Sodium 100 mg/Sodium Chloride 100 ml @ 100 mls/hr DAILY IV 05/19/24 10:00 05/23/24 09:36 100 MLS/HR Enoxaparin Sodium 70 mg Q12HR SC 05/20/24 22:00 05/23/24 09:36 70 MG Amiodarone HCl 200 mg Q12HR PO 05/20/24 22:00 05/23/24 09:36 200 MG Norepinephrine Bitartrate 250 ml @ 1.875 mls/ hr Q24H IV 05/20/24 11:15 05/22/24 01:56 1.875 MLS/HR Furosemide 20 mg DAILY IV 05/21/24 10:00 05/23/24 09:36 20 MG Dexmedetomidine HCl 400 mcg/ Dextrose 100 ml @ 3.615 mls/ hr Q24H IV 05/20/24 16:30 05/21/24 06:00 3.615 MLS/HR Enteral Nutritional Formula 1,000 ml 40ML/HR GT 05/22/24 12:00 05/22/24 12:57 1,000 ML Ceftriaxone Sodium/Dextrose 50 ml @ 50 mls/hr DAILY IV 05/24/24 10:00 PHYSICAL EXAM: - GENERAL: intubated and sedated , Well-nourished. - EYES: EOMI. Anicteric. - HENT: Moist mucous membranes. No scleral icterus. No cervical lymphadenopathy. - LUNGS: Clear to auscultation bilaterally. No accessory muscle use. - CARDIOVASCULAR: Regular rate and rhythm. No murmur. No JVD. - ABDOMEN: Soft, non-tender and non-distended. No palpable masses. - EXTREMITIES: No edema. Non-tender.?SKIN: No rashes or lesions. Warm. - NEUROLOGIC: No focal neurological deficits. CN II-XII grossly intact, but not individually tested. - PSYCHIATRIC: Cooperative. Appropriate mood and affect. laboratory and microbiology Laboratory Tests 05/23/24 03:10 Test 05/23/24 03:10 Range/Units Serum Glucose 187 H 74-106 mg/dL Problem List/Assessment/Plan Problems(with codes): (1) Septic shock (2) Shortness of breath (3) Weakness (4) Pneumonia (5) Mass of right lung Problem List/Assessment/Plan ID Problem List: 1. Acute on chronic hypoxic respiratory failure 2. Lung cancer (right) 3. Right lung cavitary pneumonia 4. Possible obstructive post-obstructive pneumonia 5. Sepsis, septic shock Assessment: This is an 88 y.o. female with a past medical history of lung cancer, COPD, pneumonia, chronic oxygen therapy, status post phlebectomy for DVT, and hypertension. She presents with worsening generalized weakness, increased cough, hemoptysis, bilateral lower extremity swelling, and dysuria over the past two weeks. A PET scan in December suggested a recurrent mass in the right lower lobe, confirmed via bronchoscopy. On admission, she had a leukocytosis of 15.9, Hb 11.8, and platelets 180. CT chest showed a heterogeneously enhancing mass in the right hilar region with bilateral pleural effusions, compressive atelectasis, and a moderate-sized pericardial effusion. She is normally ambulatory but has been bed-bound recently with no smoking or alcohol history, albeit with secondhand smoke exposure from a chronic smoking . Patient was admitted on May 15 and became tachycardic and hypotensive during hospitalization. She was treated with bronchodilators, IV antibiotics (levofloxacin and vancomycin), and underwent thoracentesis. 05/19: CTPE shows no pulmonary embolism , extensive consolidation in the right lung , large right and moderate left plural effusions. moderate pericardial effusion . Patient had a bronchoscopy done today , BAL was done of the right middle and lower lobes. Fungal and bacterial cultures were sent. mucoso was erithemidus, blockages of right upper lobe and partial obstruction of right lower lobe, both noted during the procedure. Left lung appeared normal. Biopsy was obtained from the right main stem at the site of abnormal mucosa. 05/20: White count is going down to 17.2 , HIV test is negative , covid test is negative , waiting for aspergellus test to come back. Blood cultures remain negative as well as mercenaries are negative, pleural fluid cultures growth is negative. Respiratory sputum cultures are within normal. 05/21: home mold report shows there was aspergillus/penicillium exposure , all other fungal organisms are less concerns. cultures from bronci and plural fluid remain without growth 05/23: Leukocytosis is improving clinically , patient is stable. Chest X-ray shows multifocal airspace disease that is largely unchanged. Sputum cultures are negative for bacteria . Bronchocus negative for bacteria and plural fluid cultures are also negative for bacteria. 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 follow up on plural fluid cultures and psychology Test broadly for TB, HIV, Cocci antibody, Aspergillus antibody. Authorized and Performed by: Ramo Alan Total critical care time: Approximately 72 minutes Due to a high probability of clinically significant, life threatening deterioration, the patient required my highest level of preparedness to intervene emergently and I personally spent this critical care time directly and personally managing the patient. This critical care time included obtaining a history; examining the patient; pulse oximetry; ordering and review of studies; arranging urgent treatment with development of a management plan; evaluation of patient's response to treatment; frequent reassessment; and, discussions with other providers. This critical care time was performed to assess and manage the high probability of imminent, life-threatening deterioration that could result in multi-organ failure. It was exclusive of separately billable procedures and treating other patients and teaching time. Plan discussed with: Other Dietary Evaluation Review Comments: Monitor PO intake to meet her needs to 75% at least. Expected Outcomes/Goals: Gradual weight loss and breath with less difficulties. RAMO ALAN MD May 23, 2024 19:44
[2024-05-24] VITALS (113 sets, daily range): BP systolic 85–144; BP diastolic 34–65; PULSE 60–111; RESP 11–29; TEMP 98.1–99.3; O2SAT 91–100
[2024-05-24 04:06] LABS: Basophils # (auto) 0 10 ^3/uL (0-0.2); Eosinophils # (auto) 0 10 ^3/uL (0-0.8); Hematocrit 31.9 % (36.0-46.0); Hemoglobin 9.9 g/dL (12.2-16.2); Lymphocytes # (auto) 0.2 10 ^3/uL (0.4-5.4); Lymphocytes % (auto) 1.1 % (10.0-50.0); Mean Corpuscular Hemoglobin 23.4 pg (28.0-32.0); Monocytes # (auto) 0.9 10 ^3/uL (0-1.3)
[2024-05-24 04:08] LABS: Mean Corpuscular Hgb Conc. 31.1 g/dL (32.0-36.0); Mean Corpuscular Volume 75.5 fL (80.0-100.0); Monocytes % (auto) 5.6 % (0.0-12.0); Neutrophils # (auto) 14.6 10 ^3/uL (1.6-8.6); Neutrophils % (auto) 93.3 % (37.0-80.0); Platelet Count (auto) 132 10^3/uL (140-450); Red Blood Cells 4.22 10^6/uL (4.0-5.20); Red Cell Distribution Width 15.7 % (11.8-14.3); White Blood Cell 15.6 10^3/uL (4.4-10.8)
[2024-05-24 04:20] LABS: Alanine Aminotransferase 32 U/L (7-40); Alkaline Phosphatase 149 U/L (46-116); Aspartate Aminotransferase 26 U/L (13-40); BUN/Creatinine Ratio 56.1 (10.0-20.0); Bilirubin, Total 0.6 mg/dL (0.2-1.0); Blood Urea Nitrogen 32 mg/dL (9-23); Calcium 10.2 mg/dL (8.7-10.4); Chloride 102 mmol/L (98-107); Glucose 199 mg/dL (74-106); Phosphorus 2.5 mg/dL (2.4-5.1); Potassium 3.9 mmol/L (3.5-5.1); Sodium 144 mmol/L (136-145)
[2024-05-24 04:21] LABS: Total Protein 5.2 g/dL (5.7-8.2)
[2024-05-24 04:32] LABS: Anion Gap 1.99999 (5-15); Carbon Dioxide > 40 mmol/L (20-31)
[2024-05-24 04:42] LABS: Magnesium 2.6 mg/dL (1.6-2.6)
--- NOTE | 2024-05-24 04:48 | DVH ---
CHEST RADIOGRAPH Indication:intubated Technique: Single frontal view of the chest was obtained COMPARISON: XY CHEST PORTABLE on DOS: 05/23/24, XY CHEST PORTABLE on DOS: 05/22/24, XY CHEST PORTABLE o n DOS: 05/21/24 FINDINGS: Lines and Tubes: Endotracheal tube, enteric catheter and left central venous catheter in satisfactory position. Lungs: Multifocal airspace disease. Pleura: No effusion. No pneumothorax. Cardiomediastinal contours: Unremarkable Bones: Unremarkable IMPRESSION: Lines and tubes in satisfactory position. No significant interval change.
[2024-05-24 08:04] LABS: Base Excess 13.8 mmol/L (-2.0-3.0)
[2024-05-24] MEDS: cefTRIAXone 2GM/50ML D5W 50 ML IV SCH (09:32)
--- NOTE | 2024-05-24 17:54 | DVHPN2 ---
Progress Note - Dictate Date Seen: May 24, 2024 Has the PT tested + for MRSA If YES, has PT been informed?: No Medical Necessity Reason Pt with a Central, PICC or Fol: Yes The following are medically ne: Central Line, Aden Catheter Reason for aden catheter: Strict I&O Subjective Patient remains on the one. Continued to undergo. However unable to tolerate prolonged CPAP periods. vital signs Vital Sign Date Time Temp Pulse Resp B/P (MAP) Pulse Ox O2 Delivery O2 Flow Rate FiO2 05/24/24 17:33 80 05/24/24 17:33 30 05/24/24 17:33 16 99 Mechanical Ventilator+ 05/24/24 17:00 98.8 112/53 (72) 209.8 Total Intake and Output 05/23/24 05/23/24 05/24/24 15:00 23:00 07:00 Intake Total 124 ml 299 ml 331.460 ml Output Total 725 ml 400 ml Balance 124 ml -426 ml -68.540 ml medications Current Medications Medications Dose Ordered Sig/Erica Route Start Time Stop Time Status Last Admin Dose Admin Docusate Sodium 100 mg BIDPRN PRN PO 05/16/24 08:00 Acetaminophen 650 mg Q6HP PRN PO 05/16/24 08:00 05/21/24 15:54 650 MG Acetaminophen/ Hydrocodone Bitart 1 tab Q4HP PRN PO 05/16/24 08:00 Ondansetron HCl 4 mg Q4HP PRN IV 05/16/24 08:00 Morphine Sulfate 2 mg Q4HPRN PRN IV 05/16/24 08:00 Nitroglycerin 0.4 mg Q5MINP PRN SL 05/16/24 08:00 Morphine Sulfate 2 mg Q30M PRN IV 05/16/24 08:00 Ipratropium [place] 0.5 mg Q4HP PRN NEB 05/16/24 08:00 05/17/24 15:38 0.5 MG Pantoprazole Sodium 40 mg DAILY IV 05/16/24 10:00 05/24/24 09:31 40 MG Alprazolam 0.25 mg TIDPRN PRN PO 05/16/24 18:00 Albuterol 1.25 mg Q4HWA PRN NEB 05/17/24 14:15 05/24/24 14:56 1.25 MG Ipratropium [place] 0.5 mg Q4HWA NEB 05/17/24 18:00 05/24/24 14:56 0.5 MG Methylprednisolone Sodium Succinate 40 mg Q8HR IV 05/17/24 22:00 05/24/24 13:25 40 MG Phenylephrine HCl 250 ml @ 30 mls/hr Q8H20M IV 05/17/24 23:00 Fentanyl Citrate 250 ml @ 2.5 mls/hr Q24H IV 05/17/24 23:00 05/21/24 21:40 2.5 MLS/HR Midazolam HCl 50 ml @ 1 mls/hr Q24H IV 05/17/24 23:30 05/21/24 15:54 4 MLS/HR Micafungin Sodium 100 mg/Sodium Chloride 100 ml @ 100 mls/hr DAILY IV 05/19/24 10:00 05/24/24 09:32 100 MLS/HR Enoxaparin Sodium 70 mg Q12HR SC 05/20/24 22:00 05/24/24 11:03 70 MG Amiodarone HCl 200 mg Q12HR PO 05/20/24 22:00 05/24/24 09:32 200 MG Norepinephrine Bitartrate 250 ml @ 1.875 mls/ hr Q24H IV 05/20/24 11:15 05/24/24 07:26 1.875 MLS/HR Furosemide 20 mg DAILY IV 05/21/24 10:00 05/24/24 09:31 20 MG Dexmedetomidine HCl 400 mcg/ Dextrose 100 ml @ 3.615 mls/ hr Q24H IV 05/20/24 16:30 05/23/24 21:45 3.615 MLS/HR Enteral Nutritional Formula 1,000 ml 40ML/HR GT 05/22/24 12:00 05/23/24 22:10 1,000 ML Ceftriaxone Sodium/Dextrose 50 ml @ 50 mls/hr DAILY IV 05/24/24 10:00 05/24/24 09:32 50 MLS/HR objective Elderly female in bed on ventilator. Heart regular rate and rhythm S1 and S2. Lungs fair air movement without any wheezes. Abdomen soft positive bowel sounds. Extremities positive distal pulses. laboratory and microbiology Laboratory Tests 05/24/24 03:22 Test 05/24/24 03:22 Range/Units Serum Glucose 199 H 74-106 mg/dL Assessment/Plan Continue present management as she is on. Continue CPAP trials daily basis for possible eventual extubation. If patient unable to be successfully extubated family wants to discuss the options of trach peg versus compassionate extubation. Otherwise further clinical management per clinical course. Discussed with the nurse regarding care plan. Problems(with codes): (1) Shortness of breath (2) Weakness (3) Pneumonia (4) Mass of right lung (5) Ventilator dependence Dietary Evaluation Review Comments: Monitor PO intake to meet her needs to 75% at least. Expected Outcomes/Goals: Gradual weight loss and breath with less difficulties. Plan discussed with: Other STEVE TRUJILLO MD May 24, 2024 17:54
--- NOTE | 2024-05-24 20:54 | DVHPN2 ---
Progress Note - Dictate Date Seen: May 24, 2024 Has the PT tested + for MRSA If YES, has PT been informed?: No Medical Necessity Reason Pt with a Central, PICC or Fol: Yes The following are medically ne: Central Line, Aden Catheter Reason for aden catheter: Strict I&O Subjective Patient seen and examined at bedside. Intubated on mechanical ventilator Overnight events reviewed. vital signs Vital Sign Date Time Temp Pulse Resp B/P (MAP) Pulse Ox O2 Delivery O2 Flow Rate FiO2 05/24/24 20:00 16 100 Mechanical Ventilator+ 30 30 05/24/24 20:00 103 05/24/24 18:30 99.0 104/50 (68) 210.2 Total Intake and Output 05/23/24 05/23/24 05/24/24 15:00 23:00 07:00 Intake Total 124 ml 299 ml 331.460 ml Output Total 725 ml 400 ml Balance 124 ml -426 ml -68.540 ml medications Current Medications Medications Dose Ordered Sig/Erica Route Start Time Stop Time Status Last Admin Dose Admin Docusate Sodium 100 mg BIDPRN PRN PO 05/16/24 08:00 Acetaminophen 650 mg Q6HP PRN PO 05/16/24 08:00 05/24/24 18:34 650 MG Acetaminophen/ Hydrocodone Bitart 1 tab Q4HP PRN PO 05/16/24 08:00 Ondansetron HCl 4 mg Q4HP PRN IV 05/16/24 08:00 Morphine Sulfate 2 mg Q4HPRN PRN IV 05/16/24 08:00 Nitroglycerin 0.4 mg Q5MINP PRN SL 05/16/24 08:00 Morphine Sulfate 2 mg Q30M PRN IV 05/16/24 08:00 Ipratropium [place] 0.5 mg Q4HP PRN NEB 05/16/24 08:00 05/17/24 15:38 0.5 MG Pantoprazole Sodium 40 mg DAILY IV 05/16/24 10:00 05/24/24 09:31 40 MG Alprazolam 0.25 mg TIDPRN PRN PO 05/16/24 18:00 Albuterol 1.25 mg Q4HWA PRN NEB 05/17/24 14:15 05/24/24 18:10 1.25 MG Ipratropium [place] 0.5 mg Q4HWA NEB 05/17/24 18:00 05/24/24 18:10 0.5 MG Methylprednisolone Sodium Succinate 40 mg Q8HR IV 05/17/24 22:00 05/24/24 13:25 40 MG Phenylephrine HCl 250 ml @ 30 mls/hr Q8H20M IV 05/17/24 23:00 Fentanyl Citrate 250 ml @ 2.5 mls/hr Q24H IV 05/17/24 23:00 05/21/24 21:40 2.5 MLS/HR Midazolam HCl 50 ml @ 1 mls/hr Q24H IV 05/17/24 23:30 05/21/24 15:54 4 MLS/HR Micafungin Sodium 100 mg/Sodium Chloride 100 ml @ 100 mls/hr DAILY IV 05/19/24 10:00 05/24/24 09:32 100 MLS/HR Enoxaparin Sodium 70 mg Q12HR SC 05/20/24 22:00 05/24/24 11:03 70 MG Amiodarone HCl 200 mg Q12HR PO 05/20/24 22:00 05/24/24 09:32 200 MG Norepinephrine Bitartrate 250 ml @ 1.875 mls/ hr Q24H IV 05/20/24 11:15 05/24/24 07:26 1.875 MLS/HR Furosemide 20 mg DAILY IV 05/21/24 10:00 05/24/24 09:31 20 MG Dexmedetomidine HCl 400 mcg/ Dextrose 100 ml @ 3.615 mls/ hr Q24H IV 05/20/24 16:30 05/23/24 21:45 3.615 MLS/HR Enteral Nutritional Formula 1,000 ml 40ML/HR GT 05/22/24 12:00 05/23/24 22:10 1,000 ML Ceftriaxone Sodium/Dextrose 50 ml @ 50 mls/hr DAILY IV 05/24/24 10:00 05/24/24 09:32 50 MLS/HR objective Gen.: Patient lying in bed in medical ICU. Intubated on mechanical ventilator. Head: Normocephalic, atraumatic. Eyes: PERRLA. Ears: Normal external anatomy. Throat: Endotracheal tube and orogastric tube in place. Neck: Supple, trachea midline. Chest: Transmitted breath sounds bilaterally. Decreased air entry bilaterally. Expiratory wheezing. Bibasilar crackles. Cardio vascular: Positive S1, positive S2. Regular rate and rhythm. Abdomen: Positive bowel sounds in all 4 quadrants. Soft, nontender, nondistended. : Aden in place. Normal external genitalia. Rectal: Deferred Skin: Warm, dry. Intact. Extremities: 2+ radial pulses bilaterally. No lower extremity edema. Neuro: Off sedation laboratory and microbiology Laboratory Tests 05/24/24 03:22 Test 05/24/24 03:22 Range/Units Serum Glucose 199 H 74-106 mg/dL Assessment/Plan Impression: Acute on chronic hypoxic respiratory failure secondary to right lung mass On mechanical ventilator LEFT IJ DVT s/p Cardiac arrest with ROSC [id number] bilateral pleural effusion Moderate pericardial effusion Hyponatremia Leukocytosis Hypertension COPD Atelectasis Events: Remains on vent support; AC with RR 16, Vt 400, PEEP 5, FIO2 30% Taper FiO2 as tolerated Off sedation. On Precedex drip. Patient failed CPAP trial. Low volumes Levophed 2 mcg/min - currently off Oncology recs appreciated. Continue abx - ceftriaxone Continue Micafungin ID recommendations appreciated. WBC trending down. Continue IV steroids q.8 h. Continue PO amiodarone CXR reviewed, shows multifocal airspace disease. No pleural effusion or pneumothorax. Monitor renal function Nephrology recs appreciated. Lovenox for DVT prophylaxis. SBT/RIGOBERTO. CPAP trial with PS 8, PEEP of 5. OK to increase PS to max 20 cmH2O to achieve tidal volume 400-450 mL. 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 Overall poor prognosis Labs and imaging reviewed. Rest of plan as noted below. Plan: s/p intubation on mechanical ventilator S/p bronchoscopy on 05/19. Follow-up results of RLL BAL, Brushings from right lower lobe, right mainstem, and biopsy from right mainstem. CXR image and report reviewed. ABG reviewed. AC mode with RR 16, Vt 400, PEEP 5, FIO2 30% Titrate FIO2 to keep O2 saturation above 92%. VAP bundle Daily ABG and CXR while intubated. Sedate for ventilatory synchrony - currently off sedation Pressors as necessary for hemodynamic support. Titrate to keep MAP above 65 mmHg/SBP above 90 mmHg. Continue antibiotics. F/u cultures. Limited chest US of left IJ notable for DVT. Start heparin drip per pharmacy protocol Monitor renal function Monitor electrolytes. Supplement as necessary. Nutritional support. Accucheks, ISS. GI/DVT prophylaxis. Extensive time spent counseling family and answering questions. Overall poor prognosis High likelihood of demise given advanced age and multiple co-morbidities. Condition: Critical Prognosis: Poor given multiple comorbidities. Rest of plan per hospitalist and other consultants. A total of 35 minutes of critical care time was spent reviewing the patient record, examining the patient, making a diagnostic and therapeutic plan, discussing this plan with the medical personnel, following up on diagnostic studies and following the patient for clinical stability excluding any and all procedures. At least 50% of this time was spent in direct, [id number] contact. Thank you Dr. Rodriguez for allowing me to participate in this patient's care. Further recommendations will depend on patient's clinical course. Please do not hesitate to contact me if you have any questions or concerns. This medical document was created using an electronic medical record system with [employer] dictation system. Although this document has been carefully reviewed, there may still be some phonetic and typographical errors. These areas are purely typographical due to imperfections of the software programs, and do not reflect any compromise in the patient's medical care. Dietary Evaluation Review Comments: Monitor PO intake to meet her needs to 75% at least. Expected Outcomes/Goals: Gradual weight loss and breath with less difficulties. Plan discussed with: Other (BRENDEN Leiva) Critical Care Time(min): 35 KARMA ZHANG MD May 24, 2024 20:54
--- NOTE | 2024-05-24 21:42 | DVHPN2 ---
Consult Progress Note Date Seen: May 24, 2024 Subjective Patient reports: Other (off all pressers , on minimal vent and is undergoing CPAP trials, getting hypercarbic and EKG results) Objective vital signs Vital Sign Date Time Temp Pulse Resp B/P (MAP) Pulse Ox O2 Delivery O2 Flow Rate FiO2 05/24/24 20:45 99.1 98 14 118/52 (74) 98 210.4 05/24/24 20:40 30 05/24/24 20:00 Mechanical Ventilator+ Total Intake and Output 05/23/24 05/23/24 05/24/24 15:00 23:00 07:00 Intake Total 124 ml 299 ml 331.460 ml Output Total 725 ml 400 ml Balance 124 ml -426 ml -68.540 ml medications Current Medications Medications Dose Ordered Sig/Eriac Route Start Time Stop Time Status Last Admin Dose Admin Docusate Sodium 100 mg BIDPRN PRN PO 05/16/24 08:00 Acetaminophen 650 mg Q6HP PRN PO 05/16/24 08:00 05/24/24 18:34 650 MG Acetaminophen/ Hydrocodone Bitart 1 tab Q4HP PRN PO 05/16/24 08:00 Ondansetron HCl 4 mg Q4HP PRN IV 05/16/24 08:00 Morphine Sulfate 2 mg Q4HPRN PRN IV 05/16/24 08:00 Nitroglycerin 0.4 mg Q5MINP PRN SL 05/16/24 08:00 Morphine Sulfate 2 mg Q30M PRN IV 05/16/24 08:00 Ipratropium [place] 0.5 mg Q4HP PRN NEB 05/16/24 08:00 05/17/24 15:38 0.5 MG Pantoprazole Sodium 40 mg DAILY IV 05/16/24 10:00 05/24/24 09:31 40 MG Alprazolam 0.25 mg TIDPRN PRN PO 05/16/24 18:00 Albuterol 1.25 mg Q4HWA PRN NEB 05/17/24 14:15 05/24/24 18:10 1.25 MG Ipratropium [place] 0.5 mg Q4HWA NEB 05/17/24 18:00 05/24/24 18:10 0.5 MG Methylprednisolone Sodium Succinate 40 mg Q8HR IV 05/17/24 22:00 05/24/24 21:26 40 MG Phenylephrine HCl 250 ml @ 30 mls/hr Q8H20M IV 05/17/24 23:00 Fentanyl Citrate 250 ml @ 2.5 mls/hr Q24H IV 05/17/24 23:00 05/21/24 21:40 2.5 MLS/HR Midazolam HCl 50 ml @ 1 mls/hr Q24H IV 05/17/24 23:30 05/21/24 15:54 4 MLS/HR Micafungin Sodium 100 mg/Sodium Chloride 100 ml @ 100 mls/hr DAILY IV 05/19/24 10:00 05/24/24 09:32 100 MLS/HR Enoxaparin Sodium 70 mg Q12HR SC 05/20/24 22:00 05/24/24 21:26 70 MG Amiodarone HCl 200 mg Q12HR PO 05/20/24 22:00 05/24/24 21:27 200 MG Norepinephrine Bitartrate 250 ml @ 1.875 mls/ hr Q24H IV 05/20/24 11:15 05/24/24 07:26 1.875 MLS/HR Furosemide 20 mg DAILY IV 05/21/24 10:00 05/24/24 09:31 20 MG Dexmedetomidine HCl 400 mcg/ Dextrose 100 ml @ 3.615 mls/ hr Q24H IV 05/20/24 16:30 05/23/24 21:45 3.615 MLS/HR Enteral Nutritional Formula 1,000 ml 40ML/HR GT 05/22/24 12:00 05/23/24 22:10 1,000 ML Ceftriaxone Sodium/Dextrose 50 ml @ 50 mls/hr DAILY IV 05/24/24 10:00 05/24/24 09:32 50 MLS/HR PHYSICAL EXAM: - GENERAL: intubated and sedated , Well-nourished. - EYES: EOMI. Anicteric. - HENT: Moist mucous membranes. No scleral icterus. No cervical lymphadenopathy. - LUNGS: Clear to auscultation bilaterally. No accessory muscle use. crackles in both lungs , worse on the left - CARDIOVASCULAR: Regular rate and rhythm. No murmur. No JVD. - ABDOMEN: Soft, non-tender and non-distended. No palpable masses. - EXTREMITIES: No edema. Non-tender.?SKIN: No rashes or lesions. Warm. - NEUROLOGIC: No focal neurological deficits. CN II-XII grossly intact, but not individually tested. - PSYCHIATRIC: Cooperative. Appropriate mood and affect. laboratory and microbiology Laboratory Tests 05/24/24 03:22 Test 05/24/24 03:22 Range/Units Serum Glucose 199 H 74-106 mg/dL Problem List/Assessment/Plan Problems(with codes): (1) Septic shock (2) Shortness of breath (3) Weakness (4) Pneumonia (5) Mass of right lung Problem List/Assessment/Plan ID Problem List: 1. Acute on chronic hypoxic respiratory failure 2. Lung cancer (right) 3. Right lung cavitary pneumonia 4. Possible obstructive post-obstructive pneumonia 5. Sepsis, septic shock Assessment: This is an 88 y.o. female with a past medical history of lung cancer, COPD, pneumonia, chronic oxygen therapy, status post phlebectomy for DVT, and hypertension. She presents with worsening generalized weakness, increased cough, hemoptysis, bilateral lower extremity swelling, and dysuria over the past two weeks. A PET scan in December suggested a recurrent mass in the right lower lobe, confirmed via bronchoscopy. On admission, she had a leukocytosis of 15.9, Hb 11.8, and platelets 180. CT chest showed a heterogeneously enhancing mass in the right hilar region with bilateral pleural effusions, compressive atelectasis, and a moderate-sized pericardial effusion. She is normally ambulatory but has been bed-bound recently with no smoking or alcohol history, albeit with secondhand smoke exposure from a chronic smoking . Patient was admitted on May 15 and became tachycardic and hypotensive during hospitalization. She was treated with bronchodilators, IV antibiotics (levofloxacin and vancomycin), and underwent thoracentesis. 05/19: CTPE shows no pulmonary embolism , extensive consolidation in the right lung , large right and moderate left plural effusions. moderate pericardial effusion . Patient had a bronchoscopy done today , BAL was done of the right middle and lower lobes. Fungal and bacterial cultures were sent. mucoso was erithemidus, blockages of right upper lobe and partial obstruction of right lower lobe, both noted during the procedure. Left lung appeared normal. Biopsy was obtained from the right main stem at the site of abnormal mucosa. 05/20: White count is going down to 17.2 , HIV test is negative , covid test is negative , waiting for aspergellus test to come back. Blood cultures remain negative as well as mercenaries are negative, pleural fluid cultures growth is negative. Respiratory sputum cultures are within normal. 05/21: home mold report shows there was aspergillus/penicillium exposure , all other fungal organisms are less concerns. cultures from bronci and plural fluid remain without growth 05/23: Leukocytosis is improving clinically , patient is stable. Chest X-ray shows multifocal airspace disease that is largely unchanged. Sputum cultures are negative for bacteria . Bronchocus negative for bacteria and plural fluid cultures are also negative for bacteria. 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 follow up on plural fluid cultures and psychology Test broadly for TB, HIV, Cocci antibody, Aspergillus antibody. Authorized and Performed by: Ramo Alan Total critical care time: Approximately 72 minutes Due to a high probability of clinically significant, life threatening deterioration, the patient required my highest level of preparedness to intervene emergently and I personally spent this critical care time directly and personally managing the patient. This critical care time included obtaining a history; examining the patient; pulse oximetry; ordering and review of studies; arranging urgent treatment with development of a management plan; evaluation of patient's response to treatment; frequent reassessment; and, discussions with other providers. This critical care time was performed to assess and manage the high probability of imminent, life-threatening deterioration that could result in multi-organ failure. It was exclusive of separately billable procedures and treating other patients and teaching time. Plan discussed with: Other Dietary Evaluation Review Comments: Monitor PO intake to meet her needs to 75% at least. Expected Outcomes/Goals: Gradual weight loss and breath with less difficulties. RAMO ALAN MD May 24, 2024 21:42
[2024-05-25] VITALS (113 sets, daily range): BP systolic 79–141; BP diastolic 36–76; PULSE 70–123; RESP 10–40; TEMP 98.2–99.3; O2SAT 86–100
[2024-05-25 03:47] LABS: Basophils # (auto) 0 10 ^3/uL (0-0.2); Eosinophils # (auto) 0 10 ^3/uL (0-0.8); Hemoglobin 9.6 g/dL (12.2-16.2); Lymphocytes % (auto) 1.2 % (10.0-50.0); Monocytes # (auto) 0.7 10 ^3/uL (0-1.3)
[2024-05-25 03:49] LABS: Hematocrit 30.6 % (36.0-46.0); Lymphocytes # (auto) 0.1 10 ^3/uL (0.4-5.4); Mean Corpuscular Hemoglobin 23.7 pg (28.0-32.0); Mean Corpuscular Hgb Conc. 31.3 g/dL (32.0-36.0); Mean Corpuscular Volume 75.9 fL (80.0-100.0); Monocytes % (auto) 5.8 % (0.0-12.0); Neutrophils # (auto) 11.6 10 ^3/uL (1.6-8.6); Platelet Count (auto) 125 10^3/uL (140-450); Red Blood Cells 4.04 10^6/uL (4.0-5.20); Red Cell Distribution Width 15.9 % (11.8-14.3); White Blood Cell 12.5 10^3/uL (4.4-10.8)
[2024-05-25 03:57] LABS: Alanine Aminotransferase 35 U/L (7-40); Albumin 2.9 g/dL (3.2-4.8); Alkaline Phosphatase 140 U/L (46-116); Aspartate Aminotransferase 22 U/L (13-40); Bilirubin, Total 0.5 mg/dL (0.2-1.0); Blood Urea Nitrogen 33 mg/dL (9-23); Calcium 10.1 mg/dL (8.7-10.4); Chloride 102 mmol/L (98-107); Glucose 251 mg/dL (74-106); Potassium 3.8 mmol/L (3.5-5.1); Sodium 145 mmol/L (136-145)
[2024-05-25 04:06] LABS: Anion Gap 2.99999 (5-15); Carbon Dioxide > 40 mmol/L (20-31)
--- NOTE | 2024-05-25 04:36 | DVH ---
CHEST RADIOGRAPH Indication:respiratory failure Technique: Single frontal view of the chest was obtained Comparison: XY CHEST PORTABLE on DOS: 05/24/24 FINDINGS: Lines and Tubes: The endotracheal tube terminates 5.1 cm above the schuyler. The left central venous c atheter terminates in the superior vena cava. The enteric tube courses below the left hemidiaphragm a nd the tip extends outside the field of view. Lungs: Right upper lobe consolidation. Pleura: No effusion. No pneumothorax. Cardiomediastinal contours: Unremarkable Bones: No acute osseous abnormality. IMPRESSION: 1. Support lines and tubes. 2. Right upper lobe consolidation similar to prior study.
[2024-05-25] MEDS: HYDROcodone-ACET 5/325MG TAB PO PRN ×2 (08:47→18:52)
[2024-05-25 11:12] LABS: Base Excess 11.6 mmol/L (-2.0-3.0)
[2024-05-25 13:07] LABS: Aspergillus flavus Negative (Neg:<1:1); Aspergillus fumigatus Negative (Neg:<1:1); Aspergillus niger Negative (Neg:<1:1)
--- NOTE | 2024-05-25 13:16 | DVHPN2 ---
Progress Note - Dictate Date Seen: May 25, 2024 Has the PT tested + for MRSA If YES, has PT been informed?: No Medical Necessity Reason Pt with a Central, PICC or Fol: Yes The following are medically ne: Central Line, Aden Catheter Reason for aden catheter: Strict I&O Subjective Patient seen and evaluated along with the nurse at bedside. Patient's son is at bedside. Apparently the family discussed with the patient in the they have many sedation to proceed with a tracheostomy and PEG tube placement again a she is unable to be successfully extubated. However they would like to discuss 1 more time with the professor of pathology before proceeding. vital signs Vital Sign Date Time Temp Pulse Resp B/P (MAP) Pulse Ox O2 Delivery O2 Flow Rate FiO2 05/25/24 11:35 30 05/25/24 11:35 16 99 Mechanical Ventilator+ 05/25/24 11:35 84 05/25/24 11:34 101/54 (70) 05/25/24 11:15 98.2 208.8 Total Intake and Output 05/24/24 05/24/24 05/25/24 15:00 23:00 07:00 Intake Total 182.670 ml 90.728 ml 426.384 ml Output Total 900 ml 400 ml Balance 182.670 ml -809.272 ml 26.384 ml medications Current Medications Medications Dose Ordered Sig/Erica Route Start Time Stop Time Status Last Admin Dose Admin Docusate Sodium 100 mg BIDPRN PRN PO 05/16/24 08:00 Acetaminophen 650 mg Q6HP PRN PO 05/16/24 08:00 05/25/24 02:19 650 MG Ondansetron HCl 4 mg Q4HP PRN IV 05/16/24 08:00 Nitroglycerin 0.4 mg Q5MINP PRN SL 05/16/24 08:00 Ipratropium [place] 0.5 mg Q4HP PRN NEB 05/16/24 08:00 05/17/24 15:38 0.5 MG Pantoprazole Sodium 40 mg DAILY IV 05/16/24 10:00 05/25/24 08:46 40 MG Alprazolam 0.25 mg TIDPRN PRN PO 05/16/24 18:00 Albuterol 1.25 mg Q4HWA PRN NEB 05/17/24 14:15 05/25/24 09:45 1.25 MG Ipratropium [place] 0.5 mg Q4HWA NEB 05/17/24 18:00 05/25/24 09:44 0.5 MG Methylprednisolone Sodium Succinate 40 mg Q8HR IV 05/17/24 22:00 05/25/24 05:16 40 MG Phenylephrine HCl 250 ml @ 30 mls/hr Q8H20M IV 05/17/24 23:00 Fentanyl Citrate 250 ml @ 2.5 mls/hr Q24H IV 05/17/24 23:00 05/21/24 21:40 2.5 MLS/HR Midazolam HCl 50 ml @ 1 mls/hr Q24H IV 05/17/24 23:30 05/21/24 15:54 4 MLS/HR Micafungin Sodium 100 mg/Sodium Chloride 100 ml @ 100 mls/hr DAILY IV 05/19/24 10:00 05/25/24 08:48 100 MLS/HR Enoxaparin Sodium 70 mg Q12HR SC 05/20/24 22:00 05/25/24 08:47 70 MG Amiodarone HCl 200 mg Q12HR PO 05/20/24 22:00 05/25/24 08:47 200 MG Norepinephrine Bitartrate 250 ml @ 1.875 mls/ hr Q24H IV 05/20/24 11:15 05/24/24 07:26 1.875 MLS/HR Furosemide 20 mg DAILY IV 05/21/24 10:00 05/25/24 08:47 20 MG Dexmedetomidine HCl 400 mcg/ Dextrose 100 ml @ 3.615 mls/ hr Q24H IV 05/20/24 16:30 05/25/24 01:25 5.423 MLS/HR Enteral Nutritional Formula 1,000 ml 40ML/HR GT 05/22/24 12:00 05/23/24 22:10 1,000 ML Ceftriaxone Sodium/Dextrose 50 ml @ 50 mls/hr DAILY IV 05/24/24 10:00 05/25/24 10:00 50 MLS/HR objective Elderly female in bed on ventilator. Heart regular rate and rhythm S1 and S2. Lungs fair air movement without any wheezes. Abdomen soft positive bowel sounds. Extremities positive distal pulses. laboratory and microbiology Laboratory Tests 05/25/24 03:05 Test 05/25/24 03:05 Range/Units Serum Glucose 251 H 74-106 mg/dL Assessment/Plan Continue present management as she is on. Continue CPAP trials daily basis for possible eventual extubation. Families were discussed with the professor of pathology this evening and proceed with a trach and PEG as appropriate. Otherwise further clinical management per clinical course. Discussed with the nurse and the patient's son at bedside regarding care plan. Problems(with codes): (1) Pneumonia (2) Shortness of breath (3) Weakness (4) Mass of right lung Dietary Evaluation Review Comments: Monitor PO intake to meet her needs to 75% at least. Expected Outcomes/Goals: Gradual weight loss and breath with less difficulties. Plan discussed with: Other STEVE TRUJILLO MD May 25, 2024 13:16
--- NOTE | 2024-05-25 18:23 | DVHINCON2 ---
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 Patient has failed CPAP trial. Consultation has been placed for possible tracheostomy and a PEG tube placement Past Medical History COPD Lung cancer Past Surgical History Right lung lobectomy Family History: Arthritis 19 CHILD Cardiovascular disease G8 MOTHER Diabetes mellitus 19 CHILD FH: cancer G8 FATHER FH: chronic renal failure 19 CHILD Allergies: Coded Allergies: NO KNOWN ALLERGIES (Unverified , 09/20/19) Home Meds Active Scripts Ciprofloxacin Hcl (Cipro) 500 Mg Tab, 1 TAB PO BID, #10 TAB Prov:STEVE TRUJILLO MD 09/22/19 Reported Medications Ivermectin (Ivermectin) 3 Mg Tab, 3 MG PO DAILY, TAB 05/16/24 Methylprednisolone (Methylprednisolone) 4 Mg Tab, 4 MG PO for 6 Days, MG 05/16/24 Azithromycin (Azithromycin) 250 Mg Tab, 250 MG PO DAILY, #4 05/16/24 Albuterol Sulfate (Albuterol Sulfate) 2 Mg Tab, 2 MG PO Q6HP PRN for FOR COUGH, MG 05/16/24 Apixaban Base (ELIQUIS) 5 Mg Tab, 5 MG PO BID, TAB 05/16/24 Buspirone Hcl (Buspirone Hcl) 10 Mg Tab, 10 MG PO Q12HR for 30 Days, MG 05/16/24 Levofloxacin Hemihydrate (LEVOFLOXACIN) 500 Mg Tab, 500 MG PO DAILY for 7 Days, MG 05/16/24 Ipratropium [place] Hfa (Atrovent Hfa) 17 Mcg Aer, 2 PUFF INH QID, #12.9 GRAMS 5 Refills 05/16/24 Syhibpnrmxb-Esyzwsusduke-Vadmg (Trelegy Ellipta 200-62.5-25 Mcg/INH) 1 Aer Aer, 1 AER IN DAILY, AER 05/16/24 Latanoprost (LATANOPROST) 0.005 % Brenda, 1 DROP EACHEYE QPM, #7.5 ML 3 Refills 09/21/19 Triamterene & Hydrochlorothiaz (Maxzide-25) Tab, 1 TAB PO DAILY, #30 TAB 5 Refills 09/21/19 Gabapentin (Gabapentin) 300 Mg Cap, 300 MG PO Q8HP PRN for neuropathy for 30 Days, MG 09/21/19 Vital Signs Vital Signs Date Time Temp Pulse Resp B/P (MAP) Pulse Ox O2 Delivery O2 Flow Rate FiO2 05/25/24 17:35 30 05/25/24 17:34 16 99 Mechanical Ventilator+ 05/25/24 17:34 91 05/25/24 17:00 98.8 131/52 (78) 209.8 Physical Exam Elderly female in bed on ventilator arousable and awake Heart regular rate and rhythm S1 and S2. Lungs fair air movement without any wheezes. Abdomen soft positive bowel sounds. Extremities positive distal pulses. Labs/Diagnostic Data Labs Test 05/25/24 10:55 05/25/24 03:05 05/24/24 03:22 05/21/24 04:45 Range/Units Blood Gas Specimen Type Arterial Blood Gas Sample Site Right radial Blood Gas Patient Temperature 37.0 Arterial Blood Date Drawn [id number] Arterial Blood pH 7.506 H 7.350-7.450 Arterial Blood Partial Pressure CO2 46.6 H 32.0-45.0 mmHg Arterial Blood Partial Pressure O2 95.0 83.0-108.0 mmHg Arterial Blood HCO3 36.0 H 21.0-28.0 mmol/L Arterial Blood Oxygen Saturation 97.3 94.0-98.0 % Arterial Blood Base Excess 11.6 H -2.0-3.0 mmol/L Arterial Blood Oxyhemoglobin 96.8 94.0-98.0 % Arterial Blood Carboxyhemoglobin 0.4 L 0.5-1.5 % Arterial Blood Methemoglobin 0.1 0.0-1.5 % Serafin Test Modified Blood Gas Total Hemoglobin 11.00 L 12.0-16.0 g/dL Blood Gas Set Respiration Rate 16.0 Blood Gas Modality Vent - ac FiO2 % 30.0 Blood Gas Tidal Volume 400.0 Blood Gas PEEP or CPAP 5.0 White Blood Count 12.5 H 4.4-10.8 10^3/uL Red Blood Count 4.04 4.0-5.20 10^6/uL Hemoglobin 9.6 L 12.2-16.2 g/dL Hematocrit 30.6 L 36.0-46.0 % Mean Corpuscular Volume 75.9 L 80.0-100.0 fL Mean Corpuscular Hemoglobin 23.7 L 28.0-32.0 pg Mean Corpuscular Hemoglobin Concent 31.3 L 32.0-36.0 g/dL Red Cell Distribution Width 15.9 H 11.8-14.3 % Platelet Count 125 L 140-450 10^3/uL Mean Platelet Volume 9.8 6.9-10.8 fL Neutrophils (%) (Auto) 93.0 H 37.0-80.0 % Lymphocytes (%) (Auto) 1.2 L 10.0-50.0 % Monocytes (%) (Auto) 5.8 0.0-12.0 % Eosinophils (%) (Auto) 0.0 0.0-7.0 % Basophils (%) (Auto) 0.0 0.0-2.0 % Neutrophils # (Auto) 11.6 H 1.6-8.6 10 ^3/uL Lymphocytes # (Auto) 0.1 L 0.4-5.4 10 ^3/uL Monocytes # (Auto) 0.7 0-1.3 10 ^3/uL Eosinophils # (Auto) 0 0-0.8 10 ^3/uL Basophils # (Auto) 0 0-0.2 10 ^3/uL Nucleated Red Blood Cells 0.0 % Sodium Level 145 136-145 mmol/L Potassium Level 3.8 3.5-5.1 mmol/L Chloride Level 102 98-107 mmol/L Carbon Dioxide Level > 40 *H 20-31 mmol/L Anion Gap 2.64908 L 5-15 Blood Urea Nitrogen 33 H 9-23 mg/dL Creatinine 0.60 0.550-1.02 mg/dL Glomerular Filtration Rate Calc 86 >90 mL/min BUN/Creatinine Ratio 55.0 H 10.0-20.0 Serum Glucose 251 H 74-106 mg/dL Calcium Level 10.1 8.7-10.4 mg/dL Total Bilirubin 0.5 0.2-1.0 mg/dL Aspartate Amino Transferase (AST) 22 13-40 U/L Alanine Aminotransferase (ALT) 35 7-40 U/L Alkaline Phosphatase 140 H 46-116 U/L Total Protein 5.0 L 5.7-8.2 g/dL Albumin 2.9 L 3.2-4.8 g/dL Phosphorus Level 2.5 2.4-5.1 mg/dL Magnesium Level 2.6 1.6-2.6 mg/dL Vancomycin Level Trough 9.1 5-10 ug/mL Test 05/20/24 07:02 05/19/24 08:01 05/18/24 22:20 05/18/24 09:22 Range/Units Prothrombin Time 11.9 H 9.3-11.8 sec Prothrombin Time INR 1.13 0.9-1.15 Activated Partial Thromboplast Time 49.1 H 24.5-34.5 SEC Blood Gas Comments HIV (1&2) Antibody Negative Negative Aspergillus flavus Antibody Negative Neg:<1:1 Aspergillus fumigatus Antibody Negative Neg:<1:1 Aspergillus niger Antibody Negative Neg:<1:1 Blood Gas Critical Value Read Back Yes Blood Gas Notified Whom Dr. jese resendiz Blood Gas Notified Time [id number] Blood Gas Notified By Test 05/18/24 07:00 05/18/24 02:05 05/17/24 23:09 05/17/24 21:56 Range/Units Differential Total Cells Counted 100.0 100 Neutrophils % (Manual) 80 37.0-80.0 Band Neutrophils % (Manual) 4 Lymphocytes % (Manual) 4 L 10.0-50.0 Monocytes % (Manual) 12 0-12 Eosinophils % (Manual) 0 0-7 Basophils % (Manual) 0 0.0-2.0 Metamyelocytes % (manual) 0 Myelocytes % (Manual) 0 Promyelocytes % (Manual) 0 Blast Cells % (Manual) 0 Reactive Lymphocytes 0 Platelet Estimate Adequate Troponin I High Sensitivity 42 *H </=34 ng/L Large Platelets Few Hypochromasia (manual) Moderate Anisocytosis (manual) Slight Microcytosis Slight Stomatocytes Few Schistocytes Few POC Glucose 246 H 70-106 mg/dl Test 05/17/24 14:29 05/17/24 04:57 05/17/24 00:15 05/16/24 08:45 Range/Units Influenza Type A Antigen Negative Negative Influenza Type B Antigen Negative Negative SARS-CoV-2 Antigen (Rapid) Negative NEGATIVE Uric Acid 3.8 3.1-7.8 mg/dL Vitamin D 25-Hydroxy 32.7 30.0-100 ng/mL Thyroid Stimulating Hormone (TSH) 1.07 0.55-4.78 uIU/mL Parathyroid Hormone (Intact) 68.5 18.4-80.1 pg/mL Body Fluid Source Pleural fluid Body Fluid pH 8.0 Body Fluid WBC (Manual) 881 H 0-200 CUMM Body Fluid RBC (Manual) 239 0-2000 CUMM Body Fluid Mononuclear Cells 91 % Body Fluid Polymorphonuclear Cells 9 0-25 % Body Fluid Glucose 107 . mg/dL Body Fluid Total Protein 3.9 . g/dL Body Fluid Lactate Dehydrogenase 292 . IU/L Urine Color Yellow Yellow Urine Clarity Clear Clear Urine pH 6.5 5.0-9.0 Urine Specific [place] 1.050 H 1.001-1.035 Urine Protein 1+ H Negative Urine Ketones Negative Negative Urine Blood Negative Negative /uL Urine Nitrite Negative Negative Urine Bilirubin Negative Negative Urine Urobilinogen Normal Negative mg/dL Urine Leukocyte Esterase Negative Negative /uL Urine RBC 3 0 - 4 /hpf Urine WBC 3 0 - 5 /hpf Urine Squamous Epithelial Cells Few <5 /hpf Urine Bacteria Few H None Seen /hpf Urine Osmolality 618 mOsm/kg Urine Glucose Normal Normal mg/dL Test 05/16/24 08:40 Range/Units Serum Osmolality 277 L 278-298 mOsm/kg B-Type Natriuretic Peptide 309.60 0-100 pg/mL Microbiology Date/Time Source Procedure Growth Status 05/19/24 12:42 Bronchial Brushings - Final Resulted 05/19/24 12:42 Bronchial Brushings - Final Resulted 05/19/24 12:42 Bronchial Brushings Pending Resulted 05/19/24 12:42 Bronchial Brushings Pending Resulted 05/19/24 12:42 Bronchial [place] - Final See Separate Report... Resulted 05/18/24 12:00 Blood Blood Culture - Final NO GROWTH AFTER 5 DAYS OF INCUBATION. Complete 05/17/24 23:40 Nose MRSA Screen - Final Complete 05/17/24 00:15 Pleural Fluid Gram Stain - Final Complete 05/17/24 00:15 Pleural Fluid Body Fluid Culture - Final Complete 05/16/24 08:45 Urine - Midstream Clean Catch Urine Culture - Final Complete CXR IMPRESSION: 1. Support lines and tubes. 2. Right upper lobe consolidation similar to prior study. Problems(with codes): (1) Ventilator dependence (2) Mass of right lung (3) Weakness (4) Shortness of breath (5) Septic shock (6) Pneumonia Plan/Recommendation Plan Continue ventilator and nutritional support I discussed with the patient's daughter and at the bedside They are waiting for an opinion from Dr. Resendiz They would like to talk to the surgeon first about the tracheostomy I will follow the patient and once tracheostomy has been completed I will schedule her for an EGD with PEG tube placement Plan discussed with: Patient, Spouse, Daughter KEILY YUSUF MD May 25, 2024 18:23
--- NOTE | 2024-05-25 21:05 | DVHPN2 ---
Progress Note - Dictate Date Seen: May 25, 2024 Has the PT tested + for MRSA If YES, has PT been informed?: No Medical Necessity Reason Pt with a Central, PICC or Fol: Yes The following are medically ne: Central Line, Aden Catheter Reason for aden catheter: Strict I&O Subjective Patient seen and examined at bedside. Intubated on mechanical ventilator Overnight events reviewed. vital signs Vital Sign Date Time Temp Pulse Resp B/P (MAP) Pulse Ox O2 Delivery O2 Flow Rate FiO2 05/25/24 20:00 102 15 122/52 (75) 99 30 05/25/24 18:30 99.1 210.4 05/25/24 17:34 Mechanical Ventilator+ Total Intake and Output 05/24/24 05/24/24 05/25/24 15:00 23:00 07:00 Intake Total 182.670 ml 90.728 ml 426.384 ml Output Total 900 ml 400 ml Balance 182.670 ml -809.272 ml 26.384 ml medications Current Medications Medications Dose Ordered Sig/Erica Route Start Time Stop Time Status Last Admin Dose Admin Docusate Sodium 100 mg BIDPRN PRN PO 05/16/24 08:00 Acetaminophen 650 mg Q6HP PRN PO 05/16/24 08:00 05/25/24 17:58 650 MG Ondansetron HCl 4 mg Q4HP PRN IV 05/16/24 08:00 Nitroglycerin 0.4 mg Q5MINP PRN SL 05/16/24 08:00 Ipratropium [place] 0.5 mg Q4HP PRN NEB 05/16/24 08:00 05/17/24 15:38 0.5 MG Pantoprazole Sodium 40 mg DAILY IV 05/16/24 10:00 05/25/24 08:46 40 MG Alprazolam 0.25 mg TIDPRN PRN PO 05/16/24 18:00 Albuterol 1.25 mg Q4HWA PRN NEB 05/17/24 14:15 05/25/24 18:18 1.25 MG Ipratropium [place] 0.5 mg Q4HWA NEB 05/17/24 18:00 05/25/24 18:18 0.5 MG Methylprednisolone Sodium Succinate 40 mg Q8HR IV 05/17/24 22:00 05/25/24 13:14 40 MG Phenylephrine HCl 250 ml @ 30 mls/hr Q8H20M IV 05/17/24 23:00 Fentanyl Citrate 250 ml @ 2.5 mls/hr Q24H IV 05/17/24 23:00 05/21/24 21:40 2.5 MLS/HR Midazolam HCl 50 ml @ 1 mls/hr Q24H IV 05/17/24 23:30 05/21/24 15:54 4 MLS/HR Micafungin Sodium 100 mg/Sodium Chloride 100 ml @ 100 mls/hr DAILY IV 05/19/24 10:00 05/25/24 08:48 100 MLS/HR Enoxaparin Sodium 70 mg Q12HR SC 05/20/24 22:00 05/25/24 08:47 70 MG Amiodarone HCl 200 mg Q12HR PO 05/20/24 22:00 05/25/24 08:47 200 MG Norepinephrine Bitartrate 250 ml @ 1.875 mls/ hr Q24H IV 05/20/24 11:15 05/24/24 07:26 1.875 MLS/HR Furosemide 20 mg DAILY IV 05/21/24 10:00 05/25/24 08:47 20 MG Dexmedetomidine HCl 400 mcg/ Dextrose 100 ml @ 3.615 mls/ hr Q24H IV 05/20/24 16:30 05/25/24 15:45 5.423 MLS/HR Enteral Nutritional Formula 1,000 ml 40ML/HR GT 05/22/24 12:00 05/23/24 22:10 1,000 ML Ceftriaxone Sodium/Dextrose 50 ml @ 50 mls/hr DAILY IV 05/24/24 10:00 05/25/24 10:00 50 MLS/HR Acetaminophen/ Hydrocodone Bitart 1 tab Q6HPRN PRN PO 05/25/24 18:45 05/25/24 18:52 1 TAB objective Gen.: Patient lying in bed in medical ICU. Intubated on mechanical ventilator. Head: Normocephalic, atraumatic. Eyes: PERRLA. Ears: Normal external anatomy. Throat: Endotracheal tube and orogastric tube in place. Neck: Supple, trachea midline. Chest: Transmitted breath sounds bilaterally. Decreased air entry bilaterally. Expiratory wheezing. Bibasilar crackles. Cardio vascular: Positive S1, positive S2. Regular rate and rhythm. Abdomen: Positive bowel sounds in all 4 quadrants. Soft, nontender, nondistended. : Aden in place. Normal external genitalia. Rectal: Deferred Skin: Warm, dry. Intact. Extremities: 2+ radial pulses bilaterally. No lower extremity edema. Neuro: Off sedation laboratory and microbiology Laboratory Tests 05/25/24 03:05 Test 05/25/24 03:05 Range/Units Serum Glucose 251 H 74-106 mg/dL Assessment/Plan Impression: Acute on chronic hypoxic respiratory failure secondary to right lung mass On mechanical ventilator LEFT IJ DVT s/p Cardiac arrest with ROSC [id number] bilateral pleural effusion Moderate pericardial effusion Hyponatremia Leukocytosis Hypertension COPD Atelectasis Events: Remains on vent support; AC with RR 16, Vt 400, PEEP 5, FIO2 30% Taper FiO2 as tolerated Plan for trach + PEG. CXR reviewed, shows devices in place. RUL opacities. Off sedation. On Precedex drip. Patient failed CPAP trial. Low volumes Oncology recs appreciated. Continue abx - ceftriaxone Continue Micafungin ID recommendations appreciated. WBC trending down. Continue IV steroids q.8 h. Continue PO amiodarone Tube feeds for nutritional support. Monitor renal function Nephrology recs appreciated. Lovenox for DVT prophylaxis. SBT/RIGOBERTO. CPAP trial with PS 8, PEEP of 5. OK to increase PS to max 20 cmH2O to achieve tidal volume 400-450 mL. 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 Overall poor prognosis Updated family and answered all their questions. Labs and imaging reviewed. Rest of plan as noted below. Plan: s/p intubation on mechanical ventilator S/p bronchoscopy on 05/19. Follow-up results of RLL BAL, Brushings from right lower lobe, right mainstem, and biopsy from right mainstem. CXR image and report reviewed. ABG reviewed. AC mode with RR 16, Vt 400, PEEP 5, FIO2 30% Titrate FIO2 to keep O2 saturation above 92%. VAP bundle Daily ABG and CXR while intubated. Sedate for ventilatory synchrony - currently off sedation Pressors as necessary for hemodynamic support. Titrate to keep MAP above 65 mmHg/SBP above 90 mmHg. Continue antibiotics. F/u cultures. Limited chest US of left IJ notable for DVT. Start heparin drip per pharmacy protocol Monitor renal function Monitor electrolytes. Supplement as necessary. Nutritional support. Accucheks, ISS. GI/DVT prophylaxis. Extensive time spent counseling family and answering questions. Overall poor prognosis High likelihood of demise given advanced age and multiple co-morbidities. Condition: Critical Prognosis: Poor given multiple comorbidities. Rest of plan per hospitalist and other consultants. A total of 35 minutes of critical care time was spent reviewing the patient record, examining the patient, making a diagnostic and therapeutic plan, discussing this plan with the medical personnel, following up on diagnostic studies and following the patient for clinical stability excluding any and all procedures. At least 50% of this time was spent in direct, [id number] contact. Thank you Dr. Rodriguez for allowing me to participate in this patient's care. Further recommendations will depend on patient's clinical course. Please do not hesitate to contact me if you have any questions or concerns. This medical document was created using an electronic medical record system with [email or web address] dictation system. Although this document has been carefully reviewed, there may still be some phonetic and typographical errors. These areas are purely typographical due to imperfections of the software programs, and do not reflect any compromise in the patient's medical care. Dietary Evaluation Review Comments: Monitor PO intake to meet her needs to 75% at least. Expected Outcomes/Goals: Gradual weight loss and breath with less difficulties. Plan discussed with: Other (BRENDEN Simpson) Critical Care Time(min): 35 KARMA ZHANG MD May 25, 2024 21:05
--- NOTE | 2024-05-25 21:36 | DVHPN2 ---
Consult Progress Note Date Seen: May 25, 2024 Subjective Patient reports: Feels better (on less than 1 levofed , not breathing on her own yet) Objective vital signs Vital Sign Date Time Temp Pulse Resp B/P (MAP) Pulse Ox O2 Delivery O2 Flow Rate FiO2 05/25/24 20:00 102 15 122/52 (75) 99 30 05/25/24 18:30 99.1 210.4 05/25/24 17:34 Mechanical Ventilator+ Total Intake and Output 05/24/24 05/24/24 05/25/24 15:00 23:00 07:00 Intake Total 182.670 ml 90.728 ml 426.384 ml Output Total 900 ml 400 ml Balance 182.670 ml -809.272 ml 26.384 ml medications Current Medications Medications Dose Ordered Sig/Erica Route Start Time Stop Time Status Last Admin Dose Admin Docusate Sodium 100 mg BIDPRN PRN PO 05/16/24 08:00 Acetaminophen 650 mg Q6HP PRN PO 05/16/24 08:00 05/25/24 17:58 650 MG Ondansetron HCl 4 mg Q4HP PRN IV 05/16/24 08:00 Nitroglycerin 0.4 mg Q5MINP PRN SL 05/16/24 08:00 Ipratropium [place] 0.5 mg Q4HP PRN NEB 05/16/24 08:00 05/17/24 15:38 0.5 MG Pantoprazole Sodium 40 mg DAILY IV 05/16/24 10:00 05/25/24 08:46 40 MG Alprazolam 0.25 mg TIDPRN PRN PO 05/16/24 18:00 Albuterol 1.25 mg Q4HWA PRN NEB 05/17/24 14:15 05/25/24 18:18 1.25 MG Ipratropium [place] 0.5 mg Q4HWA NEB 05/17/24 18:00 05/25/24 18:18 0.5 MG Methylprednisolone Sodium Succinate 40 mg Q8HR IV 05/17/24 22:00 05/25/24 13:14 40 MG Phenylephrine HCl 250 ml @ 30 mls/hr Q8H20M IV 05/17/24 23:00 Fentanyl Citrate 250 ml @ 2.5 mls/hr Q24H IV 05/17/24 23:00 05/21/24 21:40 2.5 MLS/HR Midazolam HCl 50 ml @ 1 mls/hr Q24H IV 05/17/24 23:30 05/21/24 15:54 4 MLS/HR Micafungin Sodium 100 mg/Sodium Chloride 100 ml @ 100 mls/hr DAILY IV 05/19/24 10:00 05/25/24 08:48 100 MLS/HR Enoxaparin Sodium 70 mg Q12HR SC 05/20/24 22:00 05/25/24 08:47 70 MG Amiodarone HCl 200 mg Q12HR PO 05/20/24 22:00 05/25/24 08:47 200 MG Norepinephrine Bitartrate 250 ml @ 1.875 mls/ hr Q24H IV 05/20/24 11:15 05/24/24 07:26 1.875 MLS/HR Furosemide 20 mg DAILY IV 05/21/24 10:00 05/25/24 08:47 20 MG Dexmedetomidine HCl 400 mcg/ Dextrose 100 ml @ 3.615 mls/ hr Q24H IV 05/20/24 16:30 05/25/24 15:45 5.423 MLS/HR Enteral Nutritional Formula 1,000 ml 40ML/HR GT 05/22/24 12:00 05/23/24 22:10 1,000 ML Ceftriaxone Sodium/Dextrose 50 ml @ 50 mls/hr DAILY IV 05/24/24 10:00 05/25/24 10:00 50 MLS/HR Acetaminophen/ Hydrocodone Bitart 1 tab Q6HPRN PRN PO 05/25/24 18:45 05/25/24 18:52 1 TAB PHYSICAL EXAM: - GENERAL: intubated and sedated , Well-nourished. - EYES: EOMI. Anicteric. - HENT: Moist mucous membranes. No scleral icterus. No cervical lymphadenopathy. - LUNGS: Clear to auscultation bilaterally. No accessory muscle use. crackles in both lungs , worse on the left - CARDIOVASCULAR: Regular rate and rhythm. No murmur. No JVD. - ABDOMEN: Soft, non-tender and non-distended. No palpable masses. - EXTREMITIES: No edema. Non-tender.?SKIN: No rashes or lesions. Warm. - NEUROLOGIC: No focal neurological deficits. CN II-XII grossly intact, but not individually tested. - PSYCHIATRIC: Cooperative. Appropriate mood and affect. laboratory and microbiology Laboratory Tests 05/25/24 03:05 Test 05/25/24 03:05 Range/Units Serum Glucose 251 H 74-106 mg/dL Problem List/Assessment/Plan Problems(with codes): (1) Septic shock (2) Shortness of breath (3) Weakness (4) Pneumonia (5) Mass of right lung (6) Ventilator dependence Problem List/Assessment/Plan ID Problem List: 1. Acute on chronic hypoxic respiratory failure 2. Lung cancer (right) 3. Right lung cavitary pneumonia 4. Possible obstructive post-obstructive pneumonia 5. Sepsis, septic shock Assessment: This is an 88 y.o. female with a past medical history of lung cancer, COPD, pneumonia, chronic oxygen therapy, status post phlebectomy for DVT, and hypertension. She presents with worsening generalized weakness, increased cough, hemoptysis, bilateral lower extremity swelling, and dysuria over the past two weeks. A PET scan in December suggested a recurrent mass in the right lower lobe, confirmed via bronchoscopy. On admission, she had a leukocytosis of 15.9, Hb 11.8, and platelets 180. CT chest showed a heterogeneously enhancing mass in the right hilar region with bilateral pleural effusions, compressive atelectasis, and a moderate-sized pericardial effusion. She is normally ambulatory but has been bed-bound recently with no smoking or alcohol history, albeit with secondhand smoke exposure from a chronic smoking . Patient was admitted on May 15 and became tachycardic and hypotensive during hospitalization. She was treated with bronchodilators, IV antibiotics (levofloxacin and vancomycin), and underwent thoracentesis. 05/19: CTPE shows no pulmonary embolism , extensive consolidation in the right lung , large right and moderate left plural effusions. moderate pericardial effusion . Patient had a bronchoscopy done today , BAL was done of the right middle and lower lobes. Fungal and bacterial cultures were sent. mucoso was erithemidus, blockages of right upper lobe and partial obstruction of right lower lobe, both noted during the procedure. Left lung appeared normal. Biopsy was obtained from the right main stem at the site of abnormal mucosa. 05/20: White count is going down to 17.2 , HIV test is negative , covid test is negative , waiting for aspergellus test to come back. Blood cultures remain negative as well as mercenaries are negative, pleural fluid cultures growth is negative. Respiratory sputum cultures are within normal. 05/21: home mold report shows there was aspergillus/penicillium exposure , all other fungal organisms are less concerns. cultures from bronci and plural fluid remain without growth 05/23: Leukocytosis is improving clinically , patient is stable. Chest X-ray shows multifocal airspace disease that is largely unchanged. Sputum cultures are negative for bacteria . Bronchocus negative for bacteria and plural fluid cultures are also negative for bacteria. 05/24: chest x-ray without any changes , white count remains 11.5 05/25: Patient is struggling with spontaneous breathing trials , tiring out . 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 follow up on plural fluid cultures and psychology Test broadly for TB, HIV, Cocci antibody, Aspergillus antibody. Authorized and Performed by: Ramo Alan Total critical care time: Approximately 72 minutes Due to a high probability of clinically significant, life threatening deterioration, the patient required my highest level of preparedness to intervene emergently and I personally spent this critical care time directly and personally managing the patient. This critical care time included obtaining a history; examining the patient; pulse oximetry; ordering and review of studies; arranging urgent treatment with development of a management plan; evaluation of patient's response to treatment; frequent reassessment; and, discussions with other providers. This critical care time was performed to assess and manage the high probability of imminent, life-threatening deterioration that could result in multi-organ failure. It was exclusive of separately billable procedures and treating other patients and teaching time. Plan discussed with: Other Dietary Evaluation Review Comments: Monitor PO intake to meet her needs to 75% at least. Expected Outcomes/Goals: Gradual weight loss and breath with less difficulties. RAMO ALAN MD May 25, 2024 21:36
[2024-05-25] MEDS: DOCUSATE SOD 100 MG CAP PO PRN (22:41)
[2024-05-26] VITALS (105 sets, daily range): BP systolic 67–178; BP diastolic 29–148; PULSE 75–118; RESP 9–28; TEMP 98.8–99.5; O2SAT 94–100
[2024-05-26 03:38] LABS: Basophils # (auto) 0 10 ^3/uL (0-0.2); Basophils % (auto) 0.1 % (0.0-2.0); Eosinophils # (auto) 0 10 ^3/uL (0-0.8); Hemoglobin 9.8 g/dL (12.2-16.2)
[2024-05-26 03:40] LABS: Hematocrit 31.3 % (36.0-46.0); Lymphocytes # (auto) 0.2 10 ^3/uL (0.4-5.4); Lymphocytes % (auto) 1.3 % (10.0-50.0); Mean Corpuscular Hemoglobin 23.6 pg (28.0-32.0); Mean Corpuscular Hgb Conc. 31.2 g/dL (32.0-36.0); Mean Corpuscular Volume 75.6 fL (80.0-100.0); Monocytes % (auto) 5.7 % (0.0-12.0); Neutrophils # (auto) 16.2 10 ^3/uL (1.6-8.6); Neutrophils % (auto) 92.9 % (37.0-80.0); Platelet Count (auto) 145 10^3/uL (140-450); Red Blood Cells 4.13 10^6/uL (4.0-5.20); Red Cell Distribution Width 15.4 % (11.8-14.3); White Blood Cell 17.4 10^3/uL (4.4-10.8)
[2024-05-26 03:47] LABS: Alanine Aminotransferase 46 U/L (7-40); Albumin 3.1 g/dL (3.2-4.8); Alkaline Phosphatase 146 U/L (46-116); Aspartate Aminotransferase 26 U/L (13-40); BUN/Creatinine Ratio 48.3 (10.0-20.0); Blood Urea Nitrogen 28 mg/dL (9-23); Calcium 10.1 mg/dL (8.7-10.4); Chloride 104 mmol/L (98-107); Glucose 209 mg/dL (74-106); Magnesium 2.6 mg/dL (1.6-2.6); Sodium 146 mmol/L (136-145)
[2024-05-26 03:48] LABS: Bilirubin, Total 0.4 mg/dL (0.2-1.0); Phosphorus 2.5 mg/dL (2.4-5.1); Total Protein 5.1 g/dL (5.7-8.2)
[2024-05-26 04:09] LABS: Anion Gap 1.99999 (5-15); Carbon Dioxide > 40 mmol/L (20-31)
--- NOTE | 2024-05-26 04:41 | DVH ---
CHEST RADIOGRAPH Indication:INTUBATED Technique: Single frontal view of the chest was obtained Comparison: XY CHEST PORTABLE on DOS: 05/25/24 FINDINGS: Lines and Tubes: The endotracheal tube terminates 6.6 cm above the schuyler. Left central venous stacy ter terminates in the superior vena cava. The enteric tube courses below the left hemidiaphragm and t he tip extends outside the field of view. Lungs: Right upper lobe consolidation is unchanged. Pulmonary congestion. Pleura: No effusion. No pneumothorax. Cardiomediastinal contours: Stable. Bones: No acute osseous abnormality. IMPRESSION: 1. Right upper lobe consolidation, unchanged. Pulmonary congestion, unchanged. 2. Stable position of the support lines and tubes.
[2024-05-26 08:12] LABS: Base Excess 8.5 mmol/L (-2.0-3.0)
[2024-05-26] MEDS: BUDESONIDE (INHALATION) 0.5 MG/2 ML NEB NEB SCH (09:59)
--- NOTE | 2024-05-26 13:48 | DVHPN2 ---
Progress Note - Dictate Date Seen: May 26, 2024 Has the PT tested + for MRSA If YES, has PT been informed?: No Medical Necessity Reason Pt with a Central, PICC or Fol: Yes The following are medically ne: Central Line, Aden Catheter Reason for aden catheter: Strict I&O Subjective Patient is seen in ICU Patient is intubated sedated She is tolerating NG tube feedings No GI bleeding reported vital signs Vital Sign Date Time Temp Pulse Resp B/P (MAP) Pulse Ox O2 Delivery O2 Flow Rate FiO2 05/26/24 12:00 15 98 Mechanical Ventilator+ 30 30 05/26/24 12:00 99.5 99 139/72 (94) 211.1 Total Intake and Output 05/25/24 05/25/24 05/26/24 15:00 23:00 07:00 Intake Total 189.836 ml 258.384 ml 417.134 ml Output Total 1450 ml 800 ml Balance 189.836 ml -1191.616 ml -382.866 ml medications Current Medications Medications Dose Ordered Sig/Erica Route Start Time Stop Time Status Last Admin Dose Admin Docusate Sodium 100 mg BIDPRN PRN PO 05/16/24 08:00 05/25/24 22:41 100 MG Acetaminophen 650 mg Q6HP PRN PO 05/16/24 08:00 05/26/24 10:11 650 MG Ondansetron HCl 4 mg Q4HP PRN IV 05/16/24 08:00 Nitroglycerin 0.4 mg Q5MINP PRN SL 05/16/24 08:00 Ipratropium [place] 0.5 mg Q4HP PRN NEB 05/16/24 08:00 05/17/24 15:38 0.5 MG Pantoprazole Sodium 40 mg DAILY IV 05/16/24 10:00 05/26/24 08:43 40 MG Alprazolam 0.25 mg TIDPRN PRN PO 05/16/24 18:00 Albuterol 1.25 mg Q4HWA PRN NEB 05/17/24 14:15 05/26/24 09:58 1.25 MG Ipratropium [place] 0.5 mg Q4HWA NEB 05/17/24 18:00 05/26/24 09:58 0.5 MG Phenylephrine HCl 250 ml @ 30 mls/hr Q8H20M IV 05/17/24 23:00 Fentanyl Citrate 250 ml @ 2.5 mls/hr Q24H IV 05/17/24 23:00 05/21/24 21:40 2.5 MLS/HR Midazolam HCl 50 ml @ 1 mls/hr Q24H IV 05/17/24 23:30 05/21/24 15:54 4 MLS/HR Micafungin Sodium 100 mg/Sodium Chloride 100 ml @ 100 mls/hr DAILY IV 05/19/24 10:00 05/26/24 08:43 100 MLS/HR Enoxaparin Sodium 70 mg Q12HR SC 05/20/24 22:00 05/26/24 08:42 70 MG Amiodarone HCl 200 mg Q12HR PO 05/20/24 22:00 05/26/24 08:43 200 MG Norepinephrine Bitartrate 250 ml @ 1.875 mls/ hr Q24H IV 05/20/24 11:15 05/24/24 07:26 1.875 MLS/HR Furosemide 20 mg DAILY IV 05/21/24 10:00 05/26/24 08:42 20 MG Dexmedetomidine HCl 400 mcg/ Dextrose 100 ml @ 3.615 mls/ hr Q24H IV 05/20/24 16:30 05/26/24 05:53 5.423 MLS/HR Enteral Nutritional Formula 1,000 ml 40ML/HR GT 05/22/24 12:00 05/23/24 22:10 1,000 ML Ceftriaxone Sodium/Dextrose 50 ml @ 50 mls/hr DAILY IV 05/24/24 10:00 05/26/24 10:04 50 MLS/HR Acetaminophen/ Hydrocodone Bitart 1 tab Q6HPRN PRN PO 05/25/24 18:45 05/26/24 06:57 1 TAB Methylprednisolone Sodium Succinate 40 mg Q12HR IV 05/26/24 18:00 Budesonide 0.5 mg BID NEB 05/26/24 10:00 05/26/24 09:59 0.5 MG objective Elderly female in bed on ventilator sleepy Heart regular rate and rhythm S1 and S2. Lungs fair air movement without any wheezes. Abdomen soft positive bowel sounds. Extremities positive distal pulses. laboratory and microbiology Laboratory Tests 05/26/24 03:09 Test 05/26/24 03:09 Range/Units Serum Glucose 209 H 74-106 mg/dL Problems(with codes): (1) Ventilator dependence (2) Mass of right lung (3) Pneumonia (4) Shortness of breath Prognosis Plan Continue ventilator and nutritional support I discussed with the patient's daughter and at the bedside They are waiting to see if in a few days she is able to be taken off the ventilator They are not ready to proceed with a tracheostomy and PEG tube placement at this time They would like to talk to the surgeon first about the tracheostomy I will follow the patient and once tracheostomy has been completed I will schedule her for an EGD with PEG tube placement Patient is likely a hospice or comfort care candidate Dietary Evaluation Review Comments: Monitor PO intake to meet her needs to 75% at least. Expected Outcomes/Goals: Gradual weight loss and breath with less difficulties. Plan discussed with: Other (ICU nurse and Dr. Resendiz) KEILY YUSUF MD May 26, 2024 13:48
--- NOTE | 2024-05-26 14:33 | DVHPN2 ---
Progress Note - Dictate Date Seen: May 26, 2024 Has the PT tested + for MRSA If YES, has PT been informed?: No Medical Necessity Reason Pt with a Central, PICC or Fol: Yes The following are medically ne: Central Line, Aden Catheter Reason for aden catheter: Strict I&O Subjective She remains ventilator dependent. Alert and awake and follows commands. However unable to tolerate CPAP trials for prolonged period of time to successfully extubate. Yesterday family wanted tracheostomy and PEG tube however apparently today they have decided to do compassionate extubation and possible hospice for tomorrow. No family is at bedside today to discuss. vital signs Vital Sign Date Time Temp Pulse Resp B/P (MAP) Pulse Ox O2 Delivery O2 Flow Rate FiO2 05/26/24 14:15 99.3 89 16 111/57 (75) 99 210.7 05/26/24 14:08 30 05/26/24 14:00 Mechanical Ventilator+ Total Intake and Output 05/25/24 05/25/24 05/26/24 15:00 23:00 07:00 Intake Total 189.836 ml 258.384 ml 417.134 ml Output Total 1450 ml 800 ml Balance 189.836 ml -1191.616 ml -382.866 ml medications Current Medications Medications Dose Ordered Sig/Erica Route Start Time Stop Time Status Last Admin Dose Admin Docusate Sodium 100 mg BIDPRN PRN PO 05/16/24 08:00 05/25/24 22:41 100 MG Acetaminophen 650 mg Q6HP PRN PO 05/16/24 08:00 05/26/24 10:11 650 MG Ondansetron HCl 4 mg Q4HP PRN IV 05/16/24 08:00 Nitroglycerin 0.4 mg Q5MINP PRN SL 05/16/24 08:00 Ipratropium [place] 0.5 mg Q4HP PRN NEB 05/16/24 08:00 05/17/24 15:38 0.5 MG Pantoprazole Sodium 40 mg DAILY IV 05/16/24 10:00 05/26/24 08:43 40 MG Alprazolam 0.25 mg TIDPRN PRN PO 05/16/24 18:00 Albuterol 1.25 mg Q4HWA PRN NEB 05/17/24 14:15 05/26/24 14:08 1.25 MG Ipratropium [place] 0.5 mg Q4HWA NEB 05/17/24 18:00 05/26/24 14:08 0.5 MG Phenylephrine HCl 250 ml @ 30 mls/hr Q8H20M IV 05/17/24 23:00 Fentanyl Citrate 250 ml @ 2.5 mls/hr Q24H IV 05/17/24 23:00 05/21/24 21:40 2.5 MLS/HR Midazolam HCl 50 ml @ 1 mls/hr Q24H IV 05/17/24 23:30 05/21/24 15:54 4 MLS/HR Micafungin Sodium 100 mg/Sodium Chloride 100 ml @ 100 mls/hr DAILY IV 05/19/24 10:00 05/26/24 08:43 100 MLS/HR Enoxaparin Sodium 70 mg Q12HR SC 05/20/24 22:00 05/26/24 08:42 70 MG Amiodarone HCl 200 mg Q12HR PO 05/20/24 22:00 05/26/24 08:43 200 MG Norepinephrine Bitartrate 250 ml @ 1.875 mls/ hr Q24H IV 05/20/24 11:15 05/24/24 07:26 1.875 MLS/HR Furosemide 20 mg DAILY IV 05/21/24 10:00 05/26/24 08:42 20 MG Dexmedetomidine HCl 400 mcg/ Dextrose 100 ml @ 3.615 mls/ hr Q24H IV 05/20/24 16:30 05/26/24 05:53 5.423 MLS/HR Enteral Nutritional Formula 1,000 ml 40ML/HR GT 05/22/24 12:00 05/23/24 22:10 1,000 ML Ceftriaxone Sodium/Dextrose 50 ml @ 50 mls/hr DAILY IV 05/24/24 10:00 05/26/24 10:04 50 MLS/HR Acetaminophen/ Hydrocodone Bitart 1 tab Q6HPRN PRN PO 05/25/24 18:45 05/26/24 06:57 1 TAB Methylprednisolone Sodium Succinate 40 mg Q12HR IV 05/26/24 18:00 Budesonide 0.5 mg BID NEB 05/26/24 10:00 05/26/24 09:59 0.5 MG objective Elderly female in bed on ventilator. Heart regular rate and rhythm S1 and S2. Lungs fair air movement without any wheezes. Abdomen soft positive bowel sounds. Extremities positive distal pulses. laboratory and microbiology Laboratory Tests 05/26/24 03:09 Test 05/26/24 03:09 Range/Units Serum Glucose 209 H 74-106 mg/dL Assessment/Plan Continue present management as she is on. Given now family has rethinking trach peg and wanting compassionate extubation with the hospice we will honor their wishes and proceed with terminal wean tomorrow. Meantime today she was made DNR by family per nurse. Problems(with codes): (1) Shortness of breath (2) Weakness (3) Pneumonia (4) Mass of right lung (5) Ventilator dependence Dietary Evaluation Review Comments: Monitor PO intake to meet her needs to 75% at least. Expected Outcomes/Goals: Gradual weight loss and breath with less difficulties. Plan discussed with: Other STEVE TRUJILLO MD May 26, 2024 14:33
[2024-05-26] MEDS: methylPREDNISolone SOD SUCC 40 MG/ML VL IV SCH (16:57)
--- NOTE | 2024-05-26 19:55 | DVHPN2 ---
Progress Note - Dictate Date Seen: May 26, 2024 Has the PT tested + for MRSA If YES, has PT been informed?: No Medical Necessity Reason Pt with a Central, PICC or Fol: Yes The following are medically ne: Central Line, Aden Catheter Reason for aden catheter: Strict I&O Subjective Patient seen and examined at bedside. Intubated on mechanical ventilator Overnight events reviewed. vital signs Vital Sign Date Time Temp Pulse Resp B/P (MAP) Pulse Ox O2 Delivery O2 Flow Rate FiO2 05/26/24 19:52 130/58 05/26/24 18:38 91 17 100 30 05/26/24 18:37 Mechanical Ventilator+ 05/26/24 18:30 99.0 210.2 Total Intake and Output 05/25/24 05/25/24 05/26/24 15:00 23:00 07:00 Intake Total 189.836 ml 258.384 ml 417.134 ml Output Total 1450 ml 800 ml Balance 189.836 ml -1191.616 ml -382.866 ml medications Current Medications Medications Dose Ordered Sig/Erica Route Start Time Stop Time Status Last Admin Dose Admin Docusate Sodium 100 mg BIDPRN PRN PO 05/16/24 08:00 05/25/24 22:41 100 MG Acetaminophen 650 mg Q6HP PRN PO 05/16/24 08:00 05/26/24 10:11 650 MG Ondansetron HCl 4 mg Q4HP PRN IV 05/16/24 08:00 Nitroglycerin 0.4 mg Q5MINP PRN SL 05/16/24 08:00 Ipratropium [place] 0.5 mg Q4HP PRN NEB 05/16/24 08:00 05/17/24 15:38 0.5 MG Pantoprazole Sodium 40 mg DAILY IV 05/16/24 10:00 05/26/24 08:43 40 MG Alprazolam 0.25 mg TIDPRN PRN PO 05/16/24 18:00 Albuterol 1.25 mg Q4HWA PRN NEB 05/17/24 14:15 05/26/24 18:35 1.25 MG Ipratropium [place] 0.5 mg Q4HWA NEB 05/17/24 18:00 05/26/24 18:36 0.5 MG Phenylephrine HCl 250 ml @ 30 mls/hr Q8H20M IV 05/17/24 23:00 Fentanyl Citrate 250 ml @ 2.5 mls/hr Q24H IV 05/17/24 23:00 05/21/24 21:40 2.5 MLS/HR Midazolam HCl 50 ml @ 1 mls/hr Q24H IV 05/17/24 23:30 05/21/24 15:54 4 MLS/HR Micafungin Sodium 100 mg/Sodium Chloride 100 ml @ 100 mls/hr DAILY IV 05/19/24 10:00 05/26/24 08:43 100 MLS/HR Enoxaparin Sodium 70 mg Q12HR SC 05/20/24 22:00 05/26/24 08:42 70 MG Amiodarone HCl 200 mg Q12HR PO 05/20/24 22:00 05/26/24 08:43 200 MG Norepinephrine Bitartrate 250 ml @ 1.875 mls/ hr Q24H IV 05/20/24 11:15 05/24/24 07:26 1.875 MLS/HR Furosemide 20 mg DAILY IV 05/21/24 10:00 05/26/24 08:42 20 MG Dexmedetomidine HCl 400 mcg/ Dextrose 100 ml @ 3.615 mls/ hr Q24H IV 05/20/24 16:30 05/26/24 19:52 7.23 MLS/HR Enteral Nutritional Formula 1,000 ml 40ML/HR GT 05/22/24 12:00 05/23/24 22:10 1,000 ML Ceftriaxone Sodium/Dextrose 50 ml @ 50 mls/hr DAILY IV 05/24/24 10:00 05/26/24 10:04 50 MLS/HR Acetaminophen/ Hydrocodone Bitart 1 tab Q6HPRN PRN PO 05/25/24 18:45 05/26/24 19:54 1 TAB Methylprednisolone Sodium Succinate 40 mg Q12HR IV 05/26/24 18:00 05/26/24 16:57 40 MG Budesonide 0.5 mg BID NEB 05/26/24 10:00 05/26/24 18:36 0.5 MG objective Gen.: Patient lying in bed in medical ICU. Intubated on mechanical ventilator. Head: Normocephalic, atraumatic. Eyes: PERRLA. Ears: Normal external anatomy. Throat: Endotracheal tube and orogastric tube in place. Neck: Supple, trachea midline. Chest: Transmitted breath sounds bilaterally. Decreased air entry bilaterally. Expiratory wheezing. Bibasilar crackles. Cardio vascular: Positive S1, positive S2. Regular rate and rhythm. Abdomen: Positive bowel sounds in all 4 quadrants. Soft, nontender, nondistended. : Aden in place. Normal external genitalia. Rectal: Deferred Skin: Warm, dry. Intact. Extremities: 2+ radial pulses bilaterally. No lower extremity edema. Neuro: Off sedation laboratory and microbiology Laboratory Tests 05/26/24 03:09 Test 05/26/24 03:09 Range/Units Serum Glucose 209 H 74-106 mg/dL Assessment/Plan Impression: Acute on chronic hypoxic respiratory failure secondary to right lung mass On mechanical ventilator LEFT IJ DVT s/p Cardiac arrest with ROSC [id number] bilateral pleural effusion Moderate pericardial effusion Hyponatremia Leukocytosis Hypertension COPD Atelectasis Events: Remains on vent support; AC with RR 14, Vt 400, PEEP 5, FIO2 30% Taper FiO2 as tolerated WBC of 17.4 K Hemoglobin 9.8 g/dL. Transfuse if less than 7.0 g/dL. Plan for trach + PEG. CXR reviewed, shows devices in place. RUL consolidation. Pulmonary congestion. ABG reviewed, notable for alkalemia d/t metabolic alkalosis VT decreased to 400 Patient overbreathing ventilator. Off sedation. On Precedex drip. Patient failed CPAP trial. Low volumes Oncology recs appreciated. Continue abx - ceftriaxone Continue Micafungin Continue bronchodilators Continue IV steroids -tapered frequency to q.12 h. Continue PO amiodarone Tube feeds for nutritional support. Monitor renal function Nephrology recs appreciated. Protonix for GI prophylaxis. Lovenox for DVT prophylaxis. SBT/RIGOBERTO. CPAP trial with PS 8, PEEP of 5. OK to increase PS to max 20 cmH2O to achieve tidal volume 400-450 mL. 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 Overall poor prognosis Awaiting family decision for trach + PEG. Labs and imaging reviewed. Rest of plan as noted below. Plan: s/p intubation on mechanical ventilator S/p bronchoscopy on 05/19. Follow-up results of RLL BAL, Brushings from right lower lobe, right mainstem, and biopsy from right mainstem. CXR image and report reviewed. ABG reviewed. AC mode with RR 14, Vt 400, PEEP 5, FIO2 30% Titrate FIO2 to keep O2 saturation above 92%. VAP bundle Daily ABG and CXR while intubated. Sedate for ventilatory synchrony - currently off sedation Pressors as necessary for hemodynamic support. Titrate to keep MAP above 65 mmHg/SBP above 90 mmHg. Continue antibiotics. F/u cultures. Limited chest US of left IJ notable for DVT. Start heparin drip per pharmacy protocol Monitor renal function Monitor electrolytes. Supplement as necessary. Nutritional support. Accucheks, ISS. GI/DVT prophylaxis. Extensive time spent counseling family and answering questions. Overall poor prognosis High likelihood of demise given advanced age and multiple co-morbidities. Condition: Critical Prognosis: Poor given multiple comorbidities. Rest of plan per hospitalist and other consultants. A total of 35 minutes of critical care time was spent reviewing the patient record, examining the patient, making a diagnostic and therapeutic plan, discussing this plan with the medical personnel, following up on diagnostic studies and following the patient for clinical stability excluding any and all procedures. At least 50% of this time was spent in direct, [id number] contact. Thank you Dr. Rodriguez for allowing me to participate in this patient's care. Further recommendations will depend on patient's clinical course. Please do not hesitate to contact me if you have any questions or concerns. This medical document was created using an electronic medical record system with [employer] dictation system. Although this document has been carefully reviewed, there may still be some phonetic and typographical errors. These areas are purely typographical due to imperfections of the software programs, and do not reflect any compromise in the patient's medical care. Dietary Evaluation Review Comments: Monitor PO intake to meet her needs to 75% at least. Expected Outcomes/Goals: Gradual weight loss and breath with less difficulties. Plan discussed with: Other (BRENDEN Tran) Critical Care Time(min): 35 KARMA ZHANG MD May 26, 2024 19:55
[2024-05-27] VITALS (103 sets, daily range): BP systolic 69–177; BP diastolic 35–138; PULSE 75–121; RESP 12–39; TEMP 98.2–99.3; O2SAT 86–100
[2024-05-27 03:50] LABS: Basophils # (auto) 0 10 ^3/uL (0-0.2); Basophils % (auto) 0.1 % (0.0-2.0); Eosinophils # (auto) 0 10 ^3/uL (0-0.8); Hematocrit 34.1 % (36.0-46.0); Hemoglobin 10.5 g/dL (12.2-16.2); Lymphocytes # (auto) 0.3 10 ^3/uL (0.4-5.4); Lymphocytes % (auto) 1.6 % (10.0-50.0); Mean Corpuscular Hemoglobin 23.4 pg (28.0-32.0); Mean Corpuscular Hgb Conc. 30.7 g/dL (32.0-36.0); Mean Corpuscular Volume 76.3 fL (80.0-100.0); Monocytes % (auto) 6.3 % (0.0-12.0); Neutrophils # (auto) 14.2 10 ^3/uL (1.6-8.6); Platelet Count (auto) 153 10^3/uL (140-450); Red Blood Cells 4.46 10^6/uL (4.0-5.20); Red Cell Distribution Width 16.3 % (11.8-14.3); White Blood Cell 15.5 10^3/uL (4.4-10.8)
[2024-05-27 04:10] LABS: Alanine Aminotransferase 41 U/L (7-40); Albumin 3.1 g/dL (3.2-4.8); Alkaline Phosphatase 141 U/L (46-116); Anion Gap 5 (5-15); Aspartate Aminotransferase 14 U/L (13-40); BUN/Creatinine Ratio 42.1 (10.0-20.0); Blood Urea Nitrogen 24 mg/dL (9-23); Calcium 10.1 mg/dL (8.7-10.4); Carbon Dioxide 37 mmol/L (20-31); Chloride 106 mmol/L (98-107); Glucose 218 mg/dL (74-106); Potassium 3.6 mmol/L (3.5-5.1); Sodium 148 mmol/L (136-145); Total Protein 5.6 g/dL (5.7-8.2)
[2024-05-27 04:14] LABS: Bilirubin, Total 0.5 mg/dL (0.2-1.0)
--- NOTE | 2024-05-27 05:40 | DVH ---
CHEST RADIOGRAPH Indication:INTUBATED Technique: Single frontal view of the chest was obtained Comparison: XY CHEST PORTABLE on DOS: 05/26/24 FINDINGS: Lines and Tubes: Left central venous catheter terminates in the superior vena cava. Enteric tube ter minates below the left hemidiaphragm and outside the field of view. Lungs: Patchy right lung opacities. Pleura: Right pleural effusion. No pneumothorax. Cardiomediastinal contours: Stable. Bones: No acute osseous abnormality. IMPRESSION: 1. No significant interval change.
--- NOTE | 2024-05-27 07:23 | DVHPN2 ---
Progress Note - Dictate Date Seen: May 27, 2024 Has the PT tested + for MRSA If YES, has PT been informed?: No Medical Necessity Reason Pt with a Central, PICC or Fol: Yes The following are medically ne: Central Line, Aden Catheter Reason for aden catheter: Strict I&O Subjective New complaints Patient is intubated sedated She is tolerating NG tube feedings No GI bleeding reported Patient was made DNR last night vital signs Vital Sign Date Time Temp Pulse Resp B/P (MAP) Pulse Ox O2 Delivery O2 Flow Rate FiO2 05/27/24 06:45 99.0 87 16 113/59 (77) 99 210.2 05/27/24 06:00 30 05/27/24 06:00 Mechanical Ventilator+ Total Intake and Output 05/26/24 05/26/24 05/27/24 14:59 22:59 06:59 Intake Total 234.987 ml 242.215 ml 320.427 ml Output Total 1250 ml 725 ml Balance 234.987 ml -1007.785 ml -404.573 ml medications Current Medications Medications Dose Ordered Sig/Erica Route Start Time Stop Time Status Last Admin Dose Admin Docusate Sodium 100 mg BIDPRN PRN PO 05/16/24 08:00 05/25/24 22:41 100 MG Acetaminophen 650 mg Q6HP PRN PO 05/16/24 08:00 05/26/24 10:11 650 MG Ondansetron HCl 4 mg Q4HP PRN IV 05/16/24 08:00 Nitroglycerin 0.4 mg Q5MINP PRN SL 05/16/24 08:00 Ipratropium [place] 0.5 mg Q4HP PRN NEB 05/16/24 08:00 05/17/24 15:38 0.5 MG Pantoprazole Sodium 40 mg DAILY IV 05/16/24 10:00 05/26/24 08:43 40 MG Alprazolam 0.25 mg TIDPRN PRN PO 05/16/24 18:00 Albuterol 1.25 mg Q4HWA PRN NEB 05/17/24 14:15 05/27/24 01:58 1.25 MG Ipratropium [place] 0.5 mg Q4HWA NEB 05/17/24 18:00 05/27/24 01:58 0.5 MG Phenylephrine HCl 250 ml @ 30 mls/hr Q8H20M IV 05/17/24 23:00 Midazolam HCl 50 ml @ 1 mls/hr Q24H IV 05/17/24 23:30 05/21/24 15:54 4 MLS/HR Micafungin Sodium 100 mg/Sodium Chloride 100 ml @ 100 mls/hr DAILY IV 05/19/24 10:00 05/26/24 08:43 100 MLS/HR Enoxaparin Sodium 70 mg Q12HR SC 05/20/24 22:00 05/26/24 20:24 70 MG Amiodarone HCl 200 mg Q12HR PO 05/20/24 22:00 05/26/24 20:24 200 MG Norepinephrine Bitartrate 250 ml @ 1.875 mls/ hr Q24H IV 05/20/24 11:15 05/24/24 07:26 1.875 MLS/HR Furosemide 20 mg DAILY IV 05/21/24 10:00 05/26/24 08:42 20 MG Dexmedetomidine HCl 400 mcg/ Dextrose 100 ml @ 3.615 mls/ hr Q24H IV 05/20/24 16:30 05/26/24 19:52 7.23 MLS/HR Enteral Nutritional Formula 1,000 ml 40ML/HR GT 05/22/24 12:00 05/27/24 02:43 1,000 ML Ceftriaxone Sodium/Dextrose 50 ml @ 50 mls/hr DAILY IV 05/24/24 10:00 05/26/24 10:04 50 MLS/HR Acetaminophen/ Hydrocodone Bitart 1 tab Q6HPRN PRN PO 05/25/24 18:45 05/26/24 19:54 1 TAB Methylprednisolone Sodium Succinate 40 mg Q12HR IV 05/26/24 18:00 05/26/24 20:23 40 MG Budesonide 0.5 mg BID NEB 05/26/24 10:00 05/26/24 18:36 0.5 MG objective Elderly female in bed on ventilator sleepy Heart regular rate and rhythm S1 and S2. Lungs fair air movement without any wheezes. Abdomen soft positive bowel sounds. Extremities positive distal pulses. laboratory and microbiology Laboratory Tests 05/27/24 03:20 Test 05/27/24 03:20 Range/Units Serum Glucose 218 H 74-106 mg/dL Problems(with codes): (1) Ventilator dependence (2) Mass of right lung (3) Pneumonia (4) Weakness Prognosis Plan Patient has apparently considering comfort care and compassionate extubation after a family meeting I will be standing by in case they decide to proceed with a PEG tube Dietary Evaluation Review Comments: Monitor PO intake to meet her needs to 75% at least. Expected Outcomes/Goals: Gradual weight loss and breath with less difficulties. Plan discussed with: Other (None) KEILY YUSUF MD May 27, 2024 07:23
[2024-05-27] MEDS ORDERED: LORazepam 2MG/ML-1ML VIAL IV PRN (10:45)
--- NOTE | 2024-05-27 15:01 | DVHPN2 ---
Progress Note - Dictate Date Seen: May 27, 2024 Has the PT tested + for MRSA If YES, has PT been informed?: No Medical Necessity Reason Pt with a Central, PICC or Fol: Yes The following are medically ne: Central Line, Aden Catheter Reason for aden catheter: Strict I&O Subjective Discussed with the patient's daughter this morning. Patient compassionately extubated around 11:00 a.m.. Currently she was doing fine. On 4 L oxygen via nasal cannula oxygenating well. She was off of Levophed and blood pressure is normal. Still has NG tube for medications. vital signs Vital Sign Date Time Temp Pulse Resp B/P (MAP) Pulse Ox O2 Delivery O2 Flow Rate FiO2 05/27/24 12:00 30 05/27/24 10:41 81 16 110/53 (72) 99 05/27/24 10:00 Mechanical Ventilator+ 05/27/24 06:45 99.0 210.2 Total Intake and Output 05/26/24 05/26/24 05/27/24 15:00 23:00 07:00 Intake Total 238.044 ml 242.840 ml 321.610 ml Output Total 1250 ml 725 ml Balance 238.044 ml -1007.160 ml -403.390 ml medications Current Medications Medications Dose Ordered Sig/Erica Route Start Time Stop Time Status Last Admin Dose Admin Docusate Sodium 100 mg BIDPRN PRN PO 05/16/24 08:00 05/25/24 22:41 100 MG Acetaminophen 650 mg Q6HP PRN PO 05/16/24 08:00 05/26/24 10:11 650 MG Ondansetron HCl 4 mg Q4HP PRN IV 05/16/24 08:00 Nitroglycerin 0.4 mg Q5MINP PRN SL 05/16/24 08:00 Ipratropium [place] 0.5 mg Q4HP PRN NEB 05/16/24 08:00 05/17/24 15:38 0.5 MG Pantoprazole Sodium 40 mg DAILY IV 05/16/24 10:00 05/27/24 10:16 40 MG Alprazolam 0.25 mg TIDPRN PRN PO 05/16/24 18:00 Albuterol 1.25 mg Q4HWA PRN NEB 05/17/24 14:15 05/27/24 14:58 1.25 MG Ipratropium [place] 0.5 mg Q4HWA NEB 05/17/24 18:00 05/27/24 14:57 0.5 MG Phenylephrine HCl 250 ml @ 30 mls/hr Q8H20M IV 05/17/24 23:00 Midazolam HCl 50 ml @ 1 mls/hr Q24H IV 05/17/24 23:30 05/21/24 15:54 4 MLS/HR Micafungin Sodium 100 mg/Sodium Chloride 100 ml @ 100 mls/hr DAILY IV 05/19/24 10:00 05/27/24 10:18 100 MLS/HR Enoxaparin Sodium 70 mg Q12HR SC 05/20/24 22:00 05/27/24 10:17 70 MG Amiodarone HCl 200 mg Q12HR PO 05/20/24 22:00 05/27/24 10:17 200 MG Norepinephrine Bitartrate 250 ml @ 1.875 mls/ hr Q24H IV 05/20/24 11:15 05/24/24 07:26 1.875 MLS/HR Furosemide 20 mg DAILY IV 05/21/24 10:00 05/27/24 10:17 20 MG Dexmedetomidine HCl 400 mcg/ Dextrose 100 ml @ 3.615 mls/ hr Q24H IV 05/20/24 16:30 05/27/24 08:55 9.038 MLS/HR Enteral Nutritional Formula 1,000 ml 40ML/HR GT 05/22/24 12:00 05/27/24 02:43 1,000 ML Ceftriaxone Sodium/Dextrose 50 ml @ 50 mls/hr DAILY IV 05/24/24 10:00 05/27/24 10:18 50 MLS/HR Acetaminophen/ Hydrocodone Bitart 1 tab Q6HPRN PRN PO 05/25/24 18:45 05/26/24 19:54 1 TAB Methylprednisolone Sodium Succinate 40 mg Q12HR IV 05/26/24 18:00 05/27/24 10:16 40 MG Budesonide 0.5 mg BID NEB 05/26/24 10:00 05/26/24 18:36 0.5 MG Morphine Sulfate 2 mg Q2HPRN PRN IV 05/27/24 10:45 Lorazepam 1 mg Q2HP PRN IV 05/27/24 10:45 objective Elderly female in bed. Heart regular rate and rhythm S1 and S2. Lungs fair air movement without any wheezes. Abdomen soft positive bowel sounds. Extremities positive distal pulses. laboratory and microbiology Laboratory Tests 05/27/24 03:20 Test 05/27/24 03:20 Range/Units Serum Glucose 218 H 74-106 mg/dL Assessment/Plan Continue present management as she is on. Given clinically stable she can be downgraded to step-down/CRISTOPHER tonight. Keep her NPO. Swallow evaluation in the morning. Otherwise continue current medications as she is on. Further clinical management per clinical course and as per swallow eval with a. Discussed with the nurse regarding care plan. Problems(with codes): (1) Shortness of breath (2) Weakness (3) Pneumonia (4) Mass of right lung Dietary Evaluation Review Comments: Monitor PO intake to meet her needs to 75% at least. Expected Outcomes/Goals: Gradual weight loss and breath with less difficulties. Plan discussed with: Other (nurse) STEVE TRUJILLO MD May 27, 2024 15:01
--- NOTE | 2024-05-27 20:36 | DVHPN2 ---
Consult Progress Note Date Seen: May 26, 2024 Subjective Patient reports: Feels better (no diarrhea or rash) Objective vital signs Vital Sign Date Time Temp Pulse Resp B/P (MAP) Pulse Ox O2 Delivery O2 Flow Rate FiO2 05/27/24 19:45 99.1 116 23 124/67 (86) 100 210.4 05/27/24 18:59 Nasal Cannula 4.0 05/27/24 18:59 36 Total Intake and Output 05/26/24 05/26/24 05/27/24 15:00 23:00 07:00 Intake Total 238.044 ml 242.840 ml 321.610 ml Output Total 1250 ml 725 ml Balance 238.044 ml -1007.160 ml -403.390 ml medications Current Medications Medications Dose Ordered Sig/Erica Route Start Time Stop Time Status Last Admin Dose Admin Docusate Sodium 100 mg BIDPRN PRN PO 05/16/24 08:00 05/25/24 22:41 100 MG Acetaminophen 650 mg Q6HP PRN PO 05/16/24 08:00 05/26/24 10:11 650 MG Ondansetron HCl 4 mg Q4HP PRN IV 05/16/24 08:00 Nitroglycerin 0.4 mg Q5MINP PRN SL 05/16/24 08:00 Ipratropium [place]ye 0.5 mg Q4HP PRN NEB 05/16/24 08:00 05/17/24 15:38 0.5 MG Pantoprazole Sodium 40 mg DAILY IV 05/16/24 10:00 05/27/24 10:16 40 MG Alprazolam 0.25 mg TIDPRN PRN PO 05/16/24 18:00 Albuterol 1.25 mg Q4HWA PRN NEB 05/17/24 14:15 05/27/24 18:59 1.25 MG Ipratropium [place]ye 0.5 mg Q4HWA NEB 05/17/24 18:00 05/27/24 18:59 0.5 MG Phenylephrine HCl 250 ml @ 30 mls/hr Q8H20M IV 05/17/24 23:00 Midazolam HCl 50 ml @ 1 mls/hr Q24H IV 05/17/24 23:30 05/21/24 15:54 4 MLS/HR Micafungin Sodium 100 mg/Sodium Chloride 100 ml @ 100 mls/hr DAILY IV 05/19/24 10:00 05/27/24 10:18 100 MLS/HR Enoxaparin Sodium 70 mg Q12HR SC 05/20/24 22:00 05/27/24 10:17 70 MG Amiodarone HCl 200 mg Q12HR PO 05/20/24 22:00 05/27/24 10:17 200 MG Norepinephrine Bitartrate 250 ml @ 1.875 mls/ hr Q24H IV 05/20/24 11:15 05/24/24 07:26 1.875 MLS/HR Furosemide 20 mg DAILY IV 05/21/24 10:00 05/27/24 10:17 20 MG Dexmedetomidine HCl 400 mcg/ Dextrose 100 ml @ 3.615 mls/ hr Q24H IV 05/20/24 16:30 05/27/24 08:55 9.038 MLS/HR Enteral Nutritional Formula 1,000 ml 40ML/HR GT 05/22/24 12:00 05/27/24 02:43 1,000 ML Ceftriaxone Sodium/Dextrose 50 ml @ 50 mls/hr DAILY IV 05/24/24 10:00 05/27/24 10:18 50 MLS/HR Acetaminophen/ Hydrocodone Bitart 1 tab Q6HPRN PRN PO 05/25/24 18:45 05/26/24 19:54 1 TAB Methylprednisolone Sodium Succinate 40 mg Q12HR IV 05/26/24 18:00 05/27/24 10:16 40 MG Budesonide 0.5 mg BID NEB 05/26/24 10:00 05/27/24 06:00 0.5 MG Morphine Sulfate 2 mg Q2HPRN PRN IV 05/27/24 10:45 Lorazepam 1 mg Q2HP PRN IV 05/27/24 10:45 PHYSICAL EXAM: - GENERAL: intubated and sedated , Well-nourished. - EYES: EOMI. Anicteric. - HENT: Moist mucous membranes. No scleral icterus. No cervical lymphadenopathy. - LUNGS: Clear to auscultation bilaterally. No accessory muscle use. crackles in both lungs , worse on the left - CARDIOVASCULAR: Regular rate and rhythm. No murmur. No JVD. - ABDOMEN: Soft, non-tender and non-distended. No palpable masses. - EXTREMITIES: No edema. Non-tender.?SKIN: No rashes or lesions. Warm. - NEUROLOGIC: No focal neurological deficits. CN II-XII grossly intact, but not individually tested. - PSYCHIATRIC: Cooperative. Appropriate mood and affect. laboratory and microbiology Laboratory Tests 05/27/24 03:20 Test 05/27/24 03:20 Range/Units Serum Glucose 218 H 74-106 mg/dL Problem List/Assessment/Plan Problem List/Assessment/Plan ID Problem List: 1. Acute on chronic hypoxic respiratory failure 2. Lung cancer (right) 3. Right lung cavitary pneumonia 4. Possible obstructive post-obstructive pneumonia 5. Sepsis, septic shock Assessment: This is an 88 y.o. female with a past medical history of lung cancer, COPD, pneumonia, chronic oxygen therapy, status post phlebectomy for DVT, and hypertension. She presents with worsening generalized weakness, increased cough, hemoptysis, bilateral lower extremity swelling, and dysuria over the past two weeks. A PET scan in December suggested a recurrent mass in the right lower lobe, confirmed via bronchoscopy. On admission, she had a leukocytosis of 15.9, Hb 11.8, and platelets 180. CT chest showed a heterogeneously enhancing mass in the right hilar region with bilateral pleural effusions, compressive atelectasis, and a moderate-sized pericardial effusion. She is normally ambulatory but has been bed-bound recently with no smoking or alcohol history, albeit with secondhand smoke exposure from a chronic smoking . Patient was admitted on May 15 and became tachycardic and hypotensive during hospitalization. She was treated with bronchodilators, IV antibiotics (levofloxacin and vancomycin), and underwent thoracentesis. 05/19: CTPE shows no pulmonary embolism , extensive consolidation in the right lung , large right and moderate left plural effusions. moderate pericardial effusion . Patient had a bronchoscopy done today , BAL was done of the right middle and lower lobes. Fungal and bacterial cultures were sent. mucoso was erithemidus, blockages of right upper lobe and partial obstruction of right lower lobe, both noted during the procedure. Left lung appeared normal. Biopsy was obtained from the right main stem at the site of abnormal mucosa. 05/20: White count is going down to 17.2 , HIV test is negative , covid test is negative , waiting for aspergellus test to come back. Blood cultures remain negative as well as mercenaries are negative, pleural fluid cultures growth is negative. Respiratory sputum cultures are within normal. 05/21: home mold report shows there was aspergillus/penicillium exposure , all other fungal organisms are less concerns. cultures from bronci and plural fluid remain without growth 05/23: Leukocytosis is improving clinically , patient is stable. Chest X-ray shows multifocal airspace disease that is largely unchanged. Sputum cultures are negative for bacteria . Bronchocus negative for bacteria and plural fluid cultures are also negative for bacteria. 05/24: chest x-ray without any changes , white count remains 11.5 05/25: Patient is struggling with spontaneous breathing trials , tiring out . 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 follow up on plural fluid cultures and cytology Test broadly for TB, HIV, Cocci antibody, Aspergillus antibody. Authorized and Performed by: Ramo Alan Total critical care time: Approximately 71 minutes Due to a high probability of clinically significant, life threatening deterioration, the patient required my highest level of preparedness to intervene emergently and I personally spent this critical care time directly and personally managing the patient. This critical care time included obtaining a history; examining the patient; pulse oximetry; ordering and review of studies; arranging urgent treatment with development of a management plan; evaluation of patient's response to treatment; frequent reassessment; and, discussions with other providers. This critical care time was performed to assess and manage the high probability of imminent, life-threatening deterioration that could result in multi-organ failure. It was exclusive of separately billable procedures and treating other patients and teaching time. Plan discussed with: Patient Dietary Evaluation Review Comments: Monitor PO intake to meet her needs to 75% at least. Expected Outcomes/Goals: Gradual weight loss and breath with less difficulties. RAMO ALAN MD May 27, 2024 20:36
[2024-05-27] MEDS: ALPRAZolam 0.25 MG TAB PO PRN (20:47)
--- NOTE | 2024-05-27 21:40 | DVHPN2 ---
Progress Note - Dictate Date Seen: May 27, 2024 Has the PT tested + for MRSA If YES, has PT been informed?: No Medical Necessity Reason Pt with a Central, PICC or Fol: Yes The following are medically ne: Central Line, Aden Catheter Reason for aden catheter: Strict I&O Subjective Patient seen and examined at bedside. s/p compassionate extubation, on supplemental oxygen. Overnight events reviewed. vital signs Vital Sign Date Time Temp Pulse Resp B/P (MAP) Pulse Ox O2 Delivery O2 Flow Rate FiO2 05/27/24 20:00 38 100 Nasal Cannula* 4 36 05/27/24 20:00 117 05/27/24 19:45 99.1 124/67 (86) 210.4 Total Intake and Output 05/26/24 05/26/24 05/27/24 15:00 23:00 07:00 Intake Total 238.044 ml 242.840 ml 321.610 ml Output Total 1250 ml 725 ml Balance 238.044 ml -1007.160 ml -403.390 ml medications Current Medications Medications Dose Ordered Sig/Erica Route Start Time Stop Time Status Last Admin Dose Admin Docusate Sodium 100 mg BIDPRN PRN PO 05/16/24 08:00 05/25/24 22:41 100 MG Acetaminophen 650 mg Q6HP PRN PO 05/16/24 08:00 05/26/24 10:11 650 MG Ondansetron HCl 4 mg Q4HP PRN IV 05/16/24 08:00 Nitroglycerin 0.4 mg Q5MINP PRN SL 05/16/24 08:00 Ipratropium [place] 0.5 mg Q4HP PRN NEB 05/16/24 08:00 05/17/24 15:38 0.5 MG Pantoprazole Sodium 40 mg DAILY IV 05/16/24 10:00 05/27/24 10:16 40 MG Alprazolam 0.25 mg TIDPRN PRN PO 05/16/24 18:00 05/27/24 20:47 0.25 MG Albuterol 1.25 mg Q4HWA PRN NEB 05/17/24 14:15 05/27/24 18:59 1.25 MG Ipratropium [place] 0.5 mg Q4HWA NEB 05/17/24 18:00 05/27/24 18:59 0.5 MG Phenylephrine HCl 250 ml @ 30 mls/hr Q8H20M IV 05/17/24 23:00 Midazolam HCl 50 ml @ 1 mls/hr Q24H IV 05/17/24 23:30 05/21/24 15:54 4 MLS/HR Micafungin Sodium 100 mg/Sodium Chloride 100 ml @ 100 mls/hr DAILY IV 05/19/24 10:00 05/27/24 10:18 100 MLS/HR Enoxaparin Sodium 70 mg Q12HR SC 05/20/24 22:00 05/27/24 10:17 70 MG Amiodarone HCl 200 mg Q12HR PO 05/20/24 22:00 05/27/24 10:17 200 MG Norepinephrine Bitartrate 250 ml @ 1.875 mls/ hr Q24H IV 05/20/24 11:15 05/24/24 07:26 1.875 MLS/HR Furosemide 20 mg DAILY IV 05/21/24 10:00 05/27/24 10:17 20 MG Dexmedetomidine HCl 400 mcg/ Dextrose 100 ml @ 3.615 mls/ hr Q24H IV 05/20/24 16:30 05/27/24 08:55 9.038 MLS/HR Enteral Nutritional Formula 1,000 ml 40ML/HR GT 05/22/24 12:00 05/27/24 02:43 1,000 ML Ceftriaxone Sodium/Dextrose 50 ml @ 50 mls/hr DAILY IV 05/24/24 10:00 05/27/24 10:18 50 MLS/HR Acetaminophen/ Hydrocodone Bitart 1 tab Q6HPRN PRN PO 05/25/24 18:45 05/26/24 19:54 1 TAB Methylprednisolone Sodium Succinate 40 mg Q12HR IV 05/26/24 18:00 05/27/24 10:16 40 MG Budesonide 0.5 mg BID NEB 05/26/24 10:00 05/27/24 06:00 0.5 MG Morphine Sulfate 2 mg Q2HPRN PRN IV 05/27/24 10:45 Lorazepam 1 mg Q2HP PRN IV 05/27/24 10:45 objective Gen.: Patient lying in bed in no apparent distress. On supplemental oxygen. Head: Normocephalic, atraumatic. Eyes: EOMI/PERRLA. Ears: Normal hearing. Normal anatomy. Neck/trachea: Trachea midline, supple. Nose: Normal external anatomy. Mouth: Moist mucous membranes. Chest: Decreased air entry bilaterally. No wheezing or rhonchi. Cardiovascular: Positive S1, positive S2. Regular rate and rhythm. Abdomen: Positive bowel sounds in all 4 quadrants. Soft, non-tender, non- distended. : Deferred. Rectal: Deferred. Skin: Warm, dry. Intact. Extremities: 2+ radial pulses bilaterally. No lower extremity edema. Neuro: No gross motor or sensory deficits. Cranial nerves II through XII intact. Gait not assessed. laboratory and microbiology Laboratory Tests 05/27/24 03:20 Test 05/27/24 03:20 Range/Units Serum Glucose 218 H 74-106 mg/dL Assessment/Plan Impression: Acute on chronic hypoxic respiratory failure secondary to right lung mass On mechanical ventilator LEFT IJ DVT s/p Cardiac arrest with ROSC [id number] bilateral pleural effusion Moderate pericardial effusion Hyponatremia Leukocytosis Hypertension COPD Atelectasis Events: Patient underwent compassionate extubation this AM. On supplemental O2 at 2 LPM NC Patient is DNR/DNI. On pressors for hemodynamic support Levophed 2 mcg/min Titrate to keep mean arterial pressure greater than 65 mmHg Off sedation. On Precedex drip. IS HOB elevation Aspiration precautions WBC count of 15.5 Continue abx - ceftriaxone Continue Micafungin Continue bronchodilators Continue IV steroids q.12 h. Continue PO amiodarone Tube feeds for nutritional support. Diurese if necessary Monitor renal function Nephrology recs appreciated. Protonix for GI prophylaxis. Lovenox for DVT prophylaxis. Oncology recs appreciated. 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 Overall poor prognosis Labs and imaging reviewed. Rest of plan as noted below. Plan: s/p compassionate extubation On supplemental O2 at 2 LPM NC S/p bronchoscopy on 05/19. Follow-up results of RLL BAL, Brushings from right lower lobe, right mainstem, and biopsy from right mainstem. CXR image and report reviewed. ABG reviewed. Currently off sedation Pressors as necessary for hemodynamic support. Titrate to keep MAP above 65 mmHg/SBP above 90 mmHg. Continue antibiotics. F/u cultures. Limited chest US of left IJ notable for DVT. Start heparin drip per pharmacy protocol Monitor renal function Monitor electrolytes. Supplement as necessary. Nutritional support. Accucheks, ISS. GI/DVT prophylaxis. Extensive time spent counseling family and answering questions. Overall poor prognosis High likelihood of demise given advanced age and multiple co-morbidities. Pt is DNR/DNI. Condition: Critical Prognosis: Poor given multiple comorbidities. Rest of plan per hospitalist and other consultants. A total of 35 minutes of critical care time was spent reviewing the patient record, examining the patient, making a diagnostic and therapeutic plan, discussing this plan with the medical personnel, following up on diagnostic studies and following the patient for clinical stability excluding any and all procedures. At least 50% of this time was spent in direct, [id number] contact. Thank you Dr. Rodriguez for allowing me to participate in this patient's care. Further recommendations will depend on patient's clinical course. Please do not hesitate to contact me if you have any questions or concerns. This medical document was created using an electronic medical record system with [employer] dictation system. Although this document has been carefully reviewed, there may still be some phonetic and typographical errors. These areas are purely typographical due to imperfections of the software programs, and do not reflect any compromise in the patient's medical care. Dietary Evaluation Review Comments: Monitor PO intake to meet her needs to 75% at least. Expected Outcomes/Goals: Gradual weight loss and breath with less difficulties. Plan discussed with: Other (BRENDEN Mccollum) Critical Care Time(min): 35 KARMA ZHANG MD May 27, 2024 21:40
--- NOTE | 2024-05-27 22:13 | DVHPN2 ---
Consult Progress Note Date Seen: May 27, 2024 Subjective Patient reports: Other (excavated to 4 liters nasal canula , tolerating it . has a soree throat, odd pressures today ) Objective vital signs Vital Sign Date Time Temp Pulse Resp B/P (MAP) Pulse Ox O2 Delivery O2 Flow Rate FiO2 05/27/24 20:00 38 100 Nasal Cannula* 4 36 05/27/24 20:00 117 05/27/24 19:45 99.1 124/67 (86) 210.4 Total Intake and Output 05/26/24 05/26/24 05/27/24 15:00 23:00 07:00 Intake Total 238.044 ml 242.840 ml 321.610 ml Output Total 1250 ml 725 ml Balance 238.044 ml -1007.160 ml -403.390 ml medications Current Medications Medications Dose Ordered Sig/Erica Route Start Time Stop Time Status Last Admin Dose Admin Docusate Sodium 100 mg BIDPRN PRN PO 05/16/24 08:00 05/25/24 22:41 100 MG Acetaminophen 650 mg Q6HP PRN PO 05/16/24 08:00 05/26/24 10:11 650 MG Ondansetron HCl 4 mg Q4HP PRN IV 05/16/24 08:00 Nitroglycerin 0.4 mg Q5MINP PRN SL 05/16/24 08:00 Ipratropium [place] 0.5 mg Q4HP PRN NEB 05/16/24 08:00 05/17/24 15:38 0.5 MG Pantoprazole Sodium 40 mg DAILY IV 05/16/24 10:00 05/27/24 10:16 40 MG Alprazolam 0.25 mg TIDPRN PRN PO 05/16/24 18:00 05/27/24 20:47 0.25 MG Albuterol 1.25 mg Q4HWA PRN NEB 05/17/24 14:15 05/27/24 18:59 1.25 MG Ipratropium [place] 0.5 mg Q4HWA NEB 05/17/24 18:00 05/27/24 18:59 0.5 MG Phenylephrine HCl 250 ml @ 30 mls/hr Q8H20M IV 05/17/24 23:00 Midazolam HCl 50 ml @ 1 mls/hr Q24H IV 05/17/24 23:30 05/21/24 15:54 4 MLS/HR Micafungin Sodium 100 mg/Sodium Chloride 100 ml @ 100 mls/hr DAILY IV 05/19/24 10:00 05/27/24 10:18 100 MLS/HR Enoxaparin Sodium 70 mg Q12HR SC 05/20/24 22:00 05/27/24 21:44 70 MG Amiodarone HCl 200 mg Q12HR PO 05/20/24 22:00 05/27/24 21:43 200 MG Norepinephrine Bitartrate 250 ml @ 1.875 mls/ hr Q24H IV 05/20/24 11:15 05/24/24 07:26 1.875 MLS/HR Furosemide 20 mg DAILY IV 05/21/24 10:00 05/27/24 10:17 20 MG Dexmedetomidine HCl 400 mcg/ Dextrose 100 ml @ 3.615 mls/ hr Q24H IV 05/20/24 16:30 05/27/24 08:55 9.038 MLS/HR Enteral Nutritional Formula 1,000 ml 40ML/HR GT 05/22/24 12:00 05/27/24 02:43 1,000 ML Ceftriaxone Sodium/Dextrose 50 ml @ 50 mls/hr DAILY IV 05/24/24 10:00 05/27/24 10:18 50 MLS/HR Acetaminophen/ Hydrocodone Bitart 1 tab Q6HPRN PRN PO 05/25/24 18:45 05/26/24 19:54 1 TAB Methylprednisolone Sodium Succinate 40 mg Q12HR IV 05/26/24 18:00 05/27/24 10:16 40 MG Budesonide 0.5 mg BID NEB 05/26/24 10:00 05/27/24 06:00 0.5 MG Morphine Sulfate 2 mg Q2HPRN PRN IV 05/27/24 10:45 Lorazepam 1 mg Q2HP PRN IV 05/27/24 10:45 PHYSICAL EXAM: - GENERAL: intubated and sedated , Well-nourished. - EYES: EOMI. Anicteric. - HENT: Moist mucous membranes. No scleral icterus. No cervical lymphadenopathy. - LUNGS: Clear to auscultation bilaterally. No accessory muscle use. crackles in both lungs , worse on the left - CARDIOVASCULAR: Regular rate and rhythm. No murmur. No JVD. - ABDOMEN: Soft, non-tender and non-distended. No palpable masses. - EXTREMITIES: No edema. Non-tender.?SKIN: No rashes or lesions. Warm. - NEUROLOGIC: No focal neurological deficits. CN II-XII grossly intact, but not individually tested. - PSYCHIATRIC: Cooperative. Appropriate mood and affect. laboratory and microbiology Laboratory Tests 05/27/24 03:20 Test 05/27/24 03:20 Range/Units Serum Glucose 218 H 74-106 mg/dL Problem List/Assessment/Plan Problems(with codes): (1) Septic shock (2) Shortness of breath (3) Weakness (4) Pneumonia (5) Mass of right lung (6) Ventilator dependence Problem List/Assessment/Plan ID Problem List: 1. Acute on chronic hypoxic respiratory failure 2. Lung cancer (right) 3. Right lung cavitary pneumonia 4. Possible obstructive post-obstructive pneumonia 5. Sepsis, septic shock Assessment: This is an 88 y.o. female with a past medical history of lung cancer, COPD, pneumonia, chronic oxygen therapy, status post phlebectomy for DVT, and hypertension. She presents with worsening generalized weakness, increased cough, hemoptysis, bilateral lower extremity swelling, and dysuria over the past two weeks. A PET scan in December suggested a recurrent mass in the right lower lobe, confirmed via bronchoscopy. On admission, she had a leukocytosis of 15.9, Hb 11.8, and platelets 180. CT chest showed a heterogeneously enhancing mass in the right hilar region with bilateral pleural effusions, compressive atelectasis, and a moderate-sized pericardial effusion. She is normally ambulatory but has been bed-bound recently with no smoking or alcohol history, albeit with secondhand smoke exposure from a chronic smoking . Patient was admitted on May 15 and became tachycardic and hypotensive during hospitalization. She was treated with bronchodilators, IV antibiotics (levofloxacin and vancomycin), and underwent thoracentesis. 05/19: CTPE shows no pulmonary embolism , extensive consolidation in the right lung , large right and moderate left plural effusions. moderate pericardial effusion . Patient had a bronchoscopy done today , BAL was done of the right middle and lower lobes. Fungal and bacterial cultures were sent. mucoso was erithemidus, blockages of right upper lobe and partial obstruction of right lower lobe, both noted during the procedure. Left lung appeared normal. Biopsy was obtained from the right main stem at the site of abnormal mucosa. 05/20: White count is going down to 17.2 , HIV test is negative , covid test is negative , waiting for aspergellus test to come back. Blood cultures remain negative as well as mercenaries are negative, pleural fluid cultures growth is negative. Respiratory sputum cultures are within normal. 05/21: home mold report shows there was aspergillus/penicillium exposure , all other fungal organisms are less concerns. cultures from bronci and plural fluid remain without growth 05/23: Leukocytosis is improving clinically , patient is stable. Chest X-ray shows multifocal airspace disease that is largely unchanged. Sputum cultures are negative for bacteria . Bronchocus negative for bacteria and plural fluid cultures are also negative for bacteria. 05/24: chest x-ray without any changes , white count remains 11.5 05/25: Patient is struggling with spontaneous breathing trials , tiring out . cultures remain negative , still waiting for fungal culture results as well as path and cytology 05/27: No new findings of growth on cultures and remain negative Plan: recommend a 3 week course of ceftriaxone can stop micafungen once cultures have finalized will follow up on cytology Monitor respiratory cultures and blood cultures. follow up on plural fluid cultures and cytology Test broadly for TB, HIV, Cocci antibody, Aspergillus antibody. Authorized and Performed by: Ramo Alan Total critical care time: Approximately 71 minutes Due to a high probability of clinically significant, life threatening deterioration, the patient required my highest level of preparedness to intervene emergently and I personally spent this critical care time directly and personally managing the patient. This critical care time included obtaining a history; examining the patient; pulse oximetry; ordering and review of studies; arranging urgent treatment with development of a management plan; evaluation of patient's response to treatment; frequent reassessment; and, discussions with other providers. This critical care time was performed to assess and manage the high probability of imminent, life-threatening deterioration that could result in multi-organ failure. It was exclusive of separately billable procedures and treating other patients and teaching time. Plan discussed with: Other Dietary Evaluation Review Comments: Monitor PO intake to meet her needs to 75% at least. Expected Outcomes/Goals: Gradual weight loss and breath with less difficulties. RAMO ALAN MD May 27, 2024 22:12
[2024-05-28] VITALS (55 sets, daily range): BP systolic 109–245; BP diastolic 57–218; PULSE 101–117; RESP 14–42; TEMP 98.8–99.3; O2SAT 96–100
[2024-05-28] MEDS: ONDANSETRON HCL 4 MG/2 ML VIAL IV PRN (01:59)
[2024-05-28] MEDS ORDERED: hydrALAZINE HCL 20 MG/ML VL IV PRN (02:00)
[2024-05-28 03:54] LABS: Basophils # (auto) 0 10 ^3/uL (0-0.2); Eosinophils # (auto) 0 10 ^3/uL (0-0.8); Hemoglobin 10.6 g/dL (12.2-16.2); Monocytes % (auto) 8.7 % (0.0-12.0)
[2024-05-28 03:57] LABS: Hematocrit 34.4 % (36.0-46.0); Lymphocytes # (auto) 0.4 10 ^3/uL (0.4-5.4); Lymphocytes % (auto) 2.5 % (10.0-50.0); Mean Corpuscular Hemoglobin 23.7 pg (28.0-32.0); Mean Corpuscular Hgb Conc. 30.8 g/dL (32.0-36.0); Mean Corpuscular Volume 77.2 fL (80.0-100.0); Monocytes # (auto) 1.5 10 ^3/uL (0-1.3); Neutrophils # (auto) 15.4 10 ^3/uL (1.6-8.6); Neutrophils % (auto) 88.8 % (37.0-80.0); Platelet Count (auto) 158 10^3/uL (140-450); Red Blood Cells 4.46 10^6/uL (4.0-5.20); White Blood Cell 17.4 10^3/uL (4.4-10.8)
[2024-05-28 04:01] LABS: Alanine Aminotransferase 51 U/L (7-40); Albumin 3.4 g/dL (3.2-4.8); Alkaline Phosphatase 141 U/L (46-116); Anion Gap 3 (5-15); Aspartate Aminotransferase 36 U/L (13-40); BUN/Creatinine Ratio 45.8 (10.0-20.0); Bilirubin, Total 0.4 mg/dL (0.2-1.0); Blood Urea Nitrogen 33 mg/dL (9-23); Calcium 10.4 mg/dL (8.7-10.4); Carbon Dioxide 39 mmol/L (20-31); Chloride 109 mmol/L (98-107); Glucose 138 mg/dL (74-106); Potassium 3.8 mmol/L (3.5-5.1); Sodium 151 mmol/L (136-145); Total Protein 5.6 g/dL (5.7-8.2)
[2024-05-28] MEDS: methylPREDNISolone SOD SUCC 40 MG/ML VL IV SCH (09:37)
[2024-05-28] MEDS: LACTULOSE 20Gm/30ML SOLN PO ONE (10:32)
--- NOTE | 2024-05-28 15:59 | DVHPN2 ---
Consult Progress Note Date Seen: May 28, 2024 Subjective Patient reports: Feels better (patient has been terminally weaned) Objective vital signs Vital Sign Date Time Temp Pulse Resp B/P (MAP) Pulse Ox O2 Delivery O2 Flow Rate FiO2 05/28/24 15:02 108 18 100 05/28/24 14:00 Nasal Cannula* 2 28 05/28/24 14:00 99.0 127/73 (91) 210.2 Total Intake and Output 05/27/24 05/27/24 05/28/24 15:00 23:00 07:00 Intake Total 197.739 ml 100 ml 114 ml Output Total 750 ml 225 ml Balance 197.739 ml -650 ml -111 ml medications Current Medications Medications Dose Ordered Sig/Erica Route Start Time Stop Time Status Last Admin Dose Admin Docusate Sodium 100 mg BIDPRN PRN PO 05/16/24 08:00 05/25/24 22:41 100 MG Acetaminophen 650 mg Q6HP PRN PO 05/16/24 08:00 05/26/24 10:11 650 MG Ondansetron HCl 4 mg Q4HP PRN IV 05/16/24 08:00 05/28/24 10:41 4 MG Nitroglycerin 0.4 mg Q5MINP PRN SL 05/16/24 08:00 Ipratropium [place] 0.5 mg Q4HP PRN NEB 05/16/24 08:00 05/17/24 15:38 0.5 MG Pantoprazole Sodium 40 mg DAILY IV 05/16/24 10:00 05/28/24 09:37 40 MG Alprazolam 0.25 mg TIDPRN PRN PO 05/16/24 18:00 05/27/24 20:47 0.25 MG Albuterol 1.25 mg Q4HWA PRN NEB 05/17/24 14:15 05/28/24 14:56 1.25 MG Ipratropium [place] 0.5 mg Q4HWA NEB 05/17/24 18:00 05/28/24 14:56 0.5 MG Phenylephrine HCl 250 ml @ 30 mls/hr Q8H20M IV 05/17/24 23:00 Midazolam HCl 50 ml @ 1 mls/hr Q24H IV 05/17/24 23:30 05/21/24 15:54 4 MLS/HR Micafungin Sodium 100 mg/Sodium Chloride 100 ml @ 100 mls/hr DAILY IV 05/19/24 10:00 05/28/24 09:38 100 MLS/HR Enoxaparin Sodium 70 mg Q12HR SC 05/20/24 22:00 05/28/24 09:37 70 MG Amiodarone HCl 200 mg Q12HR PO 05/20/24 22:00 05/28/24 09:38 200 MG Norepinephrine Bitartrate 250 ml @ 1.875 mls/ hr Q24H IV 05/20/24 11:15 05/24/24 07:26 1.875 MLS/HR Furosemide 20 mg DAILY IV 05/21/24 10:00 05/28/24 09:38 20 MG Dexmedetomidine HCl 400 mcg/ Dextrose 100 ml @ 3.615 mls/ hr Q24H IV 05/20/24 16:30 05/27/24 08:55 9.038 MLS/HR Enteral Nutritional Formula 1,000 ml 40ML/HR GT 05/22/24 12:00 05/27/24 02:43 1,000 ML Ceftriaxone Sodium/Dextrose 50 ml @ 50 mls/hr DAILY IV 05/24/24 10:00 05/28/24 09:44 50 MLS/HR Acetaminophen/ Hydrocodone Bitart 1 tab Q6HPRN PRN PO 05/25/24 18:45 05/28/24 11:30 1 TAB Budesonide 0.5 mg BID NEB 05/26/24 10:00 05/28/24 07:05 0.5 MG Morphine Sulfate 2 mg Q2HPRN PRN IV 05/27/24 10:45 Lorazepam 1 mg Q2HP PRN IV 05/27/24 10:45 Hydralazine HCl 10 mg Q4HP PRN IV 05/28/24 02:00 Methylprednisolone Sodium Succinate 40 mg DAILY IV 05/28/24 10:00 05/28/24 09:37 40 MG PHYSICAL EXAM: - GENERAL: Alert and oriented x 3. No acute distress. Well-nourished. - EYES: EOMI. Anicteric. - HENT: Moist mucous membranes. No scleral icterus. No cervical lymphadenopathy. - LUNGS: Clear to auscultation bilaterally. + accessory muscle use.?\tachypenic - CARDIOVASCULAR: Regular rate and rhythm. No murmur. No JVD. - ABDOMEN: Soft, non-tender and non-distended. No palpable masses. - EXTREMITIES: No edema. Non-tender.SKIN: No rashes or lesions. Warm. - NEUROLOGIC: No focal neurological deficits. CN II-XII grossly intact, but not individually tested. - PSYCHIATRIC: Cooperative. Appropriate mood and affect. laboratory and microbiology Laboratory Tests 05/28/24 03:20 Test 05/28/24 03:20 Range/Units Serum Glucose 138 H 74-106 mg/dL Problem List/Assessment/Plan Problem List/Assessment/Plan ID Problem List: 1. Acute on chronic hypoxic respiratory failure 2. Lung cancer (right) 3. Right lung cavitary pneumonia 4. Possible obstructive post-obstructive pneumonia 5. Sepsis, septic shock Assessment: This is an 88 y.o. female with a past medical history of lung cancer, COPD, pneumonia, chronic oxygen therapy, status post phlebectomy for DVT, and hypertension. She presents with worsening generalized weakness, increased cough, hemoptysis, bilateral lower extremity swelling, and dysuria over the past two weeks. A PET scan in December suggested a recurrent mass in the right lower lobe, confirmed via bronchoscopy. On admission, she had a leukocytosis of 15.9, Hb 11.8, and platelets 180. CT chest showed a heterogeneously enhancing mass in the right hilar region with bilateral pleural effusions, compressive atelectasis, and a moderate-sized pericardial effusion. She is normally ambulatory but has been bed-bound recently with no smoking or alcohol history, albeit with secondhand smoke exposure from a chronic smoking . Patient was admitted on May 15 and became tachycardic and hypotensive during hospitalization. She was treated with bronchodilators, IV antibiotics (levofloxacin and vancomycin), and underwent thoracentesis. 05/19: CTPE shows no pulmonary embolism , extensive consolidation in the right lung , large right and moderate left plural effusions. moderate pericardial effusion . Patient had a bronchoscopy done today , BAL was done of the right middle and lower lobes. Fungal and bacterial cultures were sent. mucoso was erithemidus, blockages of right upper lobe and partial obstruction of right lower lobe, both noted during the procedure. Left lung appeared normal. Biopsy was obtained from the right main stem at the site of abnormal mucosa. 05/20: White count is going down to 17.2 , HIV test is negative , covid test is negative , waiting for aspergellus test to come back. Blood cultures remain negative as well as mercenaries are negative, pleural fluid cultures growth is negative. Respiratory sputum cultures are within normal. 05/21: home mold report shows there was aspergillus/penicillium exposure , all other fungal organisms are less concerns. cultures from bronci and plural fluid remain without growth 05/23: Leukocytosis is improving clinically , patient is stable. Chest X-ray shows multifocal airspace disease that is largely unchanged. Sputum cultures are negative for bacteria . Bronchocus negative for bacteria and plural fluid cultures are also negative for bacteria. 05/24: chest x-ray without any changes , white count remains 11.5 05/25: Patient is struggling with spontaneous breathing trials , tiring out . cultures remain negative , still waiting for fungal culture results as well as path and cytology 05/27: No new findings of growth on cultures and remain negative 05/28: terminall weaned Plan: recommend a 3 week course of ceftriaxone can stop micafungen once cultures have finalized will follow up on cytology Monitor respiratory cultures and blood cultures. follow up on plural fluid cultures and cytology Test broadly for TB, HIV, Cocci antibody, Aspergillus antibody. Authorized and Performed by: Ramo Alan Total critical care time: Approximately 70 minutes Due to a high probability of clinically significant, life threatening deterioration, the patient required my highest level of preparedness to intervene emergently and I personally spent this critical care time directly and personally managing the patient. This critical care time included obtaining a history; examining the patient; pulse oximetry; ordering and review of studies; arranging urgent treatment with development of a management plan; evaluation of patient's response to treatment; frequent reassessment; and, discussions with other providers. This critical care time was performed to assess and manage the high probability of imminent, life-threatening deterioration that could result in multi-organ failure. It was exclusive of separately billable procedures and treating other patients and teaching time. Plan discussed with: Patient Dietary Evaluation Review Comments: Monitor PO intake to meet her needs to 75% at least. Expected Outcomes/Goals: Gradual weight loss and breath with less difficulties. RAMO ALAN MD May 28, 2024 15:59
--- NOTE | 2024-05-28 16:42 | DVH ---
BILATERAL Lower Extremity Arterial Duplex Date: 05/28/2024 03:24 PM Clinical History: NONPLAPABLE RADIAL PULSES Comparison: US BI LAT UPPER DVT on DOS: 05/18/24 Technique: Duplex Doppler evaluation including color Doppler and spectral/pulsed waveform analysis of the lower extremity arteries was performed. Finding: RIGHT: Peak systolic velocities are as follows: Right subclavian artery: 83 m/sec Right axillary artery: 63 m/sec Right brachial artery: 122 m/sec Right radial artery: 93 m/sec Right ulnar artery: 100 m/sec The waveforms are biphasic and triphasic waveforms. LEFT: Peak systolic velocities are as follows: Left subclavian artery: 93 m/sec Left axillary artery: 89 m/sec Left brachial artery: 121 m/sec Left radial artery: 104 m/sec Left ulnar artery: 78 m/sec The waveforms are biphasic and triphasic waveforms IMPRESSION: 1. There is no evidence for peripheral vascular insufficiency in the right upper extremity 2. There is no evidence for peripheral vascular insufficiency in the left upper extremity. 3. No significant focal stenosis is identified.
--- NOTE | 2024-05-28 16:43 | DVH ---
BILATERAL Lower Extremity Arterial Duplex Date: 05/28/2024 02:52 PM Clinical History: NO PEDAL PULSE PALPATED OR AUSCULATED WITH DOPPLER Comparison: US BILAT LOWER DVT on DOS: 05/16/24 Technique: Duplex Doppler evaluation including color Doppler and spectral/pulsed waveform analysis of the lower extremity arteries was performed. Finding: RIGHT: Peak systolic velocities are as follows: COAT AGENT 94 cm/s Deep femoral 85 cm/s SFA proximal 81 cm/s SFA mid-portion 108 cm/s SFA distal : Not visualized Popliteal 46 cm/s Posterior tibial 108 cm/s Anterior tibial 11 cm/s Dorsalis pedis 13 cm/s Monophasic waveform within the anterior tibial artery. Otherwise, biphasic and triphasic waveforms t hroughout the visualized right lower extremity arteries with the right distal superficial femoral art najma not visualized. LEFT: Peak systolic velocities are as follows: COAT AGENT 91 cm/s Deep femoral 54 cm/s SFA proximal 95 cm/s SFA mid-portion 95 cm/s SFA distal 70 cm/s Popliteal 43 cm/s Posterior tibial 64 cm/s Anterior tibial 51 cm/s Dorsalis pedis 26 cm/s Triphasic and biphasic waveforms throughout the left lower extremity arteries IMPRESSION: There is about 50% stenosis of the right posterior tibial artery based on peak systolic velocities. Monophasic waveform within the right anterior tibial artery which may be from vasodilation versus ath erosclerotic disease. No hemodynamically significant stenosis of the left lower extremity arteries. REFERENCE VALUES, [facility] ([facility]) vascular Imaging Lab Criteria: Peak systolic velocity ranges (in cm/sec) are as follows: <150 cm/s - <20 % stenosis 150-200 cm/s - 20-49% stenosis 200-300 cm/s - 50-75% stenosis >300 cm/s -> 75% stenosis
--- NOTE | 2024-05-28 17:01 | DVHPN2 ---
Subjective Patient was was terminally weaned overnight, currently not on any vasopressors, patient was modified code. As per daughter at bedside patient is communicative but does note dark does nod her head for yes or no, currently tolerating tube feeding. Reviewed: Care Plan Changes from previous H/P or p: No Changes Eyes: No Pain, No Vision change, No Conjunctivae inflammation, No Eyelid inflammation, No Other, No Redness ENT: No Ear pain, No Ear discharge, No Nose pain, No Nose discharge, No Nose congestion, No Mouth pain, No Mouth swelling, No Throat pain, No Throat swelling, No Other Cardiovascular: No Chest Pain, No Palpitations, No Orthopnea, No Paroxysmal Noc. Dyspnea; Edema; No Lt Headedness, No Other Respiratory: Cough; No Dry; Shortness of breath, SOB with excertion; No Wheezing, No Hemoptysis, No Pleuritic Pain, No Sputum, No Other Gastrointestinal: No Nausea, No Vomiting, No Abdominal Pain, No Diarrhea, No Constipation, No Melena, No Hematochezia, No Other Genitourinary: No Dysuria, No Frequency, No Incontinence, No Hematuria, No Retention, No Other Musculoskeletal: No other, No neck pain, No shoulder pain, No arm pain, No back pain, No hand pain, No leg pain, No foot pain Skin: No Rash, No Lesions, No Jaundice, No Bruising, No Other Objective Vitals Vital Signs Date Time Temp Pulse Resp B/P (MAP) Pulse Ox O2 Delivery O2 Flow Rate FiO2 05/28/24 15:02 108 18 100 05/28/24 14:00 Nasal Cannula* 2 28 05/28/24 14:00 99.0 127/73 (91) 210.2 Intake/Output Intake and Output 05/28/24 07:00 Intake Total 411.739 ml Output Total 975 ml Balance -563.261 ml Intake Oral 90 ml IV Total 197.739 ml Tube Feeding 124 ml Output Urine Total 975 ml Exam HEENT pupils are reactive Neck is supple CV is S1-S2 regular rate and rhythm Respiratory expiratory rhonchi for GI positive bowel sound Extremity no pedal edema 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 Medications Current Medications Medications Dose Ordered Sig/Erica Route Start Time Stop Time Status Last Admin Dose Admin Docusate Sodium 100 mg BIDPRN PRN PO 05/16/24 08:00 05/25/24 22:41 100 MG Acetaminophen 650 mg Q6HP PRN PO 05/16/24 08:00 05/26/24 10:11 650 MG Ondansetron HCl 4 mg Q4HP PRN IV 05/16/24 08:00 05/28/24 10:41 4 MG Nitroglycerin 0.4 mg Q5MINP PRN SL 05/16/24 08:00 Ipratropium [place] 0.5 mg Q4HP PRN NEB 05/16/24 08:00 05/17/24 15:38 0.5 MG Pantoprazole Sodium 40 mg DAILY IV 05/16/24 10:00 05/28/24 09:37 40 MG Alprazolam 0.25 mg TIDPRN PRN PO 05/16/24 18:00 05/27/24 20:47 0.25 MG Albuterol 1.25 mg Q4HWA PRN NEB 05/17/24 14:15 05/28/24 14:56 1.25 MG Ipratropium [place] 0.5 mg Q4HWA NEB 05/17/24 18:00 05/28/24 14:56 0.5 MG Phenylephrine HCl 250 ml @ 30 mls/hr Q8H20M IV 05/17/24 23:00 Midazolam HCl 50 ml @ 1 mls/hr Q24H IV 05/17/24 23:30 05/21/24 15:54 4 MLS/HR Micafungin Sodium 100 mg/Sodium Chloride 100 ml @ 100 mls/hr DAILY IV 05/19/24 10:00 05/28/24 09:38 100 MLS/HR Enoxaparin Sodium 70 mg Q12HR SC 05/20/24 22:00 05/28/24 09:37 70 MG Amiodarone HCl 200 mg Q12HR PO 05/20/24 22:00 05/28/24 09:38 200 MG Norepinephrine Bitartrate 250 ml @ 1.875 mls/ hr Q24H IV 05/20/24 11:15 05/24/24 07:26 1.875 MLS/HR Furosemide 20 mg DAILY IV 05/21/24 10:00 05/28/24 09:38 20 MG Dexmedetomidine HCl 400 mcg/ Dextrose 100 ml @ 3.615 mls/ hr Q24H IV 05/20/24 16:30 11/7/24 08:55 9.038 MLS/HR Enteral Nutritional Formula 1,000 ml 40ML/HR GT 05/22/24 12:00 05/27/24 02:43 1,000 ML Ceftriaxone Sodium/Dextrose 50 ml @ 50 mls/hr DAILY IV 05/24/24 10:00 05/28/24 09:44 50 MLS/HR Acetaminophen/ Hydrocodone Bitart 1 tab Q6HPRN PRN PO 05/25/24 18:45 05/28/24 11:30 1 TAB Budesonide 0.5 mg BID NEB 05/26/24 10:00 05/28/24 07:05 0.5 MG Morphine Sulfate 2 mg Q2HPRN PRN IV 05/27/24 10:45 Lorazepam 1 mg Q2HP PRN IV 05/27/24 10:45 Hydralazine HCl 10 mg Q4HP PRN IV 05/28/24 02:00 Methylprednisolone Sodium Succinate 40 mg DAILY IV 05/28/24 10:00 05/28/24 09:37 40 MG Laboratory Results Laboratory Tests 05/28/24 03:20 Chemistry Test 05/28/24 03:20 Albumin 3.4 g/dL (3.2-4.8) Calcium Level 10.4 mg/dL (8.7-10.4) Total Protein 5.6 g/dL (5.7-8.2) L LFT Test 05/28/24 03:20 Alanine Aminotransferase (ALT) 51 U/L (7-40) H Alkaline Phosphatase 141 U/L (46-116) H Aspartate Amino Transferase (AST) 36 U/L (13-40) Total Bilirubin 0.4 mg/dL (0.2-1.0) Urinalysis Test 05/16/24 08:45 Urine Color Yellow (Yellow) Urine Clarity Clear (Clear) Urine pH 6.5 (5.0-9.0) Urine Specific [place] 1.050 (1.001-1.035) Urine Protein 1+ (Negative) H Urine Ketones Negative (Negative) Urine Blood Negative /uL (Negative) Urine Nitrite Negative (Negative) Urine Bilirubin Negative (Negative) Urine Urobilinogen Normal mg/dL (Negative) Urine Leukocyte Esterase Negative /uL (Negative) Urine RBC 3 /hpf (0 - 4) Urine WBC 3 /hpf (0 - 5) Urine Squamous Epithelial Cells Few /hpf (<5) Urine Bacteria Few /hpf (None Seen) H Urine Osmolality 618 mOsm/kg Urine Glucose Normal mg/dL (Normal) Microbiology Microbiology Date/Time Source Procedure Growth Status 05/19/24 12:42 Bronchial Brushings - Final Resulted 05/19/24 12:42 Bronchial Brushings - Final Resulted 05/19/24 12:42 Bronchial Brushings Pending Resulted 05/19/24 12:42 Bronchial Brushings Pending Resulted 05/19/24 12:42 Bronchial Brushings - Final See Separate Report... Resulted 05/18/24 12:00 Blood Blood Culture - Final NO GROWTH AFTER 5 DAYS OF INCUBATION. 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 Acute on chronic hypoxic respiratory failure suspected secondary to underlying COPD exacerbation as well as right-sided pleural effusion status post intubation, status post patient had extubation yesterday to do currently on O2 supplementation 2. Right lung cavitary pneumonia 3. Right-sided pleural effusion status post thoracentesis 4. Adenocarcinoma lung status post right upper lobectomy, chemoradiation 5. Right lower extremity DVT by history, now left IJ deep venous thrombosis 6. Cardiac arrhythmia requiring ACLS protocol with ROSC 7. Leukocytosis 8. Modified DNR code status, okay to have pressors antibiotics nutrition but no CPR no ACLS protocol as per daughter's request -continue O2 supplementation, med nebs as needed therapeutic Lovenox for DVT, p.o. amiodarone, IV antibiotics, IV antifungal -patient's remains critical, prognosis remained guarded, daughter was updated at bedside in the presence of BRENDEN [place]. -we will watch one more day in ICU as blood pressure is labile, in case I transfer to floor and she needs vasopressor then she needs to come back to ICU as she was modified code as per daughter's request Plan discussed with: Daughter, Other (And bedside RN Tran) My Orders Orders - ELLYN SOTELO MD Procedure Category Date Status Time Bilat Upper Ext Art US 05/28/24 Resulted Duplex 15:21 Date of Service: May 28, 2024 Billing Provider: ELLYN SOTELO MD Common Visit Codes: NOT BILLABLE ELLYN SOTELO MD May 28, 2024 17:01
--- NOTE | 2024-05-28 17:48 | DVHPN2 ---
Progress Note - Dictate Date Seen: May 28, 2024 Has the PT tested + for MRSA If YES, has PT been informed?: No Medical Necessity Reason Pt with a Central, PICC or Fol: Yes The following are medically ne: Central Line, Aden Catheter Reason for aden catheter: Strict I&O Subjective Patient stable on supplemental oxygen She underwent swallow evaluation today which she passed Patient has been constipated with no bowel movement for several days vital signs Vital Sign Date Time Temp Pulse Resp B/P (MAP) Pulse Ox O2 Delivery O2 Flow Rate FiO2 05/28/24 17:00 99.0 111 36 129/72 (91) 99 210.2 05/28/24 16:00 Nasal Cannula* 2 28 Total Intake and Output 05/27/24 05/27/24 05/28/24 15:00 23:00 07:00 Intake Total 197.739 ml 100 ml 114 ml Output Total 750 ml 225 ml Balance 197.739 ml -650 ml -111 ml medications Current Medications Medications Dose Ordered Sig/Erica Route Start Time Stop Time Status Last Admin Dose Admin Docusate Sodium 100 mg BIDPRN PRN PO 05/16/24 08:00 05/25/24 22:41 100 MG Acetaminophen 650 mg Q6HP PRN PO 05/16/24 08:00 05/26/24 10:11 650 MG Ondansetron HCl 4 mg Q4HP PRN IV 05/16/24 08:00 05/28/24 10:41 4 MG Nitroglycerin 0.4 mg Q5MINP PRN SL 05/16/24 08:00 Ipratropium [place] 0.5 mg Q4HP PRN NEB 05/16/24 08:00 05/17/24 15:38 0.5 MG Pantoprazole Sodium 40 mg DAILY IV 05/16/24 10:00 05/28/24 09:37 40 MG Alprazolam 0.25 mg TIDPRN PRN PO 05/16/24 18:00 05/27/24 20:47 0.25 MG Albuterol 1.25 mg Q4HWA PRN NEB 05/17/24 14:15 05/28/24 14:56 1.25 MG Ipratropium [place] 0.5 mg Q4HWA NEB 05/17/24 18:00 05/28/24 14:56 0.5 MG Phenylephrine HCl 250 ml @ 30 mls/hr Q8H20M IV 05/17/24 23:00 Midazolam HCl 50 ml @ 1 mls/hr Q24H IV 05/17/24 23:30 05/21/24 15:54 4 MLS/HR Micafungin Sodium 100 mg/Sodium Chloride 100 ml @ 100 mls/hr DAILY IV 05/19/24 10:00 05/28/24 09:38 100 MLS/HR Enoxaparin Sodium 70 mg Q12HR SC 05/20/24 22:00 05/28/24 09:37 70 MG Amiodarone HCl 200 mg Q12HR PO 05/20/24 22:00 05/28/24 09:38 200 MG Norepinephrine Bitartrate 250 ml @ 1.875 mls/ hr Q24H IV 05/20/24 11:15 05/24/24 07:26 1.875 MLS/HR Furosemide 20 mg DAILY IV 05/21/24 10:00 05/28/24 09:38 20 MG Dexmedetomidine HCl 400 mcg/ Dextrose 100 ml @ 3.615 mls/ hr Q24H IV 05/20/24 16:30 05/27/24 08:55 9.038 MLS/HR Enteral Nutritional Formula 1,000 ml 40ML/HR GT 05/22/24 12:00 05/27/24 02:43 1,000 ML Ceftriaxone Sodium/Dextrose 50 ml @ 50 mls/hr DAILY IV 05/24/24 10:00 05/28/24 09:44 50 MLS/HR Acetaminophen/ Hydrocodone Bitart 1 tab Q6HPRN PRN PO 05/25/24 18:45 05/28/24 11:30 1 TAB Budesonide 0.5 mg BID NEB 05/26/24 10:00 05/28/24 07:05 0.5 MG Morphine Sulfate 2 mg Q2HPRN PRN IV 05/27/24 10:45 Lorazepam 1 mg Q2HP PRN IV 05/27/24 10:45 Hydralazine HCl 10 mg Q4HP PRN IV 05/28/24 02:00 Methylprednisolone Sodium Succinate 40 mg DAILY IV 05/28/24 10:00 05/28/24 09:37 40 MG Clonazepam 0.25 mg BID PRN PO 05/28/24 17:15 objective Elderly female in bed on ventilator sleepy Heart regular rate and rhythm S1 and S2. Lungs fair air movement without any wheezes. Abdomen soft positive bowel sounds. Extremities positive distal pulses. laboratory and microbiology Laboratory Tests 05/28/24 03:20 Test 05/28/24 03:20 Range/Units Serum Glucose 138 H 74-106 mg/dL Problems(with codes): (1) Mass of right lung (2) Weakness (3) Pneumonia Prognosis Plan Start pureed diet as tolerated Discontinue NG tube Lactulose 30 mL p.o. twice a day as needed as needed for constipation Monitor labs Long-term prognosis guarded Dietary Evaluation Review Comments: Monitor PO intake to meet her needs to 75% at least. Expected Outcomes/Goals: Gradual weight loss and breath with less difficulties. Plan discussed with: Other (ICU Nurse) KEILY YUSUF MD May 28, 2024 17:48
[2024-05-28] MEDS: clonazePAM 0.5 MG TAB PO PRN (17:53)
--- NOTE | 2024-05-28 20:26 | DVHPN2 ---
Progress Note - Dictate Date Seen: May 28, 2024 Has the PT tested + for MRSA If YES, has PT been informed?: No Medical Necessity Reason Pt with a Central, PICC or Fol: Yes The following are medically ne: Central Line, Aden Catheter Reason for aden catheter: Strict I&O Subjective Patient seen and examined at bedside. Remains on supplemental oxygen. Overnight events reviewed. vital signs Vital Sign Date Time Temp Pulse Resp B/P (MAP) Pulse Ox O2 Delivery O2 Flow Rate FiO2 05/28/24 18:08 112 26 100 05/28/24 18:02 Nasal Cannula* 2 28 05/28/24 18:00 99.0 126/71 (89) 210.2 Total Intake and Output 05/27/24 05/27/24 05/28/24 15:00 23:00 07:00 Intake Total 197.739 ml 100 ml 114 ml Output Total 750 ml 225 ml Balance 197.739 ml -650 ml -111 ml medications Current Medications Medications Dose Ordered Sig/Erica Route Start Time Stop Time Status Last Admin Dose Admin Docusate Sodium 100 mg BIDPRN PRN PO 05/16/24 08:00 05/25/24 22:41 100 MG Acetaminophen 650 mg Q6HP PRN PO 05/16/24 08:00 05/26/24 10:11 650 MG Ondansetron HCl 4 mg Q4HP PRN IV 05/16/24 08:00 05/28/24 10:41 4 MG Nitroglycerin 0.4 mg Q5MINP PRN SL 05/16/24 08:00 Ipratropium [place] 0.5 mg Q4HP PRN NEB 05/16/24 08:00 05/17/24 15:38 0.5 MG Pantoprazole Sodium 40 mg DAILY IV 05/16/24 10:00 05/28/24 09:37 40 MG Alprazolam 0.25 mg TIDPRN PRN PO 05/16/24 18:00 05/27/24 20:47 0.25 MG Albuterol 1.25 mg Q4HWA PRN NEB 05/17/24 14:15 05/28/24 18:02 1.25 MG Ipratropium [place] 0.5 mg Q4HWA NEB 05/17/24 18:00 05/28/24 18:02 0.5 MG Phenylephrine HCl 250 ml @ 30 mls/hr Q8H20M IV 05/17/24 23:00 Midazolam HCl 50 ml @ 1 mls/hr Q24H IV 05/17/24 23:30 05/21/24 15:54 4 MLS/HR Micafungin Sodium 100 mg/Sodium Chloride 100 ml @ 100 mls/hr DAILY IV 05/19/24 10:00 05/28/24 09:38 100 MLS/HR Enoxaparin Sodium 70 mg Q12HR SC 05/20/24 22:00 05/28/24 09:37 70 MG Amiodarone HCl 200 mg Q12HR PO 05/20/24 22:00 05/28/24 09:38 200 MG Norepinephrine Bitartrate 250 ml @ 1.875 mls/ hr Q24H IV 05/20/24 11:15 05/24/24 07:26 1.875 MLS/HR Furosemide 20 mg DAILY IV 05/21/24 10:00 05/28/24 09:38 20 MG Dexmedetomidine HCl 400 mcg/ Dextrose 100 ml @ 3.615 mls/ hr Q24H IV 05/20/24 16:30 05/27/24 08:55 9.038 MLS/HR Enteral Nutritional Formula 1,000 ml 40ML/HR GT 05/22/24 12:00 05/27/24 02:43 1,000 ML Ceftriaxone Sodium/Dextrose 50 ml @ 50 mls/hr DAILY IV 05/24/24 10:00 05/28/24 09:44 50 MLS/HR Acetaminophen/ Hydrocodone Bitart 1 tab Q6HPRN PRN PO 05/25/24 18:45 05/28/24 11:30 1 TAB Budesonide 0.5 mg BID NEB 05/26/24 10:00 05/28/24 07:05 0.5 MG Morphine Sulfate 2 mg Q2HPRN PRN IV 05/27/24 10:45 Lorazepam 1 mg Q2HP PRN IV 05/27/24 10:45 Hydralazine HCl 10 mg Q4HP PRN IV 05/28/24 02:00 Methylprednisolone Sodium Succinate 40 mg DAILY IV 05/28/24 10:00 05/28/24 09:37 40 MG Clonazepam 0.25 mg BID PRN PO 05/28/24 17:15 05/28/24 17:53 0.25 MG objective Gen.: Patient lying in bed in no apparent distress. Remains on supplemental oxygen. Head: Normocephalic, atraumatic. Eyes: EOMI/PERRLA. Ears: Normal hearing. Normal anatomy. Neck/trachea: Trachea midline, supple. Nose: Normal external anatomy. Mouth: Moist mucous membranes. Chest: Decreased air entry bilaterally. No wheezing or rhonchi. Cardiovascular: Positive S1, positive S2. Regular rate and rhythm. Abdomen: Positive bowel sounds in all 4 quadrants. Soft, non-tender, non- distended. : Deferred. Rectal: Deferred. Skin: Warm, dry. Intact. Extremities: 2+ radial pulses bilaterally. No lower extremity edema. Neuro: No gross motor or sensory deficits. Cranial nerves II through XII intact. Gait not assessed. laboratory and microbiology Laboratory Tests 05/28/24 03:20 Test 05/28/24 03:20 Range/Units Serum Glucose 138 H 74-106 mg/dL Assessment/Plan Impression: Acute on chronic hypoxic respiratory failure secondary to right lung mass On mechanical ventilator LEFT IJ DVT s/p Cardiac arrest with ROSC [id number] bilateral pleural effusion Moderate pericardial effusion Hyponatremia Leukocytosis Hypertension COPD Atelectasis Events: Patient underwent compassionate extubation yesterday On supplemental O2 at 3 LPM NC Patient is DNR/DNI. Off pressors since yesterday (05/27). Off sedation. IS HOB elevation Aspiration precautions WBC trending up, 17.4 Continue abx - ceftriaxone Continue Micafungin Continue bronchodilators Continue IV Solu-Medrol Taper Steroids as tolerated Continue PO amiodarone Eliquis Tube feeds for nutritional support. Diurese w/ Lasix daily Monitor renal function Nephrology recs appreciated. Protonix for GI prophylaxis. Lovenox for DVT prophylaxis. Oncology recs appreciated. 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 Overall poor prognosis Labs and imaging reviewed. Rest of plan as noted below. Plan: s/p compassionate extubation on 05/27. On supplemental O2 at 3 LPM NC S/p bronchoscopy on 05/19. Follow-up results of RLL BAL, Brushings from right lower lobe, right mainstem, and biopsy from right mainstem. CXR image and report reviewed. ABG reviewed. Currently off sedation Pressors as necessary for hemodynamic support. Titrate to keep MAP above 65 mmHg/SBP above 90 mmHg. Continue antibiotics. F/u cultures. Limited chest US of left IJ notable for DVT. Start heparin drip per pharmacy protocol Monitor renal function Monitor electrolytes. Supplement as necessary. Nutritional support. Accucheks, ISS. GI/DVT prophylaxis. Extensive time spent counseling family and answering questions. Overall poor prognosis High likelihood of demise given advanced age and multiple co-morbidities. Pt is DNR/DNI. Condition: Critical Prognosis: Poor given multiple comorbidities. Rest of plan per hospitalist and other consultants. A total of 35 minutes of critical care time was spent reviewing the patient record, examining the patient, making a diagnostic and therapeutic plan, discussing this plan with the medical personnel, following up on diagnostic studies and following the patient for clinical stability excluding any and all procedures. At least 50% of this time was spent in direct, [id number] contact. Thank you Dr. Rodriguez for allowing me to participate in this patient's care. Further recommendations will depend on patient's clinical course. Please do not hesitate to contact me if you have any questions or concerns. This medical document was created using an electronic medical record system with [employer] dictation system. Although this document has been carefully reviewed, there may still be some phonetic and typographical errors. These areas are purely typographical due to imperfections of the software programs, and do not reflect any compromise in the patient's medical care. Dietary Evaluation Review Comments: Monitor PO intake to meet her needs to 75% at least. Expected Outcomes/Goals: Gradual weight loss and breath with less difficulties. Plan discussed with: Other (BRENDEN Burks) Critical Care Time(min): 35 KARMA ZHANG MD May 28, 2024 20:26
[2024-05-29] VITALS (39 sets, daily range): BP systolic 36–130; BP diastolic 18–69; PULSE 29–125; RESP 0–41; TEMP 97.6–98; O2SAT 75–100
[2024-05-29 04:19] LABS: Hemoglobin 9.6 g/dL (12.2-16.2)
[2024-05-29 04:21] LABS: Hematocrit 32.3 % (36.0-46.0); Mean Corpuscular Hemoglobin 23.3 pg (28.0-32.0); Mean Corpuscular Hgb Conc. 29.7 g/dL (32.0-36.0); Mean Corpuscular Volume 78.3 fL (80.0-100.0); Platelet Count (auto) 198 10^3/uL (140-450); Red Blood Cells 4.12 10^6/uL (4.0-5.20); Red Cell Distribution Width 16.3 % (11.8-14.3); White Blood Cell 26.2 10^3/uL (4.4-10.8)
[2024-05-29 04:32] LABS: Chloride 111 mmol/L (98-107); Potassium 3.3 mmol/L (3.5-5.1); Sodium 155 mmol/L (136-145)
[2024-05-29 04:33] LABS: Anion Gap 7 (5-15); Calcium 10.3 mg/dL (8.7-10.4); Carbon Dioxide 37 mmol/L (20-31)
[2024-05-29 04:38] LABS: BUN/Creatinine Ratio 45.9 (10.0-20.0); Basophils % (manual) 0 (0.0-2.0); Blast Cells 0; Blood Urea Nitrogen 39 mg/dL (9-23); Eosinophils % (manual) 0 (0-7); Glucose 201 mg/dL (74-106); Metamyelocytes % 0; Myelocytes % 0; Promyelocytes % 0; Reactive Lymphocytes 0
[2024-05-29 05:26] LABS: Band Neutrophils % (manual) 1; Giant Platelets Few; Large Platelets FEW; Lymphocytes % (manual) 3 (10.0-50.0); Monocytes % (manual) 6 (0-12); Platelet Estimate Adequa; Stomatocytes Moderate
--- NOTE | 2024-05-29 11:19 | DVHPN2 ---
Consult Progress Note Date Seen: May 29, 2024 Subjective Patient reports: Feels better (on 2lNC tachypneic, passed bedside swallow) Objective vital signs Vital Sign Date Time Temp Pulse Resp B/P (MAP) Pulse Ox O2 Delivery O2 Flow Rate FiO2 05/29/24 10:29 110 28 100 05/29/24 10:23 Nasal Cannula 2.0 05/29/24 10:23 28 05/29/24 06:00 109/64 (79) 05/29/24 04:00 98.0 98.0 Total Intake and Output 05/28/24 05/28/24 05/29/24 15:00 23:00 07:00 Intake Total 251 ml 206 ml Output Total 750 ml 375 ml Balance -499 ml -169 ml medications Current Medications Medications Dose Ordered Sig/Erica Route Start Time Stop Time Status Last Admin Dose Admin Docusate Sodium 100 mg BIDPRN PRN PO 05/16/24 08:00 05/25/24 22:41 100 MG Acetaminophen 650 mg Q6HP PRN PO 05/16/24 08:00 05/26/24 10:11 650 MG Ondansetron HCl 4 mg Q4HP PRN IV 05/16/24 08:00 05/28/24 10:41 4 MG Nitroglycerin 0.4 mg Q5MINP PRN SL 05/16/24 08:00 Ipratropium [place] 0.5 mg Q4HP PRN NEB 05/16/24 08:00 05/17/24 15:38 0.5 MG Pantoprazole Sodium 40 mg DAILY IV 05/16/24 10:00 05/29/24 09:22 40 MG Alprazolam 0.25 mg TIDPRN PRN PO 05/16/24 18:00 05/29/24 06:23 0.25 MG Albuterol 1.25 mg Q4HWA PRN NEB 05/17/24 14:15 05/29/24 10:23 1.25 MG Ipratropium [place] 0.5 mg Q4HWA NEB 05/17/24 18:00 05/29/24 10:23 0.5 MG Phenylephrine HCl 250 ml @ 30 mls/hr Q8H20M IV 05/17/24 23:00 Midazolam HCl 50 ml @ 1 mls/hr Q24H IV 05/17/24 23:30 05/21/24 15:54 4 MLS/HR Micafungin Sodium 100 mg/Sodium Chloride 100 ml @ 100 mls/hr DAILY IV 05/19/24 10:00 05/28/24 09:38 100 MLS/HR Enoxaparin Sodium 70 mg Q12HR SC 05/20/24 22:00 05/29/24 09:48 70 MG Amiodarone HCl 200 mg Q12HR PO 05/20/24 22:00 05/29/24 09:32 200 MG Norepinephrine Bitartrate 250 ml @ 1.875 mls/ hr Q24H IV 05/20/24 11:15 05/24/24 07:26 1.875 MLS/HR Furosemide 20 mg DAILY IV 05/21/24 10:00 05/28/24 09:38 20 MG Dexmedetomidine HCl 400 mcg/ Dextrose 100 ml @ 3.615 mls/ hr Q24H IV 05/20/24 16:30 05/27/24 08:55 9.038 MLS/HR Enteral Nutritional Formula 1,000 ml 40ML/HR GT 05/22/24 12:00 05/27/24 02:43 1,000 ML Ceftriaxone Sodium/Dextrose 50 ml @ 50 mls/hr DAILY IV 05/24/24 10:00 05/29/24 09:25 50 MLS/HR Acetaminophen/ Hydrocodone Bitart 1 tab Q6HPRN PRN PO 05/25/24 18:45 05/28/24 11:30 1 TAB Budesonide 0.5 mg BID NEB 05/26/24 10:00 05/29/24 06:17 0.5 MG Morphine Sulfate 2 mg Q2HPRN PRN IV 05/27/24 10:45 Lorazepam 1 mg Q2HP PRN IV 05/27/24 10:45 Hydralazine HCl 10 mg Q4HP PRN IV 05/28/24 02:00 Methylprednisolone Sodium Succinate 40 mg DAILY IV 05/28/24 10:00 05/29/24 09:24 40 MG Clonazepam 0.25 mg BID PRN PO 05/28/24 17:15 05/29/24 03:29 0.25 MG Physical Exam: General: NAD Neck: Supple. No masses. HEENT: PERRL. Normal lids and conjunctiva. Moist mucous membranes. Oropharynx without lesions, exudates, or excessive erythema. Normal appearance of the external aspects of the nose and ears. Heart: Regular rhythm, normal rate. No murmur. No lower extremity edema. Lungs: Normal respiratory effort. Clear to auscultation bilaterally. No wheezes. No crackles. Abdomen: Soft. Non-tender. Non-distended. No masses or abdominal hernia. Msk: No digital cyanosis. Normal strength and tone in all 4 limbs. Skin: Warm and dry, no rashes. Neuro: Alert. No facial droop or slurred speech. Extra-ocular movements intact. Sensation intact to soft touch in all 4 limbs. Psych: Appropriate mood. Full affect. Oriented to person, place, time, and situation. laboratory and microbiology Laboratory Tests 05/29/24 04:10 Test 05/29/24 04:10 Range/Units Serum Glucose 201 H 74-106 mg/dL Problem List/Assessment/Plan Problem List/Assessment/Plan ID Problem List: 1. Acute on chronic hypoxic respiratory failure 2. Lung cancer (right) 3. Right lung cavitary pneumonia 4. Possible obstructive post-obstructive pneumonia 5. Sepsis, septic shock Assessment: This is an 88 y.o. female with a past medical history of lung cancer, COPD, pneumonia, chronic oxygen therapy, status post phlebectomy for DVT, and hypertension. She presents with worsening generalized weakness, increased cough, hemoptysis, bilateral lower extremity swelling, and dysuria over the past two weeks. A PET scan in December suggested a recurrent mass in the right lower lobe, confirmed via bronchoscopy. On admission, she had a leukocytosis of 15.9, Hb 11.8, and platelets 180. CT chest showed a heterogeneously enhancing mass in the right hilar region with bilateral pleural effusions, compressive atelectasis, and a moderate-sized pericardial effusion. She is normally ambulatory but has been bed-bound recently with no smoking or alcohol history, albeit with secondhand smoke exposure from a chronic smoking . Patient was admitted on May 15 and became tachycardic and hypotensive during hospitalization. She was treated with bronchodilators, IV antibiotics (levofloxacin and vancomycin), and underwent thoracentesis. 05/19: CTPE shows no pulmonary embolism , extensive consolidation in the right lung , large right and moderate left plural effusions. moderate pericardial effusion . Patient had a bronchoscopy done today , BAL was done of the right middle and lower lobes. Fungal and bacterial cultures were sent. mucosa was erythematous, blockages of right upper lobe and partial obstruction of right lower lobe, both noted during the procedure. Left lung appeared normal. Biopsy was obtained from the right main stem at the site of abnormal mucosa. 05/20: White count is going down to 17.2 , HIV test is negative , covid test is negative , waiting for aspergillus test to come back. Blood cultures remain negative as well as mercenaries are negative, pleural fluid cultures growth is negative. Respiratory sputum cultures are within normal. 05/21: home mold report shows there was aspergillus/penicillium exposure , all other fungal organisms are less concerns. cultures from bronci and plural fluid remain without growth 05/23: Leukocytosis is improving clinically , patient is stable. Chest X-ray shows multifocal airspace disease that is largely unchanged. Sputum cultures are negative for bacteria . Bronchocus negative for bacteria and plural fluid cultures are also negative for bacteria. 05/24: chest x-ray without any changes , white count remains 11.5 05/25: Patient is struggling with spontaneous breathing trials , tiring out . cultures remain negative , still waiting for fungal culture results as well as path and cytology 05/27: No new findings of growth on cultures and remain negative 05/28: terminally weaned Plan: recommend a 3 week course of ceftriaxone can stop micafungin once cultures have finalized will follow up on cytology Monitor respiratory cultures and blood cultures. follow up on plural fluid cultures and cytology Test broadly for TB, HIV, Cocci antibody, Aspergillus antibody.--> these are all negative Authorized and Performed by: Ramo Alan Total critical care time: Approximately 69 minutes Due to a high probability of clinically significant, life threatening deterioration, the patient required my highest level of preparedness to intervene emergently and I personally spent this critical care time directly and personally managing the patient. This critical care time included obtaining a history; examining the patient; pulse oximetry; ordering and review of studies; arranging urgent treatment with development of a management plan; evaluation of patient's response to treatment; frequent reassessment; and, discussions with other providers. This critical care time was performed to assess and manage the high probability of imminent, life-threatening deterioration that could result in multi-organ failure. It was exclusive of separately billable procedures and treating other patients and teaching time. Plan discussed with: Patient Dietary Evaluation Review Comments: Monitor PO intake to meet her needs to 75% at least. Expected Outcomes/Goals: Gradual weight loss and breath with less difficulties. RAMO ALAN MD May 29, 2024 11:19
[2024-05-29] MEDS: MORPHINE SULFATE INJ 2 MG/ml SYRG IV PRN (11:35)
[2024-05-29] MEDS: POTASSIUM CHL 20MEQ/100ML 100 ML IV SCH (12:25)
[2024-05-29] MEDS: FREE WATER GT SCH (15:07)
--- NOTE | 2024-05-29 16:10 | DVHPN2 ---
Subjective Patient was was terminally weaned the other day, currently not on any vasopressors, patientis modified code. Today daughters noted at bedside but patient's grandson is who was updated regarding current plan of care all the questions were answered. We will get blood cultures x2 as WBC count is trended up, we will discontinue the Solu-Medrol, start free water for hypernatremia. Reviewed: Care Plan Changes from previous H/P or p: No Changes Eyes: No Pain, No Vision change, No Conjunctivae inflammation, No Eyelid inflammation, No Other, No Redness ENT: No Ear pain, No Ear discharge, No Nose pain, No Nose discharge, No Nose congestion, No Mouth pain, No Mouth swelling, No Throat pain, No Throat swelling, No Other Cardiovascular: No Chest Pain, No Palpitations, No Orthopnea, No Paroxysmal Noc. Dyspnea; Edema; No Lt Headedness, No Other Respiratory: Cough; No Dry; Shortness of breath, SOB with excertion; No Wheezing, No Hemoptysis, No Pleuritic Pain, No Sputum, No Other Gastrointestinal: No Nausea, No Vomiting, No Abdominal Pain, No Diarrhea, No Constipation, No Melena, No Hematochezia, No Other Genitourinary: No Dysuria, No Frequency, No Incontinence, No Hematuria, No Retention, No Other Musculoskeletal: No other, No neck pain, No shoulder pain, No arm pain, No back pain, No hand pain, No leg pain, No foot pain Skin: No Rash, No Lesions, No Jaundice, No Bruising, No Other Objective Vitals Vital Signs Date Time Temp Pulse Resp B/P (MAP) Pulse Ox O2 Delivery O2 Flow Rate FiO2 05/29/24 15:12 95/52 05/29/24 14:41 115 32 100 05/29/24 14:36 Nasal Cannula* 2 28 05/29/24 12:00 98.0 98.0 Intake/Output Intake and Output 05/29/24 07:00 Intake Total 457 ml Output Total 1125 ml Balance -668 ml Intake Oral 125 ml Tube Feeding 332 ml Output Urine Total 1125 ml # Bowel Movements 5 Exam HEENT pupils are reactive Neck is supple CV is S1-S2 regular rate and rhythm Respiratory expiratory rhonchi for GI positive bowel sound Extremity no pedal edema PHYSICIAN AIDE does not communicate, nodding her head. Medications Current Medications Medications Dose Ordered Sig/Erica Route Start Time Stop Time Status Last Admin Dose Admin Docusate Sodium 100 mg BIDPRN PRN PO 05/16/24 08:00 05/25/24 22:41 100 MG Acetaminophen 650 mg Q6HP PRN PO 05/16/24 08:00 05/26/24 10:11 650 MG Ondansetron HCl 4 mg Q4HP PRN IV 05/16/24 08:00 05/28/24 10:41 4 MG Nitroglycerin 0.4 mg Q5MINP PRN SL 05/16/24 08:00 Ipratropium [place] 0.5 mg Q4HP PRN NEB 05/16/24 08:00 05/17/24 15:38 0.5 MG Pantoprazole Sodium 40 mg DAILY IV 05/16/24 10:00 05/29/24 09:22 40 MG Alprazolam 0.25 mg TIDPRN PRN PO 05/16/24 18:00 05/29/24 06:23 0.25 MG Albuterol 1.25 mg Q4HWA PRN NEB 05/17/24 14:15 05/29/24 14:35 1.25 MG Ipratropium [place] 0.5 mg Q4HWA NEB 05/17/24 18:00 05/29/24 14:36 0.5 MG Phenylephrine HCl 250 ml @ 30 mls/hr Q8H20M IV 05/17/24 23:00 Midazolam HCl 50 ml @ 1 mls/hr Q24H IV 05/17/24 23:30 05/21/24 15:54 4 MLS/HR Micafungin Sodium 100 mg/Sodium Chloride 100 ml @ 100 mls/hr DAILY IV 05/19/24 10:00 05/29/24 11:20 100 MLS/HR Enoxaparin Sodium 70 mg Q12HR SC 05/20/24 22:00 05/29/24 09:48 70 MG Amiodarone HCl 200 mg Q12HR PO 05/20/24 22:00 05/29/24 09:32 200 MG Norepinephrine Bitartrate 250 ml @ 1.875 mls/ hr Q24H IV 05/20/24 11:15 05/24/24 07:26 1.875 MLS/HR Furosemide 20 mg DAILY IV 05/21/24 10:00 05/29/24 15:12 20 MG Dexmedetomidine HCl 400 mcg/ Dextrose 100 ml @ 3.615 mls/ hr Q24H IV 05/20/24 16:30 05/27/24 08:55 9.038 MLS/HR Enteral Nutritional Formula 1,000 ml 40ML/HR GT 05/22/24 12:00 05/27/24 02:43 1,000 ML Ceftriaxone Sodium/Dextrose 50 ml @ 50 mls/hr DAILY IV 05/24/24 10:00 05/29/24 09:25 50 MLS/HR Acetaminophen/ Hydrocodone Bitart 1 tab Q6HPRN PRN PO 05/25/24 18:45 05/28/24 11:30 1 TAB Budesonide 0.5 mg BID NEB 05/26/24 10:00 05/29/24 06:17 0.5 MG Morphine Sulfate 2 mg Q2HPRN PRN IV 05/27/24 10:45 05/29/24 11:35 2 MG Lorazepam 1 mg Q2HP PRN IV 05/27/24 10:45 Hydralazine HCl 10 mg Q4HP PRN IV 05/28/24 02:00 Clonazepam 0.25 mg BID PRN PO 05/28/24 17:15 05/29/24 03:29 0.25 MG Purified Water 200 ml Q4HR GT 05/29/24 14:15 05/29/24 15:07 200 ML Laboratory Results Laboratory Tests 05/29/24 04:10 Chemistry Test 05/29/24 04:10 Calcium Level 10.3 mg/dL (8.7-10.4) Urinalysis Test 05/16/24 08:45 Urine Color Yellow (Yellow) Urine Clarity Clear (Clear) Urine pH 6.5 (5.0-9.0) Urine Specific [place] 1.050 (1.001-1.035) Urine Protein 1+ (Negative) H Urine Ketones Negative (Negative) Urine Blood Negative /uL (Negative) Urine Nitrite Negative (Negative) Urine Bilirubin Negative (Negative) Urine Urobilinogen Normal mg/dL (Negative) Urine Leukocyte Esterase Negative /uL (Negative) Urine RBC 3 /hpf (0 - 4) Urine WBC 3 /hpf (0 - 5) Urine Squamous Epithelial Cells Few /hpf (<5) Urine Bacteria Few /hpf (None Seen) H Urine Osmolality 618 mOsm/kg Urine Glucose Normal mg/dL (Normal) Microbiology Microbiology Date/Time Source Procedure Growth Status 05/19/24 12:42 Bronchial Brushings - Final Resulted 05/19/24 12:42 Bronchial Brushings - Final Resulted 05/19/24 12:42 Bronchial Brushings Pending Resulted 05/19/24 12:42 Bronchial Brushings Pending Resulted 05/19/24 12:42 Bronchial Brushings - Final See Separate Report... Resulted 05/18/24 12:00 Blood Blood Culture - Final NO GROWTH AFTER 5 DAYS OF INCUBATION. 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 Acute on chronic hypoxic respiratory failure suspected secondary to underlying COPD exacerbation as well as right-sided pleural effusion status post intubation, status post patient had extubation yesterday to do currently on O2 supplementation 2. Right lung cavitary pneumonia 3. Right-sided pleural effusion status post thoracentesis 4. Adenocarcinoma lung status post right upper lobectomy, chemoradiation 5. Right lower extremity DVT by history, now left IJ deep venous thrombosis 6. Cardiac arrhythmia requiring ACLS protocol with ROSC 7. Leukocytosis 8. Modified DNR code status, okay to have pressors antibiotics nutrition but no CPR no ACLS protocol as per daughter's request -get blood cultures x2, discontinue Solu-Medrol, start free water through the NG tube 200 mL q.4 hours, BMP q.12 hours -continue O2 supplementation, med nebs as needed therapeutic Lovenox for DVT, p.o. amiodarone, IV antibiotics, IV antifungal -patient's remains critical, prognosis remained guarded, daughter was updated at bedside in the presence of BRENDEN [place]. -we will watch one more day in ICU as blood pressure is labile, in case I transfer to floor and she needs vasopressor then she needs to come back to ICU as she was modified code as per daughter's request Plan discussed with: Other (Patient's grandson at bedside in the presence of nurse levi) My Orders Orders - ELLYN SOTELO MD Procedure Category Date Status Time Clonazepam Tablet PHA 05/28/24 In Process (Klonopin Tablet) 17:15 C-Diff: Collect Next NICKY 05/29/24 In Process Specimen 13:36 Free Water PHA 05/29/24 In Process 14:15 Basic Metabolic Panel LAB 05/29/24 Logged 16:00 Blood Culture PENG 05/29/24 In Process 14:08 Date of Service: May 29, 2024 Billing Provider: ELLYN SOTELO MD Common Visit Codes: NOT BILLABLE ELLYN SOTELO MD May 29, 2024 16:10
[2024-05-29 17:17] LABS: Chloride 111 mmol/L (98-107); Sodium 151 mmol/L (136-145)
[2024-05-29 17:18] LABS: Anion Gap 4 (5-15); Calcium 10.2 mg/dL (8.7-10.4); Carbon Dioxide 36 mmol/L (20-31)
[2024-05-29 17:23] LABS: BUN/Creatinine Ratio 42.6 (10.0-20.0); Glucose 212 mg/dL (74-106)
[2024-05-29 18:05] LABS: Blood Urea Nitrogen 49 mg/dL (9-23)
--- NOTE | 2024-05-29 18:24 | DVHPN2 ---
Progress Note - Dictate Date Seen: May 29, 2024 Has the PT tested + for MRSA If YES, has PT been informed?: No Medical Necessity Reason Pt with a Central, PICC or Fol: Yes The following are medically ne: Central Line, Aden Catheter Reason for aden catheter: Strict I&O Subjective Patient seen and examined at bedside. Remains on supplemental oxygen. Overnight events reviewed. vital signs Vital Sign Date Time Temp Pulse Resp B/P (MAP) Pulse Ox O2 Delivery O2 Flow Rate FiO2 05/29/24 16:00 97.6 114 23 99/51 (67) 99 97.6 05/29/24 16:00 Nasal Cannula* 2 28 Total Intake and Output 05/28/24 05/28/24 05/29/24 15:00 23:00 07:00 Intake Total 251 ml 206 ml Output Total 750 ml 375 ml Balance -499 ml -169 ml medications Current Medications Medications Dose Ordered Sig/Erica Route Start Time Stop Time Status Last Admin Dose Admin Docusate Sodium 100 mg BIDPRN PRN PO 05/16/24 08:00 05/25/24 22:41 100 MG Acetaminophen 650 mg Q6HP PRN PO 05/16/24 08:00 05/26/24 10:11 650 MG Ondansetron HCl 4 mg Q4HP PRN IV 05/16/24 08:00 05/28/24 10:41 4 MG Nitroglycerin 0.4 mg Q5MINP PRN SL 05/16/24 08:00 Ipratropium [place] 0.5 mg Q4HP PRN NEB 05/16/24 08:00 05/17/24 15:38 0.5 MG Pantoprazole Sodium 40 mg DAILY IV 05/16/24 10:00 05/29/24 09:22 40 MG Alprazolam 0.25 mg TIDPRN PRN PO 05/16/24 18:00 05/29/24 17:16 0.25 MG Albuterol 1.25 mg Q4HWA PRN NEB 05/17/24 14:15 05/29/24 18:11 1.25 MG Ipratropium [place] 0.5 mg Q4HWA NEB 05/17/24 18:00 05/29/24 18:10 0.5 MG Phenylephrine HCl 250 ml @ 30 mls/hr Q8H20M IV 05/17/24 23:00 Midazolam HCl 50 ml @ 1 mls/hr Q24H IV 05/17/24 23:30 05/21/24 15:54 4 MLS/HR Micafungin Sodium 100 mg/Sodium Chloride 100 ml @ 100 mls/hr DAILY IV 05/19/24 10:00 05/29/24 11:20 100 MLS/HR Enoxaparin Sodium 70 mg Q12HR SC 05/20/24 22:00 05/29/24 09:48 70 MG Amiodarone HCl 200 mg Q12HR PO 05/20/24 22:00 05/29/24 09:32 200 MG Norepinephrine Bitartrate 250 ml @ 1.875 mls/ hr Q24H IV 05/20/24 11:15 05/24/24 07:26 1.875 MLS/HR Furosemide 20 mg DAILY IV 05/21/24 10:00 05/29/24 15:12 20 MG Dexmedetomidine HCl 400 mcg/ Dextrose 100 ml @ 3.615 mls/ hr Q24H IV 05/20/24 16:30 05/27/24 08:55 9.038 MLS/HR Enteral Nutritional Formula 1,000 ml 40ML/HR GT 05/22/24 12:00 05/27/24 02:43 1,000 ML Ceftriaxone Sodium/Dextrose 50 ml @ 50 mls/hr DAILY IV 05/24/24 10:00 05/29/24 09:25 50 MLS/HR Acetaminophen/ Hydrocodone Bitart 1 tab Q6HPRN PRN PO 05/25/24 18:45 05/28/24 11:30 1 TAB Budesonide 0.5 mg BID NEB 05/26/24 10:00 05/29/24 06:17 0.5 MG Morphine Sulfate 2 mg Q2HPRN PRN IV 05/27/24 10:45 05/29/24 11:35 2 MG Lorazepam 1 mg Q2HP PRN IV 05/27/24 10:45 Hydralazine HCl 10 mg Q4HP PRN IV 05/28/24 02:00 Clonazepam 0.25 mg BID PRN PO 05/28/24 17:15 05/29/24 03:29 0.25 MG Purified Water 200 ml Q4HR GT 05/29/24 14:15 05/29/24 15:07 200 ML objective Gen.: Patient lying in bed in no apparent distress. Remains on supplemental oxygen. Head: Normocephalic, atraumatic. Eyes: EOMI/PERRLA. Ears: Normal hearing. Normal anatomy. Neck/trachea: Trachea midline, supple. Nose: Normal external anatomy. Mouth: Moist mucous membranes. Chest: Decreased air entry bilaterally. No wheezing or rhonchi. Cardiovascular: Positive S1, positive S2. Regular rate and rhythm. Abdomen: Positive bowel sounds in all 4 quadrants. Soft, non-tender, non- distended. : Deferred. Rectal: Deferred. Skin: Warm, dry. Intact. Extremities: 2+ radial pulses bilaterally. No lower extremity edema. Neuro: No gross motor or sensory deficits. Cranial nerves II through XII intact. Gait not assessed. laboratory and microbiology Laboratory Tests 05/29/24 17:01 05/29/24 04:10 Test 05/29/24 17:01 Range/Units Serum Glucose 212 H 74-106 mg/dL Assessment/Plan Impression: Acute on chronic hypoxic respiratory failure secondary to right lung mass On mechanical ventilator LEFT IJ DVT s/p Cardiac arrest with ROSC [id number] bilateral pleural effusion Moderate pericardial effusion Hyponatremia Leukocytosis Hypertension COPD Atelectasis Events: Patient underwent compassionate extubation on 05/27. Remains on supplemental O2 at 3 LPM NC Patient is DNR/DNI. Off pressors since 05/27. Off sedation. IS Supportive care. HOB elevation Aspiration precautions WBC trending up, 26.2 Continue abx - ceftriaxone Continue Micafungin Continue bronchodilators Continue IV Solu-Medrol Taper Steroids as tolerated Continue PO amiodarone Tube feeds for nutritional support. Diurese w/ Lasix daily Monitor renal function Potassium supplementation Protonix for GI prophylaxis. Lovenox for DVT prophylaxis. Oncology recs appreciated. 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 Overall poor prognosis Labs and imaging reviewed. Rest of plan as noted below. Plan: s/p compassionate extubation on 05/27. On supplemental O2 at 3 LPM NC S/p bronchoscopy on 05/19. Follow-up results of RLL BAL, Brushings from right lower lobe, right mainstem, and biopsy from right mainstem. CXR image and report reviewed. ABG reviewed. Currently off sedation Pressors as necessary for hemodynamic support - currently off Titrate to keep MAP above 65 mmHg/SBP above 90 mmHg. Continue antibiotics. F/u cultures. Limited chest US of left IJ notable for DVT. Start heparin drip per pharmacy protocol Monitor renal function Monitor electrolytes. Supplement as necessary. Nutritional support. Accucheks, ISS. GI/DVT prophylaxis. Extensive time spent counseling family and answering questions. Overall poor prognosis High likelihood of demise given advanced age and multiple co-morbidities. Pt is DNR/DNI. Condition: Critical Prognosis: Poor given multiple comorbidities. Rest of plan per hospitalist and other consultants. A total of 35 minutes of critical care time was spent reviewing the patient record, examining the patient, making a diagnostic and therapeutic plan, discussing this plan with the medical personnel, following up on diagnostic studies and following the patient for clinical stability excluding any and all procedures. At least 50% of this time was spent in direct, [id number] contact. Thank you Dr. Rodriguez for allowing me to participate in this patient's care. Further recommendations will depend on patient's clinical course. Please do not hesitate to contact me if you have any questions or concerns. This medical document was created using an electronic medical record system with [employer] dictation system. Although this document has been carefully reviewed, there may still be some phonetic and typographical errors. These areas are purely typographical due to imperfections of the software programs, and do not reflect any compromise in the patient's medical care. Dietary Evaluation Review Comments: Monitor PO intake to meet her needs to 75% at least. Expected Outcomes/Goals: Gradual weight loss and breath with less difficulties. Plan discussed with: Other (BRENDEN Garrett) Critical Care Time(min): 35 KARMA ZHANG MD May 29, 2024 18:24
--- NOTE | 2024-05-29 18:25 | DVHPN2 ---
Progress Note - Dictate Date Seen: May 29, 2024 Has the PT tested + for MRSA If YES, has PT been informed?: No Medical Necessity Reason Pt with a Central, PICC or Fol: Yes The following are medically ne: Central Line, Aden Catheter Reason for aden catheter: Strict I&O Subjective Patient on supplemental oxygen Patient is tachycardic with tachypnea and hypotension Patient was started on a pureed diet She has had multiple bowel movements yesterday after the lactulose vital signs Vital Sign Date Time Temp Pulse Resp B/P (MAP) Pulse Ox O2 Delivery O2 Flow Rate FiO2 05/29/24 18:16 125 36 100 05/29/24 18:10 Nasal Cannula 2.0 05/29/24 18:10 28 05/29/24 16:00 97.6 99/51 (67) 97.6 Total Intake and Output 05/28/24 05/28/24 05/29/24 15:00 23:00 07:00 Intake Total 251 ml 206 ml Output Total 750 ml 375 ml Balance -499 ml -169 ml medications Current Medications Medications Dose Ordered Sig/Erica Route Start Time Stop Time Status Last Admin Dose Admin Docusate Sodium 100 mg BIDPRN PRN PO 05/16/24 08:00 05/25/24 22:41 100 MG Acetaminophen 650 mg Q6HP PRN PO 05/16/24 08:00 05/26/24 10:11 650 MG Ondansetron HCl 4 mg Q4HP PRN IV 05/16/24 08:00 05/28/24 10:41 4 MG Nitroglycerin 0.4 mg Q5MINP PRN SL 05/16/24 08:00 Ipratropium [place] 0.5 mg Q4HP PRN NEB 05/16/24 08:00 05/17/24 15:38 0.5 MG Pantoprazole Sodium 40 mg DAILY IV 05/16/24 10:00 05/29/24 09:22 40 MG Alprazolam 0.25 mg TIDPRN PRN PO 05/16/24 18:00 05/29/24 17:16 0.25 MG Albuterol 1.25 mg Q4HWA PRN NEB 05/17/24 14:15 05/29/24 18:11 1.25 MG Ipratropium [place] 0.5 mg Q4HWA NEB 05/17/24 18:00 11/9/24 18:10 0.5 MG Phenylephrine HCl 250 ml @ 30 mls/hr Q8H20M IV 05/17/24 23:00 Midazolam HCl 50 ml @ 1 mls/hr Q24H IV 05/17/24 23:30 05/21/24 15:54 4 MLS/HR Micafungin Sodium 100 mg/Sodium Chloride 100 ml @ 100 mls/hr DAILY IV 05/19/24 10:00 05/29/24 11:20 100 MLS/HR Enoxaparin Sodium 70 mg Q12HR SC 05/20/24 22:00 05/29/24 09:48 70 MG Amiodarone HCl 200 mg Q12HR PO 05/20/24 22:00 05/29/24 09:32 200 MG Norepinephrine Bitartrate 250 ml @ 1.875 mls/ hr Q24H IV 05/20/24 11:15 05/24/24 07:26 1.875 MLS/HR Furosemide 20 mg DAILY IV 05/21/24 10:00 05/29/24 15:12 20 MG Dexmedetomidine HCl 400 mcg/ Dextrose 100 ml @ 3.615 mls/ hr Q24H IV 05/20/24 16:30 05/27/24 08:55 9.038 MLS/HR Enteral Nutritional Formula 1,000 ml 40ML/HR GT 05/22/24 12:00 05/27/24 02:43 1,000 ML Ceftriaxone Sodium/Dextrose 50 ml @ 50 mls/hr DAILY IV 05/24/24 10:00 05/29/24 09:25 50 MLS/HR Acetaminophen/ Hydrocodone Bitart 1 tab Q6HPRN PRN PO 05/25/24 18:45 05/28/24 11:30 1 TAB Budesonide 0.5 mg BID NEB 05/26/24 10:00 05/29/24 06:17 0.5 MG Morphine Sulfate 2 mg Q2HPRN PRN IV 05/27/24 10:45 05/29/24 11:35 2 MG Lorazepam 1 mg Q2HP PRN IV 05/27/24 10:45 Hydralazine HCl 10 mg Q4HP PRN IV 05/28/24 02:00 Clonazepam 0.25 mg BID PRN PO 05/28/24 17:15 05/29/24 03:29 0.25 MG Purified Water 200 ml Q4HR GT 05/29/24 14:15 05/29/24 15:07 200 ML objective Elderly female in bed on ventilator sleepy Heart regular rate and rhythm S1 and S2. Lungs fair air movement without any wheezes. Abdomen soft positive bowel sounds. Extremities positive distal pulses. laboratory and microbiology Laboratory Tests 05/29/24 17:01 05/29/24 04:10 Test 05/29/24 17:01 Range/Units Serum Glucose 212 H 74-106 mg/dL Problems(with codes): (1) Mass of right lung (2) Pneumonia (3) Weakness (4) Shortness of breath Prognosis Plan Patient's condition is labile and prognosis is poor Continue supportive care Patient is being monitored in ICU She has modified DNR Dietary Evaluation Review Comments: Monitor PO intake to meet her needs to 75% at least. Expected Outcomes/Goals: Gradual weight loss and breath with less difficulties. Plan discussed with: Other (None) KEILY YUSUF MD May 29, 2024 18:25
--- NOTE | 2024-05-30 19:00 | DVHPN2 ---
Consult Progress Note Date Seen: May 30, 2024 Subjective Patient reports: Feels better (increased wob) Objective vital signs Vital Sign Date Time Temp Pulse Resp B/P (MAP) Pulse Ox O2 Delivery O2 Flow Rate FiO2 05/29/24 19:20 29 0 05/29/24 19:01 75 05/29/24 18:10 Nasal Cannula 2.0 05/29/24 18:10 28 05/29/24 16:00 97.6 97.6 Total Intake and Output 05/29/24 05/29/24 05/30/24 15:00 23:00 07:00 Intake Total 400 ml Output Total 250 ml Balance 150 ml laboratory and microbiology Laboratory Tests 05/29/24 17:01 05/29/24 04:10 Test 05/29/24 17:01 Range/Units Serum Glucose 212 H 74-106 mg/dL Physical Exam: General: NAD Neck: Supple. No masses. HEENT: PERRL. Normal lids and conjunctiva. Moist mucous membranes. Oropharynx without lesions, exudates, or excessive erythema. Normal appearance of the external aspects of the nose and ears. Heart: Regular rhythm, normal rate. No murmur. No lower extremity edema. Lungs: Normal respiratory effort. Clear to auscultation bilaterally. No wheezes. No crackles. Abdomen: Soft. Non-tender. Non-distended. No masses or abdominal hernia. Msk: No digital cyanosis. Normal strength and tone in all 4 limbs. Skin: Warm and dry, no rashes. Neuro: Alert. No facial droop or slurred speech. Extra-ocular movements intact. Sensation intact to soft touch in all 4 limbs. Psych: Appropriate mood. Full affect. Oriented to person, place, time, and situation. Problem List/Assessment/Plan Problem List/Assessment/Plan ID Problem List: 1. Acute on chronic hypoxic respiratory failure 2. Lung cancer (right) 3. Right lung cavitary pneumonia 4. Possible obstructive post-obstructive pneumonia 5. Sepsis, septic shock Assessment: This is an 88 y.o. female with a past medical history of lung cancer, COPD, pneumonia, chronic oxygen therapy, status post phlebectomy for DVT, and hypertension. She presents with worsening generalized weakness, increased cough, hemoptysis, bilateral lower extremity swelling, and dysuria over the past two weeks. A PET scan in December suggested a recurrent mass in the right lower lobe, confirmed via bronchoscopy. On admission, she had a leukocytosis of 15.9, Hb 11.8, and platelets 180. CT chest showed a heterogeneously enhancing mass in the right hilar region with bilateral pleural effusions, compressive atelectasis, and a moderate-sized pericardial effusion. She is normally ambulatory but has been bed-bound recently with no smoking or alcohol history, albeit with secondhand smoke exposure from a chronic smoking . Patient was admitted on May 15 and became tachycardic and hypotensive during hospitalization. She was treated with bronchodilators, IV antibiotics (levofloxacin and vancomycin), and underwent thoracentesis. 05/19: CTPE shows no pulmonary embolism , extensive consolidation in the right lung , large right and moderate left plural effusions. moderate pericardial effusion . Patient had a bronchoscopy done today , BAL was done of the right middle and lower lobes. Fungal and bacterial cultures were sent. mucosa was erythematous, blockages of right upper lobe and partial obstruction of right lower lobe, both noted during the procedure. Left lung appeared normal. Biopsy was obtained from the right main stem at the site of abnormal mucosa. 05/20: White count is going down to 17.2 , HIV test is negative , covid test is negative , waiting for aspergillus test to come back. Blood cultures remain negative as well as mercenaries are negative, pleural fluid cultures growth is negative. Respiratory sputum cultures are within normal. 05/21: home mold report shows there was aspergillus/penicillium exposure , all other fungal organisms are less concerns. cultures from bronci and plural fluid remain without growth 05/23: Leukocytosis is improving clinically , patient is stable. Chest X-ray shows multifocal airspace disease that is largely unchanged. Sputum cultures are negative for bacteria . Bronchocus negative for bacteria and plural fluid cultures are also negative for bacteria. 05/24: chest x-ray without any changes , white count remains 11.5 05/25: Patient is struggling with spontaneous breathing trials , tiring out . cultures remain negative , still waiting for fungal culture results as well as path and cytology 05/27: No new findings of growth on cultures and remain negative 05/28: terminally weaned Plan: recommend a 3 week course of ceftriaxone can stop micafungin once cultures have finalized will follow up on cytology Monitor respiratory cultures and blood cultures. follow up on plural fluid cultures and cytology Test broadly for TB, HIV, Cocci antibody, Aspergillus antibody.--> these are all negative Authorized and Performed by: Ramo Alan Total critical care time: Approximately 69 minutes Due to a high probability of clinically significant, life threatening deterioration, the patient required my highest level of preparedness to intervene emergently and I personally spent this critical care time directly and personally managing the patient. This critical care time included obtaining a history; examining the patient; pulse oximetry; ordering and review of studies; arranging urgent treatment with development of a management plan; evaluation of patient's response to treatment; frequent reassessment; and, discussions with other providers. This critical care time was performed to assess and manage the high probability of imminent, life-threatening deterioration that could result in multi-organ failure. It was exclusive of separately billable procedures and treating other patients and teaching time. Plan discussed with: Patient Dietary Evaluation Review Comments: Monitor PO intake to meet her needs to 75% at least. Expected Outcomes/Goals: Gradual weight loss and breath with less difficulties. RAMO ALAN MD May 30, 2024 19:00
== END 2024-05-29 19:23 | DRG 870 ==
LOC: EDBD 20:08 → ER 20:08 → TELE 05-16 07:46 → TELE-CENTR 05-16 08:26 → TELE 05-16 08:26 → TELE-CENTR 05-16 14:47 → ICU WEST 05-17 23:29
PROVIDERS: ADMIT Hospitalist; ATTEND Internal Medicine
PROC: 0W993ZZ Drainage of Right Pleural Cavity, Percutaneous Approach (ICD-10-PCS; 2024-05-17)
PROC: 0B9D8ZX Drainage of Right Middle Lung Lobe, Via Natural or Artificial Opening Endoscopic, Diagnostic (ICD-10-PCS; 2024-05-17)
PROC: 02HV33Z Insertion of Infusion Device into Superior Vena Cava, Percutaneous Approach (ICD-10-PCS; 2024-05-17)
PROC: B548ZZA Ultrasonography of Superior Vena Cava, Guidance (ICD-10-PCS; 2024-05-17)
PROC: 5A1955Z Respiratory Ventilation, Greater than 96 Consecutive Hours (ICD-10-PCS; principal; 2024-05-18)
PROC: 0BH18EZ Insertion of Endotracheal Airway into Trachea, Via Natural or Artificial Opening Endoscopic (ICD-10-PCS; 2024-05-18)
PROC: 5A12012 Performance of Cardiac Output, Single, Manual (ICD-10-PCS; 2024-05-18)
PROC: 0B9F8ZX Drainage of Right Lower Lung Lobe, Via Natural or Artificial Opening Endoscopic, Diagnostic (ICD-10-PCS; 2024-05-19)
PROC: 0BD38ZX Extraction of Right Main Bronchus, Via Natural or Artificial Opening Endoscopic, Diagnostic (ICD-10-PCS; 2024-05-19)
DX: A41.9 Sepsis, unspecified organism (principal); J18.9 Pneumonia, unspecified organism; J96.21 Acute and chronic respiratory failure with hypoxia; R65.21 Severe sepsis with septic shock; J90 Pleural effusion, not elsewhere classified; I31.39 Other pericardial effusion (noninflammatory); E87.1 Hypo-osmolality and hyponatremia; I82.C12 Acute embolism and thrombosis of left internal jugular vein; J44.1 Chronic obstructive pulmonary disease with (acute) exacerbation; C34.91 Malignant neoplasm of unspecified part of right bronchus or lung; E87.4 Mixed disorder of acid-base balance; Z99.11 Dependence on respirator [ventilator] status; I82.622 Acute embolism and thrombosis of deep veins of left upper extremity; C34.31 Malignant neoplasm of lower lobe, right bronchus or lung; I46.9 Cardiac arrest, cause unspecified; J98.09 Other diseases of bronchus, not elsewhere classified; E87.6 Hypokalemia; I10 Essential (primary) hypertension; Z66 Do not resuscitate; E27.8 Other specified disorders of adrenal gland; E87.70 Fluid overload, unspecified; Z87.01 Personal history of pneumonia (recurrent); Z20.822 Contact with and (suspected) exposure to COVID-19; Z99.81 Dependence on supplemental oxygen; Z85.118 Personal history of other malignant neoplasm of bronchus and lung; Z92.3 Personal history of irradiation; Z92.21 Personal history of antineoplastic chemotherapy; Z90.2 Acquired absence of lung [part of]; Z87.891 Personal history of nicotine dependence; Z86.718 Personal history of other venous thrombosis and embolism; Z83.3 Family history of diabetes mellitus; Z82.49 Family history of ischemic heart disease and other diseases of the circulatory system; Z79.2 Long term (current) use of antibiotics; Z79.899 Other long term (current) drug therapy; Z74.01 Bed confinement status
CPT/HCPCS: 31624; 31625; 32555; 36415; 36600; 71045; 71260; 71275; 76604; 76775; 80048; 80053; 80202; 81001; 82306; 82805; 82962; 83735; 83880; 83930; 83935; 83970; 83986; 84100; 84443; 84484; 84550; 85007; 85025; 85027; 85610; 85730; 86606; 86703; 87040; 87070; 87081; 87086; 87205; 87426; 87804; 89051; 92507; 92610; 92950; 93005; 93306; 93925; 93970; 94002; 94003; 94640; 99291; G0378; J0171; J1956; J2248; J2250; J2405; J2470; J3480; J7060